=== PATIENT | male | born 1945 | race Caucasian/White ===

== ENCOUNTER → 2017-08-06 13:58 | Outpatient (CLI) | payer MEDICARE, SELFPAY ==
[2017-07-02 14:29] VITALS: BP 110/64
--- NOTE | 2017-08-06 14:03 | RAD_ITS ---
STUDY: X-RAY - CERVICAL SPINE REASON FOR EXAM: Male, 72 years old. Neck pain TECHNIQUE: 6 view(s) of the cervical spine were obtained. COMPARISON: None FINDINGS: Normal anterior atlantoaxial articulation. Normal odontoid process. There is reversal of the normal cervical lordosis. There is diffuse endplate spondylosis of the cervical spine. There is narrowing of the C3-4, L4-5, 5-6, and 6-7 disc spaces. There is multi-level osseous foraminal stenosis. The soft tissue structures are unremarkable. RAD/Cerv Spine 4 or 5 Views IMPRESSION: Degenerative changes of the cervical spine as detailed above. There is no evidence of fracture or subluxation. There is reversal of the normal lordotic curvature. Electronically Signed: Ankit Montelongo MD at 16:48 EST , Service support ,
[2017-08-06 14:15] LABS: Prothrombin Time Fingerstick 50.4 SEC (11.9-14.4)
[2017-08-06 16:00] LABS: International Normalized Ratio 3.4; Prothrombin Time (Protime)PT. 33.1 SECONDS (11.7-14.9)
== END ==
PROVIDERS: Family Provider Family Medicine; PCP Family Medicine; Visit Provider Family Medicine
DX: M54.2 Cervicalgia (principal); I48.0 Paroxysmal atrial fibrillation
CPT/HCPCS: 36415; 36416; 72050; 85610

== ENCOUNTER 2017-08-18 12:58 | Outpatient (RCR) | payer MEDICARE, SELFPAY ==
[2017-08-18 13:10] LABS: Prothrombin Time Fingerstick 28.5 SEC (11.9-14.4)
== END 2017-08-18 15:00 | disposition home or self-care (01) ==
LOC: MTLAB 12:58
PROVIDERS: Family Provider Family Medicine; PCP Family Medicine; Visit Provider Internal Medicine Cardiovascular Disease
DX: I48.0 Paroxysmal atrial fibrillation (principal)
CPT/HCPCS: 36416; 85610

== ENCOUNTER 2017-09-28 10:33 | Outpatient (RCR) | payer MEDICARE, SELFPAY ==
[2017-09-28 10:56] LABS: Prothrombin Time Fingerstick 42.8 SEC (11.9-14.4)
[2017-09-28 12:32] LABS: International Normalized Ratio 3.1; Prothrombin Time (Protime)PT. 32.1 SECONDS (11.7-14.9)
== END 2017-09-28 11:00 | disposition home or self-care (01) ==
LOC: MTLAB 10:33
PROVIDERS: Family Provider Family Medicine; PCP Family Medicine; Visit Provider Internal Medicine Cardiovascular Disease
DX: I48.0 Paroxysmal atrial fibrillation (principal); Z79.01 Long term (current) use of anticoagulants
CPT/HCPCS: 36415; 36416; 85610

== ENCOUNTER → 2017-10-22 12:12 | Outpatient (CLI) | payer MEDICARE, SELFPAY ==
[2017-10-22 12:36] LABS: Prothrombin Time Fingerstick 29.8 SEC (11.9-14.4)
== END ==
PROVIDERS: Family Provider Family Medicine; PCP Family Medicine; Visit Provider Internal Medicine Cardiovascular Disease
DX: I48.0 Paroxysmal atrial fibrillation (principal); Z79.01 Long term (current) use of anticoagulants
CPT/HCPCS: 36416; 85610

== ENCOUNTER → 2017-11-23 13:03 | Outpatient (CLI) | payer MEDICARE, SELFPAY ==
[2017-11-23 13:21] LABS: Prothrombin Time Fingerstick 15.7 SEC (11.9-14.4)
== END ==
PROVIDERS: Family Provider Family Medicine; PCP Family Medicine; Visit Provider Anesthesiology Pain Medicine
DX: I48.0 Paroxysmal atrial fibrillation (principal); Z79.01 Long term (current) use of anticoagulants
CPT/HCPCS: 36416; 85610

== ENCOUNTER → 2017-12-21 07:03 | Outpatient (CLI) | payer MEDICARE, SELFPAY ==
[2017-12-21 10:38] LABS: International Normalized Ratio 2.7; Prothrombin Time (Protime)PT. 28.5 SECONDS (11.7-14.9)
[2017-12-21 10:52] LABS: AST(SGOT) 16 U/L (15-37); Alanine Aminotransfer ALT/SGPT 28 U/L (16-61); Albumin, Serum 3.1 g/dL (3.2-5.0); Alkaline Phosphatase 83 U/L (45-117); Bilirubin, Direct 0.12 mg/dL (0.00-0.30); Cholesterol 161 mg/dL (200); Globulin 4.7 g/dL (2.2-4.2); High Density Lipoprotein 41 mg/dL; Protein, Total 7.8 g/dL (6.4-8.2); Triglycerides 73 mg/dL; Very Low Density Lipoprotein 15 mg/dL (5-40)
== END ==
PROVIDERS: Family Provider Family Medicine; PCP Family Medicine; Visit Provider Physician Assistant Medical
DX: E78.5 Hyperlipidemia, unspecified (principal); I48.0 Paroxysmal atrial fibrillation; Z79.01 Long term (current) use of anticoagulants; Z79.899 Other long term (current) drug therapy
CPT/HCPCS: 36415; 80061; 80076; 85610

== ENCOUNTER 2018-01-07 07:05 | Outpatient (RCR) | payer MEDICARE, SELFPAY ==
[2018-01-07 07:20] LABS: Prothrombin Time Fingerstick 32.8 SEC (11.9-14.4)
== END 2018-01-07 09:00 ==
LOC: MTLAB 07:05
PROVIDERS: Family Provider Family Medicine; PCP Family Medicine; Visit Provider Internal Medicine Cardiovascular Disease
DX: I48.0 Paroxysmal atrial fibrillation (principal); Z79.01 Long term (current) use of anticoagulants
CPT/HCPCS: 36416; 85610

== ENCOUNTER → 2018-01-14 13:55 | Outpatient (CLI) | payer MEDICARE, SELFPAY ==
[2018-01-14 14:06] LABS: Prothrombin Time Fingerstick 17.6 SEC (11.9-14.4)
== END ==
PROVIDERS: Family Provider Family Medicine; PCP Family Medicine; Visit Provider Anesthesiology Pain Medicine
DX: Z79.01 Long term (current) use of anticoagulants (principal)
CPT/HCPCS: 36416; 85610

== ENCOUNTER → 2018-02-08 12:03 | Outpatient (CLI) | payer MEDICARE, SELFPAY ==
[2018-02-08 14:09] LABS: PSA,Total - Annual Screen 3.65 ng/mL (0.00-4.00)
== END ==
PROVIDERS: Family Provider Family Medicine; PCP Family Medicine; Visit Provider Physician Assistant
DX: Z12.5 Encounter for screening for malignant neoplasm of prostate (principal)
CPT/HCPCS: 36415; 84153; G0103

== ENCOUNTER → 2018-02-09 14:21 | Outpatient (CLI) | payer MEDICARE, SELFPAY | PROVIDERS: Family Provider Family Medicine; PCP Family Medicine; Visit Provider Family Medicine | DX: Z01.818 Encounter for other preprocedural examination (principal) | CPT/HCPCS: 36415; 86900 ==

== ENCOUNTER 2018-02-25 07:14 | Outpatient (RCR) | payer MEDICARE, SELFPAY ==
[2018-02-25 10:26] LABS: International Normalized Ratio 2.8
== END 2018-02-25 09:00 | disposition home or self-care (01) ==
LOC: MTLAB 07:14
PROVIDERS: Family Provider Family Medicine; PCP Family Medicine; Visit Provider Internal Medicine Cardiovascular Disease
DX: I48.0 Paroxysmal atrial fibrillation (principal); Z79.01 Long term (current) use of anticoagulants
CPT/HCPCS: 36415; 36416; 85610

== ENCOUNTER 2018-03-26 12:11 | Outpatient (RCR) | payer MEDICARE, SELFPAY ==
[2018-03-17 09:41] LABS: Prothrombin Time Fingerstick 49.2 SEC (11.9-14.4)
[2018-03-17 11:45] LABS: International Normalized Ratio 3.7; Prothrombin Time (Protime)PT. 36.7 SECONDS (11.7-14.9)
[2018-03-26 14:19] LABS: International Normalized Ratio 3.2; Prothrombin Time (Protime)PT. 33.3 SECONDS (11.7-14.9)
== END 2018-03-26 14:00 | disposition home or self-care (01) ==
LOC: MTLAB 12:11
PROVIDERS: Family Provider Family Medicine; PCP Family Medicine; Visit Provider Internal Medicine Cardiovascular Disease
DX: I48.0 Paroxysmal atrial fibrillation (principal); Z79.01 Long term (current) use of anticoagulants
CPT/HCPCS: 36415; 36416; 85610

== ENCOUNTER 2018-04-21 10:41 | Outpatient (RCR) | payer MEDICARE, SELFPAY ==
[2018-04-21 11:06] LABS: Prothrombin Time Fingerstick 24.7 SEC (11.9-14.4)
== END 2018-04-21 12:00 | disposition home or self-care (01) ==
LOC: MTLAB 10:41
PROVIDERS: Family Provider Family Medicine; PCP Family Medicine; Referring Provider Internal Medicine Cardiovascular Disease; Visit Provider Internal Medicine Cardiovascular Disease
DX: I48.0 Paroxysmal atrial fibrillation (principal); Z79.01 Long term (current) use of anticoagulants
CPT/HCPCS: 36416; 85610

== ENCOUNTER 2018-05-31 11:07 | Outpatient (RCR) | payer MEDICARE, SELFPAY ==
[2018-05-31 11:20] LABS: Prothrombin Time Fingerstick 21.1 SEC (11.9-14.4)
== END 2018-05-31 12:00 | disposition home or self-care (01) ==
LOC: MTLAB 11:07
PROVIDERS: Family Provider Family Medicine; PCP Family Medicine; Referring Provider Internal Medicine Cardiovascular Disease; Visit Provider Internal Medicine Cardiovascular Disease
DX: I48.0 Paroxysmal atrial fibrillation (principal); Z79.01 Long term (current) use of anticoagulants
CPT/HCPCS: 36416; 85610

== ENCOUNTER → 2018-07-23 16:26 | Outpatient (CLI) | payer MEDICARE, SELFPAY ==
[2018-07-23 18:02] LABS: Absolute Lymphocyte Count 1.66 X10^3/ul (0.83-4.51); Basophil# 0.04 X10^3/uL; Basophil% 0.4 % (0-1); Eosinophil# 0.15 X10^3/uL; Eosinophils% 1.7 % (0-5); Hematocrit 44.6 % (40-54); Hemoglobin 14.6 g/dl (13.0-16.5); Lymphocyte # 1.66 X10^3/ul (4.0); Lymphocyte % 18.7 % (19-41); Mean Corp Hgb Conc 32.7 g/gl (32-36); Mean Corpuscular Hgb 30.3 pg (27.0-32.0); Mean Corpuscular Volume 92.5 fL (80-94); Mean Platelet Vol. 11.4 fl (6.2-12.0); Monocyte# 0.97 X10^3/uL; Monocyte% 10.9 % (0-10); Neutrophil # 6.03 X10^3/uL (2.7-7.7); Neutrophil % 67.9 % (47-70); Platelet Count 263 K/mm3 (150-450); RBC Distribution Width CV 13.7 % (11.6-14.6); RBC Distribution Width SD 46.5 fl (35.1-43.9); Red Blood Count 4.82 M/mm3 (4.6-6.2); White Blood Count 8.9 K/mm3 (4.4-11.0)
[2018-07-23 18:06] LABS: POSITIVE COUNT NO; POSITIVE DIFFERENTIAL NO; POSITIVE MORPHOLOGY NO
[2018-07-23 18:29] LABS: ALB/GLOB Ratio 0.7 RATIO (0.9-2.4); AST(SGOT) 15 U/L (15-37); Alanine Aminotransfer ALT/SGPT 23 U/L (16-61); Albumin, Serum 3.6 g/dL (3.2-5.0); Alkaline Phosphatase 91 U/L (45-117); Anion Gap 9 (5-15); BUN 21 mg/dL (7-18); BUN/Creat Ratio 20.2 RATIO (10-20); Calcium,Total 9.4 mg/dL (8.5-10.1); Chloride 110 mmol/L (98-107); Creatinine, Serum 1.04 mg/dL (0.70-1.30); EST Glomerular Filtration Rate 75 mL/min (>60); Est Glom Filt Rate - Afr Amer 90 mL/min (>60); Globulin 4.9 g/dL (2.2-4.2); Glucose 88 mg/dL (74-106); Potassium 4.3 mmol/L (3.5-5.1); Protein, Total 8.5 g/dL (6.4-8.2); Sodium Level 140 mmol/L (136-145); Thyroid Stim Hormone (TSH) 1.31 uIU/mL (0.358-3.74)
--- OUTSIDE RECORDS SUMMARY | 2018-09-27 07:49 | XMS RPT_ITS ---
:1945 Author Organization OHIP Support Name Relationship Address Phone BRNADON WILL Unavailable [address] + [place] [address] R Unavailable Unavailable Unavailable NICOLETTE, BRANDON Unavailable [address] + [place] [address] R Unavailable Unavailable Unavailable NICOLETTE, BRANDON Unavailable [address] + [place] [address] R Unavailable Unavailable Unavailable NICOLETTE, BRANDON Unavailable [address] + [place] [address] R Unavailable Unavailable Unavailable NICOLETTE, BRANDON Unavailable [address] + [place] [address] R Unavailable Unavailable Unavailable NICOLETTE, BRANDON Unavailable [address] + [place] [address] R Unavailable Unavailable Unavailable NICOLETTE, BRANDON Unavailable [address] + [place] [address] R Unavailable Unavailable Unavailable NICOLETTE, BRANDON Unavailable [address] + [place] [address] R Unavailable Unavailable Unavailable NICOLETTE, BRANDON Unavailable [address] + [place] [address] R Unavailable Unavailable Unavailable NICOLETTE, BRANDON Unavailable [address] + [place] [address] R Unavailable Unavailable Unavailable NICOLETTE, BRANDON Unavailable [address] + [place] [address] R Unavailable Unavailable Unavailable NICOLETTE, BRANDON Unavailable [address] + [place] [address] R Unavailable Unavailable Unavailable NICOLETTE, BRANDON Unavailable [address] + [place] [address] R Unavailable Unavailable Unavailable NICOLETTE, BRANDON Unavailable [address] + [place] [address] R Unavailable Unavailable Unavailable NICOLETTE, BRANDON Unavailable [address] + [place] [address] R Unavailable Unavailable Unavailable NICOLETTE, BRANDON Unavailable [address] + [place] [address] R Unavailable Unavailable Unavailable NICOLETTE, BRANDON Unavailable [address] + [place] [address] R Unavailable Unavailable Unavailable NICOLETTE, BRANDON Unavailable [address] + [place] [address] R Unavailable Unavailable Unavailable Care Team Providers Name Role Phone Joe Trotter Attending Unavailable Sergo, Joe Primary Care Unavailable Priscilla, Dequan Attending Unavailable Sergo, Joe Primary Care Unavailable Priscilla, Dequan Referring Unavailable Sergo, Joe Attending Unavailable Sergo, Joe Referring Unavailable Sergo, Joe Primary Care Unavailable Yohana Willoughby Consulting Unavailable Priscilla, Dequan Attending Unavailable Priscilla, Dequan Referring Unavailable Sergo, Joe Primary Care Unavailable Priscilla, [place] Attending Unavailable Priscilla, Dequan Referring Unavailable Sergo, Joe Primary Care Unavailable Priscilla, Dequan Attending Unavailable Sergo, Joe Primary Care Unavailable Cesar Khalil Attending Unavailable Cesar Khalil Referring Unavailable Sergo, Joe Primary Care Unavailable Yohana Willoughby Attending Unavailable Yohana Willoughby Referring Unavailable Sergo, Joe Primary Care Unavailable Yohana Willoughby Attending Unavailable Sergo, Joe Referring Unavailable Cesar Khalil Attending Unavailable Cesar Khalil Referring Unavailable Sergo, Joe Primary Care Unavailable Kenna Skinner LEAF SORTER-C Attending Unavailable Priscilla, Dequan Attending Unavailable Priscilla, [place] Referring Unavailable Sergo, Joe Primary Care Unavailable Christa García Attending Unavailable Christa García Referring Unavailable Sergo, Joe Primary Care Unavailable Sergo, Joe Attending Unavailable Sergo, Joe Primary Care Unavailable Sergo, Joe Referring Unavailable Priscilla, Dequan Attending Unavailable Priscilla, [place] Referring Unavailable Sergo, Joe Primary Care Unavailable Priscilla, [place] Attending Unavailable Priscilla, [place] Referring Unavailable Sergo, Joe Primary Care Unavailable Priscilla, [place] Attending Unavailable Priscilla, Dequan Referring Unavailable Sergo, Joe Primary Care Unavailable Priscilla, Dequan Attending Unavailable Dequan Wells Referring Unavailable Joe Trotter Primary Care Unavailable PROBLEMS PROBLEMS DATE TYPE CONDITION / CODE ATTENDING STATUS SOURCE 07/27/2018 Unknown 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, left upper Hospital limb / Repository G56.12(ICD-10) 05/06/2018 Unknown I48.0 - Paroxysmal Dequan Wells Active [place] atrial fibrillation Community / I48.0(ICD-10) Hospital Repository 02/09/2018 Unknown Z01.818 - Encounter Joe Trotter Active [place] for other [facility] preprocedural Hospital examination / Repository Z01.818(ICD-10) 01/15/2018 Unknown Z79.01 - rn long term care Prebish, Kenna Active [place] (current) use of LEAF SORTER-C [facility] anticoagulants / Hospital Z79.01(ICD-10) Repository 08/06/2017 Unknown M54.2 - Cervicalgia Joe Trotter Active [place] / M54.2(ICD-10) [facility] Hospital Repository PROCEDURES PROCEDURES No Procedure Records FoundRESULTS RESULTS MISCELLANEOUS LAB Collected: 07/23/2018 Status: F Source: [place] PROCEDURE 2 4:33 PM [facility] REPOSIT[facility] Order Comment: Comments: ROOM TEMP, DO NOT OPEN, List Test(s) Ordered by Physician: [id number] TYPE CODE TESTS RESULT OUT OF RANGE REFERENCE UNITS LAB L801.1543 Normal [facility] [place] LAB TEST 2 Result Comment: TEST RESULT UNITS REF INTERVAL Heavy Metals Profile II, Blood Lead, Blood 2 ug/dL 0 - 4 Blood Lead Collection Method: Venous Testing performed by Inductively coupled plasma/Mass Spectrometry. Environmental Exposure: WHO Recommendation <20 Occupational Exposure: OSHA Lead Std 40 KEANU 30 Detection Limit = 1 This test was developed and its performance characteristics determined by [employer]. It has not been cleared or approved by the Food and Drug Administration. Arsenic, Blood 8 ug/L 2 - 23 Detection Limit = 1 Mercury, Blood 1.6 ug/L 0.0 - 14.9 Environmental Exposure: <15.0 Occupational Exposure: KEANU - Inorganic Mercury: 15.0 Detection Limit = 1.0 Cadmium, Blood None Detected ug/L 0.0 - 1.2 Environmental Exposure: Nonsmokers 0.3 - 1.2 Smokers 0.6 - 3.9 Occupational Exposure: OSHA Cadmium Std 5.0 KEANU 5.0 Detection Limit = 0.5 Manganese, Blood 6.9 Low ug/L 8.0 - 18.7 TESTING PERFORMED AT [facility]. ORIGINAL REPORT ON FILE IN LAB CONTAINS ADDITIONAL TEST SITE INFORMATION. Performed By: #### L801.1543 #### [facility] [address] [place], [address] CBC W/DIFF, AUTOMATED Collected: 07/23/2018 Status: F Source: [place] 4:29 PM [facility] RE[facility] TYPE CODE TESTS RESULT OUT OF RANGE REFERENCE UNITS LAB L100.1000 4.4-11.0 K/mm3 Normal WBC 8.9 LAB L100.1200 4.6-6.2 M/mm3 Normal RBC 4.82 LAB L100.1300 13.0-16.5 g/dl Normal HGB 14.6 LAB L100.1400 40-54 % Normal HCT 44.6 LAB L100.1500 80-94 fL Normal MCV 92.5 LAB L100.1600 27.0-32.0 pg Normal MCH 30.3 LAB L100.1700 32-36 g/gl Normal MCHC 32.7 LAB L100.1810 11.6-14.6 % Normal RDW CV 13.7 LAB L100.1820 35.1-43.9 fl High RDW SD 46.5 LAB L100.1900 150-450 K/mm3 Normal PLT 263 LAB L100.2000 6.2-12.0 fl Normal MPV 11.4 LAB L100.2100 47-70 % Normal NEUT% 67.9 LAB L100.2200 19-41 % Low LY% 18.7 LAB L100.2300 0-10 % High MONO% 10.9 LAB L100.2400 0-5 % Normal EO% 1.7 LAB L100.2500 0-1 % Normal BASO% 0.4 LAB L100.2550 0.0-0.9 % Normal IM GRAN % 0.400 Result Comment: IG% - Immature Granulocytes (promyelocytes, myelocytes and metamyelocytes) > 1% indicates that a LEFT SHIFT is Present. LAB L100.2620 2.0-7.7 X10 3/uL Normal Absolute Neut 6.0 LAB L100.2720 0.83-4.51 X10 3/ul Normal Absolute Lymph 1.66 Performed By: #### L100.0100 #### [facility] [address] [place], [place], [address] COMPREHENSIVE METABOLIC Collected: 07/23/2018 Status: F Source: [place] [facility] 4:29 PM [facility] REPOS[facility] Order Comment: Comments: ROOM TEMP, DO NOT OPEN, TYPE CODE TESTS RESULT OUT OF RANGE REFERENCE UNITS LAB L501.0100 74-106 mg/dL Normal GLU 88 Result Comment: Please note revised GLUCOSE reference range effective 2017. LAB L501.1000 7-18 mg/dL High BUN 21 LAB L501.1100 0.70-1.30 mg/dL Normal CREAT,SERUM 1.04 Result Comment: The validity of the calculated GFR AND GFRAA in patients over 70 years has not been determined. Clinical correlation is essential. LAB L501.1110 >60 mL/min Normal EST GFR 75 Result Comment: Non- GFR Calc LAB L501.1115 >60 mL/min Normal EST GFR - AA 90 Result Comment: GFR Calc LAB L501.1300 10-20 RATIO High BUN/CRE 20.2 LAB L501.1500 6.4-8.2 g/dL High T PROT 8.5 LAB L501.1800 3.2-5.0 g/dL Normal ALB 3.6 LAB L501.1950 2.2-4.2 g/dL High GLOB 4.9 LAB L501.2000 0.9-2.4 RATIO Low A/G 0.7 LAB L501.2200 8.5-10.1 mg/dL CA Normal 9.4 LAB L501.4100 15-37 U/L Normal AST 15 LAB L501.4305 45-117 U/L Normal ALK P 91 LAB L501.4405 16-61 U/L Normal ALT 23 LAB L501.4600 0.20-1.00 mg/dL T Normal BILI 0.50 LAB L501.5300 136-145 mmol/L NA Normal 140 LAB L501.5600 3.5-5.1 mmol/L K Normal 4.3 LAB L501.5900 98-107 mmol/L High CL 110 LAB L501.6100 21.0-32.0 mmol/L Normal CO2 21.0 LAB L501.6200 5-15 Normal GAP 9 Performed By: #### L500.4050, L501.9520 #### [facility] [address] [place], [address] THYROID STIM HORMONE Collected: 07/23/2018 Status: F Source: [place] ([facility]) 4:29 PM [facility] REPOSIT[facility] Order Comment: Comments: ROOM TEMP, DO NOT OPEN, TYPE CODE TESTS RESULT OUT OF RANGE REFERENCE UNITS LAB L501.9520 0.358-3.74 uIU/mL Normal TSH 1.31 Performed By: #### L500.4050, L501.9520 #### [facility] [address] [place], [address] PROTIME W/INR Collected: 05/31/2018 Status: F Source: [place] 11:14 AM [facility] REPOSITORY TYPE CODE TESTS RESULT OUT OF REFERENCE UNITS RANGE LAB L9200.1001 11.9-14.4 SEC High PROTIME ISTAT 21.1 Result Comment: Reference Range 11.9 - 14.4 LAB L9200.2000 Normal INR ISTAT 1.80 Result Comment: Critical Value > 3.5 Performed By: #### L9200.0000 #### [facility] [address] [facility] [place], [place] [address] PROTIME W/INR Collected: 04/21/2018 Status: F Source: [place] 10:59 AM [facility] REPOSITORY TYPE CODE TESTS RESULT OUT OF REFERENCE UNITS RANGE LAB L9200.1001 11.9-14.4 SEC High PROTIME ISTAT 24.7 Result Comment: Reference Range 11.9 - 14.4 LAB L9200.2000 Normal INR ISTAT 2.10 Result Comment: Critical Value > 3.5 Performed By: #### L9200.0000 #### [facility] Point of Care [address] [place] [address] PROTHROMBIN TIME W/INR Collected: 03/26/2018 Status: F Source: [place] 12:20 PM [facility] REPOSIT[facility] TYPE CODE TESTS RESULT OUT OF RANGE REFERENCE UNITS LAB L300.4150 11.7-14.9 SECONDS High PROTIME 33.3 LAB L300.4200 Normal INR 3.2 Performed By: #### L300.3900 #### [facility] [address] [place], [place] [address]myrna Garcia. [facility] [address] PROTHROMBIN TIME W/INR Collected: 03/17/2018 Status: F Source: [place] 9:46 AM [facility] REPOS[facility] Order Comment: Result obtained is for confirmation testing of Fingerstick PT/INR Specimen # [id number] . 03/17/18 0948 VSICK THIS CONFIRMATION SPECIMEN RESULT IS FROM VENOUS BLOOD. CRITICAL VALUE VERIFIED. CALLED TO SERA LARA 03/17/18 Yani Solis. RESULTS READ BACK BY SAME . TYPE CODE TESTS RESULT OUT OF REFERENCE UNITS RANGE LAB L300.4150 11.7-14.9 SECONDS High PROTIME 36.7 LAB L300.4200 High alert INR 3.7 Performed By: #### L300.3900 #### [facility] [place], [address] PROTIME W/INR Collected: 03/17/2018 Status: F Source: [place] 9:34 AM [facility] REPOSIT[facility] TYPE CODE TESTS RESULT OUT OF REFERENCE UNITS RANGE LAB L9200.1001 11.9-14.4 SEC High PROTIME ISTAT 49.2 Result Comment: Reference Range 11.9 - 14.4 LAB L9200.2000 High alert INR ISTAT 4.40 Result Comment: Critical Value > 3.5 Performed By: #### L9200.0000 #### [facility] Point of Care [address] [place], [place] [address] PROTHROMBIN TIME W/INR Collected: 02/25/2018 Status: F Source: [place] 7:26 AM [facility] RE[facility] Order Comment: This critical result is preliminary and not confirmed. Venous sample sent to main laboratory for confirmation. A call with confirmation result will follow. See specimen #:[id number] for confirmation result. Preliminary critical result Call to/Read back by DARLYN . 02/25/18 0851 HENRIK. TYPE CODE TESTS RESULT OUT OF RANGE REFERENCE UNITS LAB L300.4150 11.7-14.9 SECONDS High PROTIME 30.0 LAB L300.4200 Normal INR 2.8 Performed By: #### L300.3900 #### [facility] [address] [place], [address] PROTIME W/INR Collected: 02/25/2018 Status: F Source: [place] 7:20 AM [facility] REPOSIT[facility] TYPE CODE TESTS RESULT OUT OF REFERENCE UNITS RANGE LAB L9200.1001 11.9-14.4 SEC High PROTIME ISTAT 40.0 Result Comment: Reference Range 11.9 - 14.4 LAB L9200.2000 Normal INR ISTAT 3.50 Result Comment: Critical Value > 3.5 Performed By: #### L9200.0000 #### [facility] Point of Care [address] [place], [place] [address] ABO RH BLOOD TYPE, Collected: 02/09/2018 Status: F Source: [place] PATIENT 2:25 PM [facility] REPOSIT[facility] TYPE CODE TESTS RESULT OUT OF RANGE REFERENCE UNITS LAB B10.0800 O Normal BLOOD POSITIVE TYPE GEL Performed By: #### B10.0010 #### [facility] [address] [place], [address] PSA,TOTAL - ANNUAL Collected: 02/08/2018 Status: F Source: [place] SCREEN 12:07 PM [facility] REPOSIT[facility] TYPE CODE TESTS RESULT OUT OF RANGE REFERENCE UNITS LAB L501.9910 0.00-4.00 ng/mL Normal PSA,TOT 3.65 SCREEN Result Comment: This test was performed using the TPSA assay method for the [employer] system. Values obtained with different assay methods cannot be used interchangably. When changing PSA assays in the course of monitoring a patient, additional sequential testing should be carried out to confirm baseline values. Performed By: #### L501.9910 #### [facility] [address] [place], [address] PROTIME W/INR Collected: 01/14/2018 Status: F Source: [place] 2:00 PM [facility] REPOS[facility] TYPE CODE TESTS RESULT OUT OF REFERENCE UNITS RANGE LAB L9200.1001 11.9-14.4 SEC High PROTIME ISTAT 17.6 Result Comment: Reference Range 11.9 - 14.4 LAB L9200.2000 Normal INR ISTAT 1.50 Result Comment: Critical Value > 3.5 Performed By: #### L9200.0000 #### [facility] Point of Care [address] [place] [address] CARDIOLOGY VISIT Observed: 01/07/2018 Status: F Source: [place] REPORT 4:34 PM [facility] REPOSITORY [facility] [address] [place] [address] OFFICE VISIT Date of Service: 01/07/18 MR#: [id number] Acct: [id number] Name: TUCKER WILL Rep #: [id number] : 1945 Provider: Yohana Willoughby Age/Sex: 72/M Location: [facility] [place] Status: Signed HPI HPI Details: TUCKER WILL, is a 72 M who presents to the office today for a cardiovascular followup. He has a history of paroxysmal atrial fibrillation and remains on low-dose amiodarone. He also has a history of coronary artery disease, hypertension, hyperlipidemia and diabetes. Heart catheterization in 2007 demonstrated 30% distal left main stenosis and circumflex and RCA with no significant lesions From a cardiac standpoint, patient is doing well. He does not have any chest discomfort/heaviness/tightness. He does not have any worsening symptoms of shortness of breath. He denies any PND. He does not have any orthopnea. He does not have any symptoms of congestive heart failure. He does not have any palpitations that he is aware of. He does not have any lightheadedness or dizziness. He does not have any near-syncope or syncope. He does not have any lower extremity edema. He does not have any symptoms of claudication. 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 Required: No Is patient in pain?: No Allergies acetaminophen [From [facility]] Allergy (Verified 01/07/18 13:07) SOB and leg weakness hydrocodone [From [facility]] Allergy (Verified 01/07/18 13:07) SOB and leg weakness codeine Adverse Reaction (Verified 01/07/18 13:07) GOOFY peppermint Adverse Reaction (Verified 01/07/18 13:07) Other Medications aspirin 81 mg tablet,delayed release 81 mg PO QDAY 07/01/17 [History Confirmed 01/07/18] cholecalciferol (vitamin D3) 2,000 unit tablet 2,000 unit PO ONCE 07/01/17 [History Confirmed 01/07/18] hydrochlorothiazide 25 mg tablet 25 mg PO QDAY 90 Days #90 tab 07/01/17 [History Confirmed 01/07/18] metoprolol tartrate 50 mg tablet 50 mg PO BID 90 Days #180 tab 07/01/17 [History Confirmed 01/07/18] sertraline 25 mg tablet 25 mg PO QDAY 90 Days #90 tab 07/01/17 [History Confirmed 01/07/18] losartan 100 mg tablet 100 mg PO QDAY #90 tab 09/10/17 [Rx Confirmed 01/07/18] amiodarone 200 mg tablet PO 90 Days #45 01/07/18 [History Confirmed 01/07/18] amlodipine 10 mg tablet PO 90 Days #90 01/07/18 [History Confirmed 01/07/18] tramadol 50 mg tablet PO 30 Days #30 01/07/18 [History Confirmed 01/07/18] turmeric root extract 500 mg capsule 500 mg PO QDAY 01/07/18 [History Confirmed 01/07/18] warfarin 5 mg tablet PO 90 Days #90 01/07/18 [History Confirmed 01/07/18] Nurse's Note: patient states that he experiences swelling in his legs in the evenings when he is more stationary. 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) History of left heart catheterization (LHC) (Chronic 02/2008) History of lumbar laminectomy (Chronic) Family History Father CAD (coronary artery disease) Myocardial infarction, Onset Age: 57 Brother Hypertension Brother Hx of CABG Sister Atrial fibrillation Social History Smoking Status: Former smoker alcohol intake: never substance use type: does not use caffeine: Yes Type: coffee what type of physical activity do you participate in: weight training, walking frequency: daily seatbelt use: always do you feel safe at home: Yes ROS Const Const: Negative for body ache, fever(s), chills, night sweats, daytime sleepiness, difficulty sleeping, weight gain, weight loss, increased appetite, poor appetite, anorexia, other, frequent falls, headache(s), weakness, fatigue or excessive sweating Eyes Eyes: Negative for blind spots, loss of peripheral vision, transient loss of vision, change in vision, floaters, tunnel vision, other, blurry vision or double vision ENT ENT: Positive for balance problems; negative for headache(s) Cardio Chest Pain: No Palpitations: No Edema: Bilateral Muscle aches with walking: Bilateral Resp Respiratory: Negative for SOB with activity, SOB at rest, SOB orthopnea\SOB lying down, Coughing up blood/hemoptysis, chest congestion, pain on inspiration, snoring, stridor, wheezing, crackles, paroxysmal nocturnal dyspnea or other GI GI: Negative nausea, vomiting, heartburn, constipation, belching, bloating, cramping, vomiting blood/hematemesis, bright, red blood in stools, black,tarry stools, loose stools, Difficulty Swallowing or other : Negative for hematuria, frequent nighttime urination/ nocturia, erectile dysfunction or abnormal vaginal bleeding Musc Musc: Positive for muscle aches/ myalgia, muscle weakness, joint pain and balance problems Skin Skin: Negative redness, non-healing lesions, rash, unusual bruising, skin ulcer, wounds, jaundice or other Neuro Neuro: Negative for frequent falls, headache(s), weakness, blurry vision or double vision Je[place] Hematologic/Lymphatic: Negative for easy bleeding, easy bruising, enlarged lymph nodes or other Endo Endo: Negative for fatigue or excessive sweating Psych Psych: Negative for anxiety, depression, thoughts of harming anyone, thoughts of harming yourself, visual hallucinations, panic attacks or audible hallucinations Allergy Allergy/Immunology: Negative for rash Cardiology Exam Const Appearance: cooperative, no acute distress and well developed Orientation: alert, awake and oriented x3 Head Head: normocephalic and atraumatic Mouth: moist mucous membranes Eyes General: appearance normal, both eyes and all related structures Conjunctivae: conjunctivae normal Pupils: PERRL EOM: EOM intact bilaterally Neck Neck: normal visual inspection, no lymphadenopathy and no JVD Carotids: Negative bruit Neck Mass: Negative Neck mass Chest Chest inspection: normal inspection of the chest and symmetric chest movement Auscultation: Bilateral: Clear to Auscultation Cardio Palpation: normal PMI Rate: regular rate Rhythm: regular rhythm Heart sounds: S1 normal and S2 normal; negative rub, gallop or murmur GI GI: normal to inspection, soft, no hepatosplenomegaly and bowel sounds present; negative tender Neuro General: alert, awake, oriented x3, CN's II-XI intact bilaterally and moves all extremities Extremities Pulses: Normal: Right Posterior Tibial Pulse, Left Posterior Tibial Pulse, Right Radial Pulse, Left Radial Pulse Lower Extremity Edema: None: Bilateral Psych Psychological: normal affect Supplemental Info Echocardiogram in 2016 demonstrated Normal LV size. Left ventricular systolic function is normal. The estimated ejection fraction is 60 %. Mildly dilated aortic root. The left atrium is mildly enlarged. The right atrium is mildly enlarged. Assessment AND Plan 1. Atherosclerosis of [place] coronary artery of [place] heart without angina pectoris I25.10 Plan - JACKELINE Joiner Stable, from a cardiac standpoint patient does not have any symptoms of angina. We recommend that they continue with current aggressive medical management and risk factor modification. 2. Paroxysmal atrial fibrillation I48.0 Plan - JACKELINE Joiner Patient does not have any symptomatic recurrence. He will continue with his current dose of beta-tono. He is anticoagulated with an INR goal of 2-3. 3. Pure hypercholesterolemia E78.00 Plan - JACKELINE Joiner Recent lipid profile demonstrates total cholesterol 161, HDL 41, LDL 105. Will not make any adjustments. 4. Essential hypertension I10 Plan - JACKELINE Joiner Blood pressure is well controlled on current medications, we do not recommend any changes at this time. Plan Detail Additional Comments - JACKELINE Jioner The above patient was discussed with Dr. Wells, he agrees with plan of care. Thank you for allowing us to participate in patient's plan of care, if you have any questions please do not hesitate to call. This note was generated using a voice recognition system and there may be incorrect words, spelling or punctuation errors that were not noted when reviewing the office note prior to saving. 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 transplanted heart: [place] heart Paroxysmal atrial fibrillation I48.0 Pure hypercholesterolemia E78.00 Hyperlipidemia type: pure hypercholesterolemia Essential hypertension I10 Hypertension type: essential hypertension Coding Level of Care Code Off vis,est,level 3 Diagnoses Atherosclerosis of [place] coronary artery of [place] heart without angina pectoris I25.10 [place] vs. transplanted heart: [place] heart Paroxysmal atrial fibrillation I48.0 Pure hypercholesterolemia E78.00 Hyperlipidemia type: pure hypercholesterolemia Essential hypertension I10 Hypertension type: essential hypertension 01/07/18 1400 <Electronically signed by Yohana VIVEROS> Date Yohana VIVEROS 01/07/18 1634<Electronically signed by Dequan Wells MD> Cosigner Signature: Date (if applicable) Dequan Wells MD CC: Joe Trotter DO PROTIME W/INR Collected: 01/07/2018 Status: F Source: AMMY FINGERSTICK 7:15 AM [facility] REPOSITORY TYPE CODE TESTS RESULT OUT OF REFERENCE UNITS RANGE LAB L9200.1001 11.9-14.4 SEC High PROTIME ISTAT 32.8 Result Comment: Reference Range 11.9 - 14.4 LAB L9200.2000 Normal INR ISTAT 2.90 Result Comment: Critical Value > 3.5 Performed By: #### L9200.0000 #### [facility] Point of Care [address] [place], [place] [address] PROTHROMBIN TIME W/INR Collected: 12/21/2017 Status: F Source: AMMY 7:08 AM [facility] REPOSITORY TYPE CODE TESTS RESULT OUT OF RANGE REFERENCE UNITS LAB L300.4150 11.7-14.9 SECONDS High PROTIME 28.5 LAB L300.4200 Normal INR 2.7 Performed By: #### L300.3900 #### [facility] [address] [facility], [address] LIVER PROFILE Collected: 12/21/2017 Status: F Source: AMMY 7:07 AM [facility] REPOSITORY Order Comment: Order Date: 11/18/16 Order Info: 0788-1 - *Hepatic Function Panel Order Info: [id number] - *Lipid Profile CC PCP Comments: 12 hours fasting, may have water. TYPE CODE TESTS RESULT OUT OF RANGE REFERENCE UNITS LAB L501.1500 6.4-8.2 g/dL Normal T PROT 7.8 LAB L501.1800 3.2-5.0 g/dL Low ALB 3.1 LAB L501.1950 2.2-4.2 g/dL High GLOB 4.7 LAB L501.4100 15-37 U/L Normal AST 16 LAB L501.4305 45-117 U/L Normal ALK P 83 LAB L501.4405 16-61 U/L Normal ALT 28 LAB L501.4600 0.20-1.00 mg/dL Normal T BILI 0.50 LAB L501.4700 0.00-0.30 mg/dL Normal D BILI 0.12 Performed By: #### L500.3400 #### [facility] [address] [place], [address] LIPID PROFILE Collected: 12/21/2017 Status: F Source: AMMY 7:07 AM [facility] REPOSITORY Order Comment: Order Date: 11/18/16 Order Info: 0788-1 - *Hepatic Function Panel Order Info: [id number] - *Lipid Profile CC PCP Comments: 12 hours fasting, may have water. TYPE CODE TESTS RESULT OUT OF RANGE REFERENCE UNITS LAB L501.4900 200 mg/dL Normal CHOL 161 Result Comment: <200 mg/dL Desirable 200-240 mg/dL Borderline >240 mg/dL High Risk LAB L501.5000 mg/dL Normal TRIG 73 Result Comment: The drugs N-Acetylcysteine and Metamizole may falsely depress this assay. Serum Triglycerides Reference Interval Normal <150 mg/dL Borderline high 150 - 199 mg/dL High 200 - 499 mg/dL Very High > or = 500 mg/dL LAB L501.6400 mg/dL Normal HDL 41 Result Comment: The drugs N-Acetylcysteine and Metamizole may falsely depress this assay. Reference Range HDL <40 mg/dL Low HDL Cholesterol HDL >or= 60 mg/dL High HDL Cholesterol LAB L501.6500 0-130 mg/dL Normal LDL 105 LAB L501.6600 5-40 mg/dL Normal VLDL 15 Performed By: #### L500.4100 #### [facility] [address] [place], [address] PROTIME W/INR Collected: 11/23/2017 Status: F Source: AMMY [place] 1:17 PM [facility] REPOSITORY TYPE CODE TESTS RESULT OUT OF REFERENCE UNITS RANGE LAB L9200.1001 11.9-14.4 SEC High PROTIME ISTAT 15.7 Result Comment: Reference Range 11.9 - 14.4 LAB L9200.2000 Normal INR ISTAT 1.30 Result Comment: Critical Value > 3.5 Performed By: #### L9200.0000 #### [facility] Point of Care [address] [place] [address] PROTIME W/INR Collected: 10/22/2017 Status: F Source: [facility] [place] 12:23 PM [facility] REPOSITORY TYPE CODE TESTS RESULT OUT OF REFERENCE UNITS RANGE LAB L9200.1001 11.9-14.4 SEC High PROTIME ISTAT 29.8 Result Comment: Reference Range 11.9 - 14.4 LAB L9200.2000 Normal INR ISTAT 2.60 Result Comment: Critical Value > 3.5 Performed By: #### L9200.0000 #### [facility] Point of Care [address] [place], [place] [address] PROTHROMBIN TIME W/INR Collected: 09/28/2017 Status: F Source: AMMY 10:53 AM [facility] REPOSITORY Order Comment: This critical result is preliminary and not confirmed. Venous sample sent to main laboratory for confirmation. A call with confirmation result will follow. See specimen #C for confirmation result. Preliminary critical result Call to/Read back by ARIEL. 09/28/17 1053 TREED. TYPE CODE TESTS RESULT OUT OF RANGE REFERENCE UNITS LAB L300.4150 11.7-14.9 SECONDS High PROTIME 32.1 LAB L300.4200 Normal INR 3.1 Performed By: #### L300.3900 #### [facility] [address] [place], [place], [address] PROTIME W/INR Collected: 09/28/2017 Status: F Source: [facility] [place] 10:44 AM [facility] REPOSITORY TYPE CODE TESTS RESULT OUT OF REFERENCE UNITS RANGE LAB L9200.1001 11.9-14.4 SEC High PROTIME ISTAT 42.8 Result Comment: Reference Range 11.9 - 14.4 LAB L9200.2000 High alert INR ISTAT 3.80 Result Comment: Critical Value > 3.5 Performed By: #### L9200.0000 #### [facility] Point of Care [address] [place], [place] [address] PROTIME W/INR Collected: 08/18/2017 Status: F Source: AM[facility] [place] 1:07 PM [facility] REPOSITORY TYPE CODE TESTS RESULT OUT OF REFERENCE UNITS RANGE LAB L9200.1001 11.9-14.4 SEC High PROTIME ISTAT 28.5 Result Comment: Reference Range 11.9 - 14.4 LAB L9200.2000 Normal INR ISTAT 2.50 Result Comment: Critical Value > 3.5 Performed By: #### L9200.0000 #### [facility] Point of Care [address] [place] [address] PROTHROMBIN TIME W/INR Collected: 08/06/2017 Status: F Source: AMMY 2:09 PM [facility] REPOSITORY TYPE CODE TESTS RESULT OUT OF RANGE REFERENCE UNITS LAB L300.4150 11.7-14.9 SECONDS High PROTIME 33.1 LAB L300.4200 Normal INR 3.4 Performed By: #### L300.3900 #### [facility] [address] [facility] [place], [address] PROTIME W/INR Collected: 08/06/2017 Status: F Source: AM[facility] [place] 2:07 PM [facility] REPOSITORY TYPE CODE TESTS RESULT OUT OF REFERENCE UNITS RANGE LAB L9200.1001 11.9-14.4 SEC High PROTIME ISTAT 50.4 Result Comment: Reference Range 11.9 - 14.4 LAB L9200.2000 High alert INR ISTAT 4.50 Result Comment: Critical Value > 3.5 Performed By: #### L9200.0000 #### [facility] Point of Care [address] [place] [address] CERV SPINE 4 OR 5 Observed: 08/06/2017 Status: F Source: [place] VIEWS 2:03 PM [facility] REPOSITORY [facility] Imaging Services [address] [place] [address] Cerv Spine 4 or 5 Views MR#: [id number] Acct: [id number] Name: TUCKER WILL Rep #: [id number] : 1945 M 72 From: Ankit Montelongo MD PCP: Joe Trotter DO Status: REG CLI Study: Cerv Spine 4 or 5 Views Date of Exam: 08/06/17 Exam# [id number] Ordering Dr: Joe Trotter DO STUDY: X-RAY - CERVICAL SPINE REASON FOR EXAM: Male, 72 years old. Neck pain TECHNIQUE: 6 view(s) of the cervical spine were obtained. COMPARISON: None FINDINGS: Normal anterior atlantoaxial articulation. Normal odontoid process. There is reversal of the normal cervical lordosis. There is diffuse endplate spondylosis of the cervical spine. There is narrowing of the C3-4, L4-5, 5-6, and 6-7 disc spaces. There is multi-level osseous foraminal stenosis. The soft tissue structures are unremarkable. RAD/Cerv Spine 4 or 5 Views IMPRESSION: Degenerative changes of the cervical spine as detailed above. There is no evidence of fracture or subluxation. There is reversal of the normal lordotic curvature. Electronically Signed: Ankit Montelongo MD at 16:48 EST , Service support , CC: Joe Trotter DO Alcohol Law Enforcement Agent: Signed ALLERGIES ALLERGIES DATE TYPE / CODE NAME / CODE REACTION SEVERITY SOURCE 01/07/2018 Drug codeine/F006 GOOFY Unknown [place] [facility] 182592[facility] [place] [address](SNOMED M) Repository CT) 01/07/2018 Drug hydrocodone/ SOB and leg Unknown [place] [facility] Allergy/4160 [id number](R weakness [facility] [place] XNORM[place] Repository CT) 01/07/2018 Drug acetaminophe SOB and leg Unknown [place] [facility] Allergy/4160 n/[id number] weakness [facility] [place] (RXNORM[place] Repository CT) 01/07/2018 Drug peppermint/F Other Unknown [place] [facility] Allergy/4160 [id number](RX [place] [address](SNOMED NORM) Repository CT) ENCOUNTERS ENCOUNTERS ADMIT/DISCHARGE ACCOUNT ADMITTING ENCOUNTER LOCATION SOURCE NUMBER CLASS 07/23/2018 [id number] Ambulatory [place] 0 [facility] ing:BFHLAB Repository 06/08/2018 [id number] [facility]ulatory [place] [facility] Repository 05/31/2018/ [id number] Ambulatory [place] [facility] 8 [facility] Repository 04/21/2018/ [id number] Ambulatory [place] [facility] 8 7 [facility] Repository 03/26/2018/ [id number] Ambulatory [place] 8 2 [facility] ing:[facility] Repository 02/25/2018/ [id number] Ambulatory [place] [facility] 8 4 [facility] ing:[facility] Repository 02/09/2018 [id number] Ambulatory [place] [facility] ing:LAB.FUTUR Repository E 02/08/2018 [id number] Ambulatory [place] [facility] 8 [facility] ing:[facility] Repository 01/15/2018 [id number] Ambulatory [place] [facility] 7 [facility] ing:LAB.FUTUR Repository E 01/14/2018 [id number] Ambulatory [place] 7 [facility] ing:MT[facility] Repository 01/07/2018/ [id number] Ambulatory [facility]:B [place] 8 1 [facility] Repository 01/07/2018/ [id number] Ambulatory [place] 8 7 [facility] ing:MT[facility] Repository 12/21/2017 [id number] Ambulatory [place] 3 [facility] ing:[facility] Repository 11/23/2017 [id number] Ambulatory [place] [facility] ing:[facility] Repository 10/22/2017 [id number] Ambulatory [place] [facility] ing:[facility] Repository 09/28/2017/ [id number] Ambulatory [place] 8 0 [facility] ing:MTLAB Repository 08/18/2017/ [id number] Ambulatory [place] 8 5 [facility] ing:MT[facility] Repository 08/06/2017 [id number] Ambulatory [place] 1 [facility] ing:MTRAD Repository PAYERS PAYERS ENCOUNTER GUARANTOR PAYER SUBSCRIBER SOURCE 07/23/2018 TUCKER D Primary TUCKER D [place] [id number] Insurance:HUMANA DOUGLASSDOB: Community [place], MEDICARE [facility] [id number] [place] [address]Ejp: Number: Repository [id number] (HP) Date:1458-97-85WM[address] [address]IX: 07/23/2018 Secondary NOT GIVENUNK [place] Insurance:SELF PAY [facility] Number: Effective Repository Date:2018-07-23 06/08/2018 TUCKER D Primary TUCKER D [place] [id number] Insurance:HUMANA DOUGLASSDOB: [facility] YOUNG JAIDASTER, MEDICARE [facility] [id number] [place] [address]Ycq: Number: Repository [id number] (HP) Date:9054-34-24ZR [address] [address]CJ: 06/08/2018 Secondary NOT GIVENUNK [place] Insurance:SELF PAY [facility] Number: Effective Repository Date:2018-06-08 05/31/2018 TUCKER D Primary TUCKER D [place] [id number] Insurance:HUMANA DOUGLASSDOB: Community YOU[place], MEDICARE [facility] [id number] [place] [address]Zvg: Number: Repository [id number] (HP) Date:2495-45-83EH [address] [address]AL: 05/31/2018 Secondary NOT GIVENUNK [place] Insurance:SELF PAY [facility] Number: Effective Repository Date:2018-05-06 04/21/2018 TUCKER D Primary TUCKER D [place] [id number] Insurance:HUMANA DOUGLASSDOB: Community YOUNG DRWLORENSTER, MEDICARE [facility] [id number] [place] [address]Mtu: Number: Repository [id number] (HP) Date:8506-58-58TK [address] [address]AI: 04/21/2018 Secondary NOT GIVENUNK [place] Insurance:SELF PAY [facility] Number: Effective Repository Date:2018-04-06 03/26/2018 TUCKER D Primary TUCKER D [place] [id number] Insurance:HUMANA DOUGLASSDOB: Community [place] DRWOOST[place], MEDICARE [facility] [id number] [facility] [address]Mfw: Number: Repository [id number] (HP) Date:4869-95-62HR [address] [address]TW: 03/26/2018 Secondary NOT GIVENUNK [place] Insurance:SELF PAY [facility] Number: Effective Repository Date:2018-03-10 02/25/2018 TUCKER D Primary TUCKER D [place] [id number] Insurance:HUMANA DOUGLASSDOB: Community [place] DRWOOST[place], MEDICARE [facility] [id number] [facility] [address]Rjj: Number: Repository [id number] (HP) Date:1526-09-31AK [address] [address]VY: 02/25/2018 Secondary NOT GIVENUNK [place] Insurance:SELF PAY [facility] Number: Effective Repository Date:2018-02-05 02/09/2018 TUCKER D Primary TUCKER D [place] [id number] Insurance:HUMANA DOUGLASSDOB: Community [place] DRW[place], MEDICARE [facility] [id number] [facility] [address]Fcc: Number: Repository [id number] (HP) Date:8622-72-84SR [address] [address]XN: 02/09/2018 Secondary NOT GIVENUNK [place] Insurance:SELF PAY [facility] Number: Effective Repository Date:2018-02-09 02/08/2018 TUCKER D Primary TUCKER D [place] [id number] Insurance:HUMANA DOUGLASSDOB: Community [place] DRW[place], MEDICARE [facility] [id number] [place] [address]Fxg: Number: Repository [id number] (HP) Date:2297-27-91EP [address] [address]ES: 02/08/2018 Secondary NOT GIVENUNK [place] Insurance:SELF PAY [facility] Number: Effective Repository Date:2018-02-08 01/15/2018 TUCKER D Primary TUCKER D [place] [id number] Insurance:HUMANA DOUGLASSDOB: Community ROSALES BLAKE, [facility] [id number] [place] [address]Idy: Number: Repository [id number] (HP) Date:4167-86-54QV [address] [address]AM: 01/15/2018 Secondary NOT GIVENUNK [place] Insurance:SELF PAY [facility] Number: Effective Repository Date:2018-01-15 01/14/2018 TUCKER D Primary TUCKER D [place] [id number] Insurance:HUMANA DOUGLASSDOB: Community ROSALES BLAKE, MEDICARE [facility] [id number] [place] [address]Esc: Number: Repository [id number] (HP) Date:0462-03-37YA [address] [address]FN: 01/14/2018 Secondary NOT GIVENUNK [place] Insurance:SELF PAY [facility] Number: Effective Repository Date:2018-01-14 01/07/2018 TUCKER D Primary TUCKER D [place] [id number] Insurance:HUMANA DOUGLASSDOB: Community ROSALES BLAKE, MEDICARE [facility] [id number] [place] [address]Fri: Number: Repository [id number] (HP) Date:2214-63-99LB [address] [place] [address]PO: 01/07/2018 Secondary NOT GIVENUNK [place] Insurance:SELF PAY [facility] Number: Effective Repository Date:2018-01-07 01/07/2018 TUCKER D Primary TUCKER D [place] [id number] Insurance:HUMANA DOUGLASSDOB: Community YOUNG AGATHAER, MEDICARE [facility] [id number] [place] [address]Djo: Number: Repository [id number] (HP) Date:8366-71-20BL [address] [address]XP: 01/07/2018 Secondary NOT GIVENUNK [place] Insurance:SELF PAY [facility] Number: Effective Repository Date:2017-10-05 12/21/2017 TUCKER D Primary TUCKER D [place] [id number] Insurance:HUMANA DOUGLASSDOB: [facility] YOUNG AGATHAER, MEDICARE [facility] [id number] [place] [address]Vvb: Number: Repository [id number] (HP) Date:6953-03-25AU [place] [address]WP: 12/21/2017 Secondary NOT GIVENUNK [place] Insurance:SELF PAY [facility] Number: Effective Repository Date:2017-12-21 11/23/2017 TUCKER D Primary TUCKER D [place] [id number] Insurance:HUMANA DOUGLASSDOB: Community YOUNG AGATHAER, MEDICARE [facility] [id number] [place] [address]Aiw: Number: Repository [id number] (HP) Date:6758-81-55YG [address] [address]ZT: 11/23/2017 Secondary NOT GIVENUNK [place] Insurance:SELF PAY [facility] Number: Effective Repository Date:2017-11-23 10/22/2017 TUCKER D Primary TUCKER D [place] [id number] Insurance:HUMANA DOUGLASSDOB: Community [place] DRWOOSTER, MEDICARE [facility] [id number] [place] [address]Wqh: Number: Repository [id number] (HP) Date:1785-88-85SF [address] [address]GI: 10/22/2017 Secondary NOT GIVENUNK [place] Insurance:SELF PAY [facility] Number: Effective Repository Date:2017-10-22 09/28/2017 TUCKER D Primary TUCKER D [place] [id number] Insurance:HUMANA DOUGLASSDOB: Community [place] DR[place], MEDICARE [facility] [id number] [place] [address]Pmo: Number: Repository [id number] (HP) Date:1850-41-55QE [address] [address]YY: 09/28/2017 Secondary NOT GIVENUNK [place] Insurance:SELF PAY [facility] Number: Effective Repository Date:2017-09-03 08/18/2017 TUCKER D Primary TUCKER D [place] [id number] Insurance:HUMANA DOUGLASSDOB: Community [place] DR[place], MEDICARE [facility] [id number] [facility] [address]Kzn: Number: Repository [id number] (HP) Date:4491-61-19BC [address] [address]SM: 08/18/2017 Secondary NOT GIVENUNK [place] Insurance:SELF PAY [facility] Number: Effective Repository Date:2017-07-06 08/06/2017 TUCKER D Primary TUCKER D [place] [id number] Insurance:HUMANA DOUGLASSDOB: Community [place], MEDICARE [facility] [id number] [place] [address]Mpc: Number: Repository [id number] (HP) Date:1761-07-65TY [address] [address]KG: 08/06/2017 Secondary NOT GIVENUNK [place] Insurance:SELF PAY [facility] Number: Effective Repository Date:2017-08-06
== END ==
PROVIDERS: Family Provider Family Medicine; PCP Family Medicine; Visit Provider Family Medicine
DX: G56.12 Other lesions of median nerve, left upper limb (principal); M54.2 Cervicalgia; I10 Essential (primary) hypertension; G62.9 Polyneuropathy, unspecified; Z51.81 Encounter for therapeutic drug level monitoring
CPT/HCPCS: 36415; 80053; 84443; 85025

== ENCOUNTER → 2018-08-02 11:48 | Outpatient (CLI) | payer MEDICARE, SELFPAY ==
[2018-08-04 18:21] LABS: PROEL- A/G Ratio 0.9 (0.7-1.7); PROEL- Albumin 3.8 g/dL (2.9-4.4); PROEL- Alpha-1 Globulin 0.3 g/dL (0.0-0.4); PROEL- Alpha-2 Globulin 0.8 g/dL (0.4-1.0); PROEL- Beta Globulin 2.5 g/dL (0.7-1.3); PROEL- Gamma Globulin 0.7 g/dL (0.4-1.8); PROEL- Globulin, Total 4.2 g/dL (2.2-3.9); PROELU- Albumin, Urine 23.5 % (.); PROELU- Alpha-1-Globulin,Ur 2.8 % (.); PROELU- Alpha-2-Globulin,Ur 16.9 % (.); PROELU- Gamma Globulin, Ur 15.8 % (.)
== END ==
PROVIDERS: Family Provider Family Medicine; PCP Family Medicine; Visit Provider Family Medicine
DX: R77.1 Abnormality of globulin (principal)
CPT/HCPCS: 36415; 84165; 84166

== ENCOUNTER → 2018-08-23 11:08 | Outpatient (CLI) | payer MEDICARE, SELFPAY ==
[2018-08-19 11:02] VITALS: BMI 33.4
--- NOTE | 2018-08-23 11:21 | RAD_ITS ---
STUDY: X-RAY BONE SURVEY COMPLETE REASON FOR EXAM: Male, 73 years old. Evaluation for metastatic disease. TECHNIQUE: Imaging was performed in multiple obliquities of the skull, cervical spine, thoracic cage, extremities, spine, pelvis. A total of 26 images. COMPARISON: None. FINDINGS: Left upper extremity: No evidence of metastatic disease. Right upper extremity: No evidence of metastatic disease. Degenerative changes of the shoulder. Right lower extremity: Knee joint meniscal calcifications consistent with underlying CPPD/pseudogout. No evidence of metastatic disease. Left lower extremity: Knee joint meniscal calcifications. No evidence of metastatic disease. Craniofacial: No evidence of metastatic disease. Cervical spine: Reversal of expected cervical lordosis. Multilevel cervical degenerative disease between C3 and T1 with multilevel facet hypertrophy. No evidence of metastatic disease. Shoulder girdle: Degenerative changes of the shoulder joints bilaterally with no evidence of metastatic disease Thoracic cage: No evidence of metastatic disease. Elevated left hemidiaphragm. Mild cardiomegaly. Thoracic spine: No evidence of metastatic disease. Multilevel mid thoracic degenerative disc disease. Thoracolumbar scoliosis. Lumbar spine: Prominent degenerative disease L5-S1, L4-L5 with facet hypertrophy. No evidence of metastatic disease. RAD/Bone Survey Comp(Axial&Append) IMPRESSION: There is no evidence of osseous lytic or blastic metastatic disease. Electronically Signed: Ac Segundo MD at 16:38 EST Tel , Service support ,
[2018-08-26 16:07] LABS: Albumin, Ur 17.7 % (.); Alpha-1-Globulin, Ur 5.7 % (.); Alpha-2-Globulins, Ur 15.6 % (.); Beta Globulin, Ur 45.4 % (.); Gamma Globulin, Ur 15.6 % (.); Protein, 24Ur 629 mg/24 hr (30-150); Total Protein, Ur 24.9 mg/dL (Not Estab.)
[2018-08-27 12:21] LABS: M-Spike, Ur % Comment: % (Not Observed)
== END ==
PROVIDERS: Family Provider Family Medicine; PCP Family Medicine; Referring Provider Internal Medicine Hematology & Oncology; Visit Provider Internal Medicine Hematology & Oncology
DX: D47.2 Monoclonal gammopathy (principal)
CPT/HCPCS: 77075; 84166; 86335

== ENCOUNTER → 2018-08-27 08:20 | Outpatient (CLI) | payer MEDICARE, SELFPAY ==
[2018-08-19 11:02] VITALS: BMI 33.4
[2018-08-27] VITALS (9 sets, daily range): BP systolic 97–148; BP diastolic 65–78; PULSE 52–61; RESP 12–16; TEMP 37; O2SAT 10–100; BMI 31.4
--- NOTE | 2018-08-27 | BMB_PTH ---
PATIENT: TUCKER BOWEN LOC: [place] U#:[id number] AGE/SX: 80/M ROOM: RE08/27/[address]: Dr. Rick Morocho MD : 1945 BED: DIS: SPEC #: [id number] RECD: 08/27/18 11:01 STATUS: ANGELO RELo #: [id number] JANENE: 08/27/18 00:[address]: Rick Morocho DEPT: BONE MARROW RECD BY: Erika López ENTERED: 08/27/18 11:02 SP TYPE: BMB JAYSON DR: Dr. 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 Flow cytometry study from [facility] shows no significant diagnostic immunophenotypic abnormality. Complete report is viewable in patient's EMR. Iron - 4+, rare atypical sideroblasts are noted, significant increase of ring sideroblasts are not seen. Cytogenetic and FISH studies are pending at this time. SJ:tila 09/01/18 COMMENT Immunohistochemistry ([id number]) supports the above diagnosis. Correlation with clinical findings and appropriate follow up are necessary. BONE MARROW STUDY Slides are reviewed. CBC DATE: 08/27/18 WBC 8.3; RBC 4.77; HGB 14.4; HCT 44.6; MCV 93.5; RDW 14.3; PLTS 237,000 SEGS 65.7%; LYMPHS 18.9%; MONOS 12.3%; EOS 1.7%; BASOS 0.6% PERIPHERAL SMEAR: Submitted. RBC: Normocytic and normochromic. WBC: Unremarkable. The WBC count is compatible to as reported above. PLTS: Adequate. BONE MARROW ASPIRATE DIFFERENTIAL: 200 cell count. Blasts % (normal 0-2): 1 Promyelocytes % (normal 1-5): 1 Myelocytes and metamyelocytes % (normal 17-41): 24 Bands and Segs % (normal 15-32): 46 Eos % (normal 1-6): 2 Basos % (normal 0-1): 0 Monocytes % (normal 0-4): 0 Erythroid Precursors % (normal 17-35): 17 Lymphocytes % (normal 7-13): 4 Plasma Cells % (normal 0-2): 5 ASPIRATE FINDINGS: Site: Left hip Spicular, Cellular M/E ratio: 4.2 (Normal 1.5-4.0) Megakaryocytes: Present and normal morphology. Erythropoiesis: Normoblastic. Granulopoiesis: Progressive and unremarkable. Comment: Mild increase of mature plasma cells is noted. CORE BIOPSY FINDINGS: Site: Left hip Adequacy: Limited Cellularity: 50% M/E ratio: Within normal limits. Megakaryocytes: Present and adequate in number. Bony trabeculae: No bony trabeculae are noted in the submitted specimen. Granulomas: Absent. Lymphoid aggregate: Absent. Atypical infiltrate: Mild interstitial increase of plasma cells are noted. Comment: The specimen entirely consists of clot with hematopoietic marrow. Immunohistochemistry ([id number]) shows mild interstitial increase of plasma cells with lambda monoclonality, consistent with monoclonal gammopathy of undetermined significance. ASPIRATE CLOT FINDINGS: Site: Left hip Marrow particles: Numerous Cellularity: 50% M/E ratio: Within normal limits. Megakaryocytes: Present and adequate in number. Granulomas: Absent. Lymphoid aggregates: Absent. Atypical infiltrates: Present Comment: Immunohistochemistry ([id number]) shows mild interstitial increase of plasma cells with lambda monoclonality, consistent with monoclonal gammopathy of undetermined significance. SPECIAL STAINS WITH MATCHED CONTROLS: Iron: 4+ rare atypical sideroblasts are noted. Significant increase of ringed sideroblasts are not seen. Reticulin: No significant increase of reticulin fibers is noted. PAS: Highlights myeloid cells and megakaryocytes. BONE MARROW GROSS A - Received is a container labeled with the patient's name and designated left hip. The specimen consists of a few fragments of blood clot mixed with possible fragments of bone measuring 0.3 x 0.3 x 0.1 cm. The specimen is totally submitted in one cassette after decalcification. B - Received labeled with the patient's name and designated left hip is a specimen that consists of approximately 6 cc of bloody fluid that on filtration yields multiple minute fragments of blood clots measuring in aggregate 2.5 x 2 x 0.1 cm. The specimen is totally submitted in one cassette. C - Also received are 10 unstained and 1 peripheral stained slides. The unstained slides are submitted for appropriate staining. Also received are two green top tubes which are sent to our reference lab for flow, cytogenetics and FISH. 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
--- NOTE | 2018-08-27 | IMM_PTH ---
PATIENT: TUCKER BWOEN LOC: CT U#:[id number] AGE/SX: 80/M ROOM: RE08/27/[address]: Dr. Rick Morocho MD : 1945 BED: DIS: SPEC #: [id number] RECD: 08/30/18 11:27 STATUS: ANGELO RELo #: [id number] JANENE: 08/27/18 00:[address]: Rick Morocho DEPT: IMMUNOHISTOCHEMISTRY RECD BY: Renu Mcclellan ENTERED: 08/30/18 11:28 SP TYPE: IMMUNO OTHR DR: Dr. Joe Trotter DO Tissues: A - Bone marrow of iliac crest B - Bone marrow of iliac crest Procedures: CD138 (initial) KAPPA (add) LAMBDA (add) PHYSICIAN & INSTITUTION [place] [id number] SPECIMEN INFORMATION: Tissue Source: Bone marrow biopsy, A - Core, B - Clot Clinical Info: MGUS, IGG-L Specimen Number: [id number] A & B CPT code: 88243 x2, 67175 x4 METHODOLOGY: Deparaffinized sections of prefer/formalin-fixed tissue or PAP/DQ stained slides are incubated with monoclonal/polyclonal antibodies/oligonucleotide probes. Localization is made via biotin free immunoperoxidase method. Appropriate controls are performed and reacted as expected. Results on target cell population are indicated in the following table: RESULTS: ANTIBODY / CLONE RESULT Block A CD138 (B-A38) positive [place] (polyclonal) negative Lambda (polyclonal) positive Block B CD138 (B-A38) positive [place] (polyclonal) negative Lambda (polyclonal) positive These tests were developed and their performance characteristics determined by [facility]. They may not have been cleared or approved by the [place]. Food and Drug Administration. The FDA has determined that such clearance or approval is not necessary. INTERPRETATION: A. Bone marrow core biopsy: Mild interstitial increase of plasma cells noted with lambda monoclonality, consistent with monoclonal gammopathy of undetermined significance. B. Bone marrow clot: Mild interstitial increase of plasma cells noted with lambda monoclonality, consistent with monoclonal gammopathy of undetermined significance. SJ:tila 08/31/18
--- NOTE | 2018-08-27 08:23 | CT_ITS ---
PROCEDURE: CT GUIDED BONE marrow biopsy of the posterior aspect of the left iliac bone. DATE: August 27, 2018. INDICATION: Male, 73 years old. IgM gamma abnormality. PHYSICIAN: Jean Harrison M.D. RADIATION DOSAGE (If Supplied By Facility): CTDIvol = ( 19 ) mGy, DLP = ( 295.81 ) mGycm. Individualized dose optimization techniques were utilized. PROCEDURE: The risks, benefits, and alternatives to the procedure were explained to the patient. The specific risk of hemorrhage requiring further treatment or intervention was detailed and accepted. Follow-up instructions were discussed with the patient as well. Written informed consent was obtained. The patient was brought into the CT suite and placed in the prone position. . An appropriate entry site was identified. The overlying skin was prepped and draped in the usual sterile fashion. 1% lidocaine was administered subcutaneously for local anesthesia. Conscious sedation was performed. The patient received 2 mg of Versed and 50 mcg of fentanyl intravenously. Conscious sedation was started at 9:54 AM and terminated at 10:15 AM. The patient was independently monitored by the department nurse. Under CT guidance, a bone marrow biopsy of the posterior aspect of the left iliac bone was performed utilizing an 11-gauge bone marrow biopsy needle system. Bone marrow aspirate was aspirated as well. The specimens were then placed in the appropriate fluid and transported to the laboratory for analysis. Hemostasis was obtained. The patient tolerated the procedure well without immediate complications. CT/Biopsy/Inj or Needle Placement IMPRESSION: Successful CT guided bone marrow biopsy of the posterior aspect of the right iliac bone., as described above. The conscious sedation protocol was followed. Electronically Signed: Jean Harrison MD at 11:28 EST , Service support ,
[2018-08-27 08:48] LABS: Absolute Lymphocyte Count 1.57 X10^3/ul (0.83-4.51); Absolute Neutrophil Count 5.5 X10^3/uL (2.0-7.7); Basophil# 0.05 X10^3/uL; Basophil% 0.6 % (0-1); Eosinophil# 0.14 X10^3/uL; Eosinophils% 1.7 % (0-5); Hematocrit 44.6 % (40-54); Hemoglobin 14.4 g/dl (13.0-16.5); Lymphocyte # 1.57 X10^3/ul (4.0); Lymphocyte % 18.9 % (19-41); Mean Corp Hgb Conc 32.3 g/gl (32-36); Mean Corpuscular Hgb 30.2 pg (27.0-32.0); Mean Corpuscular Volume 93.5 fL (80-94); Mean Platelet Vol. 10.9 fl (6.2-12.0); Monocyte# 1.02 X10^3/uL; Monocyte% 12.3 % (0-10); Neutrophil # 5.45 X10^3/uL (2.7-7.7); Neutrophil % 65.7 % (47-70); Platelet Count 237 K/mm3 (150-450); RBC Distribution Width CV 14.3 % (11.6-14.6); RBC Distribution Width SD 48.2 fl (35.1-43.9); Red Blood Count 4.77 M/mm3 (4.6-6.2); White Blood Count 8.3 K/mm3 (4.4-11.0)
[2018-08-27 08:49] LABS: POSITIVE COUNT NO; POSITIVE DIFFERENTIAL NO; POSITIVE MORPHOLOGY NO
[2018-08-27 08:56] LABS: International Normalized Ratio 1.1; Partial Thromboplast Time 29.5 Seconds (24.1-36.2); Prothrombin Time (Protime)PT. 14.4 SECONDS (11.7-14.9)
[2018-08-27] MEDS: Midazolam 2 MG/2 ML Syringe IV (09:54)
[2018-08-27] MEDS: fentaNYL 100 MCG/2 ML Ampul IV (09:54)
[2018-08-27 10:30] LABS: Bone Marrow Aspiraton SEE PATHOLOGY REPORT
== END ==
PROVIDERS: Family Provider Family Medicine; PCP Family Medicine; Referring Provider Internal Medicine Hematology & Oncology; Visit Provider Internal Medicine Hematology & Oncology
DX: Z01.812 Encounter for preprocedural laboratory examination (principal); D47.2 Monoclonal gammopathy
CPT/HCPCS: 38221; 36415; 77012; 85025; 85610; 85730; 88305; 88311; 88313; 88341; 88342; 99156; 99157; J7040; A4216

== ENCOUNTER 2018-09-24 09:15 | Outpatient (RCR) | payer MEDICARE, SELFPAY ==
[2018-09-09 10:54] VITALS: BMI 33.5
[2018-09-24 09:36] LABS: Prothrombin Time Fingerstick 18.5 SEC (11.9-14.4)
== END 2018-09-24 10:00 | disposition home or self-care (01) ==
LOC: MTLAB 09:15
PROVIDERS: Family Provider Family Medicine; PCP Family Medicine; Referring Provider Internal Medicine Cardiovascular Disease; Visit Provider Internal Medicine Cardiovascular Disease
DX: I48.0 Paroxysmal atrial fibrillation (principal); Z79.01 Long term (current) use of anticoagulants
CPT/HCPCS: 36416; 85610

== ENCOUNTER 2018-10-22 10:24 | Outpatient (RCR) | payer MEDICARE, SELFPAY ==
[2018-10-01 13:42] VITALS: BMI 33.5
[2018-10-12 09:31] LABS: Prothrombin Time Fingerstick 19.1 SEC (11.9-14.4)
[2018-10-22 10:35] LABS: Prothrombin Time Fingerstick 21.4 SEC (11.9-14.4)
== END 2018-11-02 16:00 | disposition home or self-care (01) ==
LOC: MTLAB 10:24
PROVIDERS: Family Provider Family Medicine; PCP Family Medicine; Referring Provider Internal Medicine Cardiovascular Disease; Visit Provider Internal Medicine Cardiovascular Disease
DX: I48.0 Paroxysmal atrial fibrillation (principal); Z79.01 Long term (current) use of anticoagulants
CPT/HCPCS: 36416; 85610

== ENCOUNTER 2018-11-15 12:58 | Outpatient (RCR) | payer MEDICARE, SELFPAY ==
[2018-11-03 10:29] VITALS: BMI 33.7
[2018-11-16 08:10] LABS: Prothrombin Time Fingerstick 27.6 SEC (11.9-14.4)
== END 2018-11-15 14:00 | disposition home or self-care (01) ==
LOC: MTLAB 12:58
PROVIDERS: Family Provider Family Medicine; PCP Family Medicine; Referring Provider Internal Medicine Cardiovascular Disease; Visit Provider Internal Medicine Cardiovascular Disease
DX: I48.0 Paroxysmal atrial fibrillation (principal); Z79.01 Long term (current) use of anticoagulants
CPT/HCPCS: 36416; 85610

== ENCOUNTER 2018-12-23 12:06 | Outpatient (RCR) | payer MEDICARE, SELFPAY ==
[2018-11-03 10:29] VITALS: BMI 33.7
[2018-12-23 12:31] LABS: Prothrombin Time Fingerstick 25.9 SEC (11.9-14.4)
== END 2018-12-23 12:30 | disposition home or self-care (01) ==
LOC: MTLAB 12:06
PROVIDERS: Family Provider Family Medicine; PCP Family Medicine; Referring Provider Internal Medicine Cardiovascular Disease; Visit Provider Internal Medicine Cardiovascular Disease
DX: Z79.01 Long term (current) use of anticoagulants (principal)
CPT/HCPCS: 36416; 85610

== ENCOUNTER 2019-02-09 10:48 | Outpatient (RCR) | payer MEDICARE, SELFPAY ==
[2018-11-03 10:29] VITALS: BMI 33.7
[2019-02-09 11:03] LABS: Prothrombin Time Fingerstick 36.1 SEC (11.9-14.4)
== END 2019-02-09 11:48 | disposition home or self-care (01) ==
LOC: MTLAB 10:48
PROVIDERS: Family Provider Family Medicine; PCP Family Medicine; Referring Provider Internal Medicine Cardiovascular Disease; Visit Provider Internal Medicine Cardiovascular Disease
DX: Z79.01 Long term (current) use of anticoagulants (principal)
CPT/HCPCS: 36416; 85610

== ENCOUNTER → 2019-03-08 | Outpatient (CLI) | payer MEDICARE, SELFPAY ==
[2018-11-03 10:29] VITALS: BMI 33.7
[2019-03-08 12:37] LABS: Absolute Lymphocyte Count 1.74 X10^3/uL (0.83-4.51); Absolute Neutrophil Count 6.2 X10^3/uL (2.0-7.7); Basophil# 0.09 X10^3/uL; Basophil% 0.9 % (0-1); Eosinophil# 0.22 X10^3/uL; Eosinophils% 2.3 % (0-5); Hematocrit 45.9 % (40-54); Hemoglobin 15.3 g/dL (13.0-16.5); Lymphocyte # 1.74 X10^3/ul (4.0); Lymphocyte % 18.4 % (19-41); Mean Corp Hgb Conc 33.3 g/dL (32-36); Mean Corpuscular Hgb 30.5 pg (27.0-32.0); Mean Corpuscular Volume 91.4 fL (80-94); Mean Platelet Vol. 11.1 fl (6.2-12.0); Monocyte# 1.17 X10^3/uL; Monocyte% 12.3 % (0-10); NRBC Flagged by Analyzer 0 % (0-5); Neutrophil # 6.17 X10^3/uL (2.7-7.7); Neutrophil % 65.2 % (47-70); Platelet Count 255 K/mm3 (150-450); RBC Distribution Width CV 13.8 % (11.6-14.6); RBC Distribution Width SD 46.9 fl (35.1-43.9); Red Blood Count 5.02 M/mm3 (4.6-6.2); White Blood Count 9.5 K/mm3 (4.4-11.0)
[2019-03-08 12:45] LABS: ALB/GLOB Ratio 0.7 RATIO (0.9-2.4); AST(SGOT) 28 U/L (15-37); Alanine Aminotransfer ALT/SGPT 35 U/L (16-61); Albumin, Serum 3.3 g/dL (3.2-5.0); Alkaline Phosphatase 108 U/L (45-117); Anion Gap 7 (5-15); BUN 17 mg/dL (7-18); BUN/Creat Ratio 17.8 RATIO (10-20); Calcium,Total 9.5 mg/dL (8.5-10.1); Chloride 111 mmol/L (98-107); Creatinine, Serum 0.95 mg/dL (0.70-1.30); EST Glomerular Filtration Rate 82 mL/min (>60); Est Glom Filt Rate - Afr Amer 100 mL/min (>60); Globulin 4.8 g/dL (2.2-4.2); Glucose 86 mg/dL (74-106); Potassium 4.5 mmol/L (3.5-5.1); Protein, Total 8.1 g/dL (6.4-8.2); Sodium Level 142 mmol/L (136-145)
[2019-03-09 20:08] LABS: Albumin 3.6 g/dL (2.9-4.4); Alpha-1-Globulins 0.3 g/dL (0.0-0.4); Alpha-2-Globulins 0.8 g/dL (0.4-1.0); Gamma Globulin 0.5 g/dL (0.4-1.8); Immunoglobulin A 192 mg/dL (61-437); Immunoglobulin G 1941 mg/dL (700-1600); Immunoglobulin M 34 mg/dL (15-143); PROEL- TOTAL PROTEIN 7.4 g/dL (6.0-8.5)
== END | disposition home or self-care (01) ==
LOC: MTLAB 10:55
PROVIDERS: Family Provider Family Medicine; PCP Family Medicine; Referring Provider Internal Medicine Hematology & Oncology; Visit Provider Internal Medicine Hematology & Oncology
DX: D47.2 Monoclonal gammopathy (principal)
CPT/HCPCS: 36415; 80053; 82784; 84165; 85025; 86334

== ENCOUNTER 2019-03-31 11:45 | Outpatient (RCR) | payer MEDICARE, SELFPAY ==
[2018-11-03 10:29] VITALS: BMI 33.7
[2019-03-14 11:01] VITALS: BMI 33.2
[2019-04-01 09:09] LABS: Prothrombin Time Fingerstick 27.4 SEC (11.9-14.4)
== END 2019-03-31 18:00 | disposition home or self-care (01) ==
LOC: MTLAB 11:45
PROVIDERS: Family Provider Family Medicine; PCP Family Medicine; Referring Provider Internal Medicine Cardiovascular Disease; Visit Provider Internal Medicine Cardiovascular Disease
DX: Z79.01 Long term (current) use of anticoagulants (principal)
CPT/HCPCS: 36416; 85610

== ENCOUNTER 2019-06-07 10:21 | Outpatient (RCR) | payer MEDICARE, SELFPAY ==
[2019-04-01 09:59] VITALS: BMI 33.1
[2019-06-07 14:01] LABS: Prothrombin Time Fingerstick 24.6 SEC (11.9-14.4)
== END 2019-06-07 18:00 | disposition home or self-care (01) ==
LOC: MTLAB 10:21
PROVIDERS: Family Provider Family Medicine; PCP Family Medicine; Referring Provider Internal Medicine Cardiovascular Disease; Visit Provider Internal Medicine Cardiovascular Disease
DX: Z79.01 Long term (current) use of anticoagulants (principal)
CPT/HCPCS: 36416; 85610

== ENCOUNTER 2019-08-01 11:04 | Outpatient (RCR) | payer MEDICARE, SELFPAY ==
[2019-04-01 09:59] VITALS: BMI 33.1
[2019-08-01 11:35] LABS: Prothrombin Time Fingerstick 21.2 SEC (11.9-14.4)
== END 2019-08-01 18:00 | disposition home or self-care (01) ==
LOC: MTLAB 11:04
PROVIDERS: Family Provider Family Medicine; PCP Family Medicine; Referring Provider Internal Medicine Cardiovascular Disease; Visit Provider Internal Medicine Cardiovascular Disease
DX: Z79.01 Long term (current) use of anticoagulants (principal)
CPT/HCPCS: 36416; 85610

== ENCOUNTER 2019-08-18 08:13 | Outpatient (RCR) | payer MEDICARE, SELFPAY ==
[2019-04-01 09:59] VITALS: BMI 33.1
[2019-08-18 08:30] LABS: Prothrombin Time Fingerstick 26.4 SEC (11.9-14.4)
== END 2019-08-18 18:00 | disposition home or self-care (01) ==
LOC: MTLAB 08:13
PROVIDERS: Family Provider Family Medicine; PCP Family Medicine; Referring Provider Internal Medicine Cardiovascular Disease; Visit Provider Internal Medicine Cardiovascular Disease
DX: Z79.01 Long term (current) use of anticoagulants (principal)
CPT/HCPCS: 36416; 85610

== ENCOUNTER 2019-11-29 08:24 | Outpatient (RCR) | payer MEDICARE, SELFPAY ==
[2019-04-01 09:59] VITALS: BMI 33.1
[2019-09-12 13:04] VITALS: BMI 35.6
[2019-11-29 10:41] LABS: Prothrombin Time Fingerstick 27.4 SEC (11.9-14.4)
== END 2019-11-29 18:00 ==
LOC: MTLAB 08:24
PROVIDERS: Family Provider Family Medicine; PCP Family Medicine; Referring Provider Internal Medicine Cardiovascular Disease; Visit Provider Internal Medicine Cardiovascular Disease
DX: Z79.01 Long term (current) use of anticoagulants (principal)
CPT/HCPCS: 36416; 85610

== ENCOUNTER → 2020-01-17 | Outpatient (CLI) | payer MEDICARE, SELFPAY ==
[2019-09-12 13:04] VITALS: BMI 35.6
[2020-01-17 12:46] LABS: International Normalized Ratio 2.3; Prothrombin Time (Protime)PT. 24.5 SECONDS (11.7-14.9)
[2020-01-17 13:04] LABS: Cholesterol 186 mg/dL (200); High Density Lipoprotein 41 mg/dL; Thyroid Stim Hormone (TSH) 0.89 uIU/mL (0.358-3.74); Triglycerides 95 mg/dL; Very Low Density Lipoprotein 19 mg/dL (5-40)
[2020-01-20 14:08] LABS: Testosterone, Free 6.65 ng/dL (5.00-21.00)
[2020-01-20 14:21] LABS: Testosterone, Total 391 ng/dL (264-916)
== END | disposition home or self-care (01) ==
LOC: BFHLAB 10:04
PROVIDERS: PCP Family Medicine; Visit Provider Family Medicine
DX: I10 Essential (primary) hypertension (principal); R53.1 Weakness; N52.9 Male erectile dysfunction, unspecified; Z12.5 Encounter for screening for malignant neoplasm of prostate; Z51.81 Encounter for therapeutic drug level monitoring
CPT/HCPCS: 36415; 80061; 84153; 84402; 84403; 84443; 85610; G0103

== ENCOUNTER 2020-03-26 07:45 | Outpatient (RCR) | payer MEDICARE, SELFPAY ==
[2019-09-12 13:04] VITALS: BMI 35.6
[2020-03-26 08:06] LABS: Prothrombin Time Fingerstick 31.7 SEC (11.9-14.4)
== END 2020-03-26 18:00 | disposition home or self-care (01) ==
LOC: MTLAB 07:45
PROVIDERS: Family Provider Family Medicine; PCP Family Medicine; Referring Provider Internal Medicine Cardiovascular Disease; Visit Provider Internal Medicine Cardiovascular Disease
DX: I48.0 Paroxysmal atrial fibrillation (principal); I25.10 Atherosclerotic heart disease of native coronary artery without angina pectoris; I47.1 Supraventricular tachycardia; I10 Essential (primary) hypertension; D47.2 Monoclonal gammopathy; E78.5 Hyperlipidemia, unspecified; Z79.01 Long term (current) use of anticoagulants
CPT/HCPCS: 36416; 85610

== ENCOUNTER → 2020-04-23 | Outpatient (CLI) | payer MEDICARE, SELFPAY ==
[2020-04-05 07:22] VITALS: BMI 35.7
[2020-04-23 12:18] LABS: Absolute Lymphocyte Count 1.78 X10^3/uL (0.83-4.51); Absolute Neutrophil Count 6.1 X10^3/uL (2.0-7.7); Basophil# 0.09 X10^3/uL; Eosinophil# 0.13 X10^3/uL; Eosinophils% 1.4 % (0-5); Hematocrit 50.1 % (40-54); Hemoglobin 16.3 g/dL (13.0-16.5); Lymphocyte # 1.78 X10^3/ul (4.0); Lymphocyte % 19.1 % (19-41); Mean Corp Hgb Conc 32.5 g/dL (32-36); Mean Corpuscular Hgb 30.1 pg (27.0-32.0); Mean Corpuscular Volume 92.4 fL (80-94); Monocyte% 11.8 % (0-10); NRBC Flagged by Analyzer 0 % (0-5); Neutrophil # 6.13 X10^3/uL (2.7-7.7); Neutrophil % 65.5 % (47-70); Platelet Count 245 K/mm3 (150-450); RBC Distribution Width CV 13.6 % (11.6-14.6); RBC Distribution Width SD 46.7 fl (35.1-43.9); Red Blood Count 5.42 M/mm3 (4.6-6.2); White Blood Count 9.3 K/mm3 (4.4-11.0)
[2020-04-23 14:00] LABS: ALB/GLOB Ratio 0.7 RATIO (0.9-2.4); AST(SGOT) 19 U/L (15-37); Alanine Aminotransfer ALT/SGPT 33 U/L (16-61); Albumin, Serum 3.5 g/dL (3.2-5.0); Alkaline Phosphatase 83 U/L (45-117); Anion Gap 12 (5-15); BUN 28 mg/dL (7-18); BUN/Creat Ratio 25.9 RATIO (10-20); CRP, High Sensitivity Cardiac 1.51 mg/L; Calcium,Total 9.8 mg/dL (8.5-10.1); Chloride 105 mmol/L (98-107); Cholesterol 216 mg/dL (200); Creatinine, Serum 1.08 mg/dL (0.70-1.30); EST Glomerular Filtration Rate 71 mL/min (>60); Est Glom Filt Rate - Afr Amer 86 mL/min (>60); Globulin 5.1 g/dL (2.2-4.2); Glucose 94 mg/dL (74-106); High Density Lipoprotein 47 mg/dL; Potassium 4.4 mmol/L (3.5-5.1); Protein, Total 8.6 g/dL (6.4-8.2); Sodium Level 139 mmol/L (136-145); Triglycerides 117 mg/dL; Very Low Density Lipoprotein 23 mg/dL (5-40)
[2020-04-23 14:11] LABS: Hemoglobin A1c 5.5 % (3.8-5.6)
== END | disposition home or self-care (01) ==
PROVIDERS: PCP Family Medicine; Referring Provider Nurse Practitioner Family; Visit Provider Nurse Practitioner Family
DX: M62.81 Muscle weakness (generalized) (principal); R53.82 Chronic fatigue, unspecified; R68.82 Decreased libido
CPT/HCPCS: 36415; 80053; 80061; 83036; 84443; 85025; 86141

== ENCOUNTER 2020-06-28 12:19 | Outpatient (RCR) | payer MEDICARE, SELFPAY ==
[2019-09-12 13:04] VITALS: BMI 35.6
[2020-04-05 07:22] VITALS: BMI 35.7
[2020-06-28 13:10] LABS: Prothrombin Time Fingerstick 43.7 SEC (11.9-14.4)
[2020-06-28 15:19] LABS: Prothrombin Time (Protime)PT. 39.4 SECONDS (11.7-14.9)
[2020-06-28 15:27] LABS: International Normalized Ratio 4.1
== END 2020-06-28 18:00 | disposition home or self-care (01) ==
LOC: MTLAB 12:19
PROVIDERS: Family Provider Family Medicine; PCP Family Medicine; Referring Provider Internal Medicine Cardiovascular Disease; Visit Provider Internal Medicine Cardiovascular Disease
DX: I48.0 Paroxysmal atrial fibrillation (principal); I25.10 Atherosclerotic heart disease of native coronary artery without angina pectoris; I47.1 Supraventricular tachycardia; I10 Essential (primary) hypertension; D47.2 Monoclonal gammopathy; E78.5 Hyperlipidemia, unspecified; Z79.01 Long term (current) use of anticoagulants
CPT/HCPCS: 36415; 36416; 85610

== ENCOUNTER 2020-07-16 13:12 | Outpatient (RCR) | payer MEDICARE, SELFPAY ==
[2020-04-05 07:22] VITALS: BMI 35.7
[2020-07-09 12:46] LABS: Prothrombin Time Fingerstick 21.6 SEC (11.9-14.4)
[2020-07-16 13:25] LABS: Prothrombin Time Fingerstick 21.9 SEC (11.9-14.4)
== END 2020-07-16 18:00 | disposition home or self-care (01) ==
LOC: MTLAB 13:12
PROVIDERS: Family Provider Family Medicine; PCP Family Medicine; Referring Provider Internal Medicine Cardiovascular Disease; Visit Provider Internal Medicine Cardiovascular Disease
DX: I48.0 Paroxysmal atrial fibrillation (principal); I25.10 Atherosclerotic heart disease of native coronary artery without angina pectoris; I47.1 Supraventricular tachycardia; I10 Essential (primary) hypertension; D47.2 Monoclonal gammopathy; E78.5 Hyperlipidemia, unspecified; Z79.01 Long term (current) use of anticoagulants
CPT/HCPCS: 36416; 85610

== ENCOUNTER 2020-08-07 14:07 | Outpatient (RCR) | payer MEDICARE, SELFPAY ==
[2020-04-05 07:22] VITALS: BMI 35.7
[2020-08-07 14:26] LABS: Prothrombin Time Fingerstick 20.3 SEC (11.9-14.4)
== END 2020-08-07 18:00 | disposition home or self-care (01) ==
LOC: MTLAB 14:07
PROVIDERS: Family Provider Family Medicine; PCP Family Medicine; Referring Provider Internal Medicine Cardiovascular Disease; Visit Provider Internal Medicine Cardiovascular Disease
DX: E78.5 Hyperlipidemia, unspecified (principal); I48.0 Paroxysmal atrial fibrillation; I25.10 Atherosclerotic heart disease of native coronary artery without angina pectoris; I47.1 Supraventricular tachycardia; I10 Essential (primary) hypertension; D47.2 Monoclonal gammopathy; Z79.01 Long term (current) use of anticoagulants
CPT/HCPCS: 36416; 85610

== ENCOUNTER 2020-08-16 10:37 | Emergency (ER) | payer MEDICARE, SELFPAY ==
[2020-04-05 07:22] VITALS: BMI 35.7
[2020-08-16 10:38] VITALS: BP 177/106; PULSE 67; RESP 20; TEMP 36.6; O2SAT 98; BMI 33.0
--- NOTE | 2020-08-16 10:49 | EKG12_ITS ---
Test Reason : DIZZINESS Blood Pressure : / mmHG Vent. Rate : 067 BPM Atrial Rate : 067 BPM P-R Int : 226 ms QRS Dur : 078 ms QT Int : 414 ms P-R-T Axes : 000 -20 -15 degrees QTc Int : 437 ms Sinus rhythm with 1st degree A-V block Moderate voltage criteria for LVH, may be normal variant Inferior infarct , age undetermined Abnormal ECG Confirmed by JOSH BRITO, AGUILAR ([id number]), supervising editor news reel TERRENCE BOWERS ([phone]) on 08/20/2020 12:30:38 P M Referred By: CL Confirmed By:DIMITRY MORENO MD
--- NOTE | 2020-08-16 10:49 | CT_ITS ---
STUDY: CT BRAIN WITHOUT CONTRAST REASON FOR EXAM: Male, 75 years old. DIZZINESS,WEAKNESS RADIATION DOSAGE (If Supplied By Facility): CTDIvol = ( 44.99 ) mGy, DLP = ( 812.98 ) mGycm TECHNIQUE: Transaxial CT imaging of the brain was performed without administration of intravenous contrast material. Individualized dose optimization techniques were used for this CT. COMPARISON: No relevant priors. FINDINGS: Normal soft tissue structures. Normal calvarium. Normal size ventricles and extra-axial spaces for the patient''s age. There are areas of decreased attenuation within the white matter tracts of the supratentorial brain, consistent with microvascular disease changes. Normal basal ganglia and thalami. Normal brainstem. Normal cerebellum. There is no intracranial hemorrhage. There are no findings of an acute ischemic infarction. Normal visualized paranasal sinuses. CT/Brain/Head without Contrast IMPRESSION: Chronic involutional changes of the brain. Electronically Signed: Nash Staples MD at 12:07 EST Tel , Service support ,
--- NOTE | 2020-08-16 10:50 | RAD_ITS ---
STUDY: X-RAY CHEST REASON FOR EXAM: Male, 75 years old. WEAKNESS, NO OTHER CHEST COMPLAINTS TECHNIQUE: Single AP portable view of the chest. COMPARISON: None. FINDINGS: There is elevation of the left hemidiaphragm. The left lung is underexpanded. There is no demonstrated pleural abnormality. Normal size heart. Normal mediastinum and sean. Normal visualized pulmonary arteries. Normal visualized aortic arch and descending thoracic aorta. Normal visualized thoracic spine. Normal visualized ribs, clavicles, and shoulders. There is no demonstrated abnormality of the visualized soft tissue structures of the upper abdomen. RAD/Chest 1 View (Portable) IMPRESSION: No demonstrated acute cardiopulmonary process. Electronically Signed: Nash Staples MD at 12:08 EST Tel , Service support ,
--- NOTE | 2020-08-16 11:02 | ED.DCSUM_ITS ---
History of Present Illness Chief Complaint: Weakness Informant: Patient Narrative: 75-year-old male with past medical history of hypertension and atrial fibrillation presents with concern for passing out. Patient states that he was walking down the hallway today when he felt very lightheaded and fell to the ground. He denies any head injury. Patient is on Coumadin for his atrial fibrillation. States that he did become lightheaded prior to his episode of syncope versus presyncope. Denies any chest pain, shortness of breath, nausea, vomiting, diaphoresis. States he has been eating and drinking well. Moving his bowels and urinating normally. Denies any other pain at this time. States he most recently had his INR checked 2 weeks ago and it was not therapeutic and they advised him to take increased dose of Coumadin for a few days. Patient denies any drugs or alcohol. Past Medical History - Allergies and Home Meds Allergies/Adverse Reactions: Allergies acetaminophen [From [place]] Allergy (Severe, Verified 08/16/20 10:40) SOB and leg weakness hydrocodone [From [place]] Allergy (Severe, Verified 08/16/20 10:40) SOB and leg weakness codeine Adverse Reaction (Severe, Verified 08/16/20 10:40) GOOFY GO OUT OF IT peppermint Adverse Reaction (Severe, Verified 08/16/20 10:40) Other HEADACHE Primary Care Physician: Joe Trotter DO [Primary Care Provider] - Prior records reviewed: Yes Past Medical History: - - HTN, atrial fibriallation Surgical History: - - Back surgery, oral surgery, tonsillectomy. Lives: Spouse/ Significant Other Smoking Status: Former smoker Alcohol: None Drugs: None - Family History Maternal Family History: Family History (Last Reviewed 04/05/20 @ 12:[address] Dequan Wells MD) Father CAD (coronary artery disease) Myocardial infarction, Onset Age: 57 Brother Hypertension Brother Hx of CABG Sister Atrial fibrillation Family History: Reports: Heart Disease - Mother with atrial fibrillation. Paternal Family History: Family History (Last Reviewed 04/05/20 @ 12:[address] Dequan Wells MD) Father CAD (coronary artery disease) Myocardial infarction, Onset Age: 57 Brother Hypertension Brother Hx of CABG Sister Atrial fibrillation Family History: Reports: Heart Disease - Father with heart disease, [place] 57 years old. Sibling Family History: Family History (Last Reviewed 04/05/20 @ 12:[address] Dequan Wells MD) Father CAD (coronary artery disease) Myocardial infarction, Onset Age: 57 Brother Hypertension Brother Hx of CABG Sister Atrial fibrillation Family History: Reports: Heart Disease - Sister with atrial fibrillation. Review of Systems General: Denies: Chills, Fever, Sweats Eyes: Denies: Visual changes - bilaterally, Diplopia ENT: Denies: Rhinorrhea, Sore throat Cardiovascular: Denies: Chest pain, Palpitations Respiratory: Denies: Dyspnea, Cough, Dyspnea on exertion Gastrointestinal: Denies: Abdominal pain, Nausea, Vomiting, Diarrhea, Melena, Hematochezia Genitourinary: Denies: Dysuria, Hematuria, Frequency Musculoskeletal: Denies: Back pain, Extremity Pain Skin: Denies: Rash, Wounds Neurological: Reports: - - syncope. Denies: Headache, Weakness, Numbness Physical Exam Vital Signs/Narrative: Vital Signs Temp Pulse Resp BP Pulse Ox 08/16/20 10:38 97.8 F 67 20 H 177/106 H 98 Inital Vital Signs reviewed: Yes General: Well nourished, Well developed, No Acute Distress Head: Normocephalic, Atraumatic Eyes: Perrl, EOMI ENT: Moist mucous membranes, No rhinorrhea Neck: Supple, Nontender Cardiovascular: Regular rate, Regular rhythm, No murmurs Respiratory: No distress, CTA bilaterally, Chest nontender Abdomen: Soft, Nontender, Nondistended, Normal bowel sounds Back: Nontender, Normal Inspection Extremities: Nontender, No edema Skin: Normal color, No rash Neurological: Alert, Oriented x3, Cranial nerves II-XII grossly intact, Normal Strength, Normal Sensation Psychological: Normal affect, Normal Mood Diagnostic/Tx/Re-eval Chest X-Ray - ED: 1 View, Read by ED Physician, Read by Radiologist, Normal Clinical Impression(s) from Imaging Studies Brain CT 08/16/20 10:49 IMPRESSION: Chronic involutional changes of the brain. Electronically Signed: Nash Staples MD at 12:07 EST Tel , Service support , Chest X-Ray 08/16/20 10:50 IMPRESSION: No demonstrated acute cardiopulmonary process. Electronically Signed: Nash Staples MD at 12:08 EST Tel , Service support , Laboratory Data 08/16/20 08/16/20 08/16/20 11:34 11:34 11:34 WBC 9.5 RBC 5.25 Hgb 15.4 Hct 48.0 MCV 91.4 MCH 29.3 MCHC 32.1 RDW Std Deviation 47.3 H RDW Coeff of Emre 13.9 Plt Count 279 MPV 10.4 Immature Gran % (Auto) 0.700 Neut % (Auto) 70.1 H Lymph % (Auto) 17.0 L [place] % (Auto) 10.2 H Eos % (Auto) 1.4 Baso % (Auto) 0.6 Absolute Neuts (auto) 6.7 Absolute Lymphs (auto) 1.62 Nucleated RBC % 0 PT 17.9 H INR 1.5 Sodium 137 Potassium 4.1 Chloride 106 Carbon Dioxide 26.0 Anion Gap 5 BUN 19 H Creatinine 1.10 Estim Creat Clear Calc 66.58 Est GFR (MDRD) Af Amer 84 Est GFR (MDRD) Non-Af 70 BUN/Creatinine Ratio 17.3 Glucose 106 Calcium 10.0 Total Bilirubin 0.70 AST 16 ALT 25 Alkaline Phosphatase 88 Troponin I < 0.015 Total Protein 8.0 Albumin 3.5 Globulin 4.5 H Albumin/Globulin Ratio 0.8 L Urine Color Urine Clarity Urine pH Ur Specific [place] Urine Protein Urine Glucose (UA) Urine Ketones Urine Occult Blood Urine Nitrite Urine Bilirubin Urine Urobilinogen Ur Leukocyte Esterase Urine RBC Urine WBC Ur Squamous Epith Cells Urine Bacteria Urine Mucus 08/16/20 13:28 WBC RBC Hgb Hct MCV MCH MCHC RDW Std Deviation RDW Coeff of Emre Plt Count MPV Immature Gran % (Auto) Neut % (Auto) Lymph % (Auto) [place] % (Auto) Eos % (Auto) Baso % (Auto) Absolute Neuts (auto) Absolute Lymphs (auto) Nucleated RBC % PT INR Sodium Potassium Chloride Carbon Dioxide Anion Gap BUN Creatinine Estim Creat Clear Calc Est GFR (MDRD) Af Amer Est GFR (MDRD) Non-Af BUN/Creatinine Ratio Glucose Calcium Total Bilirubin AST ALT Alkaline Phosphatase Troponin I Total Protein Albumin Globulin Albumin/Globulin Ratio Urine Color Yellow Urine Clarity Clear Urine pH 7.0 Ur Specific [place] 1.010 Urine Protein Negative Urine Glucose (UA) Normal Urine Ketones Negative Urine Occult Blood Negative Urine Nitrite Negative Urine Bilirubin Negative Urine Urobilinogen Normal Ur Leukocyte Esterase 25 H Urine RBC 0-5 SEEN Urine WBC 0-5 SEEN Ur Squamous Epith Cells 0 SEEN Urine Bacteria 0 SEEN Urine Mucus 0 SEEN - Rhythm Strip Rhythm Strip: A-fib Rate: 67 - EKG Initial EKG Interpretation: Atrial Fibrillation - Rate controlled atrial fibrillation at 67 bpm. QTC of [address] changes. - Medical Decision Making Patient appears well and nontoxic. Vital signs within normal limits. CT brain negative for intracranial pathology. Lab work within normal limits. EKG nonischemic. Patient was given 1 L of normal saline. He was ambulated to the bathroom. States he is feeling much improved. Patient was offered admission he had this episode of syncope versus presyncope. Patient does not wish to be admitted at this time and will follow up with his primary care physician within 2 days. Asked to return for new or worsening symptoms. Patient and agreeable and discharged home in stable condition. Impression: 1. Presyncope ED Disposition - Plan for ED Patient: Disposition: Home or Assisted Living Instructions: ED Weakness (Uncertain Cause) Referrals: Joe Trotter DO [Primary Care Provider] - 2 Days
[2020-08-16 11:51] LABS: Absolute Lymphocyte Count 1.62 X10^3/uL (0.83-4.51); Absolute Neutrophil Count 6.7 X10^3/uL (2.0-7.7); Basophil# 0.06 X10^3/uL; Basophil% 0.6 % (0-1); Eosinophil# 0.13 X10^3/uL; Eosinophils% 1.4 % (0-5); Hemoglobin 15.4 g/dL (13.0-16.5); Lymphocyte # 1.62 X10^3/ul (4.0); Mean Corp Hgb Conc 32.1 g/dL (32-36); Mean Corpuscular Hgb 29.3 pg (27.0-32.0); Mean Corpuscular Volume 91.4 fL (80-94); Mean Platelet Vol. 10.4 fl (6.2-12.0); Monocyte# 0.97 X10^3/uL; Monocyte% 10.2 % (0-10); NRBC Flagged by Analyzer 0 % (0-5); Neutrophil # 6.66 X10^3/uL (2.7-7.7); Neutrophil % 70.1 % (47-70); Platelet Count 279 K/mm3 (150-450); RBC Distribution Width CV 13.9 % (11.6-14.6); RBC Distribution Width SD 47.3 fl (35.1-43.9); Red Blood Count 5.25 M/mm3 (4.6-6.2); White Blood Count 9.5 K/mm3 (4.4-11.0)
[2020-08-16 11:55] LABS: International Normalized Ratio 1.5; Prothrombin Time (Protime)PT. 17.9 SECONDS (11.7-14.9)
[2020-08-16 12:03] LABS: ALB/GLOB Ratio 0.8 RATIO (0.9-2.4); AST(SGOT) 16 U/L (15-37); Alanine Aminotransfer ALT/SGPT 25 U/L (16-61); Albumin, Serum 3.5 g/dL (3.2-5.0); Alkaline Phosphatase 88 U/L (45-117); Anion Gap 5 (5-15); BUN 19 mg/dL (7-18); BUN/Creat Ratio 17.3 RATIO (10-20); Chloride 106 mmol/L (98-107); EST Glomerular Filtration Rate 70 mL/min (>60); Est Glom Filt Rate - Afr Amer 84 mL/min (>60); Estimated Creatinine Clearance 66.58 ml/min; Globulin 4.5 g/dL (2.2-4.2); Glucose 106 mg/dL (74-106); Potassium 4.1 mmol/L (3.5-5.1); Sodium Level 137 mmol/L (136-145)
[2020-08-16 13:33] LABS: Bacteria 0 SEEN /hpf (None Seen); Mucous, Urine 0 SEEN /hpf (<or=2+); Squamous Epithelial Cells - UA 0 SEEN /hpf (0-5)
--- NOTE | 2020-08-16 13:33 | ED.RN ---
pt ambulated to restroom to obtain urine specimen. pt ambulated well without assistance. pt reports still feeling some weakness in both legs.
[2020-08-16 13:35] LABS: Color, Urine Yellow (Yellow); Glucose, Dipstick Normal (Normal); Ketone-Dipstick Negative (Negative); Leukocyte Esterase-Dipstick 25 /ul (Negative); Nitrite-Dipstick Negative (Negative); Occult Blood-Urine Negative /ul (Negative); Protein-Dipstick Negative (Negative); Urine Bilirubin Dipstick Negative (Negative); Urine Clarity Clear (Clear); Urine Urobilinogen Normal (Normal)
[2020-08-16 13:41] LABS: Red Blood Cells-Urine 0-5 SEEN /hpf (0-5); White Blood Cells 0-5 SEEN /hpf (0-5)
[2020-08-16 14:26] VITALS: BP 115/77; PULSE 63; RESP 17
== END 2020-08-16 14:27 | disposition home or self-care (01) ==
PROVIDERS: Emergency Provider Emergency Medicine; PCP Family Medicine
DX: R55 Syncope and collapse (principal); I10 Essential (primary) hypertension; I48.91 Unspecified atrial fibrillation; Z79.01 Long term (current) use of anticoagulants; Z79.899 Other long term (current) drug therapy; Z87.891 Personal history of nicotine dependence
CPT/HCPCS: 36415; 70450; 71045; 80053; 81001; 84484; 85025; 85610; 93005; 96360; 99285; J7030; A4216

== ENCOUNTER 2020-09-11 11:27 | Outpatient (RCR) | payer MEDICARE, SELFPAY ==
[2020-09-11 11:41] LABS: Prothrombin Time Fingerstick 27.1 SEC (11.9-14.4)
== END 2020-09-11 18:00 | disposition home or self-care (01) ==
LOC: MTLAB 11:27
PROVIDERS: Family Provider Family Medicine; PCP Family Medicine; Referring Provider Internal Medicine Cardiovascular Disease; Visit Provider Internal Medicine Cardiovascular Disease
DX: E78.5 Hyperlipidemia, unspecified (principal); I48.0 Paroxysmal atrial fibrillation; I25.10 Atherosclerotic heart disease of native coronary artery without angina pectoris; I47.1 Supraventricular tachycardia; I10 Essential (primary) hypertension; D47.2 Monoclonal gammopathy; Z79.01 Long term (current) use of anticoagulants
CPT/HCPCS: 36416; 85610

== ENCOUNTER 2020-10-08 10:46 | Outpatient (RCR) | payer MEDICARE, SELFPAY ==
[2020-10-04 08:28] VITALS: BMI 35.8
[2020-10-08 12:18] LABS: Prothrombin Time (Protime)PT. 22.2 SECONDS (11.7-14.9)
[2020-10-08 12:20] LABS: Absolute Lymphocyte Count 1.35 X10^3/uL (0.83-4.51); Absolute Neutrophil Count 5.6 X10^3/uL (2.0-7.7); Basophil# 0.08 X10^3/uL; Eosinophils% 1.2 % (0-5); Hematocrit 47.9 % (40-54); Hemoglobin 15.5 g/dL (13.0-16.5); Lymphocyte # 1.35 X10^3/ul (4.0); Lymphocyte % 16.5 % (19-41); Mean Corp Hgb Conc 32.4 g/dL (32-36); Mean Corpuscular Hgb 29.8 pg (27.0-32.0); Mean Corpuscular Volume 91.9 fL (80-94); Mean Platelet Vol. 11.1 fl (6.2-12.0); Monocyte# 1.03 X10^3/uL; Monocyte% 12.6 % (0-10); NRBC Flagged by Analyzer 0 % (0-5); Neutrophil # 5.59 X10^3/uL (2.7-7.7); Neutrophil % 68.2 % (47-70); Platelet Count 256 K/mm3 (150-450); RBC Distribution Width CV 13.5 % (11.6-14.6); RBC Distribution Width SD 46.1 fl (35.1-43.9); Red Blood Count 5.21 M/mm3 (4.6-6.2); White Blood Count 8.2 K/mm3 (4.4-11.0)
== END 2020-10-08 18:00 | disposition home or self-care (01) ==
LOC: MTLAB 10:46
PROVIDERS: Nurse Practitioner Family; Family Provider Family Medicine; PCP Family Medicine; Referring Provider Internal Medicine Cardiovascular Disease; Visit Provider Internal Medicine Cardiovascular Disease
DX: I48.0 Paroxysmal atrial fibrillation (principal); I25.10 Atherosclerotic heart disease of native coronary artery without angina pectoris; I47.1 Supraventricular tachycardia; I10 Essential (primary) hypertension; D47.2 Monoclonal gammopathy; E78.5 Hyperlipidemia, unspecified; Z79.01 Long term (current) use of anticoagulants
CPT/HCPCS: 36415; 85025; 85610

== ENCOUNTER → 2020-10-16 10:13 | Outpatient (CLI) | payer MEDICARE, SELFPAY ==
[2020-10-09 13:08] VITALS: BMI 34.9
[2020-10-16 12:15] LABS: Absolute Lymphocyte Count 1.49 X10^3/uL (0.83-4.51); Absolute Neutrophil Count 6.6 X10^3/uL (2.0-7.7); Basophil# 0.07 X10^3/uL; Basophil% 0.8 % (0-1); Eosinophil# 0.12 X10^3/uL; Eosinophils% 1.3 % (0-5); Hemoglobin 15.6 g/dL (13.0-16.5); Lymphocyte # 1.49 X10^3/ul (4.0); Mean Corp Hgb Conc 32.5 g/dL (32-36); Mean Corpuscular Hgb 29.7 pg (27.0-32.0); Mean Corpuscular Volume 91.3 fL (80-94); Mean Platelet Vol. 10.9 fl (6.2-12.0); Monocyte# 1.01 X10^3/uL; Monocyte% 10.8 % (0-10); NRBC Flagged by Analyzer 0 % (0-5); Neutrophil # 6.56 X10^3/uL (2.7-7.7); Neutrophil % 70.3 % (47-70); Platelet Count 277 K/mm3 (150-450); RBC Distribution Width CV 13.6 % (11.6-14.6); RBC Distribution Width SD 46.3 fl (35.1-43.9); Red Blood Count 5.26 M/mm3 (4.6-6.2); White Blood Count 9.3 K/mm3 (4.4-11.0)
[2020-10-16 12:29] LABS: ALB/GLOB Ratio 0.7 RATIO (0.9-2.4); AST(SGOT) 13 U/L (15-37); Alanine Aminotransfer ALT/SGPT 25 U/L (16-61); Albumin, Serum 3.6 g/dL (3.2-5.0); Alkaline Phosphatase 92 U/L (45-117); Anion Gap 4 (5-15); BUN 25 mg/dL (7-18); BUN/Creat Ratio 24.3 RATIO (10-20); Calcium,Total 10.3 mg/dL (8.5-10.1); Chloride 105 mmol/L (98-107); Creatinine, Serum 1.03 mg/dL (0.70-1.30); EST Glomerular Filtration Rate 75 mL/min (>60); Est Glom Filt Rate - Afr Amer 91 mL/min (>60); Glucose 102 mg/dL (74-106); Potassium 3.9 mmol/L (3.5-5.1); Protein, Total 8.6 g/dL (6.4-8.2); Sodium Level 136 mmol/L (136-145)
[2020-10-17 22:13] LABS: Albumin 3.7 g/dL (2.9-4.4); Alpha-1-Globulins 0.3 g/dL (0.0-0.4); Alpha-2-Globulins 0.8 g/dL (0.4-1.0); Free Kappa Light Chains 20.9 mg/L (3.3-19.4); Free Lambda Light Chains 186.2 mg/L (5.7-26.3); Gamma Globulin 0.6 g/dL (0.4-1.8); Immunoglobulin A 186 mg/dL (61-437); Immunoglobulin G 2568 mg/dL (603-1613); Immunoglobulin M 35 mg/dL (15-143)
== END ==
PROVIDERS: PCP Family Medicine; Referring Provider Internal Medicine Hematology & Oncology; Visit Provider Internal Medicine Hematology & Oncology
DX: D47.2 Monoclonal gammopathy (principal)
CPT/HCPCS: 36415; 80053; 82784; 83883; 84165; 85025; 86334

== ENCOUNTER 2020-10-23 07:10 | Day surgery (SDC) | payer MEDICARE, SELFPAY ==
[2020-10-09 13:08] VITALS: BMI 34.9
--- NOTE | 2020-10-19 07:16 | HP_ITS ---
Intake Vital Signs 10/09/20 Height 6 ft 10/09/20 Weight: 258 lb 10/09/20 BMI 34.9 10/09/20 BP 142/88 H 10/09/20 Blood Pressure Location Rt brachial 10/09/20 Position Sitting 10/09/20 Respiration 16 Intake Visit Reasons: BLOOD IN STOOL, CSCOPE Chief Complaint: blood in stool Operations Advisor Required: No Is patient in pain?: No Allergies acetaminophen [From [place]] Allergy (Severe, Verified 10/09/20 13:09) SOB and leg weakness hydrocodone [From [place]] Allergy (Severe, Verified 10/09/20 13:09) SOB and leg weakness codeine Adverse Reaction (Severe, Verified 10/09/20 13:09) GOOFY peppermint Adverse Reaction (Severe, Verified 10/09/20 13:09) Other Medications Ascorbic Acid [Vitamin C] 1,000 mg PO DAILY 08/12/18 [History Confirmed 10/09/20] Calcium Carb,Gluc/Mag Ox,Gluc [Calcium Magnesium Caplet] 1 ea PO DAILY 08/12/18 [History Confirmed 10/09/20] Fish Oil 1,200 mg Fish Oil 1,200 mg PO DAILY 08/12/18 [History Confirmed 10/09/20] cholecalciferol (vitamin D3) 50 mcg (2,000 unit) tablet 4,000 unit PO DAILY tab 04/05/20 [History Confirmed 10/09/20] coenzyme Q10 100 mg capsule 100 mg PO DAILY 04/05/20 [History Confirmed 10/09/20] amiodarone 200 mg tablet 100 mg PO DAILY #45 tab 07/31/20 [Rx Confirmed 10/09/20] Multivitamin with Minerals [Multiple Vitamin] 1 ea PO DAILY 08/16/20 [History Confirmed 10/09/20] Warfarin Sodium 12.5 mg PO DAILY 08/16/20 [History Confirmed 10/09/20] metoprolol tartrate 50 mg tablet 50 mg PO BID #180 tab 08/23/20 [Rx Confirmed 10/09/20] hydrochlorothiazide 25 mg tablet 25 mg PO DAILY PRN tab 10/04/20 [History Confirmed 10/09/20] amlodipine 10 mg tablet 5 mg PO DAILY tablet 10/09/20 [History] [facility] Medical History Dilated aortic root (Chronic) Atherosclerotic heart disease of [place] coronary artery without angina pectoris (Chronic) Paroxysmal atrial fibrillation (Chronic) Paroxysmal supraventricular tachycardia (Chronic) Essential (primary) hypertension (Chronic) Hyperlipidemia (Chronic) MGUS (monoclonal gammopathy of unknown significance) (Chronic) Basal cell carcinoma (Chronic) Borderline diabetes (Chronic) Degenerative disc disease, lumbar (Chronic) Lumbar spinal stenosis (Chronic) Neuropathy (Chronic) Obesity (BMI 30-39.9) (Chronic) Osteoarthritis (Chronic) Venous insufficiency (Chronic) Shortness of breath (Inactive) Surgical History History of basal cell carcinoma excision (Resolved 03/2019) History of carpal tunnel surgery (Resolved 2003) 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 Jean Carlos Haynes MD) Smoking Status: Former smoker alcohol intake: never substance use type: does not use caffeine: Yes Type: coffee what type of physical activity do you participate in: walking, weight training frequency: daily seatbelt use: always do you feel safe at home: Yes HPI HPI HPI: TUCKER BOWEN, is a 75 M who presents to the office today for HPI HPI Surgical H&P: Yes HPI: TUCKER BOWEN, is a 75 M who presents to the office today for blood in stool. The patient reports that for the last 2 weeks he has had bright red streaks in his stool. Patient does not report any abdominal pain. His last colonoscopy was in 2014 and showed one tubular adenoma. Patient has no family history of colon cancer. He is on Coumadin for A. fib. ROS General General: No weight change or fatigue Musc Musculoskeletal: Yes back problems, arthritis and gout Cardio Cardiovascular: Yes atrial fibrillation and high blood pressure; no murmur, pacemaker, heart disease, heart attack, heart stent, palpitations, shortness of breat with exertion or chest pain Psych Psychiatric: No depression or anxiety Resp Respiratory: No shortness of breath, No sleep apnea, No cough, No COPD, No asthma, No emphysema, No wheezing Gastro Gastrointestinal: No abdominal pain, No nausea or vomiting, No diarrhea, No constipation, Yes blood in stool, No acid reflux, No hemorrhoids, No ulcers, No gallbladder problem, No black,tarry stools Jerel Hematologic: Yes blood thinners Exam Const General: cooperative Orientation: alert, oriented x3 Resp Effort & Inspection: normal respiratory effort Auscultation: clear to auscultation bilaterally Cardio Rate: regular rate Rhythm: regular rhythm Heart Sounds: no murmurs GI Inspection: non-distended Palpation: soft, nontender Assessment & Plan Problems 1. Bloody stool K92.1 Plan The patient history of bright red blood in his stool and I recommend colonoscopy. The patient will hold his Coumadin for 5 days. I explained endoscopy in detail to the patient. I explained the risks including but not limited to stroke or heart attack with anesthesia, perforation of the GI tract, bleeding, infection. I explained that any of these could necessitate further emergency surgery. The patient understands and all questions were answered sufficiently. The patient wishes to proceed with procedure. Jean Carlos Haynes MD Pager: [facility] [address] [place] [address], [address] [place] [address] Office: Orders Orders: Colonoscopy Today K92.1 Coding Level of Care Code Off vis,new,level 3 Diagnoses Bloody stool K92.1 I have re-examined the patient. There are no clinical changes since date of exam.
[2020-10-23] VITALS (7 sets, daily range): BP systolic 88–137; BP diastolic 61–95; PULSE 55–66; RESP 16–57; TEMP 36.2–36.8; O2SAT 97–98; BMI 33.7
[2020-10-23] MEDS: Lactated Ringers 1,000 ML 100 ML IV (07:43)
[2020-10-23 07:50] LABS: INR Fingerstick 1.4; Prothrombin Time Fingerstick 16.4 SEC (11.9-14.4)
--- NOTE | 2020-10-23 08:59 | OP.CCLET_ITS ---
10/23/2020 Joe Trotter [address] [place] [address] Re : Colonoscopy procedure for Joe Mercado Dear Dr. Trotter This procedure was performed on Friday, October 23, 2020. My impressions and recommendations are as follows: Impressions : - Non-bleeding internal hemorrhoids. - The examination was otherwise normal. - No specimens collected. Recommendations : - Discharge patient to home. - Resume previous diet. - Continue present medications. - Resume Coumadin (warfarin) at prior dose tomorrow. - Repeat colonoscopy is not recommended due to current age (66 years or older) for screening purposes. - Return to my office in 1 week. My findings are described in the full procedure note, which is enclosed. If I can be of further assistance, please feel free to contact me at Doctor phone number(s): , Work: . Sincerely, Jean Carlos Haynes MD 10/23/2020 8:58:31 AM This report has been signed electronically.
--- NOTE | 2020-10-23 08:59 | OP.COLON_ITS ---
Patient Name: Joe Mercado Procedure Date: 10/23/2020 8:10 AM Date of : 1945 Age: 75 Procedure: Colonoscopy Indications: Rectal bleeding Providers: Jean Carlos Haynes MD Referring MD: Joe Trotter Medicines: Monitored Anesthesia Care Patient Profile: This is a 75 year old male. Refer to note in patient chart for documentation of history and physical. Last Colonoscopy: several years ago. Complications: No immediate complications. Estimated blood loss: Minimal. Procedure: Pre-Anesthesia Assessment: - Prior to the procedure, a History and Physical was performed, and patient medications and allergies were reviewed. The patient's tolerance of previous anesthesia was also reviewed. The risks and benefits of the procedure and the sedation options and risks were discussed with the patient. All questions were answered, and informed consent was obtained. Prior Anticoagulants: The patient has taken Coumadin (warfarin), last dose was 5 days prior to procedure. After reviewing the risks and benefits, the patient was deemed in satisfactory condition to undergo the procedure. After I obtained informed consent, the scope was passed under direct vision. Throughout the procedure, the patient's blood pressure, pulse, and oxygen saturations were monitored continuously. The Colonoscope was introduced through the anus and advanced to the cecum, identified by appendiceal orifice and ileocecal valve. The colonoscopy was performed without difficulty. The patient tolerated the procedure well. The quality of the bowel preparation was good. Scope In: 8:33:38 AM Scope Withdrawal Time 0 hours 5 minutes 49 seconds Scope Out: 8:54:29 AM Total Procedure Duration Time 0 hours 20 minutes 51 seconds Findings: Non-bleeding internal hemorrhoids were found during retroflexion. The hemorrhoids were moderate. The exam was otherwise without abnormality. Impression: - Non-bleeding internal hemorrhoids. - The examination was otherwise normal. - No specimens collected. Recommendation: - Discharge patient to home. - Resume previous diet. - Continue present medications. - Resume Coumadin (warfarin) at prior dose tomorrow. - Repeat colonoscopy is not recommended due to current age (66 years or older) for screening purposes. - Return to my office in 1 week. Procedure Code(s): --- Professional --- 46663, Colonoscopy, flexible; diagnostic, including collection of specimen(s) by brushing or washing, when performed (separate procedure) Diagnosis Code(s): --- Professional --- K64.8, Other hemorrhoids K62.5, Hemorrhage of anus and rectum CPT copyright 2017 [employer]. All rights reserved. The codes documented in this report are preliminary and upon bakery associate review may be revised to meet current compliance requirements. Jean Carlos Haynes MD 10/23/2020 8:58:31 AM This report has been signed electronically. Number of Addenda: 0 Note Initiated On: 10/23/2020 8:10 AM
== END 2020-10-23 10:06 | disposition home or self-care (01) ==
LOC: EN 07:10 → AC 07:10
PROVIDERS: PCP Family Medicine; Referring Provider Family Medicine; Visit Provider Surgery
PROC: 0DJD8ZZ Inspection of Lower Intestinal Tract, Via Natural or Artificial Opening Endoscopic (ICD-10-PCS; CPT 45378; principal; 2020-10-23 08:25)
DX: K62.5 Hemorrhage of anus and rectum (principal); K64.8 Other hemorrhoids; I25.10 Atherosclerotic heart disease of native coronary artery without angina pectoris; I48.0 Paroxysmal atrial fibrillation; I10 Essential (primary) hypertension; E78.5 Hyperlipidemia, unspecified; E66.9 Obesity, unspecified; M19.90 Unspecified osteoarthritis, unspecified site; R73.03 Prediabetes; Z68.34 Body mass index [BMI] 34.0-34.9, adult; Z79.01 Long term (current) use of anticoagulants; Z79.899 Other long term (current) drug therapy; Z87.891 Personal history of nicotine dependence; Z20.822 Contact with and (suspected) exposure to COVID-19
CPT/HCPCS: 45378; 36416; 85610; 87426; C9803; J7120; J2405

== ENCOUNTER → 2020-10-24 09:55 | Outpatient (CLI) | payer MEDICARE, SELFPAY ==
[2020-10-04 08:28] VITALS: BMI 35.8
[2020-10-23 07:33] VITALS: BMI 33.7
--- NOTE | 2020-10-24 09:58 | ECHOCS_ITS ---
Reason For Study: Other Procedure This was a 2D Doppler, Color Flow transthoracic echocardiogram. Contrast injection was performed. Exam performed in department. Left Ventricle Normal LV size. Left ventricular systolic function is normal. The estimated ejection fraction is 55 %. Stage 1 diastolic dysfunction. No regional wall motion abnormalities noted. Right Ventricle Normal RV size. Normal systolic function. Atria The left atrium is mildly enlarged. Normal right atrium. Mitral Valve Normal mitral valve. Tricuspid Valve Normal tricuspid valve. Aortic Valve Trisinus/trileaflet aortic valve. Mild diffuse aortic valve thickening. Pulmonic Valve The pulmonic valve is not well visualized. Great Vessels Moderately dilated aortic root. The pulmonary artery is normal size. Inferior vena cava collapse with respiration. Pericardium/Pleural No pericardial effusion. Medication Diluted definity 2ml given slow IV push to enhance endocardial definition. MMode/2D Measurements & Calculations LVIDd: 4.5 cm IVSd: 1.3 cm Ao root diam: 4.5 cm LVIDs: 2.9 cm LVPWd: 0.92 cm RVDd: 4.6 cm FS: 35.3 % LAV(MOD-bp): 69.7 ml LA A4 area: 22.3 cm2 LA dimension(2D): 3.7 cm LAV(MOD-bp) Indexed: 29.5 ml/m2 LAV(MOD-sp2): 72.2 ml LAV(MOD-sp4): 64.7 ml RA A4 area: 21.2 cm2 Doppler Measurements & Calculations MV E max tyson: 83.8 cm/sec Lat Peak E' Tyson: 7.0 cm/sec Med Peak E' Tyson: 6.7 cm/sec MV A max tyson: 101.9 cm/sec E/E' lat: 11.9 E/E' med: 12.5 MV E/A: 0.82 Ao V2 max: 175.9 cm/sec AI max tyson: 411.9 cm/sec LV V1 max: 114.4 cm/sec Ao max P.4 mmHg AI max P.9 mmHg LV V1 max P.2 mmHg Ao V2 mean: 124.2 cm/sec AI dec slope: 144.5 cm/sec2 Ao mean P.9 mmHg AI P1/2t: 835.0 msec Ao V2 VTI: 39.3 cm PA V2 max: 78.5 cm/sec TR max tyson: 212.2 cm/sec TR max P.0 mmHg ECHO/Echo Complete W/ Contrast Interpretation Summary Normal LV size. Left ventricular systolic function is normal. The estimated ejection fraction is 55 %. Stage 1 diastolic dysfunction. Moderately dilated aortic root. The aortic root size is unchanged. Compared to previous study, the left ventric ular systolic function is the same.. Ordering Physician: Gary Ash Referring Physician: Joe Trotter Performed By: Nesha Ash, IRMA, RVT
== END ==
PROVIDERS: PCP Family Medicine; Referring Provider Nurse Practitioner Family; Visit Provider Nurse Practitioner Family
DX: I77.810 Thoracic aortic ectasia (principal); I25.10 Atherosclerotic heart disease of native coronary artery without angina pectoris; I10 Essential (primary) hypertension
CPT/HCPCS: 93306; Q9957; A4216; C8929

== ENCOUNTER 2020-11-16 11:02 | Outpatient (RCR) | payer MEDICARE, SELFPAY ==
[2020-10-25 14:45] VITALS: BMI 34.1
[2020-11-16 11:15] LABS: INR Fingerstick 2.6
== END 2020-11-16 18:00 | disposition home or self-care (01) ==
LOC: MTLAB 11:02
PROVIDERS: Family Provider Family Medicine; PCP Family Medicine; Referring Provider Internal Medicine Cardiovascular Disease; Visit Provider Internal Medicine Cardiovascular Disease
DX: I48.0 Paroxysmal atrial fibrillation (principal); I25.10 Atherosclerotic heart disease of native coronary artery without angina pectoris; I47.1 Supraventricular tachycardia; I10 Essential (primary) hypertension; D47.2 Monoclonal gammopathy; E78.5 Hyperlipidemia, unspecified; Z79.01 Long term (current) use of anticoagulants
CPT/HCPCS: 36416; 85610

== ENCOUNTER 2021-01-01 08:12 | Outpatient (RCR) | payer MEDICARE, SELFPAY ==
[2020-10-25 14:45] VITALS: BMI 34.1
[2021-01-01 08:25] LABS: INR Fingerstick 1.8; Prothrombin Time Fingerstick 20.3 SEC (11.9-14.4)
== END 2021-01-01 18:00 | disposition home or self-care (01) ==
LOC: MTLAB 08:12
PROVIDERS: Family Provider Family Medicine; PCP Family Medicine; Referring Provider Internal Medicine Cardiovascular Disease; Visit Provider Internal Medicine Cardiovascular Disease
DX: I48.0 Paroxysmal atrial fibrillation (principal); I25.10 Atherosclerotic heart disease of native coronary artery without angina pectoris; I47.1 Supraventricular tachycardia; I10 Essential (primary) hypertension; D47.2 Monoclonal gammopathy; Z79.01 Long term (current) use of anticoagulants
CPT/HCPCS: 36416; 85610

== ENCOUNTER 2021-01-17 11:36 | Outpatient (RCR) | payer MEDICARE, SELFPAY ==
[2020-10-25 14:45] VITALS: BMI 34.1
[2021-01-17 11:50] LABS: INR Fingerstick 1.9; Prothrombin Time Fingerstick 22.2 SEC (11.9-14.4)
== END 2021-01-17 18:00 | disposition home or self-care (01) ==
LOC: MTLAB 11:36
PROVIDERS: Family Provider Family Medicine; PCP Family Medicine; Referring Provider Internal Medicine Cardiovascular Disease; Visit Provider Internal Medicine Cardiovascular Disease
DX: I48.0 Paroxysmal atrial fibrillation (principal); I25.10 Atherosclerotic heart disease of native coronary artery without angina pectoris; I47.1 Supraventricular tachycardia; I10 Essential (primary) hypertension; D47.2 Monoclonal gammopathy; E78.5 Hyperlipidemia, unspecified; Z79.01 Long term (current) use of anticoagulants
CPT/HCPCS: 36416; 85610

== ENCOUNTER 2021-02-11 07:02 | Outpatient (RCR) | payer MEDICARE, SELFPAY ==
[2020-10-25 14:45] VITALS: BMI 34.1
[2021-02-11 07:15] LABS: INR Fingerstick 2.6
== END 2021-02-11 18:00 | disposition home or self-care (01) ==
LOC: MTLAB 07:02
PROVIDERS: Family Provider Family Medicine; PCP Family Medicine; Referring Provider Internal Medicine Cardiovascular Disease; Visit Provider Internal Medicine Cardiovascular Disease
DX: I48.0 Paroxysmal atrial fibrillation (principal); I25.10 Atherosclerotic heart disease of native coronary artery without angina pectoris; I47.1 Supraventricular tachycardia; I10 Essential (primary) hypertension; D47.2 Monoclonal gammopathy; E78.5 Hyperlipidemia, unspecified; Z79.01 Long term (current) use of anticoagulants
CPT/HCPCS: 36416; 85610

== ENCOUNTER 2021-03-28 10:24 | Outpatient (RCR) | payer MEDICARE, SELFPAY ==
[2021-03-06 01:26] VITALS: BMI 34.1
--- NOTE | 2021-03-28 10:28 | RAD_ITS ---
We are attempting to reach an attending provider to discuss findings. An addendum with communication details will be sent when the communication is complete. INDICATION: INTERMITTENT DIARRHEA EXAMINATION/TECHNIQUE: X-RAY - AP XR Abdomen 1 View COMPARISON: Chest x-ray 08/16/2020 FINDINGS: Dilated right colon measuring up to 9 cm in diameter with loop of air-filled colon in the right upper quadrant and beaked type morphology in the right lower quadrant can be suspicious for cecal volvulus in the right clinical setting. Clinical correlation is recommended. Short-term follow-up should be considered. No other prominent air-filled bowel loops. No evidence organomegaly or mass effect. No abnormal soft tissue ossification with pelvic phleboliths noted. Degenerative changes lower lumbar spine. Asymmetric elevation left hemidiaphragm, unchanged compared to prior x-ray. RAD/Abdomen Single View IMPRESSION: Nonspecific appearance of the air-filled colon right abdomen most likely within normal limits given history however appearance could potentially be seen with a cecal volvulus. Clinical correlation is recommended. Electronically Signed: Alvarado Arauz DO at 22:56 EDT Tel , Service support ,
[2021-03-28 10:35] LABS: INR Fingerstick 2.7; Prothrombin Time Fingerstick 30.3 SEC (11.9-14.4)
== END 2021-03-28 18:00 | disposition home or self-care (01) ==
LOC: MTLAB 10:24
PROVIDERS: Family Provider Family Medicine; PCP Family Medicine; Referring Provider Internal Medicine Cardiovascular Disease; Visit Provider Internal Medicine Cardiovascular Disease
DX: I48.0 Paroxysmal atrial fibrillation (principal); I47.1 Supraventricular tachycardia; Z79.01 Long term (current) use of anticoagulants; R19.7 Diarrhea, unspecified
CPT/HCPCS: 36416; 74018; 85610

== ENCOUNTER → 2021-03-29 11:17 | Outpatient (CLI) | payer MEDICARE, SELFPAY ==
--- NOTE | 2021-03-29 11:24 | CT_ITS ---
STUDY: CT ABDOMEN AND PELVIS WITH CONTRAST REASON FOR EXAM: Male, 75 years old. UNSPEC. ABD PAIN. 2 month history of diarrhea. RADIATION DOSAGE (If Supplied By Facility): CTDIvol = ( 18.69 ) mGy, DLP = ( 1528.71 ) mGycm TECHNIQUE: Transaxial images were obtained from the dome of the diaphragm to the symphysis pubis with oral contrast. Oral and amp; IV and amp; 100mL Isovue-300 was administered. Sagittal and coronal images were reconstructed. Individualized dose optimization techniques were used for this CT. COMPARISON: None. FINDINGS: There is a 6.6 cm x 3.9 cm lipoma in the right axillary region. Small benign-appearing bilateral axillary lymph nodes. Left lower lobe infiltrate. 5 mm calcified granuloma in the left lower lobe. Coronary artery calcification. Normal liver. Normal gallbladder and extrahepatic biliary system. Normal spleen. Normal pancreas. Normal bilateral adrenal glands. Normal right kidney. There is a 1.4 cm cyst in the anterior medial portion of the upper pole of the left kidney. Subcentimeter cyst is seen in the midportion. Normal visualized stomach. Normal small intestine. There are scattered colonic diverticula consistent with diverticulosis. The appendix is visualized and appears normal. There is diffuse atherosclerotic calcification of the abdominal aorta, without a demonstrated aneurysm. Normal inferior vena cava. Normal retroperitoneum. The prostate measures 4 cm x 5 cm. Prostatic calcifications are seen. Normal abdominal wall. There are diffuse degenerative changes of the visualized lumbar spine. CT/Abdomen/Pelvis WITH Contrast IMPRESSION: Left lower lobe pulmonary infiltrate. Scattered sigmoid diverticula. Electronically Signed: Jean Harrison MD at 13:58 EDT , Service support ,
[2021-03-29 13:36] LABS: CREATININE FINGERSTICK 0.8 mg/dL (0.70-1.30); EGFR FINGERSTICK > 60.0000 mL/min (>60)
== END ==
PROVIDERS: PCP Family Medicine; Referring Provider Family Medicine; Visit Provider Family Medicine
DX: K59.39 Other megacolon (principal); R10.9 Unspecified abdominal pain; R19.7 Diarrhea, unspecified
CPT/HCPCS: 74177; Q9967; A4216

== ENCOUNTER 2021-05-21 14:53 | Outpatient (RCR) | payer MEDICARE, SELFPAY ==
[2021-04-05 02:01] VITALS: BMI 34.1
[2021-05-21 15:11] LABS: Prothrombin Time Fingerstick 23.3 SEC (11.9-14.4)
== END 2021-06-04 18:00 | disposition home or self-care (01) ==
LOC: MTLAB 14:53
PROVIDERS: Family Provider Family Medicine; PCP Family Medicine; Referring Provider Internal Medicine Cardiovascular Disease; Visit Provider Internal Medicine Cardiovascular Disease
DX: I48.0 Paroxysmal atrial fibrillation (principal); I47.1 Supraventricular tachycardia; Z79.01 Long term (current) use of anticoagulants
CPT/HCPCS: 36416; 85610

== ENCOUNTER 2021-06-27 10:34 | Outpatient (RCR) | payer MEDICARE, SELFPAY ==
[2021-06-05 04:11] VITALS: BMI 34.1
[2021-06-27 10:45] LABS: Prothrombin Time Fingerstick 22.6 SEC (11.9-14.4)
== END 2021-07-06 18:00 | disposition home or self-care (01) ==
LOC: MTLAB 10:34
PROVIDERS: Family Provider Family Medicine; PCP Family Medicine; Referring Provider Internal Medicine Cardiovascular Disease; Visit Provider Internal Medicine Cardiovascular Disease
DX: I48.0 Paroxysmal atrial fibrillation (principal); I47.1 Supraventricular tachycardia; Z79.01 Long term (current) use of anticoagulants
CPT/HCPCS: 36416; 85610

== ENCOUNTER 2021-08-15 09:54 | Outpatient (RCR) | payer MEDICARE, SELFPAY ==
[2021-07-07 18:29] VITALS: BMI 34.1
[2021-08-15 10:05] LABS: INR Fingerstick 2.5; Prothrombin Time Fingerstick 29.2 SEC (11.9-14.4)
== END 2021-08-15 23:59 | disposition home or self-care (01) ==
LOC: MTLAB 09:54
PROVIDERS: Family Provider Family Medicine; PCP Family Medicine; Referring Provider Internal Medicine Cardiovascular Disease; Visit Provider Internal Medicine Cardiovascular Disease
DX: I48.0 Paroxysmal atrial fibrillation (principal); I47.1 Supraventricular tachycardia; Z79.01 Long term (current) use of anticoagulants
CPT/HCPCS: 36416; 85610

== ENCOUNTER 2021-09-17 11:06 | Outpatient (RCR) | payer MEDICARE, SELFPAY ==
[2021-09-03 10:22] VITALS: BMI 34.1
[2021-09-17 11:21] LABS: INR Fingerstick 2.3; Prothrombin Time Fingerstick 26.6 SEC (11.7-14.9)
== END 2021-10-03 18:00 | disposition home or self-care (01) ==
LOC: MTLAB 11:06
PROVIDERS: Family Provider Family Medicine; PCP Family Medicine; Referring Provider Internal Medicine Cardiovascular Disease; Visit Provider Internal Medicine Cardiovascular Disease
DX: I48.0 Paroxysmal atrial fibrillation (principal); I47.1 Supraventricular tachycardia; Z79.01 Long term (current) use of anticoagulants
CPT/HCPCS: 36416; 85610

== ENCOUNTER 2021-11-13 07:51 | Outpatient (RCR) | payer MEDICARE, SELFPAY ==
[2021-10-04 03:08] VITALS: BMI 34.1
[2021-11-13 08:00] LABS: INR Fingerstick 1.9; Prothrombin Time Fingerstick 22.5 SEC (11.7-14.9)
== END 2021-11-13 18:00 | disposition home or self-care (01) ==
LOC: MTLAB 07:51
PROVIDERS: Family Provider Family Medicine; PCP Family Medicine; Referring Provider Internal Medicine Cardiovascular Disease; Visit Provider Internal Medicine Cardiovascular Disease
DX: I48.0 Paroxysmal atrial fibrillation (principal); I47.1 Supraventricular tachycardia; Z79.01 Long term (current) use of anticoagulants
CPT/HCPCS: 36416; 85610

== ENCOUNTER 2022-01-08 07:40 | Outpatient (RCR) | payer MEDICARE, SELFPAY ==
[2021-12-03 21:48] VITALS: BMI 34.1
[2022-01-08 07:51] LABS: INR Fingerstick 3.5; Prothrombin Time Fingerstick 39.2 SEC (11.7-14.9)
== END 2022-02-02 03:27 | disposition home or self-care (01) ==
LOC: MTLAB 07:40
PROVIDERS: Family Provider Family Medicine; PCP Family Medicine; Referring Provider Internal Medicine Cardiovascular Disease; Visit Provider Internal Medicine Cardiovascular Disease
DX: I48.0 Paroxysmal atrial fibrillation (principal); I47.1 Supraventricular tachycardia; Z79.01 Long term (current) use of anticoagulants
CPT/HCPCS: 36416; 85610

== ENCOUNTER 2022-02-13 14:26 | Outpatient (RCR) | payer MEDICARE, SELFPAY ==
[2022-02-02 03:28] VITALS: BMI 34.1
[2022-02-13 17:52] LABS: International Normalized Ratio 2.7; Prothrombin Time (Protime)PT. 28.6 SECONDS (11.7-14.9)
[2022-02-13 18:16] LABS: AST(SGOT) 16 U/L (15-37); Alanine Aminotransfer ALT/SGPT 26 U/L (16-61); Albumin, Serum 3.3 g/dL (3.2-5.0); Alkaline Phosphatase 84 U/L (45-117); Anion Gap 7 (5-15); BUN 20 mg/dL (7-18); BUN/Creat Ratio 18.9 RATIO (10-20); Bilirubin, Direct 0.23 mg/dL (0.00-0.30); Calcium,Total 10.2 mg/dL (8.5-10.1); Chloride 107 mmol/L (98-107); Cholesterol 177 mg/dL (200); Creatinine, Serum 1.06 mg/dL (0.70-1.30); EST Glomerular Filtration Rate 72 mL/min (>60); Est Glom Filt Rate - Afr Amer 87 mL/min (>60); Globulin 5.3 g/dL (2.2-4.2); Glucose 91 mg/dL (74-106); High Density Lipoprotein 42 mg/dL; Potassium 4.3 mmol/L (3.5-5.1); Protein, Total 8.6 g/dL (6.4-8.2); Sodium Level 138 mmol/L (136-145); Thyroid Stim Hormone (TSH) 0.85 uIU/mL (0.358-3.74); Triglycerides 95 mg/dL; Very Low Density Lipoprotein 19 mg/dL (5-40)
== END 2022-02-13 18:00 | disposition home or self-care (01) ==
LOC: MTLAB 14:26
PROVIDERS: Nurse Practitioner Family; Family Provider Family Medicine; PCP Family Medicine; Referring Provider Internal Medicine Cardiovascular Disease; Visit Provider Internal Medicine Cardiovascular Disease
DX: I48.0 Paroxysmal atrial fibrillation (principal); I47.1 Supraventricular tachycardia; Z79.01 Long term (current) use of anticoagulants; I10 Essential (primary) hypertension; I77.810 Thoracic aortic ectasia
CPT/HCPCS: 36415; 80048; 80061; 80076; 84439; 84443; 85610

== ENCOUNTER → 2022-02-20 | Outpatient (CLI) | payer MEDICARE, SELFPAY ==
--- NOTE | 2022-02-20 14:36 | CT_ITS ---
STUDY: CTA CHEST REASON FOR EXAM: Male, 76 years old. Evaluate dilated root size- Echo 4.5 cm RADIATION DOSAGE (If Supplied By Facility): CTDIvol = ( 21.76 ) mGy, DLP = ( 736.16 ) mGycm TECHNIQUE: The examination was performed with the intravenous administration of IV 100mL Isovue-300. Post-processing of the angiographic images was performed, with multiplanar reformation and 3D reconstruction. Individualized dose optimization techniques were used for this CT. COMPARISON: None. FINDINGS: There is a 5.3 cm x 5.2 cm lipoma in the right axillary region. Normal enhancement of the main pulmonary artery and right and left pulmonary arteries. Normal enhancement of the bilateral peripheral pulmonary arteries. There is no demonstrated pulmonary embolism. There is aneurysmal dilatation of the ascending aorta. The transverse diameter of the ascending aorta measures 46 mm''s. There is no demonstrated aortic dissection. There are calcifications of the coronary arteries. Normal mediastinum. Normal hilar regions. Normal visualized trachea and bronchi. There is elevation of the posterior aspect of the left hemidiaphragm with increased markings at the lung bases suggestive of atelectasis. This is in keeping with a [place] type hernia. Normal pulmonary parenchyma. Normal pleura. Normal chest wall structures. There are degenerative changes of thoracic spine. Normal visualized upper abdomen. CT/CTA Chest W/WO Contrast IMPRESSION: Elevation of the posterior aspect of the left hemidiaphragm in keeping with a [place] hernia with a left basilar atelectasis. Dilatation of the root of the ascending thoracic aorta measuring 46 mm. Electronically Signed: Jean Harrison MD at 15:19 EDT ,
== END | disposition home or self-care (01) ==
LOC: CT 14:36
PROVIDERS: PCP Family Medicine; Referring Provider Nurse Practitioner Family; Visit Provider Nurse Practitioner Family
DX: I77.810 Thoracic aortic ectasia (principal); I48.0 Paroxysmal atrial fibrillation
CPT/HCPCS: 71275; Q9967

== ENCOUNTER 2022-04-21 13:30 | Outpatient (RCR) | payer MEDICARE, SELFPAY ==
[2022-03-06 01:02] VITALS: BMI 34.1
[2022-04-21 13:41] LABS: Prothrombin Time Fingerstick 24.1 SEC (11.7-14.9)
== END 2022-04-21 18:00 | disposition home or self-care (01) ==
LOC: MTLAB 13:30
PROVIDERS: Family Provider Family Medicine; PCP Family Medicine; Referring Provider Internal Medicine Cardiovascular Disease; Visit Provider Internal Medicine Cardiovascular Disease
DX: I48.0 Paroxysmal atrial fibrillation (principal); Z79.01 Long term (current) use of anticoagulants
CPT/HCPCS: 36416; 85610

== ENCOUNTER 2022-06-20 11:10 | Outpatient (RCR) | payer MEDICARE, SELFPAY ==
[2022-05-06 10:28] VITALS: BMI 34.1
[2022-06-20 11:21] LABS: Prothrombin Time Fingerstick 23.3 SEC (11.7-14.9)
== END 2022-06-20 18:00 | disposition home or self-care (01) ==
LOC: MTLAB 11:10
PROVIDERS: Family Provider Family Medicine; PCP Family Medicine; Referring Provider Internal Medicine Cardiovascular Disease; Visit Provider Internal Medicine Cardiovascular Disease
DX: I48.0 Paroxysmal atrial fibrillation (principal); Z79.01 Long term (current) use of anticoagulants
CPT/HCPCS: 36416; 85610

== ENCOUNTER 2022-08-05 08:21 | Outpatient (RCR) | payer MEDICARE, SELFPAY ==
[2022-07-06 06:28] VITALS: BMI 34.1
[2022-08-06 16:45] LABS: INR Fingerstick 2.3; Prothrombin Time Fingerstick 26.9 SEC (11.7-14.9)
== END 2022-08-05 10:21 | disposition home or self-care (01) ==
LOC: MTLAB 08:21
PROVIDERS: Family Provider Family Medicine; PCP Family Medicine; Referring Provider Internal Medicine Cardiovascular Disease; Visit Provider Internal Medicine Cardiovascular Disease
DX: I48.0 Paroxysmal atrial fibrillation (principal); Z79.01 Long term (current) use of anticoagulants
CPT/HCPCS: 36416; 85610

== ENCOUNTER → 2022-08-07 | Outpatient (CLI) | payer MEDICARE, SELFPAY ==
[2022-08-07 13:18] LABS: AST(SGOT) 16 U/L (15-37); Alanine Aminotransfer ALT/SGPT 23 U/L (16-61); Albumin, Serum 3.2 g/dL (3.2-5.0); Alkaline Phosphatase 92 U/L (45-117); Bilirubin, Direct 0.14 mg/dL (0.00-0.30); Cholesterol 158 mg/dL (200); Globulin 5.1 g/dL (2.2-4.2); High Density Lipoprotein 37 mg/dL; Protein, Total 8.3 g/dL (6.4-8.2); Triglycerides 69 mg/dL; Very Low Density Lipoprotein 14 mg/dL (5-40)
== END | disposition home or self-care (01) ==
PROVIDERS: PCP Family Medicine; Referring Provider Internal Medicine Cardiovascular Disease; Visit Provider Internal Medicine Cardiovascular Disease
DX: E78.5 Hyperlipidemia, unspecified (principal)
CPT/HCPCS: 36415; 80061; 80076

== ENCOUNTER 2022-09-30 09:41 | Outpatient (RCR) | payer MEDICARE, SELFPAY ==
[2022-08-06 07:37] VITALS: BMI 34.1
[2022-09-25 14:31] LABS: International Normalized Ratio 4.3; Prothrombin Time (Protime)PT. 41.3 SECONDS (11.7-14.9)
[2022-09-30 09:51] LABS: INR Fingerstick 1.4; Prothrombin Time Fingerstick 16.6 SEC (11.7-14.9)
== END 2022-10-03 20:54 | disposition home or self-care (01) ==
LOC: MTLAB 09:41
PROVIDERS: Family Provider Family Medicine; PCP Family Medicine; Referring Provider Internal Medicine Cardiovascular Disease; Visit Provider Internal Medicine Cardiovascular Disease
DX: I48.0 Paroxysmal atrial fibrillation (principal); Z79.01 Long term (current) use of anticoagulants
CPT/HCPCS: 36416; 85610

== ENCOUNTER 2022-10-15 09:07 | Outpatient (RCR) | payer MEDICARE, SELFPAY ==
[2022-10-03 20:54] VITALS: BMI 34.1
[2022-10-15 09:16] LABS: INR Fingerstick 1.8; Prothrombin Time Fingerstick 20.3 SEC (11.7-14.9)
== END 2022-11-02 05:22 | disposition home or self-care (01) ==
LOC: MTLAB 09:07
PROVIDERS: Family Provider Family Medicine; PCP Family Medicine; Referring Provider Internal Medicine Cardiovascular Disease; Visit Provider Internal Medicine Cardiovascular Disease
DX: I48.0 Paroxysmal atrial fibrillation (principal); Z79.01 Long term (current) use of anticoagulants
CPT/HCPCS: 36416; 85610

== ENCOUNTER 2022-11-11 09:17 | Outpatient (RCR) | payer MEDICARE, SELFPAY ==
[2022-11-02 05:22] VITALS: BMI 34.1
[2022-11-11 09:26] LABS: INR Fingerstick 2.1; Prothrombin Time Fingerstick 22.9 SEC (11.7-14.9)
== END 2022-11-11 10:17 | disposition home or self-care (01) ==
LOC: MTLAB 09:17
PROVIDERS: Family Provider Family Medicine; PCP Family Medicine; Referring Provider Internal Medicine Cardiovascular Disease; Visit Provider Internal Medicine Cardiovascular Disease
DX: I48.0 Paroxysmal atrial fibrillation (principal); Z79.01 Long term (current) use of anticoagulants
CPT/HCPCS: 36416; 85610

== ENCOUNTER 2022-12-12 08:36 | Outpatient (RCR) | payer MEDICARE, SELFPAY ==
[2022-12-04 08:07] VITALS: BMI 34.1
[2022-12-15 08:41] LABS: INR Fingerstick 2.4; Prothrombin Time Fingerstick 26.4 SEC (11.7-14.9)
== END 2022-12-12 18:00 | disposition home or self-care (01) ==
LOC: MTLAB 08:36
PROVIDERS: Family Provider Family Medicine; PCP Family Medicine; Referring Provider Internal Medicine Cardiovascular Disease; Visit Provider Internal Medicine Cardiovascular Disease
DX: I48.0 Paroxysmal atrial fibrillation (principal); Z79.01 Long term (current) use of anticoagulants; I77.810 Thoracic aortic ectasia; I10 Essential (primary) hypertension
CPT/HCPCS: 36416; 85610

== ENCOUNTER 2023-01-26 10:13 | Outpatient (RCR) | payer MEDICARE, SELFPAY ==
[2023-01-03 02:41] VITALS: BMI 34.1
[2023-01-26 10:29] LABS: INR Fingerstick 2.4; Prothrombin Time Fingerstick 25.9 SEC (11.7-14.9)
== END 2023-02-02 18:00 | disposition home or self-care (01) ==
LOC: MTLAB 10:13
PROVIDERS: Family Provider Family Medicine; PCP Family Medicine; Referring Provider Internal Medicine Cardiovascular Disease; Visit Provider Internal Medicine Cardiovascular Disease
DX: I48.0 Paroxysmal atrial fibrillation (principal); Z79.01 Long term (current) use of anticoagulants
CPT/HCPCS: 36416; 85610

== ENCOUNTER 2023-03-02 09:04 | Outpatient (RCR) | payer MEDICARE, SELFPAY ==
[2023-02-03 02:21] VITALS: BMI 34.1
[2023-03-02 09:58] LABS: INR Fingerstick 1.7; Prothrombin Time Fingerstick 19.4 SEC (11.7-14.9)
== END 2023-03-02 18:00 | disposition home or self-care (01) ==
LOC: MTLAB 09:04
PROVIDERS: Family Provider Family Medicine; PCP Family Medicine; Referring Provider Internal Medicine Cardiovascular Disease; Visit Provider Internal Medicine Cardiovascular Disease
DX: I48.0 Paroxysmal atrial fibrillation (principal); Z79.01 Long term (current) use of anticoagulants
CPT/HCPCS: 36416; 85610

== ENCOUNTER 2023-04-06 05:44 | Emergency (ER) | payer MEDICARE, SELFPAY ==
[2023-04-06 05:44] VITALS: BP 156/83; PULSE 85; RESP 16; TEMP 36.8; O2SAT 96; BMI 33.1
--- NOTE | 2023-04-06 06:17 | CT_ITS ---
EXAM: CT ABDOMEN AND PELVIS WITH INTRAVENOUS CONTRAST CLINICAL INDICATION: RLQ abdominal pain TECHNIQUE: Helically acquired images were obtained of the abdomen and pelvis with intravenous contrast. This CT exam was performed using one or more of the following dose reduction techniques: automated exposure control, adjustment of the mA and/or kV according to patient size, and/or use of iterative reconstruction technique. CONTRAST: IV 100mL Isovue-370 RADIATION DOSE: CTDIvol = 16.88 mGy, DLP = 1161.21 mGy-cm COMPARISON: CT abdomen and pelvis 03/29/2021 FINDINGS: LOWER THORAX: Unremarkable. Lung bases are clear. No cardiomegaly. No significant pericardial effusion. ABDOMEN: LIVER: Unremarkable. Homogeneous. No focal mass. GALLBLADDER AND BILE DUCTS: Unremarkable. No calcified gallstones. No gallbladder distention or wall edema. No intra- or extrahepatic biliary ductal dilation. PANCREAS: Unremarkable. No focal cystic or solid mass. SPLEEN: Unremarkable. Normal size without focal cystic or solid mass. ADRENALS: Unremarkable. No nodules. KIDNEYS AND URETERS: There is a 4 mm stone in the right UVJ causing mild obstructive changes. Normal renal size and position. STOMACH AND BOWEL: Large amount of stool in the colon. Stable eventration of the left diaphragm, with incomplete visualization of the stomach, splenic flexure and spleen in the [id number]. No stomach or bowel distention. No focal inflammatory change. PELVIS: APPENDIX: No evidence of acute appendicitis. BLADDER: Diffuse bladder wall thickening. REPRODUCTIVE: Unremarkable as visualized. No mass. ABDOMEN and PELVIS: INTRAPERITONEAL SPACE: Unremarkable. No ascites or other fluid collection. No free air. BONES/JOINTS: Degenerative changes of the spine. No suspicious lytic or blastic abnormality. SOFT TISSUES: Unremarkable. No discrete abdominal or pelvic wall hernia. VASCULATURE: Moderate atherosclerotic changes of the abdominal aorta without aneurysm. LYMPH NODES: Unremarkable. No enlarged lymph nodes. CT/Abdomen/Pelvis W IV Cont ONLY IMPRESSION: 1. There is a 4 mm stone in the right UVJ causing mild obstructive changes. 2. Diffuse bladder wall thickening. This may be due to underdistention, but correlate for clinical/laboratory evidence of cystitis. 3. Stable eventration of the left diaphragm, with incomplete visualization of the stomach, splenic flexure and spleen in the [id number]. Electronically Signed: Carlso Nash MD at 7:12 EDT ,
--- NOTE | 2023-04-06 06:22 | EX.ED.DYSGE1 ---
HPI History of Present Illness Chief Complaint: Abd Pain [facility] Medical History Basal cell carcinoma Bloody stool Borderline diabetes Degenerative disc disease, lumbar Dilated aortic root Essential (primary) hypertension Hyperlipidemia Lumbar spinal stenosis MGUS (monoclonal gammopathy of unknown significance) Neuropathy Nonobstructive atherosclerosis of coronary artery Obesity (BMI 30-39.9) Osteoarthritis Paroxysmal atrial fibrillation Paroxysmal supraventricular tachycardia Shortness of breath Venous insufficiency Home Medications cholecalciferol (vitamin D3) 50 mcg (2,000 unit) tablet 4,000 unit PO DAILY 04/05/20 [History Last Taken Unknown] coenzyme Q10 100 mg capsule (Co Q-10) 100 mg PO DAILY 04/05/20 [History Last Taken Unknown] multivitamin with minerals 1 ea PO DAILY 08/16/20 [History Last Taken Unknown] lidocaine 4 % topical patch (Lidocaine Pain Relief) 1 patch topical DAILY PRN pain 02/13/22 [History Last Taken Unknown] hydrochlorothiazide 25 mg tablet 25 mg PO .COMPLEX PRN edema #90 tabs 08/21/22 [Rx Last Taken Unknown] metoprolol tartrate 50 mg tablet 50 mg PO BID #180 tabs 09/24/22 [Rx Last Taken Unknown] warfarin 5 mg tablet 5 mg PO SUMOWEFR #90 tabs 11/07/22 [Rx Last Taken Unknown] amlodipine 10 mg tablet 10 mg PO DAILY #90 tabs 01/18/23 [Rx Last Taken Unknown] warfarin 5 mg tablet 2.5 mg PO TUTHSA #90 tabs 02/04/23 [Rx Last Taken Unknown] amiodarone 200 mg tablet 100 mg (1/2 x 200 mg) PO DAILY #45 tabs 02/24/23 [Rx Last Taken Unknown] ondansetron 4 mg disintegrating tablet 4 mg PO Q8H PRN nausea and vomiting 5 days #15 tabs 04/06/23 [Rx Last Taken Unknown] Allergy/AdvReac Type Severity Reaction Status Date / Time acetaminophen [From [facility]] Allergy Severe SOB and Verified 04/06/23 05:48 leg weakness hydrocodone [From [facility]] Allergy Severe SOB and Verified 04/06/23 05:48 leg weakness codeine AdvReac Severe GOOFY Verified 04/06/23 05:48 peppermint AdvReac Severe Other Verified 04/06/23 05:48 Family History Father CAD (coronary artery disease) Myocardial infarction, Onset Age: 57 Brother Hypertension Brother Hx of CABG Sister Atrial fibrillation Surgical History History of basal cell carcinoma excision (03/2019) History of carpal tunnel surgery (2003) 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) History of left heart catheterization (LHC) (02/2008) History of lumbar laminectomy Social History Smoking Status: Former smoker how long ago did patient quit smokin years ago alcohol intake: never substance use type: does not use caffeine: Yes Type: coffee Number of servings: 1 what type of physical activity do you participate in: walking and weight training frequency: daily seatbelt use: always do you feel safe at home: Yes EXAM Physical Exam Const Vital Signs: 04/06/23 05:44 Temperature 98.3 F Temperature Source Oral Pulse Rate 85 Respiratory Rate 16 Blood Pressure 156/83 H Blood Pressure Mean 107 Pulse Ox 96 Oxygen Delivery Method Room Air MDM MDM MDM Narrative Medical decision making narrative: HISTORY OF PRESENT ILLNESS: 77-year-old male here with right lower quad abdominal pain and feeling nauseated. He states this began last night. Notes right lower abdominal pain. No testicular pain. Notes nausea but no vomiting. No change in bowel habits. REVIEW OF SYSTEMS: Pertinent positives: Abdominal pain, nausea Pertinent negatives: syncope, CP, SOB. PHYSICAL EXAM: Nursing triage notes reviewed, Vital signs reviewed Constitutional: please see mdm HENT: MMM Eyes: Pupils equal round and reactive to light, Extraocular muscles intact Neck: No stridor, no JVD, full neck ROM Lungs: Clear to auscultation, No wheezing or rales. No increased work of breathing, no conversational dyspnea, no accessory muscle use, no nasal flaring. No respiratory distress noted Heart: Regular rate and rhythm, No murmurs, No rubs and No gallops, 2+ distal pulses (radial, femoral, posterior tibial) in all extremities Abdomen: Soft, right lower quadrant TTP, no rigidity, rebound or guarding, no obvious peritoneal signs, no palpable pulsatile abdominal masses, no auscultated abdominal bruit : No CVAT Extremities: No edema Neuro: No focal neurological deficits, cranial nerves II through XII intact, 5/5 strength in all extremities. Intact sensation to light touch in all extremities, 2+ reflexes bilateral patella tendons. Normal gait. No ataxia. Skin: No rash or lesions noted MEDICAL DECISION MAKING: Chief Complaint: Abdominal pain, nausea External records reviewed: Imaging reviewed: CT scan abdomen pelvis from 2020 shows left lower lobe infiltrate, diverticula Factors affecting care: Atrial fibrillation (on warfarin), anemia, hypertension Social determinants of health: Elderly History obtained from others: none Consults: none MDM Narrative: Was hemodynamically stable, afebrile, nontoxic-appearing. I considered the following differential diagnosis:] Obstruction, perforation, appendicitis, diverticulitis, UTI, nephrolithiasis ALL IMAGES (IF OBTAINED) HAVE BEEN PERSONALLY REVIEWED AND INTERPRETED BY MYSELF. CT scan abdomen pelvis shows evidence of 4 mm UVJ nephrolithiasis CBC with evidence of systemic inflammation with elevated white blood cell count, no anemia or thrombocytopenia BMP without significant electrolyte abnormalities, there is no acute kidney injury, there is no anion gap to suggest endorgan hypoperfusion LFTs show no evidence of hepatobiliary pathology. Lipase is wnl indicating no pancreatic inflammation. The amalgamation of the patient's labs images were consistent with nephrolithiasis. On reevaluation patient notes he feels completely better. Likely passed a stone at CT. He was given pain control options, nausea control prescription and follow-up instructions as well as strict return precautions. The patient and/or family, caregivers express understanding. The patient and/or family, caregivers agrees with the plan. Shared decision making: I will have a discussion with the patient and or visitors regarding risk/benefits of further testing or admission. They will be made aware of of the risk/benefits inherent in this decision they will be given the opportunity to voice understanding. Total critical care time today provided was at least 0 minutes. This excludes separately billable procedures. Critical care time (if documented) is secondary to the patient having high probability of clinically significant/life threatening deterioration in the patient's condition which required my urgent intervention. Impression: 1. Abdominal pain 2. Nausea 3. Nephrolithiasis 4. Leukocytosis 5. Hematuria Dispo: Discharge home Lab Data Attestation: I reviewed the patient's lab results. Labs: Laboratory Results - last 24 hr 04/06/23 04/06/23 05:53 06:42 WBC 15.4 H RBC 4.67 Hgb 13.9 Hct 42.6 MCV 91.2 MCH 29.8 MCHC 32.6 RDW Std Deviation 46.2 H RDW Coeff of Emre 13.7 Plt Count 284 MPV 10.9 Immature Gran % (Auto) 0.500 Neut % (Auto) 83.7 H Lymph % (Auto) 6.4 L [place] % (Auto) 8.2 Eos % (Auto) 0.6 Baso % (Auto) 0.6 Absolute Neuts (auto) 12.9 H Absolute Lymphs (auto) 0.99 Nucleated RBC % 0 Sodium 139 Potassium 4.6 Chloride 109 H Carbon Dioxide 24.0 Anion Gap 6 BUN 25 H Creatinine 1.31 H Estim Creat Clear Calc 54.22 Est GFR (MDRD) Af Amer 68 Est GFR (MDRD) Non-Af 56 L BUN/Creatinine Ratio 19.1 Glucose 145 H Calcium 9.7 Total Bilirubin 0.50 AST 13 L ALT 18 Alkaline Phosphatase 87 Total Protein 8.2 Albumin 3.1 L Globulin 5.1 H Albumin/Globulin Ratio 0.6 L Lipase 22 Urine Color Yellow Urine Clarity Clear Urine pH 6.0 Ur Specific [place] 1.020 Urine Protein 15 H Urine Glucose (UA) Normal Urine Ketones Negative Urine Occult Blood 150 H Urine Nitrite Negative Urine Bilirubin Negative Urine Urobilinogen 1 H Ur Leukocyte Esterase 100 H Radiography Diagnostic Testing: Clinical Impression(s) from Imaging Studies Abdomen/Pelvis CT 04/06/23 06:17 IMPRESSION: 1. There is a 4 mm stone in the right UVJ causing mild obstructive changes. 2. Diffuse bladder wall thickening. This may be due to underdistention, but correlate for clinical/laboratory evidence of cystitis. 3. Stable eventration of the left diaphragm, with incomplete visualization of the stomach, splenic flexure and spleen in the [id number]. Electronically Signed: Carlos Nash MD at 7:12 EDT , Discharge Plan Triage Chief Complaint: Abd Pain ED Provider: Luis Huynh Dx/Rx/DC Orders Instructions: ED Kidney Stone w/ Colic Prescriptions: New ondansetron 4 mg tablet,disintegrating 4 mg PO Q8H PRN (Reason: nausea and vomiting) 5 Days Qty: 15 0RF No Action cholecalciferol (vitamin D3) 50 mcg (2,000 unit) tablet 4,000 unit PO DAILY coenzyme Q10 [Co Q-10] 100 mg capsule 100 mg PO DAILY lidocaine [Lidocaine Pain Relief] 4 % adhesive patch,medicated 1 patch topical DAILY PRN (Reason: pain) multivitamin with minerals 1 EACH tablet 1 ea PO DAILY hydrochlorothiazide 25 mg tablet 25 mg PO .COMPLEX PRN (Reason: edema) Qty: 90 3RF Rx Instructions: 25 mg orally 1 tablet by mouth daily needed for ankle or leg swelling; PRN; metoprolol tartrate 50 mg tablet 50 mg PO BID Qty: 180 3RF warfarin 5 mg tablet 5 mg PO WE Qty: 90 3RF Protocol: Dose Management Condition: Thursday Dose/Route: 5 mg Instruction: 1 x 5 mg tablet Condition: Thursday Dose/Route: 5 mg Instruction: 1 x 5 mg tablet Condition: Thursday Dose/Route: 5 mg Instruction: 1 x 5 mg tablet Condition: Thursday Dose/Route: 5 mg Instruction: 1 x 5 mg tablet Condition: Dose/Route: 5 mg Instruction: 1 x 5 mg tablet Condition: Thursday Dose/Route: 5 mg Instruction: 1 x 5 mg tablet Condition: Thursday Dose/Route: 5 mg Instruction: 1 x 5 mg tablet Protocol Text: Adjustment Start Date: Thursday03/03/23 INR Value: 1.7 INR Date: 03/02/23 Recheck Date: 03/24/23 Rx Instructions: Take one daily or as directed amlodipine 10 mg tablet 10 mg PO DAILY Qty: 90 3RF warfarin 5 mg tablet 2.5 mg PO TUTHSA Qty: 90 3RF Protocol: Dose Management Condition: Thursday Dose/Route: 5 mg Instruction: 1 x 5 mg tablet Condition: Thursday Dose/Route: 5 mg Instruction: 1 x 5 mg tablet Condition: Thursday Dose/Route: 5 mg Instruction: 1 x 5 mg tablet Condition: Thursday Dose/Route: 5 mg Instruction: 1 x 5 mg tablet Condition: Dose/Route: 5 mg Instruction: 1 x 5 mg tablet Condition: Thursday Dose/Route: 5 mg Instruction: 1 x 5 mg tablet Condition: Thursday Dose/Route: 5 mg Instruction: 1 x 5 mg tablet Protocol Text: Adjustment Start Date: Thursday03/03/23 INR Value: 1.7 INR Date: 03/02/23 Recheck Date: 03/24/23 amiodarone 200 mg tablet 100 mg PO DAILY Qty: 45 3RF Primary Care Provider: Joe Trotter Referrals: Joe Trotter, [Primary Care Provider] - Activity Restrictions/Additional Instructions: Thank you for trusting us with your care today! Please take Tylenol (2 pills, 650 mg), ibuprofen (2 pills, 400 mg) every 6 hours as needed for pain and fever control. Please take Zofran as needed for nausea and vomiting. Please return to the emergency department if your symptoms change or worsen. Specifically if you develop worsening pain. If develop nausea and vomiting that causes you do not tolerate medicine by mouth. If you do not urinate for greater than 12 hours. Please follow with your primary care physician for further outpatient evaluation and management. Disposition Disposition: Home, Self Care
[2023-04-06] MEDS: 0.9% Normal Saline (1000mL) 1,000 ML 1000 ML IV (06:25)
[2023-04-06] MEDS: Ondansetron 4 MG/2 ML Vial IV (06:25)
[2023-04-06] MEDS: Ketorolac 15 MG/ML Vial IV (06:26)
[2023-04-06 06:27] LABS: Absolute Lymphocyte Count 0.99 X10^3/uL (0.83-4.51); Absolute Neutrophil Count 12.9 X10^3/uL (2.0-7.7); Basophil# 0.09 X10^3/uL; Basophil% 0.6 % (0-1); Eosinophil# 0.09 X10^3/uL; Eosinophils% 0.6 % (0-5); Hematocrit 42.6 % (40-54); Hemoglobin 13.9 g/dL (13.0-16.5); Lymphocyte # 0.99 X10^3/ul (0.83-4.51); Lymphocyte % 6.4 % (19-41); Mean Corp Hgb Conc 32.6 g/dL (32-36); Mean Corpuscular Hgb 29.8 pg (27.0-32.0); Mean Corpuscular Volume 91.2 fL (80-94); Mean Platelet Vol. 10.9 fl (6.2-12.0); Monocyte# 1.26 X10^3/uL; Monocyte% 8.2 % (0-10); NRBC Flagged by Analyzer 0 % (0-5); Neutrophil # 12.85 X10^3/uL (2.7-7.7); Neutrophil % 83.7 % (47-70); Platelet Count 284 K/mm3 (150-450); RBC Distribution Width CV 13.7 % (11.6-14.6); RBC Distribution Width SD 46.2 fl (35.1-43.9); Red Blood Count 4.67 M/mm3 (4.6-6.2); White Blood Count 15.4 K/mm3 (4.4-11.0)
[2023-04-06 06:42] LABS: ALB/GLOB Ratio 0.6 RATIO (0.9-2.4); AST(SGOT) 13 U/L (15-37); Alanine Aminotransfer ALT/SGPT 18 U/L (16-61); Albumin, Serum 3.1 g/dL (3.2-5.0); Alkaline Phosphatase 87 U/L (45-117); Anion Gap 6 (5-15); BUN 25 mg/dL (7-18); BUN/Creat Ratio 19.1 RATIO (10-20); Calcium,Total 9.7 mg/dL (8.5-10.1); Chloride 109 mmol/L (98-107); Creatinine, Serum 1.31 mg/dL (0.70-1.30); EST Glomerular Filtration Rate 56 mL/min (>60); Est Glom Filt Rate - Afr Amer 68 mL/min (>60); Estimated Creatinine Clearance 54.22 ml/min; Globulin 5.1 g/dL (2.2-4.2); Glucose 145 mg/dL (74-106); Lipase 22 U/L (13-75); Potassium 4.6 mmol/L (3.5-5.1); Protein, Total 8.2 g/dL (6.4-8.2); Sodium Level 139 mmol/L (136-145)
[2023-04-06 07:09] LABS: Color, Urine Yellow (Yellow); Glucose, Dipstick Normal (Normal); Ketone-Dipstick Negative (Negative); Leukocyte Esterase-Dipstick 100 /ul (Negative); Nitrite-Dipstick Negative (Negative); Occult Blood-Urine 150 /ul (Negative); Protein-Dipstick 15 mg/dl (Negative); Urine Bilirubin Dipstick Negative (Negative); Urine Clarity Clear (Clear); Urine Urobilinogen 1 mg/dl (Normal)
== END 2023-04-06 07:34 | disposition home or self-care (01) ==
PROVIDERS: Emergency Provider Emergency Medicine; PCP Family Medicine; Visit Provider Emergency Medicine
DX: R10.31 Right lower quadrant pain (principal); I48.0 Paroxysmal atrial fibrillation; N20.2 Calculus of kidney with calculus of ureter; Z87.891 Personal history of nicotine dependence; R11.0 Nausea; E78.5 Hyperlipidemia, unspecified; I10 Essential (primary) hypertension; D72.829 Elevated white blood cell count, unspecified; D64.9 Anemia, unspecified; I25.10 Atherosclerotic heart disease of native coronary artery without angina pectoris; Z79.01 Long term (current) use of anticoagulants
CPT/HCPCS: 74177; 80053; 81002; 83690; 85025; 96361; 96374; 96375; 99284; J7030; Q9967; A4216; J2405

== ENCOUNTER 2023-04-14 08:13 | Outpatient (RCR) | payer MEDICARE, SELFPAY ==
[2023-03-06 02:02] VITALS: BMI 34.1
[2023-04-14 09:20] LABS: INR Fingerstick 1.7; Prothrombin Time Fingerstick 18.7 SEC (11.7-14.9)
== END 2023-04-14 18:00 | disposition home or self-care (01) ==
LOC: MTLAB 08:13
PROVIDERS: Family Provider Family Medicine; PCP Family Medicine; Referring Provider Internal Medicine Cardiovascular Disease; Visit Provider Internal Medicine Cardiovascular Disease
DX: I48.0 Paroxysmal atrial fibrillation (principal); Z79.01 Long term (current) use of anticoagulants
CPT/HCPCS: 36416; 85610

== ENCOUNTER 2023-05-08 11:11 | Outpatient (RCR) | payer MEDICARE, SELFPAY ==
[2023-05-05 23:09] VITALS: BMI 34.1
[2023-05-08 11:17] LABS: INR Fingerstick 2.2; Prothrombin Time Fingerstick 24.5 SEC (11.7-14.9)
== END 2023-06-04 18:00 | disposition home or self-care (01) ==
LOC: MTLAB 11:11
PROVIDERS: Family Provider Family Medicine; PCP Family Medicine; Referring Provider Internal Medicine Cardiovascular Disease; Visit Provider Internal Medicine Cardiovascular Disease
DX: I48.0 Paroxysmal atrial fibrillation (principal); Z79.01 Long term (current) use of anticoagulants
CPT/HCPCS: 36416; 85610

== ENCOUNTER 2023-06-11 09:27 | Outpatient (RCR) | payer MEDICARE, SELFPAY ==
[2023-06-05 04:21] VITALS: BMI 34.1
[2023-06-11 17:04] LABS: INR Fingerstick 1.7; Prothrombin Time Fingerstick 18.9 SEC (11.7-14.9)
== END 2023-07-05 18:00 | disposition home or self-care (01) ==
LOC: MTLAB 09:27
PROVIDERS: Family Provider Family Medicine; PCP Family Medicine; Referring Provider Internal Medicine Cardiovascular Disease; Visit Provider Internal Medicine Cardiovascular Disease
DX: I48.0 Paroxysmal atrial fibrillation (principal); Z79.01 Long term (current) use of anticoagulants
CPT/HCPCS: 36416; 85610

== ENCOUNTER 2023-07-07 10:05 | Outpatient (RCR) | payer MEDICARE, SELFPAY ==
[2023-07-05 23:33] VITALS: BMI 34.1
[2023-07-07 10:15] LABS: INR Fingerstick 2.8; Prothrombin Time Fingerstick 30.4 SEC (11.7-14.9)
== END 2023-07-07 18:00 | disposition home or self-care (01) ==
LOC: MTLAB 10:05
PROVIDERS: Family Provider Family Medicine; PCP Family Medicine; Referring Provider Internal Medicine Cardiovascular Disease; Visit Provider Internal Medicine Cardiovascular Disease
DX: I48.0 Paroxysmal atrial fibrillation (principal); Z79.01 Long term (current) use of anticoagulants
CPT/HCPCS: 36416; 85610

== ENCOUNTER → 2023-07-07 | Outpatient (CLI) | payer MEDICARE, SELFPAY ==
--- NOTE | 2023-07-07 12:13 | ECHOCS_ITS ---
Reason For Study: PAF Procedure This was a 2D Doppler, Color Flow transthoracic echocardiogram. The study was technically difficult. Exam performed in department. Left Ventricle Normal LV size. Left ventricular systolic function is normal. The estimated ejection fraction is 55 %. No regional wall motion abnormalities noted. Right Ventricle Normal RV size. Normal systolic function. Atria Normal left atrium. Normal right atrium. Mitral Valve Mitral valve not well visualized. Tricuspid Valve Normal tricuspid valve. Mild (1+) tricuspid valve insufficiency. Pulmonary artery systolic pressure is 30 mmHg. Aortic Valve Trisinus/trileaflet aortic valve. Mild diffuse aortic valve thickening. Peak aortic valve gradient 22 mmHg. Mean aortic valve gradient 11 mmHg. Mild (1+) eccentric aortic valve insufficiency. Pulmonic Valve The pulmonic valve is not well visualized. Great Vessels Mild to moderately dilated aortic root. The pulmonary artery is normal size. Pericardium/Pleural No pericardial effusion. Medication 22 gauge I.V. with prn adaptor inserted into left arm. Diluted definity 1ml given slow IV push to enhance endocardial definition. MMode/2D Measurements & Calculations RVDd: 4.0 cm LVOT diam: 2.3 cm Ao root diam: 4.6 cm LVOT area: 4.0 cm2 LAV(MOD-bp): 60.4 ml LVAd ap4: 39.9 cm2 LVAd ap2: 41.8 cm2 LAV(MOD-bp) Indexed: 25.5 ml/m2 LVLd ap4: 10.0 cm LVLd ap2: 9.8 cm LAV(MOD-sp2): 59.0 ml EDV(MOD-sp4): 133.3 ml EDV(MOD-sp2): 145.8 ml LAV(MOD-sp4): 55.6 ml EDV(sp4-el): 134.6 ml EDV(sp2-el): 152.3 ml LVAs ap4: 24.3 cm2 LVAs ap2: 26.2 cm2 LVLs ap4: 8.4 cm LVLs ap2: 8.6 cm ESV(MOD-sp4): 58.2 ml ESV(MOD-sp2): 68.3 ml ESV(sp4-el): 59.7 ml ESV(sp2-el): 67.9 ml EF(MOD-sp4): 56.3 % EF(MOD-sp2): 53.1 % EF(sp4-el): 55.7 % SV(MOD-sp4): 75.1 ml SV(MOD-sp2): 77.5 ml SV(sp4-el): 75.0 ml LA A4 area: 22.3 cm2 RA A4 area: 20.0 cm2 TAPSE: 2.6 cm Time Measurements MV dec time: 0.29 sec Doppler Measurements & Calculations MV E max tyson: 75.1 cm/sec Lat Peak E' Tyson: 6.9 cm/sec Med Peak E' Tyson: 7.0 cm/sec MV A max tyson: 110.9 cm/sec E/E' lat: 10.8 E/E' med: 10.7 MV E/A: 0.68 MV dec slope: 241.7 cm/sec2 Ao V2 max: 233.5 cm/sec AI max tyson: 385.7 cm/sec Ao max P.8 mmHg AI max P.5 mmHg Ao V2 mean: 155.3 cm/sec AI dec slope: 128.6 cm/sec2 Ao mean P.0 mmHg AI P1/2t: 878.7 msec Ao V2 VTI: 50.8 cm AV (velocity ratio): 0.61 DEENA(I,D): 2.5 cm2 DEENA(V,D): 2.2 cm2 LV V1 max: 127.2 cm/sec SV(LVOT): 124.5 ml PA V2 max: 93.3 cm/sec LV V1 max P.5 mmHg LV V1 mean P.4 mmHg LV V1 mean: 87.3 cm/sec LV V1 VTI: 31.1 cm TR max tyson: 258.1 cm/sec TR max P.6 mmHg ECHO/Echo Complete W/ Contrast Interpretation Summary Normal LV size. Left ventricular systolic function is normal. The estimated ejection fraction is 55 %. Pulmonary artery systolic pressure is 30 mmHg. Mild to moderately dilated aortic root. Compared to the previous echocardiogram the aortic root dimensions are about th e same. Contrast injection was performed. Ordering Physician: Gary Ash Referring Physician: Joe Trotter Performed By: Saniya Vicente RDCS
== END | disposition home or self-care (01) ==
LOC: CVS 12:12
PROVIDERS: PCP Family Medicine; Referring Provider Nurse Practitioner Family; Visit Provider Nurse Practitioner Family
DX: I48.0 Paroxysmal atrial fibrillation (principal)
CPT/HCPCS: 93306; Q9957; A4216; C8929

== ENCOUNTER 2023-08-24 07:30 | Outpatient (RCR) | payer MEDICARE, SELFPAY ==
[2023-08-05 23:41] VITALS: BMI 34.1
[2023-08-24 10:33] LABS: Absolute Lymphocyte Count 1.44 X10^3/uL (0.83-4.51); Absolute Neutrophil Count 5.8 X10^3/uL (2.0-7.7); Basophil# 0.09 X10^3/uL; Basophil% 1.1 % (0-1); Eosinophil# 0.15 X10^3/uL; Eosinophils% 1.8 % (0-5); Hematocrit 44.5 % (40-54); Hemoglobin 14.5 g/dL (13.0-16.5); International Normalized Ratio 2.2; Lymphocyte # 1.44 X10^3/ul (0.83-4.51); Lymphocyte % 16.9 % (19-41); Mean Corp Hgb Conc 32.6 g/dL (32-36); Mean Corpuscular Hgb 29.2 pg (27.0-32.0); Mean Corpuscular Volume 89.5 fL (80-94); Mean Platelet Vol. 10.8 fl (6.2-12.0); Monocyte# 1.03 X10^3/uL; Monocyte% 12.1 % (0-10); NRBC Flagged by Analyzer 0 % (0-5); Neutrophil # 5.76 X10^3/uL (2.7-7.7); Neutrophil % 67.5 % (47-70); Platelet Count 257 K/mm3 (150-450); Prothrombin Time (Protime)PT. 24.6 SECONDS (11.7-14.9); RBC Distribution Width CV 13.9 % (11.6-14.6); RBC Distribution Width SD 45.7 fl (35.1-43.9); Red Blood Count 4.97 M/mm3 (4.6-6.2); White Blood Count 8.5 K/mm3 (4.4-11.0)
[2023-08-24 11:18] LABS: ALB/GLOB Ratio 0.7 RATIO (0.9-2.4); AST(SGOT) 14 U/L (15-37); Alanine Aminotransfer ALT/SGPT 21 U/L (16-61); Albumin, Serum 3.2 g/dL (3.2-5.0); Alkaline Phosphatase 89 U/L (45-117); Anion Gap 4 (5-15); BUN 29 mg/dL (7-18); BUN/Creat Ratio 28.4 RATIO (10-20); Chloride 108 mmol/L (98-107); Cholesterol 152 mg/dL (200); Creatinine, Serum 1.02 mg/dL (0.70-1.30); EST Glomerular Filtration Rate 75 mL/min (>60); Est Glom Filt Rate - Afr Amer 91 mL/min (>60); Globulin 4.9 g/dL (2.2-4.2); Glucose 100 mg/dL (74-106); High Density Lipoprotein 41 mg/dL; Potassium 3.9 mmol/L (3.5-5.1); Protein, Total 8.1 g/dL (6.4-8.2); Sodium Level 137 mmol/L (136-145); T4 Free Direct 1.23 ng/dL (0.76-1.46); Thyroid Stim Hormone (TSH) 1.47 uIU/mL (0.358-3.74); Triglycerides 70 mg/dL; Very Low Density Lipoprotein 14 mg/dL (5-40)
== END 2023-09-03 18:00 | disposition home or self-care (01) ==
LOC: MTLAB 07:30
PROVIDERS: Nurse Practitioner Family; Family Provider Family Medicine; PCP Family Medicine; Referring Provider Internal Medicine Cardiovascular Disease; Visit Provider Internal Medicine Cardiovascular Disease
DX: I48.0 Paroxysmal atrial fibrillation (principal); Z79.01 Long term (current) use of anticoagulants; E78.00 Pure hypercholesterolemia, unspecified; Z51.81 Encounter for therapeutic drug level monitoring
CPT/HCPCS: 36415; 80053; 80061; 84439; 84443; 85025; 85610

== ENCOUNTER 2023-11-02 10:10 | Outpatient (RCR) | payer MEDICARE, SELFPAY ==
[2023-09-04 02:18] VITALS: BMI 34.1
[2023-10-13 08:55] LABS: Prothrombin Time Fingerstick 32.3 SEC (11.7-14.9)
== END 2023-11-03 22:03 | disposition home or self-care (01) ==
LOC: MTLAB 10:10
PROVIDERS: Family Provider Family Medicine; PCP Family Medicine; Referring Provider Internal Medicine Cardiovascular Disease; Visit Provider Internal Medicine Cardiovascular Disease
DX: I48.0 Paroxysmal atrial fibrillation (principal); Z79.01 Long term (current) use of anticoagulants
CPT/HCPCS: 36416; 85610

== ENCOUNTER 2023-12-07 10:21 | Outpatient (RCR) | payer MEDICARE, SELFPAY ==
[2023-11-03 22:04] VITALS: BMI 34.1
[2023-12-07 14:22] LABS: INR Fingerstick 1.8; Prothrombin Time Fingerstick 18.9 SEC (11.7-14.9)
== END 2023-12-07 18:00 | disposition home or self-care (01) ==
LOC: MTLAB 10:21
PROVIDERS: Family Provider Family Medicine; PCP Family Medicine; Referring Provider Internal Medicine Cardiovascular Disease; Visit Provider Internal Medicine Cardiovascular Disease
DX: I48.0 Paroxysmal atrial fibrillation (principal); Z79.01 Long term (current) use of anticoagulants
CPT/HCPCS: 36416; 85610

== ENCOUNTER 2024-01-13 08:24 | Outpatient (RCR) | payer MEDICARE, SELFPAY ==
[2024-01-04 04:26] VITALS: BMI 34.1
[2024-01-13 08:34] LABS: INR Fingerstick 2.2; Prothrombin Time Fingerstick 22.5 SEC (11.7-14.9)
== END 2024-02-03 18:00 | disposition home or self-care (01) ==
LOC: MTLAB 08:24
PROVIDERS: Family Provider Family Medicine; PCP Family Medicine; Referring Provider Internal Medicine Cardiovascular Disease; Visit Provider Internal Medicine Cardiovascular Disease
DX: I48.0 Paroxysmal atrial fibrillation (principal); Z79.01 Long term (current) use of anticoagulants
CPT/HCPCS: 36416; 85610

== ENCOUNTER 2024-02-18 08:33 | Outpatient (RCR) | payer MEDICARE, SELFPAY ==
[2024-02-03 23:25] VITALS: BMI 34.1
[2024-02-18 08:57] LABS: INR Fingerstick 3.2; Prothrombin Time Fingerstick 32.1 SEC (11.7-14.9)
== END 2024-02-18 18:00 | disposition home or self-care (01) ==
LOC: MTLAB 08:33
PROVIDERS: Family Provider Family Medicine; PCP Family Medicine; Referring Provider Internal Medicine Cardiovascular Disease; Visit Provider Internal Medicine Cardiovascular Disease
DX: I48.0 Paroxysmal atrial fibrillation (principal); Z79.01 Long term (current) use of anticoagulants
CPT/HCPCS: 36416; 85610

== ENCOUNTER → 2024-04-12 | Outpatient (CLI) | payer MEDICARE, SELFPAY ==
[2024-04-18 17:07] LABS: Acetylcholine Receptor Binding < 0.03 nmol/L (0.00-0.24); Immunoglobulin A 167 mg/dL (61-437); Immunoglobulin G 2473 mg/dL (603-1613); Immunoglobulin M 31 mg/dL (15-143); PROEL- A/G Ratio 0.8 (0.7-1.7); PROEL- Albumin 3.5 g/dL (2.9-4.4); PROEL- Alpha-1 Globulin 0.3 g/dL (0.0-0.4); PROEL- Alpha-2 Globulin 0.8 g/dL (0.4-1.0); PROEL- Beta Globulin 2.6 g/dL (0.7-1.3); PROEL- Gamma Globulin 0.5 g/dL (0.4-1.8); PROEL- Globulin, Total 4.2 g/dL (2.2-3.9); PROEL- TOTAL PROTEIN 7.7 g/dL (6.0-8.5); PROEL-M-Spike 2.1 g/dL (Not Observed)
== END | disposition home or self-care (01) ==
PROVIDERS: PCP Family Medicine; Referring Provider Family Medicine; Visit Provider Family Medicine
DX: R53.1 Weakness (principal); D47.2 Monoclonal gammopathy; R77.1 Abnormality of globulin
CPT/HCPCS: 36415; 82784; 84165; 84238; 86334

== ENCOUNTER 2024-05-06 13:11 | Outpatient (RCR) | payer MEDICARE, SELFPAY ==
[2024-03-05 21:18] VITALS: BMI 34.1
[2024-05-06 13:20] LABS: INR Fingerstick 3.8; Prothrombin Time Fingerstick 37.5 SEC (11.7-14.9)
== END 2024-06-04 18:00 | disposition home or self-care (01) ==
LOC: MTLAB 13:11
PROVIDERS: Family Provider Family Medicine; PCP Family Medicine; Referring Provider Internal Medicine Cardiovascular Disease; Visit Provider Internal Medicine Cardiovascular Disease
DX: I48.0 Paroxysmal atrial fibrillation (principal); Z79.01 Long term (current) use of anticoagulants
CPT/HCPCS: 36416; 85610

== ENCOUNTER → 2024-05-20 | Outpatient (CLI) | payer MEDICARE, SELFPAY ==
--- NOTE | 2024-05-20 16:54 | MRI_ITS ---
ACR Level 3 findings have been noted. An addendum which confirms receipt of the report will follow. EXAM: MR CERVICAL SPINE WITHOUT INTRAVENOUS CONTRAST CLINICAL INDICATION: severe progressive myelopathy TECHNIQUE: Multiplanar and multisequence MR images of the cervical spine without intravenous contrast were performed. COMPARISON: No relevant prior studies available. FINDINGS: VERTEBRAE: See below. SPINAL CORD: Unremarkable in signal and morphology. SOFT TISSUES: Unremarkable. No prevertebral soft tissue swelling. LYMPH NODES: Unremarkable. There is no cervical adenopathy. DISCS/SPINAL CANAL/NEURAL FORAMINA: C2-C3: Unremarkable. Normal disc height and morphology. Normal spinal canal. Normal neuroforamina. C3-C4: Moderate disc space narrowing. Mild anterior subluxation of C3 on C4 measuring 2.5 mm. Congenital narrowing of the canal. Slight generalized disc bulge. Prominent ligamentum flavum thickening bilaterally. AP diameter of the canal is narrowed to 3.3 mm with severe compression of the cervical cord. Abnormal signal intensity within the cervical cord over a length of approximately 1.5 cm centered at C3-C4. Neural foraminal narrowing bilaterally due to uncovertebral joint osteophytes, facet arthropathy, and ligamentum flavum thickening. C4-C5: Moderate disc space narrowing. Mild generalized disc bulge and small central disc protrusion. Congenital narrowing of the canal. AP diameter of the canal measures 8 mm. Moderate bilateral facet arthropathy. Bilateral neural foraminal stenosis due to facet arthropathy and uncovertebral joint osteophytes. C5-C6: Marked disc space narrowing. Moderate generalized disc bulge. Mild congenital narrowing of the canal. AP diameter of the canal measures 8 mm. Mild bilateral facet arthropathy. Mild bilateral neural foraminal narrowing due to facet arthropathy and uncovertebral joint osteophytes. C6-C7: Mild disc space narrowing. No significant spinal canal or foraminal stenosis. C7-T1: Unremarkable. Normal disc height and morphology. Normal spinal canal. Normal neuroforamina. MRI/Spine Cervical (Routine) IMPRESSION: 1. C3-C4 severe spinal stenosis with marked compression of the cord and associated myelomalacia. This is due to degenerative disc disease with anterior subluxation of C3 on C4 measuring 2.5 mm, congenital narrowing of the canal, and prominent bilateral ligamentum flavum thickening. Bilateral neural foraminal stenosis due to uncovertebral joint osteophytes, facet arthropathy, and ligamentum flavum thickening. 2. C4-C5 mild spinal stenosis due to generalized disc bulge and central disc protrusion and congenitally M the canal. Bilateral neural foraminal stenosis due to facet arthropathy and uncovertebral joint osteophytes. 3. C5-C6 mild spinal stenosis due to generalized disc bulge and congenital narrowing of the canal. Mild bilateral neural foraminal stenosis due to facet arthropathy and uncovertebral joint osteophytes. 4. C6-C7 spondylosis without significant spinal canal or foraminal stenosis. Electronically Signed: Alvarado Alanis MD at 19:42 EST ,
== END | disposition home or self-care (01) ==
LOC: MRI 16:49
PROVIDERS: PCP Family Medicine; Referring Provider Orthopaedic Surgery Orthopaedic Surgery of the Spine; Visit Provider Orthopaedic Surgery Orthopaedic Surgery of the Spine
DX: G95.9 Disease of spinal cord, unspecified (principal)
CPT/HCPCS: 72141

== ENCOUNTER 2024-05-22 08:52 | Emergency (ER) | payer MEDICARE, SELFPAY ==
[2024-05-22 08:53] VITALS: BP 152/86; PULSE 79; RESP 16; TEMP 36.3; O2SAT 97; BMI 29.0
--- NOTE | 2024-05-22 09:04 | EKG12_ITS ---
Test Reason : NUMBNESS Blood Pressure : */* mmHG Vent. Rate : 74 BPM Atrial Rate : 74 BPM P-R Int : 212 ms QRS Dur : 80 ms QT Int : 412 ms P-R-T Axes : 94 -32 148 degrees QTcB Int : 457 ms Sinus rhythm with 1st degree A-V block Left axis deviation Minimal voltage criteria for LVH, may be normal variant ( R in aVL ) Nonspecific ST and T wave abnormality Abnormal ECG Confirmed by ANDRAE BRITO, ANDREW ([id number]), image editor AMARILIS VERA ([id number]) on 05/23/2024 9:43:07 AM Referred By: Confirmed By: ANDREW ABEBE MD
--- NOTE | 2024-05-22 09:11 | EDS_ITS ---
HPI History of Present Illness Chief Complaint: Numb/Ting Narrative Narrative: 79-year-old male past medical history of cervical stenosis, states he has had left arm numbness for 10 years. They tried to do an ulnar nerve surgery without relief of his symptoms. He states his symptoms began worsening 3 months ago when he was using a pole digger. He states that while using it it send shockwaves through his body and into his neck. He began having worsening symptoms of numbness and his bilateral upper extremities, left greater than right. He saw the spinal surgeon, Dr. Madrid on Thursday, 2 days ago, and states he had an MRI performed that day. He got the results and he has cervical stenosis. He states that he was told by the orthopedic surgeon that if his symptoms worsen, that he should come to the emergency department. Today, he awoke, and he had worsening symptoms of numbness of his upper arms. He states he had mild left flank numbness as well. No fevers or chills. He started walking with a cane a few months ago, and it is progressed to having to use a walker. When he attempted to use the bathroom today, he states he did not make it in time and experienced loss of bowel and bladder. However, he still have a sensation that he had to urinate and defecate. As he was having problems with increased numbness of his arms, he had his call 911 because he felt he was worsening in his symptoms. He states he is not having any neck pain or low back pain, no exacerbating or alleviating factors. [facility] Medical History Nonobstructive atherosclerosis of coronary artery Bloody stool Dilated aortic root Basal cell carcinoma Paroxysmal supraventricular tachycardia Essential (primary) hypertension MGUS (monoclonal gammopathy of unknown significance) Neuropathy Osteoarthritis Lumbar spinal stenosis Degenerative disc disease, lumbar Paroxysmal atrial fibrillation Venous insufficiency Shortness of breath Obesity (BMI 30-39.9) Borderline diabetes Hyperlipidemia Home Medications ?Medication ?Instructions ?Recorded ?Last Taken ?Type cholecalciferol (vitamin D3) 50 4,000 unit PO DAILY 04/05/20 Unknown History mcg (2,000 unit) tablet multivitamin with minerals 1 ea PO DAILY 08/16/20 Unknown History warfarin 5 mg tablet 5 mg PO DAILY #90 tabs 12/17/23 Unknown Rx hydrochlorothiazide 25 mg tablet 25 mg PO .COMPLEX PRN edema #90 01/18/24 Unknown Rx tabs metoprolol tartrate 50 mg tablet 50 mg PO BID #180 tabs 02/12/24 Unknown Rx amlodipine 10 mg tablet 10 mg PO DAILY #90 tabs 04/12/24 Unknown Rx amiodarone 200 mg tablet 100 mg (1/2 x 200 mg) PO DAILY #45 05/17/24 Unknown Rx tabs dexamethasone 4 mg tablet 8 mg (2 x 4 mg) PO DAILY #14 tabs 05/22/24 Unknown Rx warfarin 5 mg tablet 2.5 mg PO MOFR 05/22/24 Unknown History Allergy/AdvReac Type Severity Reaction Status Date / Time acetaminophen (From [place]) Allergy Severe SOB and Verified 05/20/24 11:11 leg weakness hydrocodone (From [place]) Allergy Severe SOB and Verified 05/20/24 11:11 leg weakness codeine AdvReac Severe GOOFY Verified 05/20/24 11:11 peppermint AdvReac Severe Other Verified 05/20/24 11:11 Family History Father CAD (coronary artery disease) Myocardial infarction, Onset Age: 57 Brother Hypertension Brother Hx of CABG Sister Atrial fibrillation Surgical History History of basal cell carcinoma excision (03/2019) 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 HEENT: No sore throat. No neck pain. No loss of vision. No rhinorrhea. Cardiovascular: No chest pain. No palpitations. No pedal edema. Respiratory: No cough, no shortness of breath. Abdominal: No abdominal pain. No nausea. No vomiting. Genitourinary: No dysuria. No hematuria. Musculoskeletal: No myalgias. No arthralgias. Neurologic: No headaches. No dizziness. No lightheadedness. Positive paresthesias of bilateral upper extremities. No loss of sensation of having to urinate or defecate. Skin: No rash. No change in color. EXAM Physical Exam Narrative Exam Narrative: Afebrile. Vital signs noted. Nontoxic-appearing. Cardiovascular examination reveals a regular rate and rhythm. Lungs are clear to auscultation bilaterally. Abdomen is soft and nontender with normal active bowel sounds. No guarding or rebound. Neurological examination is nonfocal and nonlateralizing. He is neurovascular intact to the bilateral lower extremities. Flexion extension at knees and hips intact. EHL intact bilaterally. Mild difficulty raising bilateral lower extremity straight off bed, consistent with his chronic weakness. Moves bilateral upper extremities, but states is unable to raise arms higher than 45 degrees in front of body at baseline. Bilateral patellar reflexes diminished/difficult to obtain. Const Vital Signs: 05/22/24 08:53 05/22/24 10:53 Temperature 97.3 F L Temperature Source Temporal Pulse Rate 79 64 Respiratory Rate 16 19 H Blood Pressure 152/86 H 143/71 H Blood Pressure Mean 108 95 Pulse Ox 97 94 Oxygen Delivery Method Room Air Room Air MDM MDM MDM Narrative Medical decision making narrative: Differential diagnosis includes exacerbation of cervical stenosis versus cauda equina syndrome. Patient had difficulty getting to the bathroom in time, and does not have saddle anesthesia and complete loss of bowel or bladder so I have low suspicion for cauda equina. EKG was obtained and interpreted by myself independently as normal sinus rhythm with first-degree AV block at [address] changes. No STEMI. There is baseline artifact noted on EKG as well. I reviewed the patient's outpatient MRI. He has severe cervical stenosis with narrowing of the spinal canal, with congenital narrowing. I discussed the MRI results with Dr. Madrid. Patient has moderate to severe myelopathy. Although the patient is on warfarin for her atrial fibrillation, he states that he has held it since Thursday over the last 2 days in anticipation of surgery. In discussion with orthopedic spine surgery, they prefer that the patient be either admitted or assigned observation with possible surgery tomorrow. Baseline laboratory workup was pursued. I reviewed his laboratory work and he has normal white count of 10.7, hemoglobin 14.9, hematocrit 45.1, platelet count normal at 234. INR is still elevated at 3.1 although he states that he has been holding his Coumadin/warfarin since Thursday. BUN slightly elevated at 19 with normal creatinine of 1.06. Glucose appropriately elevated at 99. LFTs are grossly unremarkable. While I had spoken with Dr. Madrid, the plan would be to observe him with the hopes of patient having possible surgery tomorrow. I discussed patient with Dr. Nguyen, who contacted the OR, and there is no available times for the next 2 days. He spoke with Dr. Madrid who suggested discharge with soft collar and Decadron burst. Patient was written a prescription for 8 mg to take daily over the next 7 days. He will continue to hold his anticoagulant with anticipation of having surgery later this week, possibly 3 days from now. Was felt that he could be discharged to follow-up with Dr. Madrid tomorrow. Disposition is discharged home in stable condition. History & Record Review Discussion w/independent historian: Patient Lab Data Attestation: I reviewed the patient's lab results. Labs: Laboratory Results - last 24 hr 05/22/24 05/22/24 09:10 09:25 WBC 10.7 RBC 4.99 Hgb 14.9 Hct 45.1 MCV 90.4 MCH 29.9 MCHC 33.0 RDW Std Deviation 46.5 H RDW Coeff of Emre 13.9 Plt Count 234 MPV 11.3 Immature Gran % (Auto) 0.500 Neut % (Auto) 77.4 H Lymph % (Auto) 9.2 L Rice % (Auto) 10.8 H Eos % (Auto) 1.3 Baso % (Auto) 0.8 Absolute Neuts (auto) 8.3 H Absolute Lymphs (auto) 0.98 Nucleated RBC % 0 PT 32.0 H INR 3.1 Sodium 141 Potassium 4.2 Chloride 106 Carbon Dioxide 28.0 Anion Gap 7 BUN 19 H Creatinine 1.06 Estim Creat Clear Calc 71.44 Est GFR (MDRD) Af Amer 87 Est GFR (MDRD) Non-Af 72 BUN/Creatinine Ratio 17.9 Glucose 99 Calcium 10.1 Magnesium 2.1 Total Bilirubin 1.00 AST 33 ALT 23 Alkaline Phosphatase 89 Total Protein 8.0 Albumin 3.0 L Globulin 5.0 H Albumin/Globulin Ratio 0.6 L Management Discussion w/another healthcare provider: Hospitalist and Call Center Support Representative Discharge Plan Triage Chief Complaint: Numb/Ting ED Provider: Naveen Aguilar Dx/Rx/DC Orders Clinical Impression: Cervical myelopathy, Weakness, Difficulty in walking Prescriptions: New dexamethasone 4 mg tablet 8 mg PO DAILY Qty: 14 0RF No Action cholecalciferol (vitamin D3) 50 mcg (2,000 unit) tablet 4,000 unit PO DAILY multivitamin with minerals 1 EACH tablet 1 ea PO DAILY warfarin 5 mg tablet 2.5 mg PO MOFR Protocol: Dose Management Condition: Thursday Dose/Route: 5 mg Instruction: 1 x 5 mg tablet Condition: Thursday Dose/Route: 5 mg Instruction: 1 x 5 mg tablet Condition: Thursday Dose/Route: 5 mg Instruction: 1 x 5 mg tablet Condition: Thursday Dose/Route: 5 mg Instruction: 1 x 5 mg tablet Condition: Dose/Route: 2.5 mg Instruction: 0.5 x 5 mg tablets Condition: Thursday Dose/Route: 0 mg Instruction: 0 tablets Condition: Thursday Dose/Route: 5 mg Instruction: 1 x 5 mg tablet Protocol Text: Adjustment Start Date: Thursday05/06/24 INR Value: 3.8 INR Date: 05/06/24 Recheck Date: 05/13/24 warfarin 5 mg tablet 5 mg PO DAILY Qty: 90 3RF Protocol: Dose Management Condition: Thursday Dose/Route: 5 mg Instruction: 1 x 5 mg tablet Condition: Thursday Dose/Route: 5 mg Instruction: 1 x 5 mg tablet Condition: Thursday Dose/Route: 5 mg Instruction: 1 x 5 mg tablet Condition: Thursday Dose/Route: 5 mg Instruction: 1 x 5 mg tablet Condition: Dose/Route: 2.5 mg Instruction: 0.5 x 5 mg tablets Condition: Thursday Dose/Route: 0 mg Instruction: 0 tablets Condition: Thursday Dose/Route: 5 mg Instruction: 1 x 5 mg tablet Protocol Text: Adjustment Start Date: Thursday05/06/24 INR Value: 3.8 INR Date: 05/06/24 Recheck Date: 05/13/24 Rx Instructions: Take one daily or as directed hydrochlorothiazide 25 mg tablet 25 mg PO .COMPLEX PRN (Reason: edema) Qty: 90 3RF Rx Instructions: 25 mg orally 1 tablet by mouth daily needed for ankle or leg swelling; PRN; metoprolol tartrate 50 mg tablet 50 mg PO BID Qty: 180 3RF amlodipine 10 mg tablet 10 mg PO DAILY Qty: 90 3RF amiodarone 200 mg tablet 100 mg PO DAILY Qty: 45 3RF Primary Care Provider: Joe Trotter Referrals: Jesús Madrid MD [Med Staff - Active Staff] - 1 Day Joe Trotter DO [Primary Care Provider] - Activity Restrictions/Additional Instructions: Call Dr. Madrid tomorrow regarding possible surgery later this week. Wear your soft collar. Continue to hold your Coumadin/warfarin in anticipation of having surgery in the near future. Print Language: U[place] Disposition Disposition: Home, Self Care
[2024-05-22 09:23] LABS: Absolute Lymphocyte Count 0.98 X10^3/uL (0.83-4.51); Absolute Neutrophil Count 8.3 X10^3/uL (2.0-7.7); Basophil# 0.08 X10^3/uL; Basophil% 0.8 % (0-1); Eosinophil# 0.14 X10^3/uL; Eosinophils% 1.3 % (0-5); Hematocrit 45.1 % (40-54); Hemoglobin 14.9 g/dL (13.0-16.5); Lymphocyte # 0.98 X10^3/ul (0.83-4.51); Lymphocyte % 9.2 % (19-41); Mean Corpuscular Hgb 29.9 pg (27.0-32.0); Mean Corpuscular Volume 90.4 fL (80-94); Mean Platelet Vol. 11.3 fl (6.2-12.0); Monocyte# 1.15 X10^3/uL; Monocyte% 10.8 % (0-10); NRBC Flagged by Analyzer 0 % (0-5); Neutrophil # 8.26 X10^3/uL (2.7-7.7); Neutrophil % 77.4 % (47-70); Platelet Count 234 K/mm3 (150-450); RBC Distribution Width CV 13.9 % (11.6-14.6); RBC Distribution Width SD 46.5 fl (35.1-43.9); Red Blood Count 4.99 M/mm3 (4.6-6.2); White Blood Count 10.7 K/mm3 (4.4-11.0)
[2024-05-22 09:40] LABS: International Normalized Ratio 3.1
[2024-05-22 09:42] LABS: ALB/GLOB Ratio 0.6 RATIO (0.9-2.4); AST(SGOT) 33 U/L (15-37); Alanine Aminotransfer ALT/SGPT 23 U/L (16-61); Alkaline Phosphatase 89 U/L (45-117); Anion Gap 7 (5-15); BUN 19 mg/dL (7-18); BUN/Creat Ratio 17.9 RATIO (10-20); Calcium,Total 10.1 mg/dL (8.5-10.1); Chloride 106 mmol/L (98-107); Creatinine, Serum 1.06 mg/dL (0.70-1.30); EST Glomerular Filtration Rate 72 mL/min (>60); Est Glom Filt Rate - Afr Amer 87 mL/min (>60); Estimated Creatinine Clearance 71.44 ml/min; Glucose 99 mg/dL (74-106); Magnesium 2.1 mg/dL (1.6-2.6); Potassium 4.2 mmol/L (3.5-5.1); Sodium Level 141 mmol/L (136-145)
[2024-05-22 10:53] VITALS: BP 143/71; PULSE 64; RESP 19; O2SAT 94
[2024-05-22 11:37] LABS: Red Blood Cells-Urine 0 SEEN /hpf (0-5)
[2024-05-22] MEDS: dexAMETHasone 4 MG Tablet 8 MG PO (11:37)
[2024-05-22 11:43] LABS: Color, Urine Yellow (Yellow); Glucose, Dipstick Normal (Normal); Ketone-Dipstick 5 mg/dl (Negative); Leukocyte Esterase-Dipstick 25 /ul (Negative); Nitrite-Dipstick Negative (Negative); Occult Blood-Urine Negative /ul (Negative); Protein-Dipstick 15 mg/dl (Negative); Specific Gravity, Urine 1.015 (1.002-1.030); Urine Bilirubin Dipstick Negative (Negative); Urine Clarity Clear (Clear); Urine Urobilinogen 4 mg/dl (Normal)
[2024-05-22 11:44] VITALS: BP 148/84; PULSE 79; RESP 16; TEMP 36.7; O2SAT 100
[2024-05-22 12:00] VITALS: RESP 18
[2024-05-22 12:13] LABS: Amorphous Sediment 2+; Bacteria 2+ /hpf (None Seen); Mucous, Urine 1+ /hpf (<or=2+); Squamous Epithelial Cells - UA 0-5 SEEN /hpf (0-5); White Blood Cells 0-5 SEEN /hpf (0-5)
== END 2024-05-22 12:11 | disposition home or self-care (01) ==
PROVIDERS: Emergency Provider Emergency Medicine; PCP Family Medicine; Visit Provider Emergency Medicine
DX: M48.02 Spinal stenosis, cervical region (principal); G99.2 Myelopathy in diseases classified elsewhere; I48.0 Paroxysmal atrial fibrillation; X58.XXXA Exposure to other specified factors, initial encounter; R53.1 Weakness; I25.10 Atherosclerotic heart disease of native coronary artery without angina pectoris; I10 Essential (primary) hypertension; R26.2 Difficulty in walking, not elsewhere classified; Z79.01 Long term (current) use of anticoagulants; Z79.899 Other long term (current) drug therapy; Z87.891 Personal history of nicotine dependence
CPT/HCPCS: 80053; 81001; 83735; 85025; 85610; 93005; 99285

== ENCOUNTER 2024-05-30 11:02 | Observation (INO) | payer MEDICARE, SELFPAY ==
[2024-05-26 13:36] LABS: Magnesium 2.4 mg/dL (1.6-2.6)
[2024-05-26 14:34] LABS: HIV - WCH Non-Reactive (Nonreactive); Hepatitis B Surface Antibody Non-Reactive; Hepatitis C Antibody Non-Reactive (Nonreactive)
[2024-05-28 06:10] LABS: Hepatitis A AB, Total Positive (Negative)
[2024-05-30] VITALS (22 sets, daily range): BP systolic 104–149; BP diastolic 56–83; PULSE 58–86; RESP 14–18; TEMP 36.1–37.1; O2SAT 93–96; BMI 30.4
[2024-05-30 05:40] LABS: INR Fingerstick 1.7; Prothrombin Time Fingerstick 19.5 SEC (11.7-14.9)
[2024-05-30] MEDS: Lactated Ringers 1,000 ML 15 ML IV (06:30)
[2024-05-30] MEDS: Magnesium 1 GM over 15 mins IV (06:30)
[2024-05-30] MEDS: Acetaminophen 500 MG Tablet 1000 MG PO ×2 (06:31→23:11)
[2024-05-30 06:42] LABS: International Normalized Ratio 1.6; Prothrombin Time (Protime)PT. 19.3 SECONDS (11.7-14.9)
[2024-05-30 06:54] LABS: Bedside Glucose 109 mg/dL (74-106)
--- NOTE | 2024-05-30 07:10 | PRE.ANES_ITS ---
ASA Classification* ASA Classification ASA Classification: 3 Assessment & Plan Anesthesia* Anesthesia Assessment Anesthesia Assessment: Discussed sedation and/or anesthesia options, risks, benefits, and alternatives with patient/parents/legal guardian/POA. Questions invited. The patient/parents/legal guardian/POA seems to understand and agrees to proceed with anesthesia plan. Reviewed the physical assessment, medical history, allergy history and patient home medications list prior to surgery/procedure/anesthetic and documented any changes. Performed airway and anesthesia risk assessments. Anesthesia Type Anesthesia Type: General Anesthesia Focused Assessment* Temperature: 98.4 F Pulse Rate: 66 Blood Pressure: 104/79 Respiratory Rate: 17 Pulse Ox: 96 Airway Assessment Mouth opens: >3 cm Mallampati Score: II Focused Labs Anesthesia Preop lab: CBC WBC 10.7 K/mm3 (4.4-11.0) 05/22/24 09:10 RBC 4.99 M/mm3 (4.6-6.2) 05/22/24 09:10 Hgb 14.9 g/dL (13.0-16.5) 05/22/24 09:10 Hct 45.1 % (40-54) 05/22/24 09:10 Plt Count 234 K/mm3 (150-450) 05/22/24 09:10 CHEMISTRY Potassium 4.2 mmol/L (3.5-5.1) 05/22/24 09:10 Sodium 141 mmol/L (136-145) 05/22/24 09:10 Magnesium 2.4 mg/dL (1.6-2.6) 05/26/24 12:35 BUN 19 mg/dL (7-18) H 05/22/24 09:10 Creatinine 1.06 mg/dL (0.70-1.30) 05/22/24 09:10 Glucose 99 mg/dL (74-106) 05/22/24 09:10 POC Glucose 109 mg/dL (74-106) H 05/30/24 05:59 TSH 1.47 uIU/mL (0.358-3.74) 08/24/23 07:35 COAG PT 19.3 SECONDS (11.7-14.9) H 05/30/24 05:36 INR 4.1 H* 06/28/20 12:38 Pre-Assessment Diagnosis/Proposed Procedure Planned Operative Procedure(s): ANTERIOR CERVICAL DISC FUSION C3-4 C4-5 Anesthesia History 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 When Was Last Pacemaker Check QUESTION #4 FULL TEXT: You/Your Family Experience fever (hyperthermia) with Anesthesia Last Oral Intake Last Oral intake: Last Oral Intake NPO since 04:30 05/30/24 06:18 Meds taken in AM with sips of No 05/30/24 06:18 water? Meds patient instructed to take am of surgery PONV PONV - rail switch operator: PONV - rail switch operator Female No 05/25/24 10:46 HX of Motion Sickness No 05/25/24 10:46 HX of N/V After Surgery No 05/25/24 10:46 Non-Smoker Yes 05/25/24 10:46 Duration of Surgery greater Yes 05/25/24 10:46 than 60 minutes Number of Risk Factors 2 05/25/24 10:46 PONV Score Moderate Risk 05/25/24 10:46 Height & Weight Height & Weight: Anesthesia: Height & Weight Height 6 ft 1 in 05/30/24 06:18 Weight: 104.5 kg 05/30/24 06:18 Body Mass Index (BMI) 30.4 05/30/24 06:18 Respiratory Assessment Respiratory Assessment - rail switch operator: Respiratory Tract Infection Hx - rail switch operator Hx Respiratory Tract Infection No 05/25/24 10:46 STOP Sleep Apnea STOP Sleep Apnea - rail switch operator: STOP Sleep Apnea - rail switch operator Hx Hypertension Yes: CONTROLLED WITH MEDS 05/25/24 10:46 Hx Sleep Apnea No 05/25/24 10:46 CPAP No 10/15/20 08:53 BIPAP No 10/15/20 08:53 Do you snore loudly (louder No 05/25/24 10:46 than talking or can be heard Do you often feel tired/ No 05/25/24 10:46 fatigued/ sleepy during daytime? Has anyone observed you stop No 05/25/24 10:46 breathing during sleep? STOP Results Negative 05/25/24 10:46 QUESTION #5 FULL TEXT : Do you snore loudly (louder than talking or can be heard through closed doors)? 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 Tobacco Use Smoking Status Former smoker 05/25/24 10:46 Hx Tobacco Use No 05/25/24 10:46 Years Smoking Packs Smoked per Day Smoking Cessation Date was No - quit smoking greater 05/25/24 10:46 within the last 15 years than 15 years ago Hx Smoking Cessation Date Hx Smoking Cessation No 05/25/24 10:46 Counseling Hematologic Medial History Hematologic Hx - rail switch operator: Hematologic Medical Hx - physician vice president Hx of Blood Transfusion No 05/25/24 10:46 Hx of Transfusion in last 3 No 05/25/24 10:46 Months Date of Last Transfusion (if within last 3 months) Ever experience any problems No 05/25/24 10:46 with transfusion(s)? Specify any problems Hx of Preganancy in last 3 N/A 05/25/24 10:46 Months Nurse Filling Out Transfusion DSCHRIBER 05/25/24 10:46 & Questions: Date: 05/25/24 05/25/24 10:46 Time: 10:48 05/25/24 10:46 Patient unable to answer at this time (ie. confused, unrespo /Reproduction History /Reproductive History - rail switch operator: /Reproductive Hx- rail switch operator Hx Now No 05/25/24 10:46 Gestational Age (in weeks): EDC: Hx Hx Para Hx Section SAB No 05/25/24 10:46 Active Medications Active Medications: Current Medications Generic Name Dose Route Start Last Admin Trade Name Freq PRN Reason Stop Dose Admin Acetaminophen 1,000 mg 05/30/24 07:30 05/30/24 06:31 Acetaminophen 500 Mg Tablet PO 05/30/24 07:31 1,000 mg X1 ONE Administration Dexamethasone Sodium Phosphate 8 mg 05/30/24 07:30 Dexamethasone 10 Mg/Ml Vial IV 05/30/24 07:31 X1 ONE Dexamethasone Sodium Phosphate 4 mg 05/30/24 07:30 Dexamethasone 4 Mg/Ml Vial IV 05/30/24 07:31 X1 ONE Magnesium Sulfate 1 gm/ 102 mls @ 408 mls/hr 05/30/24 07:30 05/30/24 06:30 Dextrose IV 05/30/24 07:44 408 mls/hr X1 ONE Administration Tranexamic Acid 1,000 mg/ 110 mls @ 440 mls/hr 05/30/24 07:30 Sodium Chloride IV 05/30/24 07:44 X1 ONE Tranexamic Acid 1,000 mg/ 110 mls @ 440 mls/hr 05/30/24 07:30 Sodium Chloride IV 05/30/24 07:44 X1 ONE Cefazolin Sodium 2 gm/ N/A 20 mls @ 400 mls/hr 05/30/24 07:30 IV 05/30/24 07:32 PREOP ONE Lactated Ringer's 1,000 mls @ 15 mls/hr 05/30/24 05:45 05/30/24 06:30 IV 06/04/24 19:04 15 mls/hr .Q48H NIRMAL Administration Protocol Insulin Human Lispro 1 - 6 unit 05/30/24 07:30 Insulin Lispro 100 Unit/Ml Insuln.Pen SC 05/30/24 18:00 Q4H PRN PRN BG>/= 180, SEE PROTOCOL Protocol PFSH Medical History Loss of hearing Wears glasses History of steroid therapy Walker as ambulation aid Injury of head and neck Gastric reflux Former smoker History of edema History of echocardiogram Cardiology follow-up encounter Neuropathy Nonobstructive atherosclerosis of coronary artery Bloody stool Dilated aortic root Paroxysmal supraventricular tachycardia Essential (primary) hypertension MGUS (monoclonal gammopathy of unknown significance) Osteoarthritis Lumbar spinal stenosis Degenerative disc disease, lumbar Paroxysmal atrial fibrillation Venous insufficiency Hyperlipidemia Home Medications ?Medication ?Instructions ?Recorded ?Last Taken ?Type cholecalciferol (vitamin D3) 50 4,000 unit PO DAILY 04/05/20 05/29/24 History mcg (2,000 unit) tablet multivitamin with minerals 1 ea PO DAILY 08/16/20 Unknown History metoprolol tartrate 50 mg tablet 50 mg PO BID #180 tabs 02/12/24 Unknown Rx amlodipine 10 mg tablet 10 mg PO DAILY #90 tabs 04/12/24 05/29/24 Rx amiodarone 200 mg tablet 100 mg (1/2 x 200 mg) PO DAILY #45 05/17/24 05/29/24 Rx tabs dexamethasone 4 mg tablet 8 mg (2 x 4 mg) PO DAILY #14 tabs 05/22/24 Unknown Rx warfarin 5 mg tablet 2.5 mg PO MOWEFR 05/22/24 05/25/24 History hydrochlorothiazide 25 mg tablet 25 mg PO DAILY PRN PRN edema 05/25/24 Unknown History magnesium 250 mg tablet 1,000 mg PO DAILY 05/25/24 05/29/24 History mecobalamin (vitamin B12) 1,000 1,000 mcg PO DAILY 05/25/24 05/29/24 History mcg chewable tablet potassium 99 mg tablet 99 mg PO DAILY 05/25/24 Unknown History warfarin 5 mg tablet 5 mg PO SUTUTHSA 05/25/24 05/24/24 History Allergy/AdvReac Type Severity Reaction Status Date / Time acetaminophen (From [place]) Allergy Severe SOB and Verified 05/30/24 06:16 leg weakness hydrocodone (From [place]) Allergy Severe SOB and Verified 05/30/24 06:16 leg weakness codeine AdvReac Severe GOOFY Verified 05/30/24 06:16 peppermint AdvReac Severe Other Verified 05/30/24 06:16 Family History Father CAD (coronary artery disease) Myocardial infarction, Onset Age: 57 Brother Hypertension Brother Hx of CABG Sister Atrial fibrillation Surgical History Hx of decompression of ulnar nerve Hx of colonoscopy Hx of right cataract extraction Hx of left cataract extraction History of basal cell carcinoma excision (03/2019) 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
--- NOTE | 2024-05-30 07:37 | HP.PCM_ITS ---
History and Physical Date of Admission: 05/30/24 MR#: [id number] Acct: [id number] Name: TUCKER BOWEN Rep #: [id number] : 1945 Provider: Dr. Jesús Madrid MD Age/Sex: 79/M Location: [facility] [place] Status: Signed Intake Vital Signs 05/22/2408:53 Height 6 ft 1 in Intake Visit Reasons: cervical spine Accompanied by: Daughter Is patient in pain?: No Allergies acetaminophen (From [place]) Allergy (Severe, Verified 05/25/24 10:38) SOB and leg weaknesshydrocodone (From [place]) Allergy (Severe, Verified 05/25/24 10:38) SOB and leg weaknesscodeine Adverse Reaction (Severe, Verified 05/25/24 10:38) GOOFYpeppermint Adverse Reaction (Severe, Verified 05/25/24 10:38) Other Medications ?Medication ?Instructions ?Recorded ?Confirmed ?Type cholecalciferol (vitamin D3) 50 4,000 unit PO DAILY 04/05/20 05/25/24 History mcg (2,000 unit) tablet multivitamin with minerals 1 ea PO DAILY 08/16/20 05/25/24 History metoprolol tartrate 50 mg tablet 50 mg PO BID #180 tabs 02/12/24 05/25/24 Rx amlodipine 10 mg tablet 10 mg PO DAILY #90 tabs 04/12/24 05/25/24 Rx amiodarone 200 mg tablet 100 mg (1/2 x 200 mg) PO DAILY #45 05/17/24 05/25/24 Rx tabs dexamethasone 4 mg tablet 8 mg (2 x 4 mg) PO DAILY #14 tabs 05/22/24 05/25/24 Rx warfarin 5 mg tablet 2.5 mg PO MOWEFR 05/22/24 05/25/24 History hydrochlorothiazide 25 mg tablet 25 mg PO DAILY PRN PRN edema 05/25/24 05/25/24 History magnesium 250 mg tablet 1,000 mg PO DAILY 05/25/24 05/25/24 History mecobalamin (vitamin B12) 1,000 1,000 mcg PO DAILY 05/25/24 05/25/24 History mcg chewable tablet potassium 99 mg tablet 99 mg PO DAILY 05/25/24 05/25/24 History warfarin 5 mg tablet 5 mg PO SUTUTHSA 05/25/24 05/25/24 History Have you fallen in the past year?: No PFSH Medical History (Updated 05/25/24 @ 11:02 by Mee Grier) Loss of hearing Wears glasses History of steroid therapy Walker as ambulation aid Injury of head and neck Gastric reflux Former smoker History of edema History of echocardiogram Cardiology follow-up encounter Neuropathy Nonobstructive atherosclerosis of coronary artery Bloody stool Dilated aortic root Paroxysmal supraventricular tachycardia Essential (primary) hypertension MGUS (monoclonal gammopathy of unknown significance) Osteoarthritis Lumbar spinal stenosis Degenerative disc disease, lumbar Paroxysmal atrial fibrillation Venous insufficiency Hyperlipidemia Surgical History (Updated 05/25/24 @ 11:02 by Mee Grier) Hx of decompression of ulnar nerve Hx of colonoscopy Hx of right cataract extraction Hx of left cataract extraction History of basal cell carcinoma excision (03/2019) 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) History of carpal tunnel surgery (2003) History of lumbar laminectomy History of left heart catheterization (LHC) (02/2008) Family History Father CAD (coronary artery disease) Myocardial infarction, Onset Age: 57Brother HypertensionBrother Hx of CABGSister Atrial fibrillation Social History Smoking Status: Former smoker how long ago did patient quit smokin years ago alcohol intake: never substance use type: does not use caffeine: Yes Type: coffee Number of servings: 1 what type of physical activity do you participate in: walking and weight training frequency: daily seatbelt use: always do you feel safe at home: Yes HPI cervical spine Details: This documentation accurately reflects the service provided and the decisions made by me, Dr. Jesús Madrid MD 05/24/24 1256. Part of today?s visit was documented by Yulia CURTIS , acting as scribe. TUCKER BOWEN is a 79 year old M here today for a Pre-op. dos 05/30/2024 Patient is having Anterior Cervical Disc Fusion C3-4 and C4-5. Patient signed consent and was given soaps and drinks and explained about them. Went to the ER on 05/22 for weakness and being unable to walk, no admission. He has walked with a walker at home since then. Says that he has been constipated since then and has had to use an enema at home. MRI done. Patient wearing soft collar. He will hold Warfarin. HPI from 05/20/24: TUCKER BOWEN is a 79 year old M here today for cervical spine issues. Patient notes that about 2 months ago he was working on his fence and digging, and he had a spasm the next day and his pain increased. He states that he has had numbness in his left hand and arm for 10 years and since this started, he has had right hand symptoms. He has muscle wasting of the left hand due to this 10 year issue. He has numbness throughout his chest and arms. Says that he has numbness into his right shoulder arm. Says that before the onset of these symptoms he wasn't using an ambulatory device. Since then he has had to in use a cane and walker, all within 2 months. Patient had bilateral carpal tunnel release about 12 years ago. Patient went to the chiropractor for the last month, and he is much worse. He is using a walker to ambulate. He has dexterity issues when using eating utensils. He states that when he moves his cervical spine, he gets a shock wave down his arms and legs. Patient did 3 weeks of physical therapy and traction with the chiropractor. He denies any physical therapy, xrays or MRI. Patient denies any pain medication as he doesnt have pain. History of A fib and is on Warfarin. He has stopped the Warfarin in the past for procedures Ortho Exam General General: Yes no acute distress Neurologic: Yes alert and Yes oriented x3 Spine SPINE TESTING CERVICAL THORACIC LUMBAR Musculoskeletal Strength 0=absent - 5=normal Details: Neurological exam of the upper extremities shows 4- power of the upper extremities and 5 power of the lower extremities. Normal sensations across all dermatomes. 2+ lower extremity reflexes, exam limited due to patient sitting in a wheelchair. No midline or paraspinal tenderness. Jayjay's positive bilaterally. Left chronic first dorsal interossei muscle wasting. Coding Level of Care Code Off vis,est,level 4 Diagnoses Cervical myelopathy G95.9 Time Spent (min) 35 Assessment and Plan Assessment and Plan (1) Cervical myelopathy: Status: Acute Plan Reviewed MRI from 05/20 today with the patient. MRI showed C3-C4 severe spinal stenosis with marked compression of the cord and associated myelomalacia. This is due to degenerative disc disease with anterior subluxation of C3 on C4 measuring 2.5 mm. C4-5 shows moderate stenosis with cord indentation. Again reviewed prior xrays which showed multilevel disc height loss and anterolisthesis of C3 on C4 with instability. Explained imaging findings in detail. Patient has developed severe progressive cervical myelopathy with worsening of function rapidly progressing over the last 2 months. Explained the natural history of cervical myelopathy which is typically that of progression. Because of the rapid progression, I recommend urgent surgical decompression with C3-5 ACDF. Explained that the functional capacity that he regains after surgery is uncertain due to the severe myelopathy. Reviewed the benefits and risks of surgery. Planned C3-5 ACDF cervical fusion. Risks of surgery include bleeding, infection, visceral injury, dysphagia, hardware failure, pseudoarthrosis, adjacent segment degeneration, pneumonia, DVT, pulmonary embolism, atelectasis, gait abnormality, persistent pain, stretch injuries, chance for future surgeries. Patient understands and agrees to proceed with surgery. Explained in detail the procedure of the cervical fusion. Discussed post surgery restrictions such as no bending, lifting, or twisting and wear schedule of the cervical collar. Answered all questions that he had today in preparation for next week. He will need clearance from his PCP and cardiology. Consent was signed. Patient is in agreement. On the day of surgery today, patient's INR still seems to be high at 1.6, despite stopping Coumadin last week. Discussed with patient regarding the risks of bleeding during surgery and hematoma afterwards. Discussed with anesthesia regarding use of vitamin K to bring down INR, but the peak may not be recent to 12 hours as it is slow acting. Will discuss with hospitalist to continue with additional vitamin K after surgery. Patient understands and agrees to proceed.
--- NOTE | 2024-05-30 07:51 | NURSING ---
verbal order per dr dsouza, give 10 mg vit k IV x1. rx called. ok to bring pt back to surgery before starting meds.
[2024-05-30] MEDS: Cefazolin 2 GM in Syringe IV ×2 (07:55→17:26)
[2024-05-30] MEDS: TRANEXAMIC ACID 1,000 MG in 0.9% Normal Saline (100mL Bag) 100 ML 440 MG IV ×2 (08:05→10:15)
--- NOTE | 2024-05-30 08:11 | RAD_ITS ---
STUDY: X-RAY - CERVICAL SPINE REASON FOR EXAM: Male, 79 years old. ANTERIOR CERVICAL FUSION C3-4 AND C4-5 TECHNIQUE: 7 view(s) of the cervical spine were obtained. COMPARISON: None FINDINGS: 14 seconds of fluoroscopy the cervical spine was utilized operating room during anterior cervical discectomy and fusion and 7 images are submitted for interpretation. . RAD/Cerv Spine 2 or 3 Views IMPRESSION: Fluoroscopy during anterior cervical discectomy and fusion. Electronically Signed: Ac Tong MD at 13:04 EST ,
[2024-05-30] MEDS: dexAMETHasone 10 MG/ML Vial 8 MG IV (08:25)
--- NOTE | 2024-05-30 10:56 | OP.PCM_ITS ---
Operative Report (Standard) Operative Information Surgery/Procedure Performed: C3-5 anterior cervical discectomy fusion Surgeon: Jesús Madrid Date of Procedure: 05/30/24 Procedure Start Time: 08:35 Procedure Stop Time: 10:59 Pre-Operative Diagnosis: C3-5 stenosis, myelopathy, myelomalacia Post-Operative Diagnosis: Same Select all DRAINS/GRAFTS/IMPLANTS that apply: Drains Drain details: Hemovac suction drain , Graft Graft details: Allograft structural cortical cancellous, DBX and Implanted device Implanted device details: Medtronic [place] Elite anterior cervical plate instrumentation Type of Anesthesia: General Estimated Blood Loss: 30 cc Specimen collected: No Description of surgery: Preoperative diagnosis: C3-4 spondylolisthesis, C3-5 disc degeneration with stenosis, myelopathy, cord compression with cord signal changes Postoperative diagnosis: Same Name of procedure: C3-5 anterior cervical discectomy and fusion with plate instrumentation - Anterior cervical fusion C3-4, CPT code 63468 - Anterior plate instrumentation C3-5, CPT code 96407/59 - Anterior cervical fusion C4-5, CPT code 75955/51 -C3-4 structural allograft bone with DBX, CPT code 22640 -C4-5 structural allograft bone with DBX, CPT code 04879 Attending surgeon: Jesús Madrid M.D. Anesthesia: Gen. endotracheal Estimated blood loss: 30 mL Complications: None Instrumentation used: Medtronic [place] Elite plate, LASR corticocancellous block Indications: The patient is a pleasant 79-year-old gentleman who presented with rapidly progressive worsening of dexterity and balance over 2 months. He had severe weakness of both upper and both lower extremities and was progressively losing his ability to walk and feed himself. MRI showed C4-5 spondylolisthesis, C3-5 disc degeneration with stenosis, cord compression with cord signal changes. In order to halt the progression of myelopathy, the patient requested surgical treatment. All risks and benefits of the procedure were explained to the patient. The risks include but are not limited to infection, bleeding, injury to nerves and vessels, vertebral artery injury, spinal cord injury, paralysis, vocal cord paralysis, injury to esophagus, pseudoarthrosis, need for further procedures, adjacent segment degeneration. Procedure: The patient was identified in the preoperative suite using unique patient identifiers. Skin was marked consent was taken and all questions were answered. The patient was then brought back to the operative room and a timeout was performed. General endotracheal anesthesia was given. Intraoperative neuro monitoring leads were applied. The patient was carefully positioned supine on a regular OR table. A lateral view with a C-arm was done to identify the level and to define the incision. The anterior neck was then prepped and draped in the usual fashion. A final timeout was then performed. A transverse skin incision was taken to the left of midline. Subcutaneous tissue was then divided with Bovie. Platysma was identified and cut along the incision with scissors. The fascial interval between the sternocleidomastoid and the larynx was developed. Omohyoid was identified and retracted. The esophagus with the larynx was retracted medially to reach the prevertebral fascia. Marker x-ray was performed with bent spinal needle and disc space and levels were confirmed. Longus coli muscle was elevated on both sides at and above and below C3-C5 discs. Self-retaining retractors were then placed. A long handle knife was then used to perform annulotomy at C3-4. Disc fragments were removed with the pituitary. Wagner pins were placed in C3 and C4 for disc distraction. Curettes and bur was utilized to remove cartilage from the endplates. Discectomy was performed laterally up to the uncovertebral joints. Posterior osteophytes were thinned down with the bur and adequate decompression in the central and foraminal areas were performed and PLL was thinned out. Once the disc space was prepared, trials of various sizes were utilized. Thorough irrigation was given. 6 mm LASR cortical cancellous allograft bone large footprint was then fashioned in such a way that concavities were burred out inferiorly and superiorly and half cc of DBX (demineralized bone matrix) was squeezed into the cancellous portion. The graft was then inserted into the C3-4 disc space. The retractors were then repositioned and the procedure was repeated for C4-5 discs with complete discectomy. Graft size was 6 mm at with large footprint at C4-5. The grafts were found to be in good apposition with good pullout strength. A 40 mm Medtronic [place] Elite plate was then fixed to C3-5 with 16 mm screws. A lateral x-ray was then taken to check the length of the screws. Both AP and lateral x-rays showed good positioning of plate and screws. The locking mechanism over the screw heads was then turned. Thorough irrigation was again given. Hemostasis was achieved. A Hemovac drain was then inserted through a separate skin incision. Closure was done with 3-0 Vicryl for the platysma and subcutaneous tissue layers and 4-0 Monocryl for the skin. Drain was fixed to the skin with 3-0 nylon. Steri-Strips were applied and dressing was done with 4 x 4 gauze and Tegaderm. A cervical collar was then applied. The patient was then woken up from anesthesia extubated and taken to PACU in stable condition. From here, the patient will be transitioned to the floor. Intraoperative neuro monitoring was performed throughout this procedure. Motor evoked potentials were run periodically. All potentials remained at baseline throughout the procedure. I was present for the entire surgery and performed the surgery myself. 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
--- NOTE | 2024-05-30 11:02 | PCM.POST.ANE ---
Anesthesia: Postop Eval I Current Vital Signs Temperature: 97.3 F Pulse Rate: 65 Blood Pressure: 134/56 Respiratory Rate: 14 Pulse Ox: 95 Oxygen Delivery Method: Simple Mask Oxygen Flow Rate (L/min): 6 Assessment Airway patent: Yes Spontaneous unlabored respirations: Yes Mental status: Awake nausea: No Vomiting: No Anesthesia Complication: No Fluid Hydration Crystalloid volume administer (ml): 1,700 Total IV fluid infused: 1,700 Progress Note Anesthesia document: Postop Eval 1 completed: Yes
--- NOTE | 2024-05-30 11:44 | POSTOPAN2_ITS ---
Anesthesia Postop Eval I Sum Postop Eval Completion status Anesthesia document: Postop Eval 1 completed: Yes Anesthesia Postop Eval I Summary Anesthesia Postop Eval I Summary: Anesthesia Postop Eval I: Assessment Summary Airway patent Yes 05/30/24 11:04 WINDOW INSTALLATION [email or web address] Spontaneous unlabored Yes 05/30/24 11:04 WINDOW INSTALLATION [email or web address] respirations Mental status Awake 05/30/24 11:04 WINDOW INSTALLATION [email or web address] nausea No 05/30/24 11:04 WINDOW INSTALLATION [email or web address] Vomiting No 05/30/24 11:04 WINDOW INSTALLATION [email or web address] Anesthesia Postop Eval I: Fluid Summary Crystalloid volume administer 1,700 05/30/24 11:04 WINDOW INSTALLATION [email or web address] (ml) Colloids volume administered ( ml) Blood Product volume administered (ml) Total IV fluid infused 1,700 05/30/24 11:04 WINDOW INSTALLATION [email or web address] Anesthesia Postop Eval I: Summary Notes Anesthesia Complication No 05/30/24 11:04 WINDOW INSTALLATION [email or web address] Anesthesia Complication Comment: Post-operative progress note Anesthesia: Postop Eval II Evaluation Mental status: Awake Pain Level: 0 nausea: No Vomiting: No
--- NOTE | 2024-05-30 11:44 | PCM.POSTANE2 ---
Anesthesia Postop Eval I Sum Postop Eval Completion status Anesthesia document: Postop Eval 1 completed: Yes Anesthesia Postop Eval I Summary Anesthesia Postop Eval I Summary: Anesthesia Postop Eval I: Assessment Summary Airway patent Yes 05/30/24 11:04 [email or web address] Spontaneous unlabored Yes 05/30/24 11:04 [email or web address] respirations Mental status Awake 05/30/24 11:04 [email or web address] nausea No 05/30/24 11:04 [email or web address] Vomiting No 05/30/24 11:04 SECTION [email or web address] Anesthesia Postop Eval I: Fluid Summary Crystalloid volume administer 1,700 05/30/24 11:04 [email or web address] (ml) Colloids volume administered ( ml) Blood Product volume administered (ml) Total IV fluid infused 1,700 05/30/24 11:04 SECTION [email or web address] Anesthesia Postop Eval I: Summary Notes Anesthesia Complication No 05/30/24 11:04 SECTION [email or web address] Anesthesia Complication Comment: Post-operative progress note Anesthesia: Postop Eval II Evaluation Mental status: Awake Pain Level: 0 nausea: No Vomiting: No
[2024-05-30] MEDS: Ketorolac 15 MG/ML Vial IV ×2 (12:39→17:27)
[2024-05-30] MEDS: dexAMETHasone 4 MG/ML Vial IV ×2 (14:46→23:08)
--- NOTE | 2024-05-30 16:52 | PCM.PN.HOSP ---
Subjective Subjective Doing well after surgery. Being weaned off oxygen Objective Data Objective Data Vital Signs: Vital Signs Temp Pulse Resp BP Pulse Ox O2 Del Method O2 Flow Rate 97.9 F 70 16 149/81 H 96 Nasal Cannula 4 05/30/24 15:18 05/30/24 15:18 05/30/24 15:18 05/30/24 15:18 05/30/24 15:18 05/30/24 15:18 05/30/24 15:18 Oxygen Flow Rate (L/min) 4 Oxygen Delivery Method Nasal Cannula Weight: 230 lb 6.129 oz Body Mass Index (BMI) 30.4 Intake & Output: Intake and Output for Last 24 Hours 05/29/24 05/30/24 05/31/24 03:59 03:59 03:59 Intake Total 1342 / 1342 Balance 1342 / 1342 Lab / Micro Data 05/31/24 05:51 05/31/24 05:51 Labs: Laboratory Results - last 24 hr 05/30/24 05:36: POC PT 19.5 H, PT 19.3 H, INR 1.7 05/30/24 05:36: INR 1.6 05/30/24 05:59: POC Glucose 109 H Micro: Microbiology 05/26/24 12:35 Swab (Method) Nasal Screen MRSA/MSSA - Final Radiography Diagnostic Testing: Radiology Impression Cervical Spine X-Ray 05/30/24 08:11 IMPRESSION: Fluoroscopy during anterior cervical discectomy and fusion. Electronically Signed: Ac Tong MD at 13:04 EST , Physical Exam Narrative General: Alert, Oriented x3, Cooperative, No apparent distress HEENT: Atraumatic, PERRLA, EOMI, Normocephalic Oral: Moist Mucosa Neck: Supple, No JVD, c-collar Lungs: Diminished, Normal air movement, No rhonchi, No wheeze, No rales Cardiovascular: Regular rate, Regular Rhythm, Normal S1, Normal S2, No murmurs Abdomen: Soft, Non Tender, Non-Distended, No Hepato-splenomegaly Extremities: No edema, Capillary Refill Less than 3 Seconds Skin: Anterior neck dressing CDI, drain in place Musculoskeletal: No Tenderness to Palpation of Joints or Extremities Neurological: No focal neurological deficits, Motor Exam 5/5 strength throughout, Sensory exam intact to light touch and pain Psych/Mental Status: Normal Affect, Appropriate Assessment & Plan Assessment/Plan (1) Cervical myelopathy: PLAN: Plan 1 cervical myelopathy status post C3-5 anterior cervical discectomy fusion on 05/30/2024 ? Pain management per primary ? Discharge planning per primary ? PT/OT 2. A-fib/essential HTN ? INR prior to surgery was 1.6, he did receive a unit of FFP during surgery ? Will check hemoglobin tomorrow ? Can resume his home blood pressure medications ? Surgery would like Coumadin held for 72 hours postoperatively which should be fine as his [id number] is a 3 DVT: Per primary Charges/Coding Visit Charges Office Visits / Consults: 34434 OV L3 New 30min
[2024-05-30] MEDS: 0.9% Normal Saline (1000mL) 1,000 ML 30 ML IV (17:25)
[2024-05-30] MEDS: Metoprolol Tartrate 50 MG Tablet PO (23:09)
[2024-05-30] MEDS: Senna/Docusate Sodium 1 Tablet 2 TABLET PO (23:10)
[2024-05-31] MEDS: Ketorolac 15 MG/ML Vial IV ×2 (00:08→06:25)
[2024-05-31] MEDS: Cefazolin 2 GM in Syringe IV (00:10)
[2024-05-31 03:27] VITALS: BP 151/77; PULSE 57; RESP 15; TEMP 36.7; O2SAT 96
[2024-05-31] MEDS: dexAMETHasone 4 MG/ML Vial IV (03:33)
[2024-05-31] MEDS: Acetaminophen 500 MG Tablet 1000 MG PO ×2 (06:25→13:35)
[2024-05-31 06:34] LABS: Hematocrit 42.8 % (40-54); Hemoglobin 14.2 g/dL (13.0-16.5); Mean Corp Hgb Conc 33.2 g/dL (32-36); Mean Corpuscular Hgb 30.1 pg (27.0-32.0); Mean Corpuscular Volume 90.9 fL (80-94); Mean Platelet Vol. 12.1 fl (6.2-12.0); Platelet Count 231 K/mm3 (150-450); RBC Distribution Width SD 46.4 fl (35.1-43.9); Red Blood Count 4.71 M/mm3 (4.6-6.2); White Blood Count 23.3 K/mm3 (4.4-11.0)
--- NOTE | 2024-05-31 07:00 | RAD_ITS ---
STUDY: X-RAY - CERVICAL SPINE REASON FOR EXAM: Male, 79 years old. s/p cervical fusion -- please do upright AP and LAT TECHNIQUE: 2 view(s) of the cervical spine were obtained. COMPARISON: 05/20/2024 FINDINGS: Normal anterior atlantoaxial articulation. Normal odontoid process. Normal cervical lordosis. Interval anterior cervical discectomy and fusion from C3 through C5 with no change in the 2 mm of anterolisthesis of C3 on C4.. There is multi-level degenerative disc disease with multilevel disc space narrowing. Normal visualized intervertebral neuroforamina. The soft tissue structures are unremarkable. RAD/Cerv Spine 2 or 3 Views IMPRESSION: Interval anterior cervical discectomy and fusion from C3 through C5 with persistent 2 mm of anterolisthesis of C3 on C4. Degenerative disc disease inferior to the effusion. Electronically Signed: Ac Tong MD at 9:15 EST ,
[2024-05-31 07:04] LABS: International Normalized Ratio 1.6; Prothrombin Time (Protime)PT. 18.9 SECONDS (11.7-14.9)
[2024-05-31 07:06] LABS: Anion Gap 6 (5-15); BUN 33 mg/dL (7-18); BUN/Creat Ratio 33.1 RATIO (10-20); Calcium,Total 9.6 mg/dL (8.5-10.1); Chloride 104 mmol/L (98-107); EST Glomerular Filtration Rate 77 mL/min (>60); Est Glom Filt Rate - Afr Amer 93 mL/min (>60); Estimated Creatinine Clearance 77.28 ml/min; Glucose 118 mg/dL (74-106); Sodium Level 136 mmol/L (136-145)
[2024-05-31 08:30] VITALS: BP 146/74; PULSE 61; RESP 18; TEMP 36.5; O2SAT 96
[2024-05-31 08:52] VITALS: BP 146/74; PULSE 61
[2024-05-31] MEDS: Metoprolol Tartrate 50 MG Tablet PO (08:52)
[2024-05-31] MEDS: Amiodarone 200 MG Tablet 100 MG PO (08:52)
[2024-05-31] MEDS: Multivitamins,Ther W-Minerals Tablet 1 TABLET PO (08:52)
[2024-05-31] MEDS: Senna/Docusate Sodium 1 Tablet 2 TABLET PO (08:54)
[2024-05-31] MEDS: Meloxicam 15 MG Tablet PO (08:54)
[2024-05-31] MEDS: amLODIPine 10 MG Tablet PO (08:54)
[2024-05-31] MEDS: 0.9% Saline Lock 10 ML Syringe IV (09:03)
--- NOTE | 2024-05-31 10:13 | CASEMGMT ---
SARAH VICTOR Assessment: Face to Face with pt for initial transition planning/care coordination assessment. SARAH VICTOR introduced self and role at [facility], pt voices understanding and consents to assessment. Pt is A&O x4 and answers all questions appropriately at this time. Pt sitting up in chair in no distress with neck collar on. Care providers, pharmacy, and demographics verified/updated. Admitting Dx: s/p cervical fusion Strata Score: 1 PCP:Sergo Specialists:Julius, ortho; Priscilla, cardio; Nadir chiro Preferred Pharmacy: [facility] Retail Insurance: [employer] Prescription Benefit: yes LNOK: Claire Mercado, ; Rayma Iris, dtr Living Arrangements: Pt lives with in a single story home with 2 steps to enter with a rail. Pt reports he is I in ADLs and denies concerns at home. Transportation: Pt drives self and denies concerns with transportation. Pt dtrs will transport pt until he can drive again. DME:shower chair, raised toilet seat, cane, walker HHC/SNF: Denies hx of Pt states no concerns with going home at time of dc. Pt states no further concerns/needs. CM to follow. Advised pt to ask CM if any further question/concerns/needs arise, voices understanding. Pt Goal: Home Plan: Home Mis SMITH CM
--- NOTE | 2024-05-31 10:28 | PCM.PN.HOSP ---
Subjective Subjective Doing well, no issues overnight Objective Data Objective Data Vital Signs: Vital Signs Temp Pulse Resp BP Pulse Ox O2 Del Method O2 Flow Rate 97.7 F L 61 18 146/74 H 96 Room Air 4 05/31/24 08:30 05/31/24 08:52 05/31/24 08:30 05/31/24 08:52 05/31/24 08:30 05/31/24 08:30 05/30/24 15:18 Oxygen Flow Rate (L/min) 4 Oxygen Delivery Method Room Air Weight: 230 lb 6.129 oz Body Mass Index (BMI) 30.4 Intake & Output: Intake and Output for Last 24 Hours 05/30/24 05/31/24 06/01/24 03:59 03:59 03:59 Intake Total 1732 / 1732 Output Total 450 / 450 250 / 250 Balance 1282 / 1282 -250 / -250 Lab / Micro Data 05/31/24 05:51 05/31/24 05:51 Labs: Laboratory Results - last 24 hr 05/31/24 05:51: WBC 23.3 H, RBC 4.71, Hgb 14.2, Hct 42.8, MCV 90.9, MCH 30.1, MCHC 33.2, RDW Std Deviation 46.4 H, RDW Coeff of Emre 14.0, Plt Count 231, MPV 12.1 H, PT 18.9 H, INR 1.6, Sodium 136, Potassium 4.0, Chloride 104, Carbon Dioxide 27.0, Anion Gap 6, BUN 33 H, Creatinine 1.00, Estim Creat Clear Calc 77.28, Est GFR (MDRD) Af Amer 93, Est GFR (MDRD) Non-Af 77, BUN/Creatinine Ratio 33.1 H, Glucose 118 H, Calcium 9.6 Micro: Microbiology 05/26/24 12:35 Swab (Method) Nasal Screen MRSA/MSSA - Final Radiography Diagnostic Testing: Radiology Impression Cervical Spine X-Ray 05/30/24 08:11 IMPRESSION: Fluoroscopy during anterior cervical discectomy and fusion. Electronically Signed: Ac Tong MD at 13:04 EST , Cervical Spine X-Ray 05/31/24 07:00 IMPRESSION: Interval anterior cervical discectomy and fusion from C3 through C5 with persistent 2 mm of anterolisthesis of C3 on C4. Degenerative disc disease inferior to the effusion. Electronically Signed: Ac Tong MD at 9:15 EST , Physical Exam Narrative General: Alert, Oriented x3, Cooperative, No apparent distress HEENT: Atraumatic, PERRLA, EOMI, Normocephalic Oral: Moist Mucosa Neck: Supple, No JVD, c-collar Lungs: Diminished, Normal air movement, No rhonchi, No wheeze, No rales Cardiovascular: Regular rate, Regular Rhythm, Normal S1, Normal S2, No murmurs Abdomen: Soft, Non Tender, Non-Distended, No Hepato-splenomegaly Extremities: No edema, Capillary Refill Less than 3 Seconds Skin: Anterior neck dressing CDI, drain in place Musculoskeletal: No Tenderness to Palpation of Joints or Extremities Neurological: No focal neurological deficits, Motor Exam 5/5 strength throughout, Sensory exam intact to light touch and pain Psych/Mental Status: Normal Affect, Appropriate Assessment & Plan Assessment/Plan (1) Cervical myelopathy: PLAN: Plan 1. cervical myelopathy status post C3-5 anterior cervical discectomy fusion on 05/30/2024 ? Pain management per primary ? Discharge planning per primary ? PT/OT ? Serosanguineous drainage in his drain. Leukocytosis is reactive ? From a medical perspective he would be stable for discharge today 2. A-fib/essential HTN ? INR today is 1.6 after his unit of FFP ? Hemoglobin is stable ? Continue with his home blood pressure medications ? Surgery would like Coumadin held for 72 hours postoperatively which should be fine as his [id number] is a 3 DVT: Per primary Charges/Coding Visit Charges Office Visits / Consults: 54062 OV L3 Est 20min
--- NOTE | 2024-05-31 11:23 | CASEMGMT ---
Met with patient to complete WOLFE form. WOLFE form explained to patient who voiced understanding but was physically unable to sign form. Original form placed in pt?s chart and copy provided to patient. Hodan Villagomez, Discharge Planning Asst
[2024-05-31 12:40] VITALS: BP 131/75; PULSE 64; RESP 17; TEMP 36.7; O2SAT 97
--- NOTE | 2024-06-06 12:22 | CASEMGMT ---
ASRAH VICTOR received tc from Josefa at [facility] who states pt bautista Mccullough called in and stated HHC was to be set up. TC to pt bautista Mccullough, , she states this RN CM met with pt and her sister and made them aware that HHC was going to be set up and that it is in the dc instructions that it will be set up. Made her aware that there were not any visitors present when this RN CM met with pt. Reviewed therapy notes, pt ambulated 175 feet and went up 4 steps. Made aware this RN CM did not set up HHC but if pt needs this service, she can reach 's office to set up. Provided her with 's phone number. Also provided her with this RN CM's phone number in case she is unable to reach his office. She states pt is now not able to get out of the chair on his own.
== END 2024-05-31 15:00 | disposition home or self-care (01) ==
LOC: SDC 14:39 → MS3 14:39
PROVIDERS: Anesthesiology; Family Medicine; Student in an Organized Health Care Education/Training Program; Admitting Provider Orthopaedic Surgery Orthopaedic Surgery of the Spine; PCP Family Medicine; Referring Provider Orthopaedic Surgery Orthopaedic Surgery of the Spine; Visit Provider Orthopaedic Surgery Orthopaedic Surgery of the Spine
PROC: (CPT 22551; principal; 2024-05-30 07:00)
DX: M48.02 Spinal stenosis, cervical region (principal); G95.89 Other specified diseases of spinal cord; I48.0 Paroxysmal atrial fibrillation; E78.5 Hyperlipidemia, unspecified; I10 Essential (primary) hypertension; M50.01 Cervical disc disorder with myelopathy, high cervical region; M43.12 Spondylolisthesis, cervical region; I25.10 Atherosclerotic heart disease of native coronary artery without angina pectoris; Z87.891 Personal history of nicotine dependence; M62.542 Muscle wasting and atrophy, not elsewhere classified, left hand; Z79.899 Other long term (current) drug therapy; Z79.01 Long term (current) use of anticoagulants; K21.9 Gastro-esophageal reflux disease without esophagitis; D47.2 Monoclonal gammopathy
CPT/HCPCS: 22551; 22552; 22845; 20931; 00670; 36415; 36416; 36430; 72040; 76000; 80048; 82962; 83735; 85027; 85610; 86703; 86706; 86708; 86803; 86850; 86900; 86901; 87081; 94668; 96374; 96375; 96376; 97162; 97166; 97530; 97535; 99221; C1713; J7030; J7120; A4216; G0378; J2405; J3475; J3490; P9017

== ENCOUNTER 2024-06-16 15:33 | Inpatient (IN) | payer MEDICARE, SELFPAY ==
[2024-06-16] VITALS (10 sets, daily range): BP systolic 101–219; BP diastolic 69–180; PULSE 68–76; RESP 15–19; TEMP 36.6–36.9; O2SAT 91–99; BMI 29.8; BMI 29.2
[2024-06-16 16:34] LABS: Absolute Lymphocyte Count 0.67 X10^3/uL (0.83-4.51); Absolute Neutrophil Count 8.8 X10^3/uL (2.0-7.7); Basophil# 0.07 X10^3/uL; Basophil% 0.6 % (0-1); Eosinophil# 0.28 X10^3/uL; Eosinophils% 2.5 % (0-5); Hematocrit 43.3 % (40-54); Hemoglobin 13.8 g/dL (13.0-16.5); Lymphocyte # 0.67 X10^3/ul (0.83-4.51); Lymphocyte % 5.9 % (19-41); Mean Corp Hgb Conc 31.9 g/dL (32-36); Mean Corpuscular Hgb 29.9 pg (27.0-32.0); Mean Corpuscular Volume 93.7 fL (80-94); Mean Platelet Vol. 11.4 fl (6.2-12.0); Monocyte# 1.43 X10^3/uL; Monocyte% 12.6 % (0-10); NRBC Flagged by Analyzer 0 % (0-5); Neutrophil # 8.77 X10^3/uL (2.7-7.7); Neutrophil % 77.6 % (47-70); Platelet Count 248 K/mm3 (150-450); RBC Distribution Width CV 14.6 % (11.6-14.6); RBC Distribution Width SD 49.7 fl (35.1-43.9); Red Blood Count 4.62 M/mm3 (4.6-6.2); White Blood Count 11.3 K/mm3 (4.4-11.0)
--- NOTE | 2024-06-16 16:50 | EDS_ITS ---
HPI <JACKELINE Daniels - Last Filed: 06/16/24 21:36> History of Present Illness Chief Complaint: Neuro S/Sx Narrative Narrative: Patient presenting today due to inability to ambulate over the last 4 days. He had a cervical fusion performed by Dr. Madrid on 05/30. He reports that he has had chronic paresthesias to his bilateral upper extremities that seems worse since his surgery. He reports that 4 days ago he was walking to the bathroom when his right leg, went out causing him to fall. He called the squad at that time and they did not transport him to the hospital but got him back into his chair where he has been unable to to ambulate from without assistance. He was suffering from constipation and took milk of magnesia and a suppository last night and had several loose bowel movements and a few episodes of bowel incontinence since. He reports that he is able to tell when he has to have a bowel movement, he is just unable to make it to the bathroom. Because he is having a difficult time ambulating he is not able to clean up after himself. He denies urinary incontinence/retention, saddle paresthesia. He saw Dr. Madrid today in the office who recommended coming into the emergency department for evaluation. [facility] <JACKELINE Daniels - Last Filed: 06/16/24 21:36> [facility] Medical History Loss of hearing Wears glasses History of steroid therapy Walker as ambulation aid Injury of head and neck Gastric reflux Former smoker History of edema History of echocardiogram Cardiology follow-up encounter Neuropathy Nonobstructive atherosclerosis of coronary artery Bloody stool Dilated aortic root Paroxysmal supraventricular tachycardia Essential (primary) hypertension MGUS (monoclonal gammopathy of unknown significance) Osteoarthritis Lumbar spinal stenosis Degenerative disc disease, lumbar Paroxysmal atrial fibrillation Venous insufficiency Hyperlipidemia Home Medications ?Medication ?Instructions ?Recorded ?Last Taken ?Type cholecalciferol (vitamin D3) 50 4,000 unit PO DAILY 04/05/20 05/29/24 History mcg (2,000 unit) tablet multivitamin with minerals 1 ea PO DAILY 08/16/20 Unknown History metoprolol tartrate 50 mg tablet 50 mg PO BID #180 tabs 02/12/24 Unknown Rx amlodipine 10 mg tablet 10 mg PO DAILY #90 tabs 04/12/24 05/29/24 Rx hydrochlorothiazide 25 mg tablet 25 mg PO DAILY PRN PRN edema 05/25/24 Unknown History magnesium 250 mg tablet 1,000 mg PO DAILY 05/25/24 05/29/24 History mecobalamin (vitamin B12) 1,000 1,000 mcg PO DAILY 05/25/24 05/29/24 History mcg chewable tablet potassium 99 mg tablet 99 mg PO DAILY 05/25/24 Unknown History acetaminophen 500 mg tablet 500 mg PO Q6H #30 tabs 05/31/24 Unknown Rx sennosides 8.6 mg-docusate sodium 2 tab PO BID PRN constipation #30 05/31/24 Unknown Rx 50 mg tablet (Stimulant Laxative tabs Plus) tramadol 50 mg tablet 50 mg PO TID PRN pain 5 days #15 05/31/24 Unknown Rx tabs apixaban 5 mg tablet (Eliquis) 5 mg PO BID #60 tabs 06/07/24 Unknown Rx amiodarone 200 mg tablet 200 mg PO QDAY #90 tabs 06/14/24 Unknown Rx Allergy/AdvReac Type Severity Reaction Status Date / Time acetaminophen (From [place]) Allergy Severe SOB and Verified 06/16/24 15:34 leg weakness hydrocodone (From [place]) Allergy Severe SOB and Verified 06/16/24 15:34 leg weakness codeine AdvReac Severe GOOFY Verified 06/16/24 15:34 peppermint AdvReac Severe Other Verified 06/16/24 15:34 Family History Father CAD (coronary artery disease) Myocardial infarction, Onset Age: 57 Brother Hypertension Brother Hx of CABG Sister Atrial fibrillation Surgical History Hx of decompression of ulnar nerve Hx of colonoscopy Hx of right cataract extraction Hx of left cataract extraction History of basal cell carcinoma excision (03/2019) 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 Fifi Pimentel MD) household members: spouse Smoking Status: Former smoker how long ago did patient quit smokin years ago alcohol intake: never substance use type: does not use caffeine: Yes Type: coffee Number of servings: 1 what type of physical activity do you participate in: walking and weight training frequency: daily seatbelt use: always do you feel safe at home: Yes ROS <JACKELINE Daniels - Last Filed: 06/16/24 21:36> ROS ED Constitutional Constitutional ED: Denies chills or fever(s) Cardiovascular Cardiovascular: Denies chest pain Respiratory/Chest Respiratory/Chest: Denies dyspnea Gastrointestinal Gastrointestinal: Denies abdominal pain, nausea or vomiting Genitourinary Genitourinary ED: Denies dysuria, hematuria or urinary frequency Musculoskeletal Musculoskeletal: Denies back pain or neck pain Integumentary Denies rash Neurologic Neurologic: Reports paresthesias and weakness EXAM <JACKELINE Daniels - Last Filed: 06/16/24 21:36> Physical Exam Const Vital Signs: 06/16/24 15:35 06/16/24 16:34 06/16/24 18:00 Temperature 98 F Temperature Source Temporal Pulse Rate 68 74 76 Respiratory Rate 18 19 H 18 Blood Pressure 219/180 H 133/74 H 117/77 Blood Pressure Mean 193 93 90 Pulse Ox 99 94 98 Oxygen Delivery Method Room Air 06/16/24 19:00 06/16/24 19:45 06/16/24 20:00 Temperature 98.3 F Temperature Source Pulse Rate 73 73 69 Respiratory Rate 18 18 18 Blood Pressure 112/78 112/78 105/69 Blood Pressure Mean 89 89 81 Pulse Ox 91 91 91 Oxygen Delivery Method Room Air Room Air 06/16/24 21:00 Temperature Temperature Source Pulse Rate 70 Respiratory Rate 15 Blood Pressure 128/89 H Blood Pressure Mean 102 Pulse Ox 91 Oxygen Delivery Method Room Air Positive well nourished, well developed and no apparent distress General Appearance ED: well developed HEENT Reports normocephalic and head/scalp atraumatic Mouth ED: Yes moist mucous membranes normal Eyes PERRL and EOMs intact bilaterally Neck full ROM and supple Chest Wall inspection of chest normal Resp normal respiratory effort and clear to auscultation bilaterally Cardio regular rate and regular rhythm GI soft to palpation, non-tender, non-distended and no masses GI Narrative: Rectal: Normal sphincter tone, intact anal wink Back/Spine normal ROM and normal to inspection Extremity normal to inspection and full ROM Neuro oriented x3, CN's II-XII intact bilaterally, moves all extremities, no focal motor deficits and no sensory deficits noted Neuro Narrative: NIH 0. Strength and sensation 5 out of 5 upper extremities bilaterally, strength 4 out of 5 bilateral lower extremities. Intact sensation lower extremities. Sensorium / Orientation: awake and alert Psych mental status grossly normal and thought process normal Skin no rashes or lesions noted and no wounds <Dr. Niles Cordoba DO - Last Filed: 06/16/24 22:03> Physical Exam Const Vital Signs: 06/16/24 15:35 06/16/24 16:34 06/16/24 18:00 Temperature 98 F Temperature Source Temporal Pulse Rate 68 74 76 Respiratory Rate 18 19 H 18 Blood Pressure 219/180 H 133/74 H 117/77 Blood Pressure Mean 193 93 90 Pulse Ox 99 94 98 Oxygen Delivery Method Room Air 06/16/24 19:00 06/16/24 19:45 06/16/24 20:00 Temperature 98.3 F Temperature Source Pulse Rate 73 73 69 Respiratory Rate 18 18 18 Blood Pressure 112/78 112/78 105/69 Blood Pressure Mean 89 89 81 Pulse Ox 91 91 91 Oxygen Delivery Method Room Air Room Air 06/16/24 21:00 Temperature Temperature Source Pulse Rate 70 Respiratory Rate 15 Blood Pressure 128/89 H Blood Pressure Mean 102 Pulse Ox 91 Oxygen Delivery Method Room Air [facility] <JACKELINE Daniels - Last Filed: 06/16/24 21:36> [facility] Narrative Medical decision making narrative: Patient presenting today with leg weakness and inability to ambulate over the last 4 days. He had a cervical fusion performed on 05/30/[address] Madrid and had been doing well up until 4 days ago. He is nontoxic-appearing. He saw Dr. Madrid in the office today who had concerns for stroke, he had low suspicion that this was stemming from his recent surgery, his incision is healing without any signs of infection. He has been having bowel incontinence but is able to tell when he needs to have a bowel movement, he is just not making it in time after taking the suppository and milk of magnesia. He has an intact sphincter tone and and awake on exam. No saddle paresthesia, no urinary retention or incontinence, low suspicion for cauda equina syndrome. Head CT was obtained and is negative for acute findings, cervical spine CT negative for acute findings. Basic labs show a WBC of 11.3, BUN of 28. Given he is unable to ambulate, I will speak with hospitalist regarding admission, he will be admitted in stable condition. Lab Data Attestation: I reviewed the patient's lab results. Labs: Laboratory Results - last 24 hr 06/16/24 16:00 WBC 11.3 H RBC 4.62 Hgb 13.8 Hct 43.3 MCV 93.7 MCH 29.9 MCHC 31.9 L RDW Std Deviation 49.7 H RDW Coeff of Emre 14.6 Plt Count 248 MPV 11.4 Immature Gran % (Auto) 0.800 Neut % (Auto) 77.6 H Lymph % (Auto) 5.9 L [place] % (Auto) 12.6 H Eos % (Auto) 2.5 Baso % (Auto) 0.6 Absolute Neuts (auto) 8.8 H Absolute Lymphs (auto) 0.67 L Nucleated RBC % 0 Sodium 142 Potassium 3.8 Chloride 108 H Carbon Dioxide 30.0 Anion Gap 4 L BUN 28 H Creatinine 1.00 Estim Creat Clear Calc 76.66 Est GFR (MDRD) Af Amer 93 Est GFR (MDRD) Non-Af 77 BUN/Creatinine Ratio 28.0 H Glucose 93 Calcium 10.6 H Magnesium 2.5 Total Creatine Kinase 23 L Radiography Diagnostic Testing: Clinical Impression(s) from Imaging Studies Abdomen/Bladder Ultrasound 06/16/24 17:00 IMPRESSION: Normal ultrasound of the urinary bladder. Electronically Signed: Marck Albert MD at 18:45 EST , Brain CT 06/16/24 17:10 IMPRESSION: Chronic involutional changes of the brain. No change and no acute abnormality. Electronically Signed: Marck Albert MD at 18:08 EST , Cervical Spine CT 06/16/24 19:24 IMPRESSION: Degenerative and postoperative change with foraminal narrowing. Electronically Signed: Christopher Solis MD at 21:08 EST , <Dr. Niles Cordoba, DO - Last Filed: 06/16/24 22:03> [facility] MDM Narrative Medical decision making narrative: Patient presenting today with leg weakness and inability to ambulate over the last 4 days. He had a cervical fusion performed on 05/30/[address] Madrid and had been doing well up until 4 days ago. He is nontoxic-appearing. He saw Dr. Madrid in the office today who had concerns for stroke, he had low suspicion that this was stemming from his recent surgery, his incision is healing without any signs of infection. He has been having bowel incontinence but is able to tell when he needs to have a bowel movement, he is just not making it in time after taking the suppository and milk of magnesia. He has an intact sphincter tone and and awake on exam. No saddle paresthesia, no urinary retention or incontinence, Suspicion for cauda equina syndrome. Head CT was obtained and is negative for acute findings, cervical spine CT negative for acute findings. Basic labs show a WBC of 11.3, BUN of 28. Given he is unable to ambulate, I will speak with hospitalist regarding admission, he will be admitted in stable condition. I have personally performed a face to face assessment of the patient and have reviewed the ARTHUR Note. I performed a substantive portion of the visit including all aspects of the following. My sifuentes findings include: History is 79-year-old male who presented to the emergency room with lower extremity weakness. He states that just about 48 hours ago he was coming out of the bathroom when his legs gave out and he fell to the ground. States he did not believe he was injured but he is really been unable to move his legs like he should since then. He had cervical spine surgery recently using a c-collar. He saw his surgeon today was concerned he may be having a stroke and so sent him to emergency room. He is on Eliquis. Patient denies any headache. He denies any upper extremity symptoms that are new since the surgery he notes that his thighs seem weak. Patient also complains of some constipation that he treated has not been having diarrhea and that he cannot control it. He states that he has been urinating at baseline. Exam is patient seems to have more of a truncal weakness on being that he has difficulty with flexion at the hip joints. He is able to move his legs he just cannot hold them up for 10 seconds. Sensation is normal. I do not appreciate symptoms of cauda equina on the exam.Rectal and perineal examination was performed by physician executive assistant to president. Medical Decison Making CT of brain with no acute findings. CT cervical spine was requested by hospitalist with no acute findings. Basic blood work showed a white count 11.3. Given that the patient is not able to safely ambulate. I did recommend further evaluation I do not see signs that we need to emergently perform an MRI at this time. History & Record Review Discussion w/independent historian: Patient Lab Data Labs: Laboratory Results - last 24 hr 06/16/24 16:00 WBC 11.3 H RBC 4.62 Hgb 13.8 Hct 43.3 MCV 93.7 MCH 29.9 MCHC 31.9 L RDW Std Deviation 49.7 H RDW Coeff of Emre 14.6 Plt Count 248 MPV 11.4 Immature Gran % (Auto) 0.800 Neut % (Auto) 77.6 H Lymph % (Auto) 5.9 L [place] % (Auto) 12.6 H Eos % (Auto) 2.5 Baso % (Auto) 0.6 Absolute Neuts (auto) 8.8 H Absolute Lymphs (auto) 0.67 L Nucleated RBC % 0 Sodium 142 Potassium 3.8 Chloride 108 H Carbon Dioxide 30.0 Anion Gap 4 L BUN 28 H Creatinine 1.00 Estim Creat Clear Calc 76.66 Est GFR (MDRD) Af Amer 93 Est GFR (MDRD) Non-Af 77 BUN/Creatinine Ratio 28.0 H Glucose 93 Calcium 10.6 H Magnesium 2.5 Total Creatine Kinase 23 L Radiography Diagnostic Testing: Clinical Impression(s) from Imaging Studies Abdomen/Bladder Ultrasound 06/16/24 17:00 IMPRESSION: Normal ultrasound of the urinary bladder. Electronically Signed: Marck Albert MD at 18:45 EST , Brain CT 06/16/24 17:10 IMPRESSION: Chronic involutional changes of the brain. No change and no acute abnormality. Electronically Signed: Marck Albert MD at 18:08 EST , Cervical Spine CT 06/16/24 19:24 IMPRESSION: Degenerative and postoperative change with foraminal narrowing. Electronically Signed: Christopher Solis MD at 21:08 EST , Discharge Plan Dx/Rx/DC Orders Clinical Impression: Bilateral leg weakness, Paroxysmal atrial fibrillation, Fall, Anticoagulated Disposition Disposition: Acute Care Hospital [facility] Discharge Date/Time: 06/16/24 21:45
[2024-06-16 16:55] LABS: Anion Gap 4 (5-15); BUN 28 mg/dL (7-18); Calcium,Total 10.6 mg/dL (8.5-10.1); Chloride 108 mmol/L (98-107); EST Glomerular Filtration Rate 77 mL/min (>60); Est Glom Filt Rate - Afr Amer 93 mL/min (>60); Estimated Creatinine Clearance 76.66 ml/min; Glucose 93 mg/dL (74-106); Potassium 3.8 mmol/L (3.5-5.1); Sodium Level 142 mmol/L (136-145)
--- NOTE | 2024-06-16 17:00 | US_ITS ---
STUDY: ULTRASOUND - URINARY BLADDER REASON FOR EXAM: Male, 79 years old. urinary retention TECHNIQUE: Ultrasound evaluation of the urinary bladder was performed with real-time and static alonzo-scale imaging. COMPARISON: None. FINDINGS: There is no right UVJ calculus. There is a non-visualization of a right ureteral jet. There is no left UVJ calculus. There is a non-visualization of a left ureteral jet. The distended volume of the urinary bladder is 171 ml. The empty volume of the urinary bladder is 37 ml. The bladder wall is within normal limits. The bladder wall measures 2.7 mm. There is no demonstrated bladder wall mass lesion. There are no demonstrated bladder calculi. US/Post Void Residual Bladder IMPRESSION: Normal ultrasound of the urinary bladder. Electronically Signed: Marck Albert MD at 18:45 EST ,
--- NOTE | 2024-06-16 17:10 | CT_ITS ---
STUDY: CT BRAIN WITHOUT CONTRAST REASON FOR EXAM: Male, 79 years old. weakness, paresthesias RADIATION DOSAGE (If Supplied By Facility): CTDIvol = ( 44.99 ) mGy, DLP = ( 812.98 ) mGycm TECHNIQUE: Transaxial CT imaging of the brain was performed without administration of intravenous contrast material. Individualized dose optimization techniques were used for this CT. COMPARISON: 08/16/2020 FINDINGS: Normal soft tissue structures. Normal calvarium. There is mild cerebral atrophy with widening of the extra-axial spaces and ventricular dilatation. There are areas of decreased attenuation within the white matter tracts of the supratentorial brain, consistent with microvascular disease changes. Normal basal ganglia and thalami. Normal brainstem. There is mild cerebellar atrophy. There is no intracranial hemorrhage. There are no findings of an acute ischemic infarction. Normal visualized paranasal sinuses. CT/Brain/Head without Contrast IMPRESSION: Chronic involutional changes of the brain. No change and no acute abnormality. Electronically Signed: aMrck Albert MD at 18:08 EST ,
--- NOTE | 2024-06-16 19:23 | PCM.HP.STD ---
HPI - General General Date of Admission: 06/16/24 Date of Service: 06/16/24 Chief Complaint: Weakness HPI Narrative The patient is a 79 y/o M w/ PMHx: Obesity, Nonobstructive CAD, HTN, HLD, MGUS, GERD, Former tobacco use, PAF, CKD stage II per GFR trending, recent discharge 05/31/2024 following C3-5 anterior cervical discectomy fusion secondary to history of stenosis, myelopathy and myelomalacia performed per Dr. Madrid who now re-presents to the [facility] ED on 06/16/24 with history of inability to ambulate over the last 4 days with chronic paresthesias to bilateral upper extremities however he notes these are worse since his surgery and that 4 days prior to current presentation he had been walking the bathroom when his right leg went out causing him to fall prompting squad call at that time but they did not transport him to the hospital and was able at that time to get him back in his chair but is been unable to ambulate since without assistance and has been suffering from constipation with self administration of milk of magnesia as well as a suppository last night with several loose bowel movements following as well as bowel incontinence with no reported urinary incontinence or retention or saddle paresthesias with evaluation by his surgeon on day of presentation with recommended ED evaluation. Patient orthospine surgeon had concern for stroke and noted low suspicion that this was stemming from his recent surgery with incision well-healing. In the ED sphincter tone was intact with no paresthesias. Work-up in the ED included T98, heart 68, BP 219/180, respiratory rate 18, 99% on room air with most recent repeat vitals heart rate 76, BP 117/77, respiratory rate 18, 98% on room air, CBC with WBC 11.3, hemoglobin 13.8, platelet count 248 with left shift and lymphopenia, BMP with chloride 108, BUN/creatinine 28/1.0, GFR 77, calcium 10.6, CT of the brain with chronic involutional changes with no acute intracranial findings, abdominal ultrasound within normal ultrasound of the urinary bladder with a distended volume very bladder 171 mL in the empty volume of the bladder 37 mL. Given history of recent cervical surgery discussed with the ED PA and CT of the neck will also be obtained to be thorough which was obtained to be cautious and noted degenerative and postoperative changes with foraminal narrowing. [facility] Medical History Loss of hearing Wears glasses History of steroid therapy Walker as ambulation aid Injury of head and neck Gastric reflux Former smoker History of edema History of echocardiogram Cardiology follow-up encounter Neuropathy Nonobstructive atherosclerosis of coronary artery Bloody stool Dilated aortic root Paroxysmal supraventricular tachycardia Essential (primary) hypertension MGUS (monoclonal gammopathy of unknown significance) Osteoarthritis Lumbar spinal stenosis Degenerative disc disease, lumbar Paroxysmal atrial fibrillation Venous insufficiency Hyperlipidemia Home Medications ?Medication ?Instructions ?Recorded ?Last Taken ?Type cholecalciferol (vitamin D3) 50 4,000 unit PO DAILY 04/05/20 05/29/24 History mcg (2,000 unit) tablet multivitamin with minerals 1 ea PO DAILY 08/16/20 Unknown History metoprolol tartrate 50 mg tablet 50 mg PO BID #180 tabs 02/12/24 Unknown Rx amlodipine 10 mg tablet 10 mg PO DAILY #90 tabs 04/12/24 05/29/24 Rx hydrochlorothiazide 25 mg tablet 25 mg PO DAILY PRN PRN edema 05/25/24 Unknown History magnesium 250 mg tablet 1,000 mg PO DAILY 05/25/24 05/29/24 History mecobalamin (vitamin B12) 1,000 1,000 mcg PO DAILY 05/25/24 05/29/24 History mcg chewable tablet potassium 99 mg tablet 99 mg PO DAILY 05/25/24 Unknown History acetaminophen 500 mg tablet 500 mg PO Q6H #30 tabs 05/31/24 Unknown Rx sennosides 8.6 mg-docusate sodium 2 tab PO BID PRN constipation #30 05/31/24 Unknown Rx 50 mg tablet (Stimulant Laxative tabs Plus) tramadol 50 mg tablet 50 mg PO TID PRN pain 5 days #15 05/31/24 Unknown Rx tabs apixaban 5 mg tablet (Eliquis) 5 mg PO BID #60 tabs 06/07/24 Unknown Rx amiodarone 200 mg tablet 200 mg PO QDAY #90 tabs 06/14/24 Unknown Rx Allergy/AdvReac Type Severity Reaction Status Date / Time acetaminophen (From [place]) Allergy Severe SOB and Verified 06/16/24 15:34 leg weakness hydrocodone (From [place]) Allergy Severe SOB and Verified 06/16/24 15:34 leg weakness codeine AdvReac Severe GOOFY Verified 06/16/24 15:34 peppermint AdvReac Severe Other Verified 06/16/24 15:34 Family History Father CAD (coronary artery disease) Myocardial infarction, Onset Age: 57 Brother Hypertension Brother Hx of CABG Sister Atrial fibrillation Surgical History Hx of decompression of ulnar nerve Hx of colonoscopy Hx of right cataract extraction Hx of left cataract extraction History of basal cell carcinoma excision (03/2019) 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 Fifi Pimentel MD) household members: spouse Smoking Status: Former smoker how long ago did patient quit smokin years ago alcohol intake: never substance use type: does not use caffeine: Yes Type: coffee Number of servings: 1 what type of physical activity do you participate in: walking and weight training frequency: daily seatbelt use: always do you feel safe at home: Yes ROS ROS Narrative Admission Review of Systems: CONSTITUTIONAL: No weight loss, fever, chills, + weakness or fatigue. HEENT: Eyes: No visual loss, blurred vision, double vision or yellow sclerae. Ears, Nose, Throat: No hearing loss, sneezing, congestion, runny nose or sore throat. SKIN: No rash or itching, lesions, wounds except status post recent OR with cervical spine surgery with incision intact, no drainage, very stage ecchymoses, abrasions with history of recent fall. CARDIOVASCULAR: No chest pain, chest pressure or chest discomfort, palpitations, edema, orthopnea, syncopal events. RESPIRATORY: No shortness of breath, cough or sputum, wheezing, hemoptysis. GASTROINTESTINAL: No anorexia, nausea, vomiting or diarrhea, abdominal pain, melena, BRBPR. GENITOURINARY: + Notes some mild time prolongation with start of the urine stream but following improves. No dysuria, frequency, urgency or retention. NEUROLOGICAL: + Bilateral lower extremity reported weakness although patient is able to significantly push and pull against resistance but has difficulty elevating his legs with no pain to the lumbar back when he does so, chronic bilateral upper extremity paresthesias. No headache, dizziness, syncope, paralysis, ataxia, change in bowel or bladder control, seizure. Of note patient has had recent diarrhea but took a significant amount of bowel regimen. MUSCULOSKELETAL: + muscle, back pain, joint pain or stiffness. HEMATOLOGIC: No anemia. + Easy bleeding/bruising. LYMPHATICS: No enlarged nodes. No history of splenectomy. PSYCHIATRIC: No history of depression or anxiety. ENDOCRINOLOGIC: No reports of sweating, cold or heat intolerance. No polyuria or polydipsia. ALLERGIES: No history of asthma, hives, eczema or rhinitis. Vital Signs Vital Signs Vital Signs: 06/16/24 15:35 06/16/24 16:34 06/16/24 18:00 Temperature 98 F Temperature Source Temporal Pulse Rate 68 74 76 Respiratory Rate 18 19 H 18 Blood Pressure 219/180 H 133/74 H 117/77 Blood Pressure Mean 193 93 90 Pulse Ox 99 94 98 Oxygen Delivery Method Room Air 06/16/24 19:00 Temperature Temperature Source Pulse Rate 73 Respiratory Rate 18 Blood Pressure 112/78 Blood Pressure Mean 89 Pulse Ox 91 Oxygen Delivery Method Room Air Weight Weight: 226 lb 6.636 oz Body Mass Index (BMI) 29.8 Physical Exam Narrative Physical Examination: General: Awake, alert, oriented x 3 and cooperative, seated upright in the ED bed, no acute distress, neck brace in place. Skin: Normal color, normal turgor, no icterus, no cyanosis except for very stage ecchymoses, abrasions, bilateral lower extremity venous stasis skin changes, recent cervical surgery with incision intact well-appearing. HEENT: AT aside from recent surgical intervention with incision without drainage/NC, EOMI, PERRLA, mildly dry MM, no carotid bruits or JVD noted. Lungs: Mildly diminished, greater bases, appropriate effort, no rales, ronchi or wheezing. Heart: Regular rate and rhythm; no gallop, rub audible. Abdomen: Soft, obese, NTTP, ND, mildly hyperactive BS, no appreciated HSM. Extremities: No cyanosis, no marked clubbing, pedal to ankle not markedly pitting edema, significant venous stasis skin changes, see above. Neurological: Patient awake, alert, oriented as noted, cognitive function intact; pupils equally reactive to light and accommodation, cranial nerves gross normal, moving all 4 extremities but difficulty keeping legs up against gravity bilaterally but able to push and pull with the foot and muscles of the distal extremities without issue with strength appropriate, sensation bilaterally intact to lower extremities, chronic paresthesias unchanged upper extremities, negative Babinski, strength given recent surgery and complaints acutely severely globally decreased. Psychiatric: Affect appears normal, no acute evidence of depressive or anxiety feelings. Results Lab / Micro Data 06/16/24 16:00 06/16/24 16:00 Labs: Laboratory Results - last 24 hr 06/16/24 16:00: WBC 11.3 H, RBC 4.62, Hgb 13.8, Hct 43.3, MCV 93.7, MCH 29.9, MCHC 31.9 L, RDW Std Deviation 49.7 H, RDW Coeff of Emre 14.6, Plt Count 248, MPV 11.4, Immature Gran % (Auto) 0.800, Neut % (Auto) 77.6 H, Lymph % (Auto) 5.9 L, [place] % (Auto) 12.6 H, Eos % (Auto) 2.5, Baso % (Auto) 0.6, Absolute Neuts (auto) 8.8 H, Absolute Lymphs (auto) 0.67 L, Nucleated RBC % 0, Sodium 142, Potassium 3.8, Chloride 108 H, Carbon Dioxide 30.0, Anion Gap 4 L, BUN 28 H, Creatinine 1.00, Estim Creat Clear Calc 76.66, Est GFR (MDRD) Af Amer 93, Est GFR (MDRD) Non-Af 77, BUN/Creatinine Ratio 28.0 H, Glucose 93, Calcium 10.6 H Imaging Radiology Impression Abdomen/Bladder Ultrasound 06/16/24 17:00 IMPRESSION: Normal ultrasound of the urinary bladder. Electronically Signed: Marck Albert MD at 18:45 EST , Brain CT 06/16/24 17:10 IMPRESSION: Chronic involutional changes of the brain. No change and no acute abnormality. Electronically Signed: Marck Albert MD at 18:08 EST , Assessment & Plan Assessment/Plan (1) Fall: (2) Bilateral leg weakness: PLAN: Plan The patient is a 79 y/o M w/ PMHx: Obesity, Nonobstructive CAD, HTN, HLD, MGUS, GERD, Former tobacco use, PAF, CKD stage II per GFR trending, recent discharge 05/31/2024 following C3-5 anterior cervical discectomy fusion secondary to history of stenosis, myelopathy and myelomalacia performed per Dr. Madrid who now re-presents to the [facility] ED on 06/16/24 with history of inability to ambulate over the last 4 days with chronic paresthesias to bilateral upper extremities however he notes these are worse since his surgery and that 4 days prior to current presentation he had been walking the bathroom when his right leg went out causing him to fall. #1. Debility, fall, bilateral lower extremity reported weakness of unclear etiology status post recent cervical spine surgery as noted below #2, possible lumbar spine injury w/ recent fall, low suspicion CVA given timeline but uncertain with adult FTT: Will admit to PCU, will obtain MRI Brain, MRI of the lumbar.thoracic spine, PT/OT/Speech/Nutrition evaluation per protocol. Given timeline we will continue hypertensive regimen, continue Eliquis regimen, obtain FLP in AM/magnesium/TSH/HgbA1c. Maintain on fall and aspiration precautions. If MRI of the brain with any evidence CVA would consider obtaining echocardiogram at that time if no previous with bubble study and follow-up CTA imaging also but will defer repeat at this time as noted low suspicion CVA and planned MRI. CPK requested given length of time debilitated, not moving. If no obvious findings but continued BL LE weakness may need to consider additional lab work-up (NAIDA, SPEP, ESR as examples) and Neurology consultation. #2. History cervical stenosis, myelopathy and myelomalacia status post cervical discectomy fusion: 05/30/2024 C3-5 anterior cervical discectomy fusion secondary to underlying stenosis, myelopathy and myelomalacia with chronic bilateral upper extremity paresthesias although left greater than right and patient noted that the right had only started over the last 3 months prior to his operative intervention, incision well-appearing, will maintain neck brace per surgery direction, fall precautions, continue therapies as noted. #3. Nonobstructive CAD: We will continue patient on Eliquis, now on statin therapy, continue metoprolol regimen given 4-day history of the symptoms. #4. Hypertension: Continue home regimen including amlodipine, metoprolol given that patient has had the symptoms for 4 days, PRN hydralazine. #5. PAF: We will continue patient home amiodarone and Eliquis regimen. #6. Hyperlipidemia: Not on regimen, FLP in AM. #7. Chronic Kidney Disease Stage III, unclear subtype per GFR trending: Admission BUN/Cr 28/1.0, GFR 77, baseline renal function 0.9 -1.1 primary, repeat BMP in AM. #8. Obesity: Weight loss and lifestyle changes encouraged. #9. DVT prophylaxis: We will continue patient home Eliquis regimen. #10. CODE status: Patient HCPOA and living will are not in place but he notes his daughter who is present would be his medical decision-maker if necessary. Discussed CODE status at length including difference between FULL code, DNR-CCA and DNR-CC status. Following discussions about the differences in these status, requested Full Code status. He does report that he would not want to have prolonged life support. Advanced Care Planning Face to Face Time: 16 minutes. Charges/Coding Visit Charges Inpatient E&M: 50096 Init Hosp L2 Procedures Hospitalists Procedures: 71354 Advncd Care Plan 30 Min
--- NOTE | 2024-06-16 19:24 | CT_ITS ---
STUDY: CT CERVICAL SPINE WITHOUT CONTRAST REASON FOR EXAM: Male, 79 years old. Weakness, paresthesia RADIATION DOSAGE (If Supplied By Facility): CTDIvol = ( 23.85 ) mGy, DLP = ( 510.85 ) mGycm TECHNIQUE: High resolution transaxial imaging was performed without contrast material. Sagittal and coronal images were reconstructed. Individualized dose optimization techniques were used for this CT. COMPARISON: X-ray FINDINGS: Normal craniovertebral junction. There are degenerative changes of the anterior atlantoaxial articulation. Normal odontoid process. There is straightening of the normal cervical lordosis. There is no acute fracture. There is anterior cervical fusion with fixation plate and screws and hardware in the disc spaces from C3 through C5. C2-3: Ankylosis of the disc space. Facet ankylosis. Normal central canal and intervertebral neuroforamina. C3-4: Anterior fusion. Facet spurring and ankylosis. No canal stenosis. Bilateral foraminal narrowing. C4-5: Anterior fusion. Spurring is noted in the left. Facet spurring on the left more than the right. Moderate canal stenosis. Left greater than right foraminal narrowing. C5-6: Disc space narrowing with endplate change. Spurring. Facet spurring. Mild canal stenosis. Bilateral foraminal narrowing. C6-7: Mild spurring. Mild facet spurring. No canal stenosis. Neural foramina are patent. C7-T1: Mild spurring. Mild facet spurring. No canal stenosis. Mild right foraminal narrowing. Normal visualized soft tissue structures. CT/Spine Cervical without Contras IMPRESSION: Degenerative and postoperative change with foraminal narrowing. Electronically Signed: Christopher Solis MD at 21:08 EST ,
[2024-06-16 21:43] LABS: CPK Total, Creatine Kinase 23 U/L (39-308); Magnesium 2.5 mg/dL (1.6-2.6)
--- NOTE | 2024-06-16 21:56 | MRI_ITS ---
STUDY: MRI LUMBAR SPINE WITHOUT CONTRAST REASON FOR EXAM: Male, 79 years old. Fall, BL LE weakness TECHNIQUE: Standardized fat and water weighted pulse sequences were obtained in the sagittal and axial planes. COMPARISON: Lumbar spine radiograph December 16, 2016 MRI lumbar spine September 21, 2015 FINDINGS: Mild scoliosis. T12-L1: Normal endplates. Normal disc height, hydration and morphology. Normal bilateral facet joints. Normal central canal and bilateral lateral recesses. Normal bilateral intervertebral neural foramina. Normal lumbar lordosis. Normal conus medullaris that terminates at the L1-2 level. L1-2: Normal endplates. Normal disc height, hydration and morphology. Normal bilateral facet joints. Normal central canal and bilateral lateral recesses. Normal bilateral intervertebral neural foramina. L2-3: Normal endplates. Normal disc height, hydration and morphology. Normal bilateral facet joints. Normal central canal and bilateral lateral recesses. Normal bilateral intervertebral neural foramina. L3-4: There appears to be fluid signal and disc space narrowing since the previous exam with erosions of the endplates on either side. Schmorl''s node disease is also noted at multiple other levels. Fluid-filled hypertrophic facets causing moderate narrowing of the neural foramina bilaterally. L4-5: Bony ankylosis and circumferential disc marginal osteophyte and moderate narrowing of the neural foramina bilaterally. Moderate trefoil narrowing of the thecal sac. L5-S1: Space narrowing. Slight retrolisthesis. Severe narrowing of the neural foramina bilaterally. Central thecal sac patent. Normal visualized sacral ala. Normal visualized paraspinous soft tissue structures. MRI/Spine Lumbar (Routine) IMPRESSION: No acute fracture identified. New fluid signal and disc space narrowing/erosions of the L3-4 level. Acute or chronic Discitis difficult to exclude. Follow-up MRI of lumbar spine with IV contrast. Multilevel bilateral neural foraminal narrowing unchanged. Electronically Signed: Jaylan Hu MD at 19:43 EST ,
--- NOTE | 2024-06-16 21:56 | MRI_ITS ---
STUDY: MRI BRAIN WITHOUT CONTRAST REASON FOR EXAM: Male, 79 years old. Falls, weakness TECHNIQUE: Standardized multiplanar fat and water weighted pulse sequences were obtained. COMPARISON: CT brain June 16, 2024. FINDINGS: There is moderate cerebral atrophy with widening of the extra-axial spaces and ventricular dilatation. There are multiple white matter hyperintensities, distributed throughout the deep white matter tracts of the cerebral hemispheres, consistent with moderate chronic white matter ischemic changes. Normal bilateral basal ganglia. Normal thalami. There is no extra-axial fluid accumulation. Normal flow voids within the major intracranial circulation suggesting patency by spin echo criteria. Normal sella turcica, pituitary gland, infundibular stalk, optic chiasm and hypothalamus. Normal tectal plate and pineal gland. Normal midbrain, césar and medulla. Normal cerebellum. Normal basal cisterns. Normal bilateral temporal bones. Normal bilateral internal auditory canals. No demonstrated orbital abnormality, within the constraints of a routine brain study. Normal visualized paranasal sinuses. Normal calvarium and skull base. Normal visualized soft tissue structures. Normal visualized upper cervical spine. MRI/Brain without Contrast IMPRESSION: No acute disease Electronically Signed: Jaylan Hu MD at 19:15 EST ,
--- NOTE | 2024-06-16 21:56 | MRI_ITS ---
STUDY: MRI THORACIC SPINE WITHOUT CONTRAST REASON FOR EXAM: Male, 79 years old. BL LE weakness TECHNIQUE: Standardized fat and water weighted pulse sequences were obtained in the sagittal and axial planes. COMPARISON: None. FINDINGS: Cervical hardware. Normal kyphosis of the thoracic spine. There is mild substantial scoliosis. T1-2, T2-3, T3-4, T4-5, T5-6, T6-7, T7-8, T8-9, T9-10, T10-11, T11-12: Normal endplates. Normal disc hydration, heights and morphology of the corresponding intervertebral discs. Normal central canal and intervertebral neural foramina at the corresponding levels.11 mm focus of T2 lengthening T12 vertebral body to the left of midline. Normal visualized thoracic cord. Normal conus medullaris that terminates at the lumbar levels.. The soft tissue structures are unremarkable. MRI/Spine Thoracic (Routine) IMPRESSION: No acute disease. Small focus of T2 lengthening T12 vertebral body. Recommend follow-up MRI of the thoracic spine with IV contrast to exclude metastatic disease. Electronically Signed: Jaylan Hu MD at 19:51 EST ,
[2024-06-17] VITALS (11 sets, daily range): BP systolic 108–139; BP diastolic 65–90; PULSE 55–76; RESP 16–18; TEMP 36.3–36.8; O2SAT 93–98; BMI 29.2
[2024-06-17] MEDS: Menthol/Lanolin/Calamine/Znox 113 GM Tube 1 APPLIC TOPICAL ×4 (00:22→21:08)
[2024-06-17] MEDS: APIXABAN 5 MG TABLET PO ×3 (00:22→21:08)
[2024-06-17 06:47] LABS: Absolute Lymphocyte Count 0.89 X10^3/uL (0.83-4.51); Absolute Neutrophil Count 6.2 X10^3/uL (2.0-7.7); Basophil# 0.04 X10^3/uL; Basophil% 0.5 % (0-1); Eosinophil# 0.28 X10^3/uL; Eosinophils% 3.2 % (0-5); Hematocrit 38.5 % (40-54); Hemoglobin 12.2 g/dL (13.0-16.5); Lymphocyte # 0.89 X10^3/ul (0.83-4.51); Lymphocyte % 10.3 % (19-41); Mean Corp Hgb Conc 31.7 g/dL (32-36); Mean Corpuscular Hgb 29.7 pg (27.0-32.0); Mean Corpuscular Volume 93.7 fL (80-94); Mean Platelet Vol. 11.3 fl (6.2-12.0); Monocyte% 13.8 % (0-10); NRBC Flagged by Analyzer 0 % (0-5); Neutrophil # 6.21 X10^3/uL (2.7-7.7); Neutrophil % 71.5 % (47-70); Platelet Count 200 K/mm3 (150-450); RBC Distribution Width CV 14.6 % (11.6-14.6); RBC Distribution Width SD 50.7 fl (35.1-43.9); Red Blood Count 4.11 M/mm3 (4.6-6.2); White Blood Count 8.7 K/mm3 (4.4-11.0)
[2024-06-17 07:26] LABS: ALB/GLOB Ratio 0.7 RATIO (0.9-2.4); AST(SGOT) 9 U/L (15-37); Alanine Aminotransfer ALT/SGPT 15 U/L (16-61); Albumin, Serum 2.3 g/dL (3.2-5.0); Alkaline Phosphatase 90 U/L (45-117); Anion Gap 4 (5-15); BUN 26 mg/dL (7-18); BUN/Creat Ratio 28.8 RATIO (10-20); Calcium,Total 9.7 mg/dL (8.5-10.1); Chloride 110 mmol/L (98-107); Cholesterol 123 mg/dL (200); EST Glomerular Filtration Rate 87 mL/min (>60); Est Glom Filt Rate - Afr Amer 105 mL/min (>60); Estimated Creatinine Clearance 84.41 ml/min; Globulin 3.4 g/dL (2.2-4.2); Glucose 90 mg/dL (74-106); High Density Lipoprotein 38 mg/dL; Potassium 3.6 mmol/L (3.5-5.1); Protein, Total 5.7 g/dL (6.4-8.2); Sodium Level 142 mmol/L (136-145); Triglycerides 67 mg/dL; Very Low Density Lipoprotein 13 mg/dL (5-40)
--- NOTE | 2024-06-17 08:07 | EKG12_ITS ---
Test Reason : Blood Pressure : */* mmHG Vent. Rate : 69 BPM Atrial Rate : * BPM P-R Int : * ms QRS Dur : 80 ms QT Int : 400 ms P-R-T Axes : * -26 6 degrees QTcB Int : 428 ms Normal sinus rhythm Minimal voltage criteria for LVH, may be normal variant ( R in aVL ) Abnormal ECG When compared with ECG of 22-May-2024 09:14, Junctional rhythm has replaced Sinus rhythm Nonspecific T wave abnormality, improved in Anterolateral leads Confirmed by ANDRAE BRITO, ANDREW ([id number]), film and video editor TERRENCE BOWERS ([id number]) on 06/20/2024 12:48:59 PM Referred By: ROBERTO Confirmed By: ANDREW ABEBE MD
[2024-06-17] MEDS: Amiodarone 200 MG Tablet PO (08:47)
[2024-06-17] MEDS: Metoprolol Tartrate 50 MG Tablet PO (08:47)
[2024-06-17] MEDS: 0.9% Normal Saline (1000mL) 1,000 ML 125 ML IV (09:14)
[2024-06-17] MEDS: 0.9% Saline Lock 10 ML Syringe IV (09:14)
--- NOTE | 2024-06-17 11:11 | PN_ITS ---
Subjective Subjective Patient seen and examined. He was lying in bed. He still complains of weakness in his lower extremities, worse on the left side. He admits to fecal incontinence but denies any urinary incontinence. He also complains of numbness and tingling in his upper extremities. Review of systems otherwise negative. He is due for MRI of the thoracic and lumbar spine today as well as MRI of the brain. Objective Data Objective Data Vital Signs: Vital Signs Temp Pulse Resp BP Pulse Ox O2 Del Method 98.1 F 71 18 133/81 H 95 Room Air 06/17/24 07:38 06/17/24 08:47 06/17/24 07:38 06/17/24 08:47 06/17/24 07:38 06/17/24 07:38 Oxygen Delivery Method Room Air Weight: 222 lb 0.088 oz Body Mass Index (BMI) 29.2 Intake & Output: Intake and Output for Last 24 Hours 06/15/24 06/16/24 06/17/24 23:59 23:59 23:59 Output Total 300 / 300 Balance -300 / -300 Lab / Micro Data 06/17/24 06:17 06/17/24 06:17 Labs: Laboratory Results - last 24 hr 06/16/24 16:00: WBC 11.3 H, RBC 4.62, Hgb 13.8, Hct 43.3, MCV 93.7, MCH 29.9, M CHC 31.9 L, RDW Std Deviation 49.7 H, RDW Coeff of Emre 14.6, Plt Count 248, MPV 11.4, Immature Gran % (Auto) 0.800, Neut % (Auto) 77.6 H, Lymph % (Auto) 5.9 L, Ellis % (Auto) 12.6 H, Eos % (Auto) 2.5, Baso % (Auto) 0.6, Absolute Neuts (auto) 8.8 H, Absolute Lymphs (auto) 0.67 L, Nucleated RBC % 0, Sodium 142, Potassium 3.8, Chloride 108 H, Carbon Dioxide 30.0, Anion Gap 4 L, BUN 28 H, Creatinine 1.00, Estim Creat Clear Calc 76.66, Est GFR (MDRD) Af Amer 93, Est GFR (MDRD) Non-Af 77, BUN/Creatinine Ratio 28.0 H, Glucose 93, Calcium 10.6 H, Magnesium 2.5, Total Creatine Kinase 23 L 06/17/24 06:17: WBC 8.7, RBC 4.11 L, Hgb 12.2 L, Hct 38.5 L, MCV 93.7, MCH 29.7, MCHC 31.7 L, RDW Std Deviation 50.7 H, RDW Coeff of Emre 14.6, Plt Count 200, MPV 11.3, Immature Gran % (Auto) 0.700, Neut % (Auto) 71.5 H, Lymph % (Auto) 10.3 L, Ellis % (Auto) 13.8 H, Eos % (Auto) 3.2, Baso % (Auto) 0.5, Absolute Neuts (auto) 6.2, Absolute Lymphs (auto) 0.89, Nucleated RBC % 0, Sodium 142, Potassium 3.6, Chloride 110 H, Carbon Dioxide 28.0, Anion Gap 4 L, BUN 26 H, Creatinine 0.90, Estim Creat Clear Calc 84.41, Est GFR (MDRD) Af Amer 105, Est GFR (MDRD) Non-Af 87, BUN/Creatinine Ratio 28.8 H, Glucose 90, Hemoglobin A1c 5.0, Calcium 9.7, Total Bilirubin 0.60, AST 9 L, ALT 15 L, Alkaline Phosphatase 90, Total Protein 5.7 L, Albumin 2.3 L, Globulin 3.4, Albumin/Globulin Ratio 0.7 L, Triglycerides 67, Cholesterol 123, LDL Cholesterol 72, VLDL Cholesterol 13, HDL Cholesterol 38 L, TSH 1.100 Radiography Diagnostic Testing: Radiology Impression Abdomen/Bladder Ultrasound 06/16/24 17:00 IMPRESSION: Normal ultrasound of the urinary bladder. Electronically Signed: Marck Albert MD at 18:45 EST , Brain CT 06/16/24 17:10 IMPRESSION: Chronic involutional changes of the brain. No change and no acute abnormality. Electronically Signed: Marck Albert MD at 18:08 EST , Cervical Spine CT 06/16/24 19:24 IMPRESSION: Degenerative and postoperative change with foraminal narrowing. Electronically Signed: Christopher Solis MD at 21:08 EST , Physical Exam Const alert and oriented x3 General Appearance: cooperative HEENT normocephalic and head/scalp atraumatic Eyes PERRL and EOMs intact bilaterally Neck Neck Narrative: in neck brace Lymph Lymphatic: no lymphadenopathy noted and no lymphedema noted Resp normal respiratory effort, normal air movement and clear to auscultation bilaterally Cardio regular rate, regular rhythm, S1 normal heart sound, S2 normal heart sound and no murmurs GI normal to inspection, nondistended, normoactive bowel sounds, soft to palpation, non-tender and non-distended Extremity normal capillary refill, no clubbing, cyanosis or edema and no calf tenderness General Extremity: no tenderness to palpation of joints or extremities Skin General Skin Exam: no breakdown Neuro CN's II-XII intact bilaterally Neuro Narrative: has mildly decreased sensation to light touch on LLE, power in LLE is 2/5, power in RLE is 3/5. Motor Exam: general weakness Psych thought process normal and cooperative Appearance: appropriate Assessment & Plan Assessment/Plan (1) Bilateral leg weakness: (2) Low back pain: PLAN: Plan #Debility due to bilateral lower extremity weakness with mechanical fall * Patient has a history of chronic paresthesias bilateral upper extremities. He did have surgery namely C3-C5 anterior cervical discectomy and fusion due to history of cervical stenosis. Surgery was done on 05/31/2024 and was subsequently discharged home. * However his upper extremity numbness and tingling as well as weakness, numbness and tingling in his lower extremities worsened. Was mainly in the left lower extremity. He fell at home and so came into the ED. * Concern is for possible lumbar spinal injury. MRI of the brain was ordered to rule out a stroke. MRI of the lumbar and thoracic spine ordered today. * PT OT on board. Fall precautions. * #History of cervical stenosis and myelopathy as well as myelomalacia * Status post C3-C5 anterior cervical discectomy and fusion on 05/30/2024. * Still having paresthesias of both upper extremities. Has neck brace in place since maintain this per spine surgery. * PT OT on board. Fall precautions. * #Nonobstructive CAD * on eliquis, metoprolol and statin. * #Hypertension: * on amlodipine and metoprolol. IV hydralazine prn. * Blood pressure was running low this morning so amlodipine held. * On recheck blood pressure, up to around 115 systolic. * Will continue holding amlodipine for now as patient is on metoprolol and amiodarone. * Hydrate gently with IV fluids normal saline 125 cc/h for 1 bag as urine is also concentrated. #paroxysmal afib: on amiodarone and eliquis #Hyperlipidemia: on statin #Obesity: BMI is 29.3. Complicates acute care, expected recovery and prognosis. DVT prophylaxis: On Eliquis CODE STATUS: Full code Charges/Coding Visit Charges Inpatient E&M: 15219 Subs Hosp L2
[2024-06-17] MEDS: Nystatin Ointment 1 APPLIC TOPICAL ×2 (14:15→21:08)
[2024-06-17] MEDS: Acetaminophen 325 MG Tablet 650 MG PO (14:18)
--- NOTE | 2024-06-17 14:28 | CASEMGMT ---
SARAH CM in discuss possible needs at discharge. Patient states he was doing well at home till he had a fall at home. Patient states he is willing to go somewhere for additonal rehab but wants to see how he does with therapy. MRI result are pending and therapy anticipated to see patient tomorrow. CM will follow up with patient after therapy evals.
--- NOTE | 2024-06-17 14:58 | CHAPLAIN ---
Type of Pastoral Visit _x__ Initial Visit ___ Follow-up Visit ___ On-call Visit ___ General Patient Visit ___ Spiritual Assessment ___ Family Conference ___ Bereavement ___ Rapid Response ___ Code Blue ___ Other (describe below) Pastoral Care Referral From _x__ Patient ___ Family ___ Nurse ___ Physician ___ Binder Cutter ___ Plant Breeder Scientist ___ Other (describe below) Sacrament/Intervention _x__ Active listening ___ Anointing ___ Rastafarian ___ Bereavement ___ Communion _x__ Macy exploration ___ _x__ Life review _x__ Prayer ___ Reconciliation ___ Sacrament of Sick _x__ Supportive presence ___ Wedding ___ Other (describe below) Pastoral Comments patient is a new admit and acknowledges that he is in pain, discomfort, and that he was just in the hospital for surgery less than two weeks ago; pt seeks help from the RN who just left the room; pt talks about his recent surgery and his current pain source; pt identifies self as a believer and active in his evangelical; pt is talkative about his spiritual macy and that he would like a prayer to be made to his evangelical; phone call placed to his needle loom operator; prayer is also welcomed
--- NOTE | 2024-06-17 15:46 | CON.PCM.OR_ITS ---
HPI Consult Data Date of Consult: 06/17/24 HPI Narrative HPI Narrative: TUCKER BOWEN, is a 79 M who presents new onset weakness of left worse than right lower extremities. I saw him in clinic yesterday and sent him to the ED because of the new weakness. He is more than 2 weeks status post C3-5 ACDF for severe cervical myelopathy. He had good improvement from surgery until Thursday of this week when he had a fall and had sudden worsening weakness. I was not able to see the patient as patient had been moved to the MRI. Reviewed CT cervical spineWhich shows postsurgical changes. No new stroke on CT brain. Recommend continued collar wear. Unclear if steroids might be helpful, but can be tried. Will review once all the MRIs are complete. [facility], [facility] Medical History Loss of hearing Wears glasses History of steroid therapy Walker as ambulation aid Injury of head and neck Gastric reflux Former smoker History of edema History of echocardiogram Cardiology follow-up encounter Neuropathy Nonobstructive atherosclerosis of coronary artery Bloody stool Dilated aortic root Paroxysmal supraventricular tachycardia Essential (primary) hypertension MGUS (monoclonal gammopathy of unknown significance) Osteoarthritis Lumbar spinal stenosis Degenerative disc disease, lumbar Paroxysmal atrial fibrillation Venous insufficiency Hyperlipidemia Home Medications ?Medication ?Instructions ?Recorded ?Last Taken ?Type cholecalciferol (vitamin D3) 50 4,000 unit PO DAILY 04/05/20 05/29/24 History mcg (2,000 unit) tablet metoprolol tartrate 50 mg tablet 50 mg PO BID #180 tabs 02/12/24 Unknown Rx amlodipine 10 mg tablet 10 mg PO DAILY #90 tabs 04/12/24 05/29/24 Rx hydrochlorothiazide 25 mg tablet 25 mg PO DAILY PRN PRN edema 05/25/24 Unknown History magnesium 250 mg tablet 1,000 mg PO DAILY 05/25/24 05/29/24 History mecobalamin (vitamin B12) 1,000 1,000 mcg PO DAILY 05/25/24 05/29/24 History mcg chewable tablet potassium 99 mg tablet 99 mg PO DAILY 05/25/24 Unknown History sennosides 8.6 mg-docusate sodium 2 tab PO BID PRN constipation #30 05/31/24 Unknown Rx 50 mg tablet (Stimulant Laxative tabs Plus) apixaban 5 mg tablet (Eliquis) 5 mg PO BID #60 tabs 06/07/24 Unknown Rx amiodarone 200 mg tablet 200 mg PO QDAY #90 tabs 06/14/24 Unknown Rx acetaminophen 500 mg tablet 500 mg PO Q6H PRN pain 06/16/24 Unknown History Allergy/AdvReac Type Severity Reaction Status Date / Time acetaminophen (From [place]) Allergy Severe SOB and Verified 06/16/24 15:34 leg weakness hydrocodone (From [place]) Allergy Severe SOB and Verified 06/16/24 15:34 leg weakness codeine AdvReac Severe GOOFY Verified 06/16/24 15:34 peppermint AdvReac Severe Other Verified 06/16/24 15:34 Family History Father CAD (coronary artery disease) Myocardial infarction, Onset Age: 57 Brother Hypertension Brother Hx of CABG Sister Atrial fibrillation Surgical History Hx of decompression of ulnar nerve Hx of colonoscopy Hx of right cataract extraction Hx of left cataract extraction History of basal cell carcinoma excision (03/2019) 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 Fifi Pimentel MD) household members: spouse Smoking Status: Former smoker how long ago did patient quit smokin years ago alcohol intake: never substance use type: does not use caffeine: Yes Type: coffee Number of servings: 1 what type of physical activity do you participate in: walking and weight training frequency: daily seatbelt use: always do you feel safe at home: Yes Vital Signs Vital Signs Vital Signs: 06/16/24 16:34 06/16/24 18:00 06/16/24 19:00 Temperature Temperature Source Pulse Rate 74 76 73 Pulse Rate [Lying] Pulse Rate [Sitting (for 1 minute prior to obtaining)] Respiratory Rate 19 H 18 18 Respiratory Effort Respiratory Depth Respiratory Pattern Blood Pressure 133/74 H 117/77 112/78 Blood Pressure [Lying] Blood Pressure [Sitting (for 1 minute prior to obtaining)] Blood Pressure Mean 93 90 89 Blood Pressure Mean [Lying] Blood Pressure Mean [Sitting (for 1 minute prior to obtaining)] Blood Pressure Source Blood Pressure Position Blood Pressure Location Pulse Ox 94 98 91 Oxygen Delivery Method Room Air 06/16/24 19:45 06/16/24 20:00 06/16/24 21:00 Temperature 98.3 F Temperature Source Pulse Rate 73 69 70 Pulse Rate [Lying] Pulse Rate [Sitting (for 1 minute prior to obtaining)] Respiratory Rate 18 18 15 Respiratory Effort Respiratory Depth Respiratory Pattern Blood Pressure 112/78 105/69 128/89 H Blood Pressure [Lying] Blood Pressure [Sitting (for 1 minute prior to obtaining)] Blood Pressure Mean 89 81 102 Blood Pressure Mean [Lying] Blood Pressure Mean [Sitting (for 1 minute prior to obtaining)] Blood Pressure Source Blood Pressure Position Blood Pressure Location Pulse Ox 91 91 91 Oxygen Delivery Method Room Air Room Air 06/16/24 21:50 06/16/24 22:00 06/16/24 22:40 Temperature 98.4 F 98 F Temperature Source Oral Oral Pulse Rate 76 76 Pulse Rate [Lying] Pulse Rate [Sitting (for 1 minute prior to obtaining)] Respiratory Rate 16 16 Respiratory Effort Normal Non-Labored Respiratory Depth Normal Respiratory Pattern Normal Blood Pressure 125/114 H 101/79 Blood Pressure [Lying] Blood Pressure [Sitting (for 1 minute prior to obtaining)] Blood Pressure Mean 117 86 Blood Pressure Mean [Lying] Blood Pressure Mean [Sitting (for 1 minute prior to obtaining)] Blood Pressure Source Monitor Monitor Blood Pressure Position Semi-Fowlers Semi-Fowlers Blood Pressure Location Left Arm Right Forearm Pulse Ox 97 95 Oxygen Delivery Method Room Air Room Air Room Air 06/16/24 23:49 06/17/24 00:20 06/17/24 00:24 Temperature 98 F Temperature Source Oral Pulse Rate 75 75 Pulse Rate [Lying] Pulse Rate [Sitting (for 1 minute prior to obtaining)] Respiratory Rate 16 Respiratory Effort Respiratory Depth Respiratory Pattern Blood Pressure 109/82 H 109/82 H Blood Pressure [Lying] Blood Pressure [Sitting (for 1 minute prior to obtaining)] Blood Pressure Mean 91 Blood Pressure Mean [Lying] Blood Pressure Mean [Sitting (for 1 minute prior to obtaining)] Blood Pressure Source Monitor Blood Pressure Position Semi-Fowlers Blood Pressure Location Left Arm Pulse Ox 96 96 Oxygen Delivery Method Room Air Room Air 06/17/24 04:20 06/17/24 07:33 06/17/24 07:38 Temperature 97.7 F L 98.1 F Temperature Source Oral Oral Pulse Rate 75 72 Pulse Rate [Lying] Pulse Rate [Sitting (for 1 minute prior to obtaining)] Respiratory Rate 16 18 Respiratory Effort Respiratory Depth Respiratory Pattern Blood Pressure 125/75 H 115/78 Blood Pressure [Lying] Blood Pressure [Sitting (for 1 minute prior to obtaining)] Blood Pressure Mean 91 90 Blood Pressure Mean [Lying] Blood Pressure Mean [Sitting (for 1 minute prior to obtaining)] Blood Pressure Source Monitor Monitor Blood Pressure Position Semi-Fowlers Semi-Fowlers Blood Pressure Location Left Arm Right Arm Pulse Ox 95 95 95 Oxygen Delivery Method Room Air Room Air Room Air 06/17/24 08:27 06/17/24 08:35 06/17/24 08:47 Temperature Temperature Source Pulse Rate 71 Pulse Rate [Lying] 71 Pulse Rate [Sitting (for 1 minute prior to obtaining)] 69 Respiratory Rate Respiratory Effort Normal Non-Labored Respiratory Depth Normal Respiratory Pattern Normal Blood Pressure 133/81 H Blood Pressure [Lying] 133/81 H Blood Pressure [Sitting (for 1 minute prior to obtaining)] 120/86 H Blood Pressure Mean Blood Pressure Mean [Lying] 98 Blood Pressure Mean [Sitting (for 1 minute prior to obtaining)] 97 Blood Pressure Source Blood Pressure Position Blood Pressure Location Pulse Ox Oxygen Delivery Method Room Air 06/17/24 12:24 06/17/24 14:00 Temperature 98.1 F Temperature Source Oral Pulse Rate 62 Pulse Rate [Lying] Pulse Rate [Sitting (for 1 minute prior to obtaining)] Respiratory Rate 16 Respiratory Effort Normal Non-Labored Respiratory Depth Normal Respiratory Pattern Normal Blood Pressure 108/65 Blood Pressure [Lying] Blood Pressure [Sitting (for 1 minute prior to obtaining)] Blood Pressure Mean 79 Blood Pressure Mean [Lying] Blood Pressure Mean [Sitting (for 1 minute prior to obtaining)] Blood Pressure Source Monitor Blood Pressure Position Supine Blood Pressure Location Right Forearm Pulse Ox 93 Oxygen Delivery Method Room Air Room Air Weight Weight: 222 lb 0.088 oz Body Mass Index (BMI) 29.2 Lab / Micro Data 06/17/24 06:17 06/17/24 06:17 Labs: Laboratory Results - last 24 hr 06/16/24 16:00: WBC 11.3 H, RBC 4.62, Hgb 13.8, Hct 43.3, MCV 93.7, MCH 29.9, M CHC 31.9 L, RDW Std Deviation 49.7 H, RDW Coeff of Emre 14.6, Plt Count 248, MPV 11.4, Immature Gran % (Auto) 0.800, Neut % (Auto) 77.6 H, Lymph % (Auto) 5.9 L, [place] % (Auto) 12.6 H, Eos % (Auto) 2.5, Baso % (Auto) 0.6, Absolute Neuts (auto) 8.8 H, Absolute Lymphs (auto) 0.67 L, Nucleated RBC % 0, Sodium 142, Potassium 3.8, Chloride 108 H, Carbon Dioxide 30.0, Anion Gap 4 L, BUN 28 H, Creatinine 1.00, Estim Creat Clear Calc 76.66, Est GFR (MDRD) Af Amer 93, Est GFR (MDRD) Non-Af 77, BUN/Creatinine Ratio 28.0 H, Glucose 93, Calcium 10.6 H, Magnesium 2.5, Total Creatine Kinase 23 L 06/17/24 06:17: WBC 8.7, RBC 4.11 L, Hgb 12.2 L, Hct 38.5 L, MCV 93.7, MCH 29.7, MCHC 31.7 L, RDW Std Deviation 50.7 H, RDW Coeff of Emre 14.6, Plt Count 200, MPV 11.3, Immature Gran % (Auto) 0.700, Neut % (Auto) 71.5 H, Lymph % (Auto) 10.3 L, [place] % (Auto) 13.8 H, Eos % (Auto) 3.2, Baso % (Auto) 0.5, Absolute Neuts (auto) 6.2, Absolute Lymphs (auto) 0.89, Nucleated RBC % 0, Sodium 142, Potassium 3.6, Chloride 110 H, Carbon Dioxide 28.0, Anion Gap 4 L, BUN 26 H, Creatinine 0.90, Estim Creat Clear Calc 84.41, Est GFR (MDRD) Af Amer 105, Est GFR (MDRD) Non-Af 87, BUN/Creatinine Ratio 28.8 H, Glucose 90, Hemoglobin A1c 5.0, Calcium 9.7, Total Bilirubin 0.60, AST 9 L, ALT 15 L, Alkaline Phosphatase 90, Total Protein 5.7 L, Albumin 2.3 L, Globulin 3.4, Albumin/Globulin Ratio 0.7 L, Triglycerides 67, Cholesterol 123, LDL Cholesterol 72, VLDL Cholesterol 13, HDL Cholesterol 38 L, TSH 1.100 Imaging Radiology Impression Abdomen/Bladder Ultrasound 06/16/24 17:00 IMPRESSION: Normal ultrasound of the urinary bladder. Electronically Signed: Marck Albert MD at 18:45 EST , Brain CT 06/16/24 17:10 IMPRESSION: Chronic involutional changes of the brain. No change and no acute abnormality. Electronically Signed: Marck Albert MD at 18:08 EST , Cervical Spine CT 06/16/24 19:24 IMPRESSION: Degenerative and postoperative change with foraminal narrowing. Electronically Signed: Christopher Solis MD at 21:08 EST ,
--- NOTE | 2024-06-17 17:14 | NURSING ---
NIHSS due at 1624 late, as pt off floor for MRI.
--- NOTE | 2024-06-17 21:49 | PCM.HOSP.N ---
Hospitalist Note MRI of the brain with no acute findings however there are additional findings including in the thoracic spine a small focus of T2 lengthening with the T12 vertebral body recommended follow-up MRI thoracic spine with IV contrast to ensure no metastatic disease in addition to lumbar spine with a new fluid signal and to space narrowing/erosions of the L3-4 level with inability to exclude acute or chronic discitis. Will start IV vancomycin and cefepime and will request MRI of the lumbar and thoracic spine with IV contrast.
--- NOTE | 2024-06-17 21:50 | MRI_ITS ---
STUDY: MRI THORACIC SPINE WITH CONTRAST REASON FOR EXAM: Male, 79 years old. Evaluation metastatic disease, COMPARE TO WITHOUT MRI ON 06/17 TECHNIQUE: IV CLARISCAN 20ML was administered. COMPARISON: MR thoracic spine without contrast 06/17/2024. CT cervical spine without contrast 06/16/2024. FINDINGS: Normal kyphosis of the thoracic spine. There is no substantial scoliosis. T1-2, T2-3, T3-4, T4-5, T5-6, T6-7, T7-8, T8-9, T9-10, T10-11, T11-12: Schmorl''s nodes with reactive marrow edema in the T2 superior endplate. There is contrast enhancement of the vertebral marrow underneath the vertebral endplates at T1-T2 disc space level due to intervertebral osteochondritis with contrast enhancement due to aseptic intervertebral osteochondritis. There are no T1 hypointense lesions throughout the osseous elements of the thoracic spine. There is no bone metastases throughout the thoracic spine. No abnormal enhancing lesions intradurally and extradurally. Minimal old anterior wedge compression fractures involving T7, T8 and T9 vertebral bodies. Mild central concavity in the posterior T10 superior endplate and posterior T10 for endplate without reactive marrow edema are Schmorl''s nodes. There is a prominent central Schmorl''s node in the L1 inferior endplate. No reactive marrow edema. Small left upper T12 benign vertebral body hemangioma is more obvious on the sagittal STIR sequence of comparison MRI thoracic spine series 10, image 4.There is faint contrast enhancement of the T12 vertebral body hemangioma. No thoracic extruded disc fragment. Normal central canal and bilateral intervertebral neuroforamina. Modic type II degenerative vertebral marrow fatty marrow infiltration underneath the vertebral endplates at T7-T8 and T8-T9 disc space levels. Normal visualized thoracic cord. Normal conus medullaris that terminates at the T12-L1 disc space level. The soft tissue structures are unremarkable. MRI/Spine Thoracic WITH Contrast IMPRESSION: 1. Enhancing vertebral marrow edema underneath the T1-T2 vertebral endplates due to aseptic intervertebral osteochondritis (Modic type I). 2. Mild Modic type II degenerative vertebral marrow fatty infiltration underneath the vertebral endplates at T7-T8 and T8-T9 disc space levels. 3. Mild old anterior wedge compression fractures of the T7, T8 and T9 vertebral bodies. 4. No abnormal T1 hypointensity lesions of the osseous elements of the entire thoracic spine including T12 to suspect or suggest bone metastatic disease. 5. Previously described focus of T2 lengthening at T12 was an error of the numbering of the vertebral bodies of the thoracic spine. This is a prominent central Schmorl''s node of the L1 inferior endplate without reactive marrow edema and without contrast enhancement. There is, however, a small round enhancing posterior upper T12 benign vertebral body hemangioma. This is not bone metastases. 6. Normal thoracic spinal cord. Electronically Signed: Naveen Benavidez MD at 13:33 [facility] ,
--- NOTE | 2024-06-17 21:50 | MRI_ITS ---
STUDY: MRI LUMBAR SPINE WITH CONTRAST REASON FOR EXAM: Male, 79 years old. Discitis, COMPARE TO WITHOUT MRI ON 06/17 TECHNIQUE: These are postcontrast images only consisting of fat suppressed T1-weighted sagittal and T1 axial with contrast following administration of 20 mL of IV Clariscan. COMPARISON: MRI lumbar spine without contrast 06/17/2024. CT abdomen and pelvis with IV contrast 04/06/2023. FINDINGS: There is mild contrast enhancement of the vertebral marrow underneath the vertebral endplates at L3-L4 disc space level due to Modic type I degenerative vertebral marrow edema. This is aseptic intervertebral osteochondritis. Small enhancing round posterior upper T12 benign vertebral body hemangioma is not bone metastases. Prominent central Schmorl''s node of the L1 inferior endplate with minimal reactive marrow fatty infiltration. Ankylosis of the L4 and L5 vertebral bodies with moderate amount of Modic type II degenerative fatty infiltration. There are no abnormally enhancing lesions intradurally and extradurally. MRI/Spine Lumbar WITH Contrast IMPRESSION: 1. No abnormal enhancing lesions intradurally and extradurally to suspect metastases to the lumbar spine. 2. Mild contrast enhancement of the vertebral marrow underneath the vertebral endplates at L3-L4 disc space level due to aseptic intervertebral osteochondritis (Modic type I). 3. Small enhancing round upper posterior T12 benign vertebral body hemangioma is not metastases. 4. Ankylosis of the L4 and L5 vertebral bodies with Modic type II changes of the vertebral marrow. Electronically Signed: Naveen Benavidez MD at 13:46 EST ,
[2024-06-18] VITALS (8 sets, daily range): BP systolic 125–152; BP diastolic 63–94; PULSE 62–94; RESP 16–18; TEMP 36.6–36.9; O2SAT 93–96; BMI 30.3
[2024-06-18] MEDS: Cefepime HCl 2 GM in 0.9% Normal Saline (100mL MB+) 100 ML IV (05:03)
[2024-06-18] MEDS: 0.9% Saline Lock 10 ML Syringe IV ×2 (05:04→07:04)
[2024-06-18] MEDS: Menthol/Lanolin/Calamine/Znox 113 GM Tube 1 APPLIC TOPICAL ×3 (05:05→20:55)
[2024-06-18 06:47] LABS: Absolute Lymphocyte Count 0.85 X10^3/uL (0.83-4.51); Absolute Neutrophil Count 5.5 X10^3/uL (2.0-7.7); Basophil# 0.05 X10^3/uL; Basophil% 0.6 % (0-1); Eosinophils% 3.8 % (0-5); Hematocrit 38.2 % (40-54); Hemoglobin 12.2 g/dL (13.0-16.5); Lymphocyte # 0.85 X10^3/ul (0.83-4.51); Lymphocyte % 10.9 % (19-41); Mean Corp Hgb Conc 31.9 g/dL (32-36); Mean Corpuscular Hgb 29.9 pg (27.0-32.0); Mean Corpuscular Volume 93.6 fL (80-94); Mean Platelet Vol. 11.2 fl (6.2-12.0); Monocyte# 1.02 X10^3/uL; NRBC Flagged by Analyzer 0 % (0-5); Neutrophil # 5.54 X10^3/uL (2.7-7.7); Neutrophil % 70.8 % (47-70); Platelet Count 197 K/mm3 (150-450); RBC Distribution Width CV 14.6 % (11.6-14.6); RBC Distribution Width SD 50.6 fl (35.1-43.9); Red Blood Count 4.08 M/mm3 (4.6-6.2); White Blood Count 7.8 K/mm3 (4.4-11.0)
--- NOTE | 2024-06-18 06:52 | PCM.HOSP.N ---
Hospitalist Note Patient notes throat tightness, increased numbness to his arms following start of his cefepime. Will stop and give IV benadryl and monitor.
[2024-06-18] MEDS: DiphenhydrAMINE 50 MG/ML Syringe 25 MG IV (07:03)
[2024-06-18 07:37] LABS: Anion Gap 4 (5-15); BUN 24 mg/dL (7-18); BUN/Creat Ratio 27.1 RATIO (10-20); Calcium,Total 9.5 mg/dL (8.5-10.1); Chloride 107 mmol/L (98-107); Creatinine, Serum 0.88 mg/dL (0.70-1.30); EST Glomerular Filtration Rate 89 mL/min (>60); Est Glom Filt Rate - Afr Amer 107 mL/min (>60); Glucose 101 mg/dL (74-106); Potassium 3.5 mmol/L (3.5-5.1); Sodium Level 140 mmol/L (136-145)
[2024-06-18] MEDS: Amiodarone 200 MG Tablet PO (09:22)
[2024-06-18] MEDS: APIXABAN 5 MG TABLET PO ×2 (09:22→20:52)
[2024-06-18] MEDS: Acetaminophen 325 MG Tablet 650 MG PO ×2 (09:28→23:00)
[2024-06-18] MEDS: Metoprolol Tartrate 50 MG Tablet PO ×2 (09:28→20:55)
--- NOTE | 2024-06-18 11:56 | PN.ORTHO_ITS ---
Subjective Subjective Saw patient in PCU 116 today. Patient mentions that his strength seems much better today and he was able to stand for a few seconds when they changed out his bed. Since MRI lumbar without contrast last night showed suspicion of discitis, antibiotics were tried however patient said he had severe reaction to it including tongue swelling and could not breathe and improved with Benadryl. He mentions that his low back pain has been a problem for many years and has been more painful the more he walked after the surgery until last Thursday when there was severe pain that caused him to lose strength in his legs. He denies any neck pain. Objective Data Objective Data Vital Signs: Vital Signs Temp Pulse Resp BP Pulse Ox O2 Del Method 98.3 F 94 16 152/93 H 95 Room Air 06/18/24 09:19 06/18/24 09:28 06/18/24 09:19 06/18/24 09:28 06/18/24 09:19 06/18/24 09:19 Oxygen Delivery Method Room Air Weight: 229 lb 11.547 oz Body Mass Index (BMI) 30.3 Intake & Output: Intake and Output for Last 24 Hours 06/16/24 06/17/24 06/18/24 23:59 23:59 23:59 Intake Total 1960.00 / 1960.00 100 / 100 Output Total 1350 / 1350 Balance 610.00 / 610.00 100 / 100 Lab / Micro Data 06/18/24 06:04 06/18/24 06:04 Labs: Laboratory Results - last 24 hr 06/18/24 06:04: WBC 7.8, RBC 4.08 L, Hgb 12.2 L, Hct 38.2 L, MCV 93.6, MCH 29.9, MCHC 31.9 L, RDW Std Deviation 50.6 H, RDW Coeff of Emre 14.6, Plt Count 197, MPV 11.2, Immature Gran % (Auto) 0.900, Neut % (Auto) 70.8 H, Lymph % (Auto) 10.9 L, [place] % (Auto) 13.0 H, Eos % (Auto) 3.8, Baso % (Auto) 0.6, Absolute Neuts (auto) 5.5, Absolute Lymphs (auto) 0.85, Nucleated RBC % 0, Sodium 140, Potassium 3.5, Chloride 107, Carbon Dioxide 29.0, Anion Gap 4 L, BUN 24 H, Creatinine 0.88, Estim Creat Clear Calc 87.70, Est GFR (MDRD) Af Amer 107, Est GFR (MDRD) Non-Af 89, BUN/Creatinine Ratio 27.1 H, Glucose 101, Calcium 9.5 Radiography Diagnostic Testing: Radiology Impression Brain MRI 06/16/24 21:56 IMPRESSION: No acute disease Electronically Signed: Jaylan Hu MD at 19:15 EST Reading Location ID and State: [address] [place] [address] Tel , Service support , Lumbar Spine MRI 06/16/24 21:56 IMPRESSION: No acute fracture identified. New fluid signal and disc space narrowing/erosions of the L3-4 level. Acute or chronic Discitis difficult to exclude. Follow-up MRI of lumbar spine with IV contrast. Multilevel bilateral neural foraminal narrowing unchanged. Electronically Signed: Jaylan Hu MD at 19:43 EST Reading Location ID and State: [address] [place] [address] Tel , Service support , Thoracic Spine MRI 06/16/24 21:56 IMPRESSION: No acute disease. Small focus of T2 lengthening T12 vertebral body. Recommend follow-up MRI of the thoracic spine with IV contrast to exclude metastatic disease. Electronically Signed: Jaylan Hu MD at 19:51 EST Reading Location ID and State: [address] [place] [address] Tel , Service support , Physical Exam Narrative Cervical spine incisions well-healed, has some dark scabs which may be removed with soft soap and water. Okay to shave with electric razor. Neurologic evaluation shows grade 4+ strength in all 4 extremities. Some hypertonia noticed in the lower extremities which is baseline. Assessment & Plan Assessment/Plan (1) Status post cervical spinal fusion: (2) Other intervertebral disc degeneration, lumbar region with discogenic back pain and lower extremity pain: PLAN: Plan Reviewed CT cervical spine, MRI lumbar and thoracic spine without contrast done yesterday. These show hardware and bone graft in good position cervical spine. Lumbar and thoracic spine showed suspicious lesions which are being evaluated by contrast MRIs. I did go through the contrast MRI images but official read is pending. There is a suspicion of L3-4 discitis on the noncontrast MRI. Explained to him the imaging findings in detail. Considering no pain at rest, my clinical suspicion for discitis is low, but I would wait for the official read for the contrast MRIs. Once discitis or any infection is ruled out, he may benefit from a short course of steroids. It appears that he had a severe bout of pain after walking a certain distance on Thursday which led him to have severe back pain and his legs giving out on him causing him in the fall. I suspect that the fall may have caused some increase in spinal cord edema in the cervical spine which may benefit from a short course of steroids. Patient seems motivated, and I encouraged aggressive physical therapy mobilization. He may still need placement depending on his strength and independence with PT. Will continue to follow.
--- NOTE | 2024-06-18 12:32 | PN_ITS ---
Subjective Subjective Patient seen and examined. He was started on IV vancomycin and cefepime yesterday after his lumbar spine MRI showed evidence of possible discitis. Patient however refused to take the vancomycin as his had a previous Red man syndrome reaction to vancomycin, making him reluctant to take it. He did take the cefepime, but subsequently developed a swollen tongue for which he received benadryl. He still complains of some weakness in his arms and his legs, mainly ins LLE. He has remained hemodynamically stable otherwise. Objective Data Objective Data Vital Signs: Vital Signs Temp Pulse Resp BP Pulse Ox O2 Del Method 98.3 F 94 16 152/93 H 95 Room Air 06/18/24 09:19 06/18/24 09:28 06/18/24 09:19 06/18/24 09:28 06/18/24 09:19 06/18/24 09:19 Oxygen Delivery Method Room Air Weight: 229 lb 11.547 oz Body Mass Index (BMI) 30.3 Intake & Output: Intake and Output for Last 24 Hours 06/16/24 06/17/24 06/18/24 23:59 23:59 23:59 Intake Total 1960.00 / 1960.00 100 / 100 Output Total 1350 / 1350 Balance 610.00 / 610.00 100 / 100 Lab / Micro Data 06/18/24 06:04 06/18/24 06:04 Labs: Laboratory Results - last 24 hr 06/18/24 06:04: WBC 7.8, RBC 4.08 L, Hgb 12.2 L, Hct 38.2 L, MCV 93.6, MCH 29.9, MCHC 31.9 L, RDW Std Deviation 50.6 H, RDW Coeff of Emre 14.6, Plt Count 197, MPV 11.2, Immature Gran % (Auto) 0.900, Neut % (Auto) 70.8 H, Lymph % (Auto) 10.9 L, [place] % (Auto) 13.0 H, Eos % (Auto) 3.8, Baso % (Auto) 0.6, Absolute Neuts (auto) 5.5, Absolute Lymphs (auto) 0.85, Nucleated RBC % 0, Sodium 140, Potassium 3.5, Chloride 107, Carbon Dioxide 29.0, Anion Gap 4 L, BUN 24 H, Creatinine 0.88, Estim Creat Clear Calc 87.70, Est GFR (MDRD) Af Amer 107, Est GFR (MDRD) Non-Af 89, BUN/Creatinine Ratio 27.1 H, Glucose 101, Calcium 9.5 Radiography Diagnostic Testing: Radiology Impression Brain MRI 06/16/24 21:56 IMPRESSION: No acute disease Electronically Signed: Jaylan Hu MD at 19:15 EST Reading Location ID and State: [address] [place] [address] Tel , Service support , Lumbar Spine MRI 06/16/24 21:56 IMPRESSION: No acute fracture identified. New fluid signal and disc space narrowing/erosions of the L3-4 level. Acute or chronic Discitis difficult to exclude. Follow-up MRI of lumbar spine with IV contrast. Multilevel bilateral neural foraminal narrowing unchanged. Electronically Signed: Jaylan Hu MD at 19:43 EST Reading Location ID and State: [address] [place] [address] Tel , Service support , Thoracic Spine MRI 06/16/24 21:56 IMPRESSION: No acute disease. Small focus of T2 lengthening T12 vertebral body. Recommend follow-up MRI of the thoracic spine with IV contrast to exclude metastatic disease. Electronically Signed: Jaylan Hu MD at 19:51 EST Reading Location ID and State: [address] [place] [address] Tel , Service support , Physical Exam Const alert and oriented x3 General Appearance: cooperative HEENT normocephalic, head/scalp atraumatic and moist oral mucous membranes Eyes PERRL and EOMs intact bilaterally Neck supple and no JVD Neck Narrative: in neck brace Lymph Lymphatic: no lymphadenopathy noted and no lymphedema noted Resp normal respiratory effort, normal air movement and clear to auscultation bilaterally Cardio regular rate, regular rhythm, S1 normal heart sound, S2 normal heart sound and no murmurs GI normal to inspection, nondistended, normoactive bowel sounds, soft to palpation, non-tender and non-distended Extremity normal capillary refill, no clubbing, cyanosis or edema and no calf tenderness General Extremity: no tenderness to palpation of joints or extremities Skin General Skin Exam: no breakdown Neuro CN's II-XII intact bilaterally Neuro Narrative: has mildly decreased sensation to light touch on LLE, power in LLE is 2/5, power in RLE is 3/5. Motor Exam: general weakness Psych thought process normal and cooperative Appearance: appropriate Assessment & Plan Assessment/Plan (1) Bilateral leg weakness: (2) Low back pain: PLAN: Plan #Debility due to bilateral lower extremity weakness with mechanical fall * Patient has a history of chronic paresthesias bilateral upper extremities. He did have surgery namely C3-C5 anterior cervical discectomy and fusion due to history of cervical stenosis. Surgery was done on 05/31/2024 and was subsequently discharged home. * However his upper extremity numbness and tingling as well as weakness, numbness and tingling in his lower extremities worsened. Was mainly in the left lower extremity. He fell at home and so came into the ED. * Concern is for possible lumbar spinal injury. MRI of the brain was ordered to rule out a stroke. * MRI of the lumbar spine showed new fluid signal and disc space narrowing at the L3-L4 level and acute on chronic discitis could not be excluded and there was also multilevel bilateral neuroforaminal narrowing. * Patient was started on IV vancomycin and cefepime. 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 He took the cefepime but subsequently had a swollen tongue for which he received Benadryl. * MRI of the lumbar and thoracic spine with contrast ordered. This has been done and I discussed with Dr. Rodriguez who reviewed the images and did not think he show any evidence of discitis but once to wait for the official read. * Will DC antibiotics for now. If MRI is negative, will start on p.o. prednisone to help with the pain * PT OT on board. Fall precautions. * #History of cervical stenosis and myelopathy as well as myelomalacia * Status post C3-C5 anterior cervical discectomy and fusion on 05/30/2024. * Still having paresthesias of both upper extremities. Has neck brace in place since maintain this per spine surgery. * PT OT on board. Fall precautions. * #Nonobstructive CAD * on eliquis, metoprolol and statin. * #Hypertension: * on amlodipine and metoprolol. IV hydralazine prn. * Resume amlodipine. On metoprolol and amiodarone also. * #paroxysmal afib: on amiodarone and eliquis as well as metoprolol #Hyperlipidemia: on statin #Obesity: BMI is 29.3. Complicates acute care, expected recovery and prognosis. DVT prophylaxis: On Eliquis CODE STATUS: Full code Charges/Coding Visit Charges Inpatient E&M: 78764 Subs Hosp L2
--- NOTE | 2024-06-18 14:46 | CASEMGMT ---
Social Work SW met with pt to discuss discharge plans. SW discussed with pt progress with therapy this morning. Pt is agreeable that he will need SNF at time of DC. A list of SNF providers including quality and resource use data and consistent with the patient?s preferred geographic region, medical needs, and insurance network were provided from the [employer] Guide. Pt preferred provider is [facility]. SW to make referral at this time. SW encouraged pt to review list and make additional choices in the event TCU is unable to accept. Pt expressing understanding. Plan: TCU, pending acceptance and precert OLEG [facility]
[2024-06-18] MEDS: Nystatin Ointment 1 APPLIC TOPICAL ×2 (15:19→20:56)
[2024-06-19] VITALS (8 sets, daily range): BP systolic 126–163; BP diastolic 76–82; PULSE 62–76; RESP 16–18; TEMP 36.6–36.9; O2SAT 94–97
[2024-06-19] MEDS: Nystatin Ointment 1 APPLIC TOPICAL ×2 (06:32→15:32)
[2024-06-19] MEDS: Menthol/Lanolin/Calamine/Znox 113 GM Tube 1 APPLIC TOPICAL ×3 (06:32→21:04)
[2024-06-19 06:34] LABS: Absolute Lymphocyte Count 0.65 X10^3/uL (0.83-4.51); Absolute Neutrophil Count 5.5 X10^3/uL (2.0-7.7); Basophil# 0.06 X10^3/uL; Basophil% 0.8 % (0-1); Eosinophil# 0.28 X10^3/uL; Eosinophils% 3.8 % (0-5); Hematocrit 38.2 % (40-54); Hemoglobin 12.1 g/dL (13.0-16.5); Lymphocyte # 0.65 X10^3/ul (0.83-4.51); Lymphocyte % 8.7 % (19-41); Mean Corp Hgb Conc 31.7 g/dL (32-36); Mean Corpuscular Volume 94.6 fL (80-94); Mean Platelet Vol. 11.1 fl (6.2-12.0); Monocyte# 0.95 X10^3/uL; Monocyte% 12.8 % (0-10); NRBC Flagged by Analyzer 0 % (0-5); Neutrophil # 5.45 X10^3/uL (2.7-7.7); Neutrophil % 73.1 % (47-70); Platelet Count 191 K/mm3 (150-450); RBC Distribution Width CV 14.6 % (11.6-14.6); Red Blood Count 4.04 M/mm3 (4.6-6.2); White Blood Count 7.5 K/mm3 (4.4-11.0)
[2024-06-19 06:59] LABS: Anion Gap 3 (5-15); BUN 19 mg/dL (7-18); BUN/Creat Ratio 25.7 RATIO (10-20); Calcium,Total 9.7 mg/dL (8.5-10.1); Chloride 109 mmol/L (98-107); Creatinine, Serum 0.74 mg/dL (0.70-1.30); EST Glomerular Filtration Rate 109 mL/min (>60); Est Glom Filt Rate - Afr Amer 132 mL/min (>60); Estimated Creatinine Clearance 96.08 ml/min; Glucose 82 mg/dL (74-106); Potassium 3.6 mmol/L (3.5-5.1); Sodium Level 141 mmol/L (136-145)
[2024-06-19] MEDS: Amiodarone 200 MG Tablet PO (09:09)
[2024-06-19] MEDS: Metoprolol Tartrate 50 MG Tablet PO ×2 (09:09→21:03)
[2024-06-19] MEDS: APIXABAN 5 MG TABLET PO ×2 (09:09→21:04)
--- NOTE | 2024-06-19 09:46 | PN_ITS ---
Subjective Subjective Patient seen and examined. He still complains of numbness and tingling in his upper extremities but says it is much better today. He has no other complaints. Review of systems otherwise negative. Objective Data Objective Data Vital Signs: Vital Signs Temp Pulse Resp BP Pulse Ox O2 Del Method 97.8 F 67 16 153/81 H 96 Room Air 06/19/24 08:50 06/19/24 09:09 06/19/24 08:50 06/19/24 09:09 06/19/24 08:50 06/19/24 08:56 Oxygen Delivery Method Room Air Weight: 227 lb 11.8 oz Body Mass Index (BMI) 30.0 Intake & Output: Intake and Output for Last 24 Hours 06/17/24 06/18/24 06/19/24 23:59 23:59 23:59 Intake Total 1960.00 / 1960.00 1060 / 1260 400 / 400 Output Total 1350 / 1350 600 / 1000 800 / 800 Balance 610.00 / 610.00 460 / 260 -400 / -400 Lab / Micro Data 06/19/24 05:45 06/19/24 05:45 Labs: Laboratory Results - last 24 hr 06/19/24 05:45: WBC 7.5, RBC 4.04 L, Hgb 12.1 L, Hct 38.2 L, MCV 94.6 H, MCH 30.0, MCHC 31.7 L, RDW Std Deviation 50.0 H, RDW Coeff of Emre 14.6, Plt Count 191, MPV 11.1, Immature Gran % (Auto) 0.800, Neut % (Auto) 73.1 H, Lymph % (Auto) 8.7 L, [place] % (Auto) 12.8 H, Eos % (Auto) 3.8, Baso % (Auto) 0.8, Absolute Neuts (auto) 5.5, Absolute Lymphs (auto) 0.65 L, Nucleated RBC % 0, Sodium 141, Potassium 3.6, Chloride 109 H, Carbon Dioxide 29.0, Anion Gap 3 L, B UN 19 H, Creatinine 0.74, Estim Creat Clear Calc 96.08, Est GFR (MDRD) Af Amer 132, Est GFR (MDRD) Non-Af 109, BUN/Creatinine Ratio 25.7 H, Glucose 82, Calcium 9.7 Radiography Diagnostic Testing: Radiology Impression Lumbar Spine MRI 06/17/24 21:50 IMPRESSION: 1. No abnormal enhancing lesions intradurally and extradurally to suspect metastases to the lumbar spine. 2. Mild contrast enhancement of the vertebral marrow underneath the vertebral endplates at L3-L4 disc space level due to aseptic intervertebral osteochondritis (Modic type I). 3. Small enhancing round upper posterior T12 benign vertebral body hemangioma is not metastases. 4. Ankylosis of the L4 and L5 vertebral bodies with Modic type II changes of the vertebral marrow. Electronically Signed: Naveen Benavidez MD at 13:46 EST , Thoracic Spine MRI 06/17/24 21:50 IMPRESSION: 1. Enhancing vertebral marrow edema underneath the T1-T2 vertebral endplates due to aseptic intervertebral osteochondritis (Modic type I). 2. Mild Modic type II degenerative vertebral marrow fatty infiltration underneath the vertebral endplates at T7-T8 and T8-T9 disc space levels. 3. Mild old anterior wedge compression fractures of the T7, T8 and T9 vertebral bodies. 4. No abnormal T1 hypointensity lesions of the osseous elements of the entire thoracic spine including T12 to suspect or suggest bone metastatic disease. 5. Previously described focus of T2 lengthening at T12 was an error of the numbering of the vertebral bodies of the thoracic spine. This is a prominent central Schmorl''s node of the L1 inferior endplate without reactive marrow edema and without contrast enhancement. There is, however, a small round enhancing posterior upper T12 benign vertebral body hemangioma. This is not bone metastases. 6. Normal thoracic spinal cord. Electronically Signed: Naveen Benavidez MD at 13:33 EST , Physical Exam Const alert and oriented x3 Constitutional Narrative: weak General Appearance: cooperative HEENT normocephalic, head/scalp atraumatic and moist oral mucous membranes Eyes PERRL and EOMs intact bilaterally Neck supple and no JVD Neck Narrative: in neck brace Lymph Lymphatic: no lymphadenopathy noted and no lymphedema noted Resp normal respiratory effort, normal air movement and clear to auscultation bilaterally Cardio regular rate, regular rhythm, S1 normal heart sound, S2 normal heart sound and no murmurs GI normal to inspection, nondistended, normoactive bowel sounds, soft to palpation, non-tender and non-distended Extremity normal capillary refill, no clubbing, cyanosis or edema and no calf tenderness General Extremity: no tenderness to palpation of joints or extremities Skin General Skin Exam: no breakdown Neuro CN's II-XII intact bilaterally Neuro Narrative: has mildly decreased sensation to light touch on LLE, power in LLE is 2/5, power in RLE is 3/5. Motor Exam: general weakness Psych thought process normal and cooperative Appearance: appropriate Assessment & Plan Assessment/Plan (1) Bilateral leg weakness: (2) Low back pain: PLAN: Plan #Debility due to bilateral lower extremity weakness with mechanical fall * Patient has a history of chronic paresthesias bilateral upper extremities. He did have surgery namely C3-C5 anterior cervical discectomy and fusion due to history of cervical stenosis. Surgery was done on 05/31/2024 and was subsequently discharged home. * However his upper extremity numbness and tingling as well as weakness, numbness and tingling in his lower extremities worsened. Was mainly in the left lower extremity. He fell at home and so came into the ED. * Concern is for possible lumbar spinal injury. * MRI of the brain showed no acute intracranial pathology. * MRI of the lumbar spine showed new fluid signal and disc space narrowing at the L3-L4 level and acute on chronic discitis could not be excluded and there was also multilevel bilateral neuroforaminal narrowing. * Patient was started on IV vancomycin and cefepime. 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 He took the cefepime but subsequently had a swollen tongue for which he received Benadryl. * MRI of the lumbar and thoracic spine with contrast ordered. This has been done and I discussed with Dr. Rodriguez who reviewed the images and did not think he show any evidence of discitis but once to wait for the official read. * MRI of the lumbar spine with contrast showed no abnormal enhancing lesions intradurally and extradurally to suspect mets to the spine, and mild contrast enhancement of the vetebral marrow at L3-L4 due to aseptic intervertebral osteochondritis; no evidence of discitis * will start on IV decadron to help with pain. * PT OT on board. Fall precautions. * #History of cervical stenosis and myelopathy as well as myelomalacia * Status post C3-C5 anterior cervical discectomy and fusion on 05/30/2024. * Still having paresthesias of both upper extremities. Has neck brace in place; maintain this per spine surgery. * PT OT on board. Fall precautions. * #Nonobstructive CAD * on eliquis, metoprolol and statin. * #Hypertension: * on amlodipine and metoprolol. IV hydralazine prn. * Resume amlodipine. On metoprolol and amiodarone also. * #paroxysmal afib: on amiodarone and eliquis as well as metoprolol #Hyperlipidemia: on statin #Obesity: BMI is 29.3. Complicates acute care, expected recovery and prognosis. DVT prophylaxis: On Eliquis CODE STATUS: Full code Charges/Coding Visit Charges Inpatient E&M: 73855 Subs Hosp L2
[2024-06-19] MEDS: Acetaminophen 325 MG Tablet 650 MG PO (11:53)
[2024-06-19] MEDS: dexAMETHasone 4 MG/ML Vial IV ×2 (12:03→21:03)
--- NOTE | 2024-06-19 19:06 | PCM.PN.ORT ---
Subjective Subjective Saw patient in PCU 116 today. Family present. Was able to sit on chair for 6 hours. Objective Data Objective Data Vital Signs: Vital Signs Temp Pulse Resp BP Pulse Ox O2 Del Method 98.3 F 66 16 126/82 H 97 Room Air 06/19/24 15:49 06/19/24 15:49 06/19/24 15:49 06/19/24 15:49 06/19/24 15:49 06/19/24 15:49 Oxygen Delivery Method Room Air Weight: 227 lb 11.8 oz Body Mass Index (BMI) 30.0 Intake & Output: Intake and Output for Last 24 Hours 06/17/24 06/18/24 06/19/24 23:59 23:59 23:59 Intake Total 1960.00 / 1960.00 1060 / 1260 1000 / 1000 Output Total 1350 / 1350 600 / 1000 1200 / 1200 Balance 610.00 / 610.00 460 / 260 -200 / -200 Lab / Micro Data 06/19/24 05:45 06/19/24 05:45 Labs: Laboratory Results - last 24 hr 06/19/24 05:45: WBC 7.5, RBC 4.04 L, Hgb 12.1 L, Hct 38.2 L, MCV 94.6 H, MCH 30.0, MCHC 31.7 L, RDW Std Deviation 50.0 H, RDW Coeff of Emre 14.6, Plt Count 191, MPV 11.1, Immature Gran % (Auto) 0.800, Neut % (Auto) 73.1 H, Lymph % (Auto) 8.7 L, [place] % (Auto) 12.8 H, Eos % (Auto) 3.8, Baso % (Auto) 0.8, Absolute Neuts (auto) 5.5, Absolute Lymphs (auto) 0.65 L, Nucleated RBC % 0, Sodium 141, Potassium 3.6, Chloride 109 H, Carbon Dioxide 29.0, Anion Gap 3 L, BUN 19 H, Creatinine 0.74, Estim Creat Clear Calc 96.08, Est GFR (MDRD) Af Amer 132, Est GFR (MDRD) Non-Af 109, BUN/Creatinine Ratio 25.7 H, Glucose 82, Calcium 9.7 Physical Exam Narrative Cervical spine incisions well-healed, has some dark scabs which may be removed with soft soap and water. Okay to shave with electric razor. Neurologic evaluation shows grade 4+ strength in all 4 extremities. Some hypertonia noticed in the lower extremities which is baseline. Assessment & Plan Assessment/Plan (1) Status post cervical spinal fusion: (2) Other intervertebral disc degeneration, lumbar region with discogenic back pain and lower extremity pain: PLAN: Plan Reviewed CT cervical spine, MRI lumbar and thoracic spine w/wo contrast. These show hardware and bone graft in good position cervical spine. Contrast MRI not showing any discitis. Explained to him the imaging findings in detail. It appears that he had a severe bout of pain after walking a certain distance on Thursday which led him to have severe back pain and his legs giving out on him causing him in the fall. I suspect that the fall may have caused some increase in spinal cord edema in the cervical spine which may benefit from a short course of steroids. Patient seems motivated, and I encouraged aggressive physical therapy mobilization. He may still need placement depending on his strength and independence with PT. Hoping to go to TCU if available. Okay to shave with electric razor. Will continue to follow.
[2024-06-19] MEDS: 0.9% Saline Lock 10 ML Syringe IV (21:04)
[2024-06-20] VITALS (10 sets, daily range): BP systolic 96–170; BP diastolic 67–105; PULSE 61–75; RESP 18–20; TEMP 36.1–36.6; O2SAT 94–96; BMI 30.1
[2024-06-20 06:13] LABS: Absolute Lymphocyte Count 0.33 X10^3/uL (0.83-4.51); Absolute Neutrophil Count 8.6 X10^3/uL (2.0-7.7); Basophil# 0.03 X10^3/uL; Basophil% 0.3 % (0-1); Eosinophil# 0.01 X10^3/uL; Eosinophils% 0.1 % (0-5); Hematocrit 39.6 % (40-54); Hemoglobin 12.7 g/dL (13.0-16.5); Lymphocyte # 0.33 X10^3/ul (0.83-4.51); Lymphocyte % 3.4 % (19-41); Mean Corp Hgb Conc 32.1 g/dL (32-36); Mean Corpuscular Hgb 29.8 pg (27.0-32.0); Mean Platelet Vol. 11.1 fl (6.2-12.0); Monocyte# 0.55 X10^3/uL; Monocyte% 5.7 % (0-10); NRBC Flagged by Analyzer 0 % (0-5); Neutrophil # 8.61 X10^3/uL (2.7-7.7); Neutrophil % 89.8 % (47-70); POSITIVE DIFFERENTIAL YES; Platelet Count 227 K/mm3 (150-450); RBC Distribution Width CV 14.3 % (11.6-14.6); RBC Distribution Width SD 48.4 fl (35.1-43.9); Red Blood Count 4.26 M/mm3 (4.6-6.2); White Blood Count 9.6 K/mm3 (4.4-11.0)
[2024-06-20 06:40] LABS: Anion Gap 3 (5-15); BUN 20 mg/dL (7-18); BUN/Creat Ratio 23.2 RATIO (10-20); Chloride 108 mmol/L (98-107); Creatinine, Serum 0.86 mg/dL (0.70-1.30); EST Glomerular Filtration Rate 91 mL/min (>60); Est Glom Filt Rate - Afr Amer 110 mL/min (>60); Estimated Creatinine Clearance 89.46 ml/min; Glucose 131 mg/dL (74-106); Potassium 3.8 mmol/L (3.5-5.1); Sodium Level 139 mmol/L (136-145)
[2024-06-20] MEDS: Amiodarone 200 MG Tablet PO (09:06)
[2024-06-20] MEDS: APIXABAN 5 MG TABLET PO ×2 (09:06→20:35)
[2024-06-20] MEDS: Metoprolol Tartrate 50 MG Tablet PO ×2 (09:06→20:35)
[2024-06-20] MEDS: 0.9% Saline Lock 10 ML Syringe IV ×2 (09:07→20:36)
[2024-06-20] MEDS: dexAMETHasone 4 MG/ML Vial IV (09:07)
--- NOTE | 2024-06-20 11:09 | PCM.PN.ORT ---
Subjective Subjective Saw Pt in PCU. He is doing well today and feels that his strength has returned since yesterday. Patient sitting upright in bed with cervical collar in good position. He has been seen by PT/OT. Objective Data Objective Data Vital Signs: Vital Signs Temp Pulse Resp BP Pulse Ox O2 Del Method 97.2 F L 69 18 136/105 H 94 Room Air 06/20/24 09:00 06/20/24 11:00 06/20/24 09:00 06/20/24 09:06 06/20/24 09:00 06/20/24 09:00 Oxygen Delivery Method Room Air Weight: 228 lb 2.855 oz Body Mass Index (BMI) 30.1 Intake & Output: Intake and Output for Last 24 Hours 06/18/24 06/19/24 06/20/24 23:59 23:59 23:59 Intake Total 1060 / 1260 1000 / 1000 Output Total 600 / 1000 1200 / 1800 600 / 600 Balance 460 / 260 -200 / -800 -600 / -600 Lab / Micro Data 06/20/24 05:52 06/20/24 05:52 Labs: Laboratory Results - last 24 hr 06/20/24 05:52: WBC 9.6, RBC 4.26 L, Hgb 12.7 L, Hct 39.6 L, MCV 93.0, MCH 29.8, MCHC 32.1, RDW Std Deviation 48.4 H, RDW Coeff of Emre 14.3, Plt Count 227, MPV 11.1, Immature Gran % (Auto) 0.700, Neut % (Auto) 89.8 H, Lymph % (Auto) 3.4 L, [place] % (Auto) 5.7, Eos % (Auto) 0.1, Baso % (Auto) 0.3, Absolute Neuts (auto) 8.6 H, Absolute Lymphs (auto) 0.33 L, Nucleated RBC % 0, Sodium 139, Potassium 3.8, Chloride 108 H, Carbon Dioxide 28.0, Anion Gap 3 L, BUN 20 H, Creatinine 0.86, Estim Creat Clear Calc 89.46, Est GFR (MDRD) Af Amer 110, Est GFR (MDRD) Non-Af 91, BUN/Creatinine Ratio 23.2 H, Glucose 131 H, Calcium 10.0 Physical Exam Narrative Cervical spine incisions well-healed, has some dark scabs which may be removed with soft soap and water. Okay to shave with electric razor. Neurologic evaluation shows grade 4+ strength in all 4 extremities. Some hypertonia noticed in the lower extremities which is baseline. Assessment & Plan Assessment/Plan (1) Other intervertebral disc degeneration, lumbar region with discogenic back pain and lower extremity pain: PLAN: Plan Patient seems motivated, and I encouraged aggressive physical therapy mobilization. He may still need placement depending on his strength and independence with PT. Hoping to go to TCU if available. Patient uncertain if he wishes to go to a SNF after discharge due [facility]. Explained to him the benefit of rehab before going home to increase safety and strength and to prevent any further falls. Patient will discuss options with therapy, medical case manager, and family. Charges/Coding Visit Charges Inpatient E&M: 86702 Subs Hosp L2
--- NOTE | 2024-06-20 12:10 | PN_ITS ---
Subjective Subjective Patient seen and examined. He had no active complaints and felt much better today. He is asking if he can go home with home therapy. Review of systems is otherwise negative. He has remained hemodynamically stable. Objective Data Objective Data Vital Signs: Vital Signs Temp Pulse Resp BP Pulse Ox O2 Del Method 97.2 F L 69 18 136/105 H 94 Room Air 06/20/24 09:00 06/20/24 11:00 06/20/24 09:00 06/20/24 09:06 06/20/24 09:00 06/20/24 09:00 Oxygen Delivery Method Room Air Weight: 228 lb 2.855 oz Body Mass Index (BMI) 30.1 Intake & Output: Intake and Output for Last 24 Hours 06/18/24 06/19/24 06/20/24 23:59 23:59 23:59 Intake Total 1060 / 1260 1000 / 1000 Output Total 600 / 1000 1200 / 1800 1000 / 1000 Balance 460 / 260 -200 / -800 -1000 / -1000 Lab / Micro Data 06/20/24 05:52 06/20/24 05:52 Labs: Laboratory Results - last 24 hr 06/20/24 05:52: WBC 9.6, RBC 4.26 L, Hgb 12.7 L, Hct 39.6 L, MCV 93.0, MCH 29.8, MCHC 32.1, RDW Std Deviation 48.4 H, RDW Coeff of Emre 14.3, Plt Count 227, MPV 11.1, Immature Gran % (Auto) 0.700, Neut % (Auto) 89.8 H, Lymph % (Auto) 3.4 L, [place] % (Auto) 5.7, Eos % (Auto) 0.1, Baso % (Auto) 0.3, Absolute Neuts (auto) 8.6 H, Absolute Lymphs (auto) 0.33 L, Nucleated RBC % 0, Sodium 139, Potassium 3.8, Chloride 108 H, Carbon Dioxide 28.0, Anion Gap 3 L, BUN 20 H, Creatinine 0.86, Estim Creat Clear Calc 89.46, Est GFR (MDRD) Af Amer 110, Est GFR (MDRD) Non-Af 91, BUN/Creatinine Ratio 23.2 H, Glucose 131 H, Calcium 10.0 Physical Exam Const alert and oriented x3 Constitutional Narrative: weak General Appearance: cooperative HEENT normocephalic, head/scalp atraumatic and moist oral mucous membranes Eyes PERRL and EOMs intact bilaterally Neck supple and no JVD Neck Narrative: in neck brace Lymph Lymphatic: no lymphadenopathy noted and no lymphedema noted Resp normal respiratory effort, normal air movement and clear to auscultation bilaterally Cardio regular rate, regular rhythm, S1 normal heart sound, S2 normal heart sound and no murmurs GI normal to inspection, nondistended, normoactive bowel sounds, soft to palpation, non-tender and non-distended Extremity normal capillary refill, no clubbing, cyanosis or edema and no calf tenderness General Extremity: no tenderness to palpation of joints or extremities Skin General Skin Exam: no breakdown Neuro CN's II-XII intact bilaterally Neuro Narrative: has mildly decreased sensation to light touch on LLE, power in LLE is now 3/5, power in RLE is 3/5. Motor Exam: general weakness Psych thought process normal and cooperative Appearance: appropriate Assessment & Plan Assessment/Plan (1) Bilateral leg weakness: (2) Low back pain: PLAN: Plan #Debility due to bilateral lower extremity weakness with mechanical fall * Patient has a history of chronic paresthesias bilateral upper extremities. He did have surgery namely C3-C5 anterior cervical discectomy and fusion due to history of cervical stenosis. Surgery was done on 05/31/2024 and was subsequently discharged home. * However his upper extremity numbness and tingling as well as weakness, numbness and tingling in his lower extremities worsened. Was mainly in the left lower extremity. He fell at home and so came into the ED. * MRI of the brain showed no acute intracranial pathology. * MRI of the lumbar spine showed new fluid signal and disc space narrowing at the L3-L4 level and acute on chronic discitis could not be excluded and there was also multilevel bilateral neuroforaminal narrowing. * Patient was started on IV vancomycin and cefepime. 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 He took the cefepime but subsequently had a swollen tongue for which he received Benadryl. * MRI of the lumbar and thoracic spine with contrast ordered. This has been done and I discussed with Dr. Rodriguez who reviewed the images and did not think he show any evidence of discitis but once to wait for the official read. * MRI of the lumbar spine with contrast showed no abnormal enhancing lesions intradurally and extradurally to suspect mets to the spine, and mild contrast enhancement of the vetebral marrow at L3-L4 due to aseptic intervertebral osteochondritis; no evidence of discitis * on IV decadron * PT OT on board. Fall precautions. * #History of cervical stenosis and myelopathy as well as myelomalacia * Status post C3-C5 anterior cervical discectomy and fusion on 05/30/2024. * Still having paresthesias of both upper extremities. Has neck brace in place; maintain this per spine surgery. * PT OT on board. Fall precautions. * #Nonobstructive CAD * on eliquis, metoprolol and statin. * #Hypertension: * on amlodipine and metoprolol. IV hydralazine prn. * On amiodarone also. * #paroxysmal afib: on amiodarone and eliquis as well as metoprolol #Hyperlipidemia: on statin #Obesity: BMI is 29.3. Complicates acute care, expected recovery and prognosis. DVT prophylaxis: On Eliquis CODE STATUS: Full code Disposition: awaiting placement. Charges/Coding Visit Charges Inpatient E&M: 45081 Subs Hosp L2
[2024-06-20] MEDS: Menthol/Lanolin/Calamine/Znox 113 GM Tube 1 APPLIC TOPICAL ×2 (13:50→20:42)
--- NOTE | 2024-06-20 14:31 | CASEMGMT ---
SW spoke with patient. Introduced self and role at [facility]. Patient confirmed he would like one of the two units at [facility]. ANDREW spoke with Ashlee in TCU/Rehab and TCU is full , but Acute Rehab could take patient pending pre-cert. SW went to patient's room and let him know this information. SW also let patient know that he will stay here at [facility] until his insurance approves him. SW will let patient know as soon as SW hears something. Plan: D/c to [facility] Acute Rehab Unit pending insurance approval. Soco Senll [employer] MIRIAM
--- NOTE | 2024-06-20 15:39 | CASEMGMT ---
ANDREW received a call from patient's daughter, Sadia. Sadia was inquiring about patient's discharge plan. ANDREW explained TCU was full, but Acute Rehab can take patient. ANDREW explained patient will be at [facility] until his insurance approves him. This will likely be tomorrow. Plan: d/c to Acute Rehab pending insurance approval. Soco PINEDA
[2024-06-20] MEDS: Nystatin Ointment 1 APPLIC TOPICAL (20:42)
[2024-06-21] VITALS (9 sets, daily range): BP systolic 100–144; BP diastolic 64–97; PULSE 54–68; RESP 16; TEMP 36.2–36.8; O2SAT 92–96; BMI 30.2
[2024-06-21 06:20] LABS: Absolute Lymphocyte Count 0.73 X10^3/uL (0.83-4.51); Absolute Neutrophil Count 10.2 X10^3/uL (2.0-7.7); Basophil# 0.03 X10^3/uL; Basophil% 0.2 % (0-1); Eosinophil# 0.04 X10^3/uL; Eosinophils% 0.3 % (0-5); Hematocrit 40.3 % (40-54); Hemoglobin 12.6 g/dL (13.0-16.5); Lymphocyte # 0.73 X10^3/ul (0.83-4.51); Lymphocyte % 5.8 % (19-41); Mean Corp Hgb Conc 31.3 g/dL (32-36); Mean Corpuscular Hgb 29.6 pg (27.0-32.0); Mean Corpuscular Volume 94.6 fL (80-94); Mean Platelet Vol. 11.1 fl (6.2-12.0); Monocyte# 1.41 X10^3/uL; Monocyte% 11.2 % (0-10); NRBC Flagged by Analyzer 0 % (0-5); Neutrophil # 10.24 X10^3/uL (2.7-7.7); Neutrophil % 81.5 % (47-70); Platelet Count 263 K/mm3 (150-450); RBC Distribution Width CV 14.8 % (11.6-14.6); RBC Distribution Width SD 50.7 fl (35.1-43.9); Red Blood Count 4.26 M/mm3 (4.6-6.2); White Blood Count 12.6 K/mm3 (4.4-11.0)
[2024-06-21 06:41] LABS: Anion Gap 3 (5-15); BUN 26 mg/dL (7-18); BUN/Creat Ratio 32.1 RATIO (10-20); Calcium,Total 9.9 mg/dL (8.5-10.1); Chloride 108 mmol/L (98-107); Creatinine, Serum 0.81 mg/dL (0.70-1.30); EST Glomerular Filtration Rate 98 mL/min (>60); Est Glom Filt Rate - Afr Amer 118 mL/min (>60); Glucose 107 mg/dL (74-106); Sodium Level 140 mmol/L (136-145)
[2024-06-21] MEDS: Amiodarone 200 MG Tablet PO (07:48)
[2024-06-21] MEDS: Metoprolol Tartrate 50 MG Tablet PO ×2 (07:48→20:57)
[2024-06-21] MEDS: APIXABAN 5 MG TABLET PO ×2 (07:49→20:57)
[2024-06-21] MEDS: dexAMETHasone 4 MG Tablet PO (09:37)
--- NOTE | 2024-06-21 12:23 | PN_ITS ---
Subjective Subjective Patient seen and examined. He has no active complaints. His IV infiltrated overnight fluid has been removed. He has no other active complaints. Review of systems otherwise negative. He is awaiting placement. Objective Data Objective Data Vital Signs: Vital Signs Temp Pulse Resp BP Pulse Ox O2 Del Method 98 F 54 L 16 119/64 95 Room Air 06/21/24 11:40 06/21/24 11:49 06/21/24 11:40 06/21/24 11:40 06/21/24 11:40 06/21/24 11:40 Oxygen Delivery Method Room Air Weight: 228 lb 13.437 oz Body Mass Index (BMI) 30.2 Intake & Output: Intake and Output for Last 24 Hours 06/19/24 06/20/24 06/21/24 23:59 23:59 23:59 Intake Total 1000 / 1000 370 / 370 Output Total 1200 / 1800 1150 / 1450 300 / 300 Balance -200 / -800 -1150 / -1330 70 / 70 Lab / Micro Data 06/21/24 05:51 06/21/24 05:51 Labs: Laboratory Results - last 24 hr 06/21/24 05:51: WBC 12.6 H, RBC 4.26 L, Hgb 12.6 L, Hct 40.3, MCV 94.6 H, MCH 29.6, MCHC 31.3 L, RDW Std Deviation 50.7 H, RDW Coeff of Emre 14.8 H, Plt Count 263, MPV 11.1, Immature Gran % (Auto) 1.000 H, Neut % (Auto) 81.5 H, Lymph % (Auto) 5.8 L, [place] % (Auto) 11.2 H, Eos % (Auto) 0.3, Baso % (Auto) 0.2, A bsolute Neuts (auto) 10.2 H, Absolute Lymphs (auto) 0.73 L, Nucleated RBC % 0, Sodium 140, Potassium 4.0, Chloride 108 H, Carbon Dioxide 28.0, Anion Gap 3 L, B UN 26 H, Creatinine 0.81, Estim Creat Clear Calc 95.10, Est GFR (MDRD) Af Amer 118, Est GFR (MDRD) Non-Af 98, BUN/Creatinine Ratio 32.1 H, Glucose 107 H, Calcium 9.9 Physical Exam Const alert and oriented x3 Constitutional Narrative: weak General Appearance: cooperative HEENT normocephalic, head/scalp atraumatic and moist oral mucous membranes Eyes PERRL and EOMs intact bilaterally Neck supple and no JVD Neck Narrative: in neck brace Lymph Lymphatic: no lymphadenopathy noted and no lymphedema noted Resp normal respiratory effort, normal air movement and clear to auscultation bilaterally Cardio regular rate, regular rhythm, S1 normal heart sound, S2 normal heart sound and no murmurs GI normal to inspection, nondistended, normoactive bowel sounds, soft to palpation, non-tender and non-distended Extremity normal capillary refill, no clubbing, cyanosis or edema and no calf tenderness General Extremity: no tenderness to palpation of joints or extremities Skin General Skin Exam: no breakdown Neuro CN's II-XII intact bilaterally Neuro Narrative: has mildly decreased sensation to light touch on LLE, power in LLE is now 3/5, power in RLE is 3/5. Motor Exam: general weakness Psych thought process normal and cooperative Appearance: appropriate Assessment & Plan Assessment/Plan (1) Bilateral leg weakness: (2) Low back pain: PLAN: Plan #Debility due to bilateral lower extremity weakness with mechanical fall * Patient has a history of chronic paresthesias bilateral upper extremities. He did have surgery namely C3-C5 anterior cervical discectomy and fusion due to history of cervical stenosis. Surgery was done on 05/31/2024 and was subsequently discharged home. * However his upper extremity numbness and tingling as well as weakness, numbness and tingling in his lower extremities worsened. Was mainly in the left lower extremity. He fell at home and so came into the ED. * MRI of the brain showed no acute intracranial pathology. * MRI of the lumbar spine showed new fluid signal and disc space narrowing at the L3-L4 level and acute on chronic discitis could not be excluded and there was also multilevel bilateral neuroforaminal narrowing. * Patient was started on IV vancomycin and cefepime. 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 He took the cefepime but subsequently had a swollen tongue for which he received Benadryl. * MRI of the lumbar spine with contrast showed no abnormal enhancing lesions intradurally and extradurally to suspect mets to the spine, and mild contrast enhancement of the vetebral marrow at L3-L4 due to aseptic intervertebral osteochondritis; no evidence of discitis * on IV decadron; will switch to p.o. Decadron 4 mg daily today. * PT OT on board. Fall precautions. * #History of cervical stenosis and myelopathy as well as myelomalacia * Status post C3-C5 anterior cervical discectomy and fusion on 05/30/2024. * Paresthesias in both upper extremities has improved. Remains in neck brace. * PT OT on board. Fall precautions. * #Nonobstructive CAD * on eliquis, metoprolol and statin. * #Hypertension: * on amlodipine and metoprolol. IV hydralazine prn. * On amiodarone also. * #paroxysmal afib: on amiodarone and eliquis as well as metoprolol #Hyperlipidemia: on statin #Obesity: BMI is 29.3. Complicates acute care, expected recovery and prognosis. DVT prophylaxis: On Eliquis CODE STATUS: Full code Disposition: awaiting placement. Charges/Coding Visit Charges Inpatient E&M: 72907 Subs Hosp L2
[2024-06-21] MEDS: Bisacodyl 10 MG Suppository RC (13:25)
[2024-06-21] MEDS: Menthol/Lanolin/Calamine/Znox 113 GM Tube 1 APPLIC TOPICAL ×2 (13:28→20:59)
[2024-06-21] MEDS: Nystatin Ointment 1 APPLIC TOPICAL ×2 (13:29→20:58)
--- NOTE | 2024-06-21 13:46 | PN.ORTHO_ITS ---
Subjective Subjective Saw patient in PCU. Patient says today he has increased pain as compared to yesterday given the fact that he has had constipation which he says, presses on his sciatic nerve. Suppository to be given by nursing. Says therapy came to see him this morning however given his leg pain and weakness he was not able to do much with them. Says when he stood with therapy his leg gave out again. Objective Data Objective Data Vital Signs: Vital Signs Temp Pulse Resp BP Pulse Ox O2 Del Method 98 F 54 L 16 119/64 95 Room Air 06/21/24 11:40 06/21/24 11:49 06/21/24 11:40 06/21/24 11:40 06/21/24 11:40 06/21/24 11:40 Oxygen Delivery Method Room Air Weight: 228 lb 13.437 oz Body Mass Index (BMI) 30.2 Intake & Output: Intake and Output for Last 24 Hours 06/19/24 06/20/24 06/21/24 23:59 23:59 23:59 Intake Total 1000 / 1000 370 / 370 Output Total 1200 / 1800 1150 / 1450 300 / 300 Balance -200 / -800 -1150 / -1330 70 / 70 Lab / Micro Data 06/21/24 05:51 06/21/24 05:51 Labs: Laboratory Results - last 24 hr 06/21/24 05:51: WBC 12.6 H, RBC 4.26 L, Hgb 12.6 L, Hct 40.3, MCV 94.6 H, MCH 29.6, MCHC 31.3 L, RDW Std Deviation 50.7 H, RDW Coeff of Emre 14.8 H, Plt Count 263, MPV 11.1, Immature Gran % (Auto) 1.000 H, Neut % (Auto) 81.5 H, Lymph % (Auto) 5.8 L, [place] % (Auto) 11.2 H, Eos % (Auto) 0.3, Baso % (Auto) 0.2, A bsolute Neuts (auto) 10.2 H, Absolute Lymphs (auto) 0.73 L, Nucleated RBC % 0, Sodium 140, Potassium 4.0, Chloride 108 H, Carbon Dioxide 28.0, Anion Gap 3 L, B UN 26 H, Creatinine 0.81, Estim Creat Clear Calc 95.10, Est GFR (MDRD) Af Amer 118, Est GFR (MDRD) Non-Af 98, BUN/Creatinine Ratio 32.1 H, Glucose 107 H, Calcium 9.9 Physical Exam Narrative Cervical spine incisions well-healed. Okay to shave with electric razor. Neurologic evaluation shows grade 4+ strength in all 4 extremities. Some hypertonia noticed in the lower extremities which is baseline. Limited range of motion today in the bilateral lower extremities due to pain, also limited right shoulder range of motion due to a pre-existing bursitis. Const alert, oriented x3 and no apparent distress Assessment & Plan Assessment/Plan (1) Other intervertebral disc degeneration, lumbar region with discogenic back pain and lower extremity pain: PLAN: Plan Awaiting TCU approval from insurance. Patient uncertain if he wishes to go to a SNF after discharge due to fear of illness at the correction. Explained to him the benefit of rehab before going home to increase safety and strength and to prevent any further falls since he is continue to have his lower extremities give out on him when standing and walking with therapy. Patient will discuss options with therapy, employment case manager, and family. Encouraged patient to see therapy again today to do more activities with them. Encouraged bed mobility and exercises. Encouraged that he drink more fluids and increase movement and once the suppository is given hopefully his constipation will alleviate. Charges/Coding Visit Charges Inpatient E&M: 15008 Subs Hosp L2
[2024-06-21] MEDS: Acetaminophen 325 MG Tablet 650 MG PO (14:23)
[2024-06-21] MEDS: Senna/Docusate Sodium 1 Tablet 2 TABLET PO (16:49)
[2024-06-22 01:38] VITALS: BMI 30.2
[2024-06-22 03:00] VITALS: BP 158/73; PULSE 55; RESP 16; TEMP 36.6; O2SAT 93
[2024-06-22 03:25] VITALS: BMI 29.4
[2024-06-22 07:32] LABS: Absolute Lymphocyte Count 0.73 X10^3/uL (0.83-4.51); Absolute Neutrophil Count 9.1 X10^3/uL (2.0-7.7); Basophil# 0.03 X10^3/uL; Basophil% 0.3 % (0-1); Eosinophil# 0.05 X10^3/uL; Eosinophils% 0.4 % (0-5); Hematocrit 38.5 % (40-54); Hemoglobin 12.2 g/dL (13.0-16.5); Lymphocyte # 0.73 X10^3/ul (0.83-4.51); Lymphocyte % 6.3 % (19-41); Mean Corp Hgb Conc 31.7 g/dL (32-36); Mean Corpuscular Hgb 29.9 pg (27.0-32.0); Mean Corpuscular Volume 94.4 fL (80-94); Mean Platelet Vol. 11.4 fl (6.2-12.0); Monocyte# 1.44 X10^3/uL; Monocyte% 12.5 % (0-10); NRBC Flagged by Analyzer 0 % (0-5); Neutrophil # 9.12 X10^3/uL (2.7-7.7); Neutrophil % 79.3 % (47-70); Platelet Count 272 K/mm3 (150-450); RBC Distribution Width CV 14.7 % (11.6-14.6); RBC Distribution Width SD 51.2 fl (35.1-43.9); Red Blood Count 4.08 M/mm3 (4.6-6.2); White Blood Count 11.5 K/mm3 (4.4-11.0)
[2024-06-22 07:49] LABS: Anion Gap 1 (5-15); BUN 35 mg/dL (7-18); BUN/Creat Ratio 45.1 RATIO (10-20); Calcium,Total 9.8 mg/dL (8.5-10.1); Chloride 109 mmol/L (98-107); Creatinine, Serum 0.78 mg/dL (0.70-1.30); EST Glomerular Filtration Rate 103 mL/min (>60); Est Glom Filt Rate - Afr Amer 125 mL/min (>60); Estimated Creatinine Clearance 95.13 ml/min; Glucose 95 mg/dL (74-106); Sodium Level 141 mmol/L (136-145)
[2024-06-22 09:00] VITALS: BP 130/94; PULSE 65; RESP 16; TEMP 36.2; O2SAT 95
[2024-06-22 09:14] VITALS: PULSE 65
[2024-06-22] MEDS: Metoprolol Tartrate 50 MG Tablet PO ×2 (09:14→20:46)
[2024-06-22] MEDS: Amiodarone 200 MG Tablet PO (09:14)
[2024-06-22] MEDS: dexAMETHasone 4 MG Tablet PO (09:14)
[2024-06-22] MEDS: APIXABAN 5 MG TABLET PO ×2 (09:14→20:50)
--- NOTE | 2024-06-22 09:58 | PCM.PN.ORT ---
Subjective Subjective Patient is doing better today and says that his constipation has cleared up which has improved his sciatic leg pain. Plans to work with therapy later. Objective Data Objective Data Vital Signs: Vital Signs Temp Pulse Resp BP Pulse Ox O2 Del Method 97.2 F L 65 16 130/94 H 95 Room Air 06/22/24 09:00 06/22/24 09:14 06/22/24 09:00 06/22/24 09:00 06/22/24 09:00 06/22/24 09:00 Oxygen Delivery Method Room Air Weight: 222 lb 14.197 oz Body Mass Index (BMI) 29.4 Intake & Output: Intake and Output for Last 24 Hours 06/20/24 06/21/24 06/22/24 23:59 23:59 23:59 Intake Total 1020 / 1020 Output Total 1150 / 1450 500 / 800 775 / 775 Balance -1150 / -1330 520 / 220 -775 / -775 Lab / Micro Data 06/22/24 06:26 06/22/24 06:26 Labs: Laboratory Results - last 24 hr 06/22/24 06:26: WBC 11.5 H, RBC 4.08 L, Hgb 12.2 L, Hct 38.5 L, MCV 94.4 H, MCH 29.9, MCHC 31.7 L, RDW Std Deviation 51.2 H, RDW Coeff of Emre 14.7 H, Plt Count 272, MPV 11.4, Immature Gran % (Auto) 1.200 H, Neut % (Auto) 79.3 H, Lymph % (Auto) 6.3 L, [place] % (Auto) 12.5 H, Eos % (Auto) 0.4, Baso % (Auto) 0.3, Absolute Neuts (auto) 9.1 H, Absolute Lymphs (auto) 0.73 L, Nucleated RBC % 0, Sodium 141, Potassium 4.0, Chloride 109 H, Carbon Dioxide 31.0, Anion Gap 1 L, BUN 35 H, Creatinine 0.78, Estim Creat Clear Calc 95.13, Est GFR (MDRD) Af Amer 125, Est GFR (MDRD) Non-Af 103, BUN/Creatinine Ratio 45.1 H, Glucose 95, Calcium 9.8 Physical Exam Narrative Cervical spine incisions well-healed. Neurologic evaluation shows grade 4+ strength in all 4 extremities. Some hypertonia noticed in the lower extremities which is baseline. Const alert, oriented x3 and no apparent distress Assessment & Plan Assessment/Plan (1) Other intervertebral disc degeneration, lumbar region with discogenic back pain and lower extremity pain: PLAN: Plan Awaiting rehab or TCU approval from insurance. Patient says that he will stay with [facility] however does not wish to go to an outside custodial facility and will return home if insurance doesn't approve. Says that he wants to walk more with therapy and with nursing, encouraged him to do so and to discuss with therapy to allow aides to walk with patient. If is at the TCU we will see him there in 2 weeks, otherwise he will follow up in the office in 2 weeks. Charges/Coding Visit Charges Inpatient E&M: 90922 Subs Hosp L2
--- NOTE | 2024-06-22 12:29 | PN_ITS ---
Subjective Subjective Patient seen and examined. He had no active complaints and felt much better. Review of systems is otherwise negative. He is now asking to go home with outpatient therapy if he does not get placement in TCU or acute rehab. He has remained hemodynamically stable. Objective Data Objective Data Vital Signs: Vital Signs Temp Pulse Resp BP Pulse Ox O2 Del Method 97.2 F L 65 16 130/94 H 95 Room Air 06/22/24 09:00 06/22/24 09:14 06/22/24 09:00 06/22/24 09:00 06/22/24 09:00 06/22/24 09:00 Oxygen Delivery Method Room Air Weight: 222 lb 14.197 oz Body Mass Index (BMI) 29.4 Intake & Output: Intake and Output for Last 24 Hours 06/20/24 06/21/24 06/22/24 23:59 23:59 23:59 Intake Total 1020 / 1020 Output Total 1150 / 1450 500 / 800 775 / 775 Balance -1150 / -1330 520 / 220 -775 / -775 Lab / Micro Data 06/22/24 06:26 06/22/24 06:26 Labs: Laboratory Results - last 24 hr 06/22/24 06:26: WBC 11.5 H, RBC 4.08 L, Hgb 12.2 L, Hct 38.5 L, MCV 94.4 H, MCH 29.9, MCHC 31.7 L, RDW Std Deviation 51.2 H, RDW Coeff of Emre 14.7 H, Plt Count 272, MPV 11.4, Immature Gran % (Auto) 1.200 H, Neut % (Auto) 79.3 H, Lymph % (Auto) 6.3 L, [place] % (Auto) 12.5 H, Eos % (Auto) 0.4, Baso % (Auto) 0.3, A bsolute Neuts (auto) 9.1 H, Absolute Lymphs (auto) 0.73 L, Nucleated RBC % 0, Sodium 141, Potassium 4.0, Chloride 109 H, Carbon Dioxide 31.0, Anion Gap 1 L, B UN 35 H, Creatinine 0.78, Estim Creat Clear Calc 95.13, Est GFR (MDRD) Af Amer 125, Est GFR (MDRD) Non-Af 103, BUN/Creatinine Ratio 45.1 H, Glucose 95, Calcium 9.8 Physical Exam Const alert and oriented x3 Constitutional Narrative: weak General Appearance: cooperative HEENT normocephalic, head/scalp atraumatic and moist oral mucous membranes Eyes PERRL and EOMs intact bilaterally Neck supple and no JVD Neck Narrative: in neck brace Lymph Lymphatic: no lymphadenopathy noted and no lymphedema noted Resp normal respiratory effort, normal air movement and clear to auscultation bilaterally Cardio regular rate, regular rhythm, S1 normal heart sound, S2 normal heart sound and no murmurs GI normal to inspection, nondistended, normoactive bowel sounds, soft to palpation, non-tender and non-distended Extremity normal capillary refill, no clubbing, cyanosis or edema and no calf tenderness General Extremity: no tenderness to palpation of joints or extremities Skin General Skin Exam: no breakdown Neuro CN's II-XII intact bilaterally Neuro Narrative: has mildly decreased sensation to light touch on LLE, power in LLE is now 3/5, power in RLE is 3/5. Motor Exam: general weakness Psych thought process normal and cooperative Appearance: appropriate Assessment & Plan Assessment/Plan (1) Bilateral leg weakness: (2) Low back pain: PLAN: Plan #Debility due to bilateral lower extremity weakness with mechanical fall * Patient has a history of chronic paresthesias bilateral upper extremities. He did have surgery namely C3-C5 anterior cervical discectomy and fusion due to history of cervical stenosis. Surgery was done on 05/31/2024 and was subsequently discharged home. * However his upper extremity numbness and tingling as well as weakness, numbness and tingling in his lower extremities worsened. Was mainly in the left lower extremity. He fell at home and so came into the ED. * MRI of the brain showed no acute intracranial pathology. * MRI of the lumbar spine showed new fluid signal and disc space narrowing at the L3-L4 level and acute on chronic discitis could not be excluded and there was also multilevel bilateral neuroforaminal narrowing. * Patient was started on IV vancomycin and cefepime. 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 He took the cefepime but subsequently had a swollen tongue for which he received Benadryl. * MRI of the lumbar spine with contrast showed no abnormal enhancing lesions intradurally and extradurally to suspect mets to the spine, and mild contrast enhancement of the vetebral marrow at L3-L4 due to aseptic intervertebral osteochondritis; no evidence of discitis * now on PO decadron * PT OT on board. Fall precautions. * #History of cervical stenosis and myelopathy as well as myelomalacia * Status post C3-C5 anterior cervical discectomy and fusion on 05/30/2024. * Paresthesias in both upper extremities has improved. Remains in neck brace. * PT OT on board. Fall precautions. * #Nonobstructive CAD * on eliquis, metoprolol and statin. * #Hypertension: * on amlodipine and metoprolol. IV hydralazine prn. * On amiodarone also. * #paroxysmal afib: on amiodarone and eliquis as well as metoprolol #Hyperlipidemia: on statin #Obesity: BMI is 29.3. Complicates acute care, expected recovery and prognosis. DVT prophylaxis: On Eliquis CODE STATUS: Full code Disposition: still awaiting placement. Charges/Coding Visit Charges Inpatient E&M: 35446 Subs Hosp L2
[2024-06-22] MEDS: Menthol/Lanolin/Calamine/Znox 113 GM Tube 1 APPLIC TOPICAL ×2 (14:55→20:45)
[2024-06-22] MEDS: Nystatin Ointment 1 APPLIC TOPICAL ×2 (14:56→20:50)
[2024-06-22 15:00] VITALS: BP 132/94; PULSE 70; RESP 16; TEMP 36.6; O2SAT 95
[2024-06-22 15:04] VITALS: BMI 29.4
--- NOTE | 2024-06-22 15:29 | CASEMGMT ---
ANDREW met with patient and let him know that we are still waiting on his insurance to approve him. ANDREW explained sometimes insurance can take a couple of days. SW will let him know as soon as SW hears something. ANDREW asked patient if he would like SW to call anyone and he asked SW to call Sadia. ANDREW called Sadia and let her know this information as well. Plan: [facility] Acute Rehab pending pre-cert [facility] PINEDA
--- NOTE | 2024-06-22 17:21 | MDS.RN ---
Per Ale Masters patient approved for rehab unit. Dr. Celaya notified.
[2024-06-22 20:46] VITALS: BP 127/86; PULSE 63
[2024-06-22] MEDS: Senna/Docusate Sodium 1 Tablet 2 TABLET PO (20:53)
[2024-06-22 21:00] VITALS: BP 127/86; PULSE 63; RESP 16; TEMP 36.6; O2SAT 97
[2024-06-23 01:39] VITALS: BMI 29.4
[2024-06-23 03:00] VITALS: BP 138/74; PULSE 57; RESP 16; TEMP 36.4; O2SAT 95
[2024-06-23 05:23] VITALS: BMI 29.4
[2024-06-23 07:11] LABS: Absolute Lymphocyte Count 1.07 X10^3/uL (0.83-4.51); Absolute Neutrophil Count 10.1 X10^3/uL (2.0-7.7); Basophil# 0.08 X10^3/uL; Basophil% 0.6 % (0-1); Eosinophil# 0.09 X10^3/uL; Eosinophils% 0.7 % (0-5); Hematocrit 37.9 % (40-54); Hemoglobin 12.3 g/dL (13.0-16.5); Lymphocyte # 1.07 X10^3/ul (0.83-4.51); Lymphocyte % 8.1 % (19-41); Mean Corp Hgb Conc 32.5 g/dL (32-36); Mean Corpuscular Hgb 30.4 pg (27.0-32.0); Mean Corpuscular Volume 93.6 fL (80-94); Mean Platelet Vol. 11.3 fl (6.2-12.0); Monocyte# 1.55 X10^3/uL; Monocyte% 11.8 % (0-10); NRBC Flagged by Analyzer 0 % (0-5); Neutrophil # 10.13 X10^3/uL (2.7-7.7); Neutrophil % 77.1 % (47-70); POSITIVE DIFFERENTIAL YES; Platelet Count 272 K/mm3 (150-450); RBC Distribution Width CV 14.6 % (11.6-14.6); RBC Distribution Width SD 50.4 fl (35.1-43.9); Red Blood Count 4.05 M/mm3 (4.6-6.2); White Blood Count 13.1 K/mm3 (4.4-11.0)
[2024-06-23 07:22] LABS: Differential Indicated SCAN CRITERIA MET
[2024-06-23 07:45] LABS: Anion Gap 2 (5-15); BUN 31 mg/dL (7-18); BUN/Creat Ratio 39.8 RATIO (10-20); Calcium,Total 9.8 mg/dL (8.5-10.1); Chloride 107 mmol/L (98-107); Creatinine, Serum 0.78 mg/dL (0.70-1.30); EST Glomerular Filtration Rate 102 mL/min (>60); Est Glom Filt Rate - Afr Amer 124 mL/min (>60); Estimated Creatinine Clearance 95.13 ml/min; Glucose 93 mg/dL (74-106); Potassium 3.9 mmol/L (3.5-5.1); Sodium Level 140 mmol/L (136-145)
[2024-06-23 09:37] LABS: Differential Comment SCANNED; Platelet Estimate ADEQUATE (ADEQ); Platelet Morphology LARGE
[2024-06-23 09:38] LABS: Ovalocyte 2+
[2024-06-23 10:10] VITALS: BP 105/92; PULSE 62; RESP 16; TEMP 36.2; O2SAT 98
[2024-06-23] MEDS: APIXABAN 5 MG TABLET PO (10:13)
[2024-06-23] MEDS: Amiodarone 200 MG Tablet PO (10:13)
[2024-06-23] MEDS: dexAMETHasone 4 MG Tablet PO (10:13)
[2024-06-23] MEDS: Acetaminophen 325 MG Tablet 650 MG PO (10:24)
--- NOTE | 2024-06-23 10:45 | TREXTCAR_ITS ---
Diet Diet Order/Speech Therapy: 06/16/24 21:57 Diet: Cardiac - Heart Healthy Food consistency:: Regular Liquid Consistency:: Regular/Thin Routine Orders/Code Status Enema Type: Fleetz Enema Frequency: Daily PRN DC O2, CPAP, BIPAP needs Home O2 Discharge instructions: No Wound(s) Murtaza buttock: Wound Type: shearing Therapies Weight Bearing: Weight bearing as tolerated Physical Therapy: Eval and Treat Occupational Therapy: Eval and Treat Problem/Diagnosis (1) Bilateral leg weakness: Status: Acute Code(s): R29.898 - Other symptoms and signs involving the musculoskeletal system (2) Low back pain: Status: Acute Code(s): M54.50 - Low back pain, unspecified Plan #Debility due to bilateral lower extremity weakness with mechanical fall * Patient has a history of chronic paresthesias bilateral upper extremities. He did have surgery namely C3-C5 anterior cervical discectomy and fusion due to history of cervical stenosis. Surgery was done on 05/31/2024 and was subsequently discharged home. * However his upper extremity numbness and tingling as well as weakness, numbness and tingling in his lower extremities worsened. Was mainly in the left lower extremity. He fell at home and so came into the ED. * MRI of the brain showed no acute intracranial pathology. * MRI of the lumbar spine showed new fluid signal and disc space narrowing at the L3-L4 level and acute on chronic discitis could not be excluded and there was also multilevel bilateral neuroforaminal narrowing. * Patient was started on IV vancomycin and cefepime. 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 He took the cefepime but subsequently had a swollen tongue for which he received Benadryl. * MRI of the lumbar spine with contrast showed no abnormal enhancing lesions intradurally and extradurally to suspect mets to the spine, and mild contrast enhancement of the vetebral marrow at L3-L4 due to aseptic intervertebral osteochondritis; no evidence of discitis * now on PO decadron * PT OT on board. Fall precautions. * #History of cervical stenosis and myelopathy as well as myelomalacia * Status post C3-C5 anterior cervical discectomy and fusion on 05/30/2024. * Paresthesias in both upper extremities has improved. Remains in neck brace. * PT OT on board. Fall precautions. * #Nonobstructive CAD * on eliquis, metoprolol and statin. * #Hypertension: * on amlodipine and metoprolol. IV hydralazine prn. * On amiodarone also. * #paroxysmal afib: on amiodarone and eliquis as well as metoprolol #Hyperlipidemia: on statin #Obesity: BMI is 29.3. Complicates acute care, expected recovery and prognosis. DVT prophylaxis: On Eliquis CODE STATUS: Full code Disposition: still awaiting placement. Allergies/Procedures Done in Hospital Allergies acetaminophen (From [place]) Allergy (Severe, Verified 06/16/24 15:34) SOB and leg weakness hydrocodone (From [place]) Allergy (Severe, Verified 06/16/24 15:34) SOB and leg weakness codeine Adverse Reaction (Severe, Verified 06/16/24 15:34) GOOFY GO OUT OF IT peppermint Adverse Reaction (Severe, Verified 06/16/24 15:34) Other HEADACHE Procedures: None Type of Care/Length of Stay Estimated LOS: Convalescent Care Less Than 30 days Type of Care Needed: Skilled Rehab Potential: Fair Prognosis: Fair Additional Orders/Day of Discharge Day of Discharge: 06/23/24 Dietary and Speech Recommendations Dietitian Recommendations/Changes: Continue Cardiac diet to manage medical condi tions. Discharge Plan Admission Admit Date/Time: 06/16/24 21:14 Primary Reason for Your Visit: debility due to mechanical fall Attending Provider: Nina Celaya Primary Care Provider: Joe Trotter Consulting Providers: Jesús Madrid; Fifi Pimentel Instructions Patient Instructions: ED FALL-from [id number] Discharge Orders/Prescriptions Prescriptions: Continued cholecalciferol (vitamin D3) 50 mcg (2,000 unit) tablet 4,000 unit PO DAILY magnesium 250 mg tablet 1,000 mg PO DAILY mecobalamin (vitamin B12) 1,000 mcg tablet,chewable 1,000 mcg PO DAILY potassium 99 mg tablet 99 mg PO DAILY hydrochlorothiazide 25 mg tablet 25 mg PO DAILY PRN PRN (Reason: edema) Rx Instructions: 25 mg orally 1 tablet by mouth daily needed for ankle or leg swelling; PRN; sennosides-docusate sodium [Stimulant Laxative Plus] 8.6-50 mg Tablet 2 tab PO BID PRN (Reason: constipation) Qty: 30 0RF acetaminophen 500 mg Tablet 500 mg PO Q6H PRN (Reason: pain) metoprolol tartrate 50 mg tablet 50 mg PO BID Qty: 180 3RF amlodipine 10 mg tablet 10 mg PO DAILY Qty: 90 3RF Eliquis 5 mg tablet 5 mg PO BID Qty: 60 11RF amiodarone 200 mg tablet 200 mg PO QDAY Qty: 90 3RF Referrals / Follow Up: Joe Trotter DO [Primary Care Provider] - Within 1 Week Jesús Madrid MD [Med Staff - Active Staff] - Within 2 Weeks Disposition Disposition (needs filled in before D/C Order can be placed): Care Home Facility
--- NOTE | 2024-06-23 10:51 | DS.PCM_ITS ---
Providers Date of Admission: 06/16/24 Date of Discharge: 06/23/24 Primary Care Physician: Dr. Joe Trotter, DO Consultations 06/16/24 21:56 Consult: Orthopedics Routine Consulting Provider: Jesús Madrid Reason for Consult: Recent cervical surgery EMERGENT Consult: No MD Notified: Yes Date Notified: 06/16/24 Time Notified: 21:17 Method of Notification: ED Physician Initiated Reason For Visit: DEBILITY,FALL, BL LE WEAKNESS Diagnosis Discharge Diagnosis (1) Bilateral leg weakness: Status: Acute Code(s): R29.898 - Other symptoms and signs involving the musculoskeletal system (2) Low back pain: Status: Deleted Code(s): M54.50 - Low back pain, unspecified Plan #Debility due to bilateral lower extremity weakness with mechanical fall * Patient has a history of chronic paresthesias bilateral upper extremities. He did have surgery namely C3-C5 anterior cervical discectomy and fusion due to history of cervical stenosis. Surgery was done on 05/31/2024 and was subsequently discharged home. * However his upper extremity numbness and tingling as well as weakness, numbness and tingling in his lower extremities worsened. Was mainly in the left lower extremity. He fell at home and so came into the ED. * MRI of the brain showed no acute intracranial pathology. * MRI of the lumbar spine showed new fluid signal and disc space narrowing at the L3-L4 level and acute on chronic discitis could not be excluded and there was also multilevel bilateral neuroforaminal narrowing. * Patient was started on IV vancomycin and cefepime. 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 He took the cefepime but subsequently had a swollen tongue for which he received Benadryl. * MRI of the lumbar spine with contrast showed no abnormal enhancing lesions intradurally and extradurally to suspect mets to the spine, and mild contrast enhancement of the vetebral marrow at L3-L4 due to aseptic intervertebral osteochondritis; no evidence of discitis * now on PO decadron * PT OT on board. Fall precautions. * #History of cervical stenosis and myelopathy as well as myelomalacia * Status post C3-C5 anterior cervical discectomy and fusion on 05/30/2024. * Paresthesias in both upper extremities has improved. Remains in neck brace. * PT OT on board. Fall precautions. * #Nonobstructive CAD * on eliquis, metoprolol and statin. * #Hypertension: * on amlodipine and metoprolol. IV hydralazine prn. * On amiodarone also. * #paroxysmal afib: on amiodarone and eliquis as well as metoprolol #Hyperlipidemia: on statin #Obesity: BMI is 29.3. Complicates acute care, expected recovery and prognosis. DVT prophylaxis: On Eliquis CODE STATUS: Full code Disposition: still awaiting placement. Medications at Discharge Home Medications cholecalciferol (vitamin D3) 50 mcg (2,000 unit) tablet 4,000 unit PO DAILY Supplement 04/05/20 metoprolol tartrate 50 mg tablet 50 mg PO BID BP #180 tabs 02/12/24 amlodipine 10 mg tablet 10 mg PO DAILY BP #90 tabs 04/12/24 magnesium 250 mg tablet 1,000 mg PO DAILY supplement 05/25/24 mecobalamin (vitamin B12) 1,000 mcg chewable tablet 1,000 mcg PO DAILY Supplement 05/25/24 potassium 99 mg tablet 99 mg PO DAILY Supplement 05/25/24 apixaban 5 mg tablet (Eliquis) 5 mg PO BID Blood thinner #60 tabs 06/07/24 amiodarone 200 mg tablet 200 mg PO QDAY BP #90 tabs 06/14/24 acetaminophen 500 mg tablet 500 mg PO Q6H PRN pain 06/16/24 sennosides 8.6 mg-docusate sodium 50 mg tablet (Stimulant Laxative Plus) 2 tab PO BID constipation 06/23/24 Hospital Course Operations None Procedures None Summary of Care Provided Minutes Spent on Discharge: 45 Hospital Course: Patient is a 79-year-old male with past medical history as outlined who recently had C3-5 anterior cervical discectomy and fusion due to history of cervical stenosis. This was done on 05/31/2024. He was doing well after surgery but came back to the ED on 06/16/2024 with a complaint of inability to ambulate for 4 days prior to admission. He also had paresthesias in his upper extremities which were chronic but had worsened. He said at home his right leg gave out and he fell. He therefore came into the ED. There was concern for stroke but CT of the brain showed no acute intracranial pathology. Abdominal ultrasound showed normal ultrasound of the urinary bladder with distended bladder. He was admitted and managed for debility due to mechanical fall in the setting of recent neck surgery with resultant bilateral lower extremity weakness. Spine surgery was consulted. MRI of the brain done to rule out a stroke. MRI of the lumbar spine showed new fluid signal and disc space narrowing at the L3-L4 level and acute on chronic discitis could not be excluded and there was also multilevel bilateral neuroforaminal narrowing. He was started on IV vancomycin and cefepime due to concerns about possible discitis. Patient refused to take vancomycin because his had had red man syndrome. He did take the cefepime but subsequently developed a swollen tongue for which she took Benadryl. MRI of the lumbar spine and thoracic spine with contrast was ordered and spine surgery reviewed the images and did not think that there was any evidence of discitis. Official read also did not show any evidence of discitis. Patient symptoms were therefore thought to be due to the neck surgery he had had. He was started on IV Decadron and subsequently transition to p.o. Decadron. His symptoms did improve and he felt much better. He was able to ambulate and work with therapy. His concern however remained some fecal incontinence and patient was told he would have to monitor this and see if it improves during therapy. He was discharged to acute rehab facility on 06/13/2024. He is follow-up with his primary care doctor and follow-up with spine surgery within 1 to 2 weeks. Patient seen and examined prior to discharge. He had no active complaints and felt much better. Review of symptoms otherwise negative. Labs and vitals reviewed. Home medication reviewed and reconciled. Physical Exam Const alert, oriented x3 and no apparent distress Constitutional Narrative: weak General Appearance: cooperative and comfortable HEENT normocephalic, head/scalp atraumatic, hearing grossly normal bilaterally and moist oral mucous membranes Mouth: oral and palatal mucosa normal Eyes PERRL and EOMs intact bilaterally Neck no lymphadenopathy, supple and no JVD Neck Narrative: in neck brace Lymph Lymphatic: no lymphadenopathy noted and no lymphedema noted Resp normal respiratory effort, normal air movement and clear to auscultation bilaterally Cardio regular rate, regular rhythm, S1 normal heart sound, S2 normal heart sound and no murmurs GI normal to inspection, nondistended, normoactive bowel sounds, soft to palpation, non-tender and non-distended Extremity normal to inspection, normal capillary refill, no clubbing, cyanosis or edema and no calf tenderness General Extremity: no tenderness to palpation of joints or extremities Skin no rashes or lesions noted General Skin Exam: no breakdown Neuro CN's II-XII intact bilaterally Neuro Narrative: has mildly decreased sensation to light touch on LLE, power in LLE is now 3/5, power in RLE is 3/5. Motor Exam: general weakness Psych thought process normal and cooperative Appearance: appropriate Weight / BMI Weight Weight: 222 lb 14.197 oz Body Mass Index (BMI) 29.4 ABG / Lab / Microbiology Data 06/23/24 06:09 06/23/24 06:05 Laboratory: Laboratory Results - last 24 hr 06/23/24 06:05: Sodium 140, Potassium 3.9, Chloride 107, Carbon Dioxide 31.0, A nion Gap 2 L, BUN 31 H, Creatinine 0.78, Estim Creat Clear Calc 95.13, Est GFR (MDRD) Af Amer 124, Est GFR (MDRD) Non-Af 102, BUN/Creatinine Ratio 39.8 H, Glucose 93, Calcium 9.8 06/23/24 06:09: WBC 13.1 H, RBC 4.05 L, Hgb 12.3 L, Hct 37.9 L, MCV 93.6, MCH 30.4, MCHC 32.5, RDW Std Deviation 50.4 H, RDW Coeff of Emre 14.6, Plt Count 272, MPV 11.3, Immature Gran % (Auto) 1.700 H, Neut % (Auto) 77.1 H, Lymph % (Auto) 8.1 L, Benton % (Auto) 11.8 H, Eos % (Auto) 0.7, Baso % (Auto) 0.6, Absolute Neuts (auto) 10.1 H, Absolute Lymphs (auto) 1.07, Nucleated RBC % 0, Differential Comment SCANNED, Diff Path Review May foll, Platelet Estimate ADEQUATE, Plt Morphology Comment LARGE, Ovalocytes 2+ D/C Instructions Discharge Diet: Low fat / Low cholesterol Discharge Activity: Return to Normal Activity Weight Bearing Status: Weight bearing as tolerated Call your doctor if you observe: Fever of 101 or Higher, Shortness of breath, Dizziness, Swelling in the ankles and Chest pain DC O2, CPAP, BIPAP Needs Home O2 Discharge instructions: No DC home with Oxygen: No Meaningful Use Info Meaningful Use Meaningful Use Diagnoses (Choose all that apply): None applicable Ischemic Stroke Statin Dosing Therapy Reference: STATIN DOSE THERAPY REFERENCE: * Patients > 75 years receive moderate or high dose statin therapy. * Patients 75 years or YOUNGER should receive HIGH intensity statin dose unless contraindicated. You will be required to document reason for non-treatment if statin daily dose does not meet guidelines. HIGH DOSE STATIN THERAPY DAILY Atorvastatin > than or = to 40 mg Rosuvastatin > than or = to 20 mg Amlodipine + Atorvastatin > than or = to 2.5/40 mg Ezetimibe + Simvastatin 10/80 mg Simvastatin 80mg Discharge Plan Admission Admit Date/Time: 06/16/24 21:14 Primary Reason for Your Visit: debility due to mechanical fall Attending Provider: Nina Celaya Primary Care Provider: Joe Trotter Consulting Providers: Jesús Madrid; Fifi Pimentel Instructions Patient Instructions: ED FALL-from [facility] Discharge Orders/Prescriptions Prescriptions: Continued cholecalciferol (vitamin D3) 50 mcg (2,000 unit) tablet 4,000 unit PO DAILY magnesium 250 mg tablet 1,000 mg PO DAILY mecobalamin (vitamin B12) 1,000 mcg tablet,chewable 1,000 mcg PO DAILY potassium 99 mg tablet 99 mg PO DAILY acetaminophen 500 mg Tablet 500 mg PO Q6H PRN (Reason: pain) metoprolol tartrate 50 mg tablet 50 mg PO BID Qty: 180 3RF amlodipine 10 mg tablet 10 mg PO DAILY Qty: 90 3RF Eliquis 5 mg tablet 5 mg PO BID Qty: 60 11RF amiodarone 200 mg tablet 200 mg PO QDAY Qty: 90 3RF No Action sennosides-docusate sodium [Stimulant Laxative Plus] 8.6-50 mg Tablet 2 tab PO BID Referrals / Follow Up: Jesús Madrid MD [Med Staff - Active Staff] - Within 2 Weeks Joe Trotter DO [Primary Care Provider] - Within 1 Week Disposition Disposition (needs filled in before D/C Order can be placed): [facility] Charges/Coding Visit Charges Inpatient E&M: 80132 Disch Hosp >30min
--- NOTE | 2024-06-23 11:11 | CASEMGMT ---
Social Work Precert has been obtained for pt to go to [facility]. Physician notified and pt is ready for dc today. SW met with pt and dgt Ramya and updated and both are agreeable to discharge to [facility] today. Ashlee in [facility] notified and pt's RN notified. Disposition: Inpatient Rehab [facility]
[2024-06-23 11:27] VITALS: BMI 29.4
[2024-06-24 13:57] LABS: Pathologist Review Reviewed
== END 2024-06-23 11:50 | disposition skilled nursing facility (03) | DRG 552 ==
LOC: ED 21:32 → PCU 21:48
PROVIDERS: Physician Assistant; Admitting Provider Family Medicine; Emergency Provider Emergency Medicine; PCP Family Medicine; Visit Provider Student in an Organized Health Care Education/Training Program
DX: M51.360 Other intervertebral disc degeneration, lumbar region with discogenic back pain only (principal); G95.89 Other specified diseases of spinal cord; I47.10 Supraventricular tachycardia, unspecified; G99.2 Myelopathy in diseases classified elsewhere; E66.9 Obesity, unspecified; D47.2 Monoclonal gammopathy; K21.9 Gastro-esophageal reflux disease without esophagitis; I48.0 Paroxysmal atrial fibrillation; I12.9 Hypertensive chronic kidney disease with stage 1 through stage 4 chronic kidney disease, or unspecified chronic kidney disease; I77.819 Aortic ectasia, unspecified site; E78.5 Hyperlipidemia, unspecified; N18.2 Chronic kidney disease, stage 2 (mild); G62.9 Polyneuropathy, unspecified; I25.10 Atherosclerotic heart disease of native coronary artery without angina pectoris; M48.061 Spinal stenosis, lumbar region without neurogenic claudication; W19.XXXA Unspecified fall, initial encounter; M48.02 Spinal stenosis, cervical region; M19.90 Unspecified osteoarthritis, unspecified site; I87.2 Venous insufficiency (chronic) (peripheral); R53.81 Other malaise; Z98.1 Arthrodesis status; R29.898 Other symptoms and signs involving the musculoskeletal system; Z87.891 Personal history of nicotine dependence; Z79.01 Long term (current) use of anticoagulants; Z68.29 Body mass index [BMI] 29.0-29.9, adult; Z79.891 Long term (current) use of opiate analgesic; Z99.89 Dependence on other enabling machines and devices; Z94.7 Corneal transplant status; Z98.890 Other specified postprocedural states; Z88.1 Allergy status to other antibiotic agents; Z95.1 Presence of aortocoronary bypass graft
CPT/HCPCS: 36415; 51798; 70450; 70551; 72125; 72146; 72147; 72148; 72149; 80048; 80053; 80061; 82550; 83036; 83735; 84443; 85025; 92610; 93005; 97163; 97166; 97530; 97535; 99283; A9575; A4216

== ENCOUNTER 2024-06-23 12:00 | Inpatient (IN) | payer MEDICARE, SELFPAY ==
[2024-06-23 12:36] VITALS: BMI 29.2
--- NOTE | 2024-06-23 12:57 | PCM.HP.STD ---
[facility] - General General Date of Admission: 06/23/24 Date of Service: 06/23/24 Chief Complaint: Debility secondary to cervical fusion HPI Narrative TUCKER BOWEN, is a 79-year-old M with a past medical history of nonobstructive coronary artery disease, hyperlipidemia, MGUS, GERD, chronic low back pain, remote tobacco dependence, paroxysmal atrial fibrillation, chronic anticoagulation (currently on Eliquis 5 mg twice daily) chronic renal failure stage II, hypertension and cervical myelopathy due to severe spinal stenosis at C3-C4 with myelomalacia. In 2023 with C3-C5 anterior cervical discectomy with fusion by Dr. Madrid. He was discharged home on 05/31/2024 with home health care. He presented to the emergency department at [facility] on 06/16/2024 complaining that he had been unable to ambulate over the preceding 4 days. He has chronic paresthesias in the bilateral upper extremities however he thought that it was worse than it was prior to surgery. He admitted to falling at home and the weakness progressed after the fall. He experienced an exacerbation of the chronic pain in the low back after the fall. He had been doing well until the fall. On physical exam in the emergency department he had weakness in both legs (L>R). Sphincter tone was normal. He denied urinary incontinence or retention. He was afebrile in the emergency department. CT of the brain showed chronic involutional changes with no acute intracranial findings. CT scan of the cervical spine showed degenerative and postoperative changes with foraminal narrowing. He was admitted to the hospitalist service and MRI of the brain, lumbar spine and thoracic spine was ordered. MRI of the brain showed no acute findings. A noncontrast MRI of the thoracic spine showed no acute disease. MRI of the lumbar spine without contrast showed new fluid signal and disc space narrowing/erosions of the L3-L4 level. MRIs of the thoracic and lumbar spine were repeated with contrast. MRI of the thoracic spine was normal with no evidence of bony metastasis that was suggested on the noncontrast MRI. MRI of the lumbar spine with contrast showed no abnormal enhancing lesions intradurally or extra Durally. There was mild contrast-enhancement of the vertebral marrow underneath the vertebral endplates at L3-L4 disc space level due to aseptic intervertebral osteochondritis. Consult was obtained with Dr. Madrid. A short course of steroids was recommended. The steroids helped and on 06/19/2024 he had 4+ strength in both lower extremities. While in the hospital he was seen by PT/OT and acute inpatient rehab was recommended at discharge. He was transferred to the acute inpatient rehab unit at [facility] on 06/23/2024 for 3 hours of therapy daily to restore function/independence at or near his level prior to his recent admission to the hospital. He is not on steroids at the time of transfer to rehab. All lab done on 06/23/2024 was personally reviewed as well as labs throughout his recent hospital admission. The white blood cell count is elevated at 13.1 and there is a left shift but, he has been on steroids. Hemoglobin is stable at 12.3 with normochromic normocytic indices. Platelets are within normal limits. Sodium is 140 and the potassium is 3.9. The BUN is 31 with a creatinine of 0.78. The creatinine is stable and the BUN may be elevated due to recent high-dose steroids. GFR is estimated at 102 which is normal. Fasting glucose was 93. [facility] Medical History (Updated 06/24/24 @ 15:[address] Sonal Torres, DO) Paroxysmal atrial fibrillation Grade I diastolic dysfunction Low back pain Myelomalacia of cervical cord Other intervertebral disc degeneration, lumbar region with discogenic back pain and lower extremity pain Fall Bilateral leg weakness Loss of hearing Wears glasses Walker as ambulation aid Injury of head and neck Gastric reflux Former smoker History of edema History of echocardiogram Cardiology follow-up encounter Neuropathy Nonobstructive atherosclerosis of coronary artery Bloody stool Dilated aortic root Paroxysmal supraventricular tachycardia Essential (primary) hypertension MGUS (monoclonal gammopathy of unknown significance) Osteoarthritis Lumbar spinal stenosis Degenerative disc disease, lumbar Venous insufficiency Hyperlipidemia Home Medications ?Medication ?Instructions ?Recorded ?Last Taken ?Type cholecalciferol (vitamin D3) 50 4,000 unit PO DAILY Supplement 04/05/20 05/29/24 History mcg (2,000 unit) tablet metoprolol tartrate 50 mg tablet 50 mg PO BID BP #180 tabs 02/12/24 Unknown Rx amlodipine 10 mg tablet 10 mg PO DAILY BP #90 tabs 04/12/24 05/29/24 Rx magnesium 250 mg tablet 1,000 mg PO DAILY supplement 05/25/24 05/29/24 History mecobalamin (vitamin B12) 1,000 1,000 mcg PO DAILY Supplement 05/25/24 05/29/24 History mcg chewable tablet potassium 99 mg tablet 99 mg PO DAILY Supplement 05/25/24 Unknown History apixaban 5 mg tablet (Eliquis) 5 mg PO BID Blood thinner #60 tabs 06/07/24 Unknown Rx amiodarone 200 mg tablet 200 mg PO QDAY BP #90 tabs 06/14/24 Unknown Rx acetaminophen 500 mg tablet 500 mg PO Q6H PRN pain 06/16/24 Unknown History sennosides 8.6 mg-docusate sodium 2 tab PO BID constipation 06/23/24 Unknown History 50 mg tablet (Stimulant Laxative Plus) Allergy/AdvReac Type Severity Reaction Status Date / Time hydrocodone (From [employer]) Allergy Severe SOB and Verified 06/16/24 15:34 leg weakness codeine AdvReac Severe GOOFY Verified 06/16/24 15:34 peppermint AdvReac Severe Other Verified 06/16/24 15:34 Family History Father CAD (coronary artery disease) Myocardial infarction, Onset Age: 57 Brother Hypertension Brother Hx of CABG Sister Atrial fibrillation Surgical History (Updated 06/24/24 @ 15:[address] 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) History of carpal tunnel surgery (2003) History of lumbar laminectomy History of left heart catheterization (LHC) (02/2008) Social History household members: spouse Smoking Status: Former smoker how long ago did patient quit smokin years ago alcohol intake: never substance use type: does not use caffeine: Yes Type: coffee Number of servings: 1 what type of physical activity do you participate in: walking and weight training frequency: daily seatbelt use: always do you feel safe at home: Yes ROS Constitutional Constitutional: Reports weakness; Denies anorexia, change in weight, chills, fatigue, fever(s) or night sweats Eyes Eyes: Denies blurry vision, change in vision, eye pain or loss of vision ENT HEENT: Reports abnormal hearing; Denies dysphagia, headache(s), hearing loss, nasal congestion or sore throat Cardiovascular Cardiovascular: Denies chest pain, dyspnea on exertion, edema, lightheadedness, orthopnea, palpitations, paroxysmal nocturnal dyspnea or syncope Respiratory/Chest Respiratory/Chest: Denies cough, dyspnea, shortness of breath at rest, shortness of breath with exertion or wheezing Gastrointestinal Gastrointestinal: Reports other Details: c/o numbness on the left side of the abd ; Denies abdominal pain, constipation, diarrhea, dyspepsia, hematemesis, hematochezia, nausea or vomiting Genitourinary Genitourinary: Denies dysuria, hematuria, nocturia, urinary frequency, urinary hesitancy, urinary incontinence or urinary urgency Musculoskeletal Musculoskeletal: Reports back pain and neck pain; Denies joint pain or joint swelling Integumentary Integumentary: Reports dry skin; Denies jaundice, pruritus or rash Neurologic Neurologic: Denies confusion, disequilibrium, dizziness, focal weakness, headache(s), paresthesias, seizures or tremor(s) Psychiatric Psychiatric: Denies anxiety, depression, homicidal ideation or suicidal ideation Endocrine Endocrinology: Denies change in body appearance, polydipsia or polyuria Hematologic/Lymphatic Hematologic/Lymphatic: Reports easy bleeding; Denies easy bruising or lymphadenopathy Allergic/Immunologic Allergic/Immunologic: Denies rhinitis, eczemia or asthma Physical Exam Const alert and oriented x3 General Appearance: cooperative HEENT normocephalic, head/scalp atraumatic and moist oral mucous membranes HEENT Narrative: No thrush Eyes PERRL, EOMs intact bilaterally, conjunctivae normal and no scleral icterus Eyes Narrative: No discharge from the eyes, no mattering of the eyelashes. Neck Neck Narrative: Timnath cervical collar is in place. General: normal visual inspection Chest Chest: symmetrical chest wall rise Resp normal respiratory effort, normal air movement and clear to auscultation bilaterally Resp Narrative: No cough, no respiratory distress. Effort and Inspection: able to speak in complete sentences Cardio regular rate, regular rhythm, S1 normal heart sound, S2 normal heart sound, no rub, no gallops and no clicks Cardio Narrative: He has a 2-3/6 NICOLETTE at the second RICS with no significant radiation. GI normal to inspection, nondistended, normoactive bowel sounds, soft to palpation and non-tender GI Narrative: No guarding with palpation Extremity no calf tenderness Extremity Narrative: No clubbing or cyanosis. He has edema of both ankles. There is superficial varicosities in both lower extremities with some hyperpigmentation of the skin distally. Has muscle atrophy in the thighs and the calves. Skin no jaundice, no petechiae and no mottling Skin Narrative: He has some scabs over his lower extremities which are superficial without evidence of erythema or discharge. General Skin Exam: dry skin Rashes: no rashes Neuro oriented x3 and CN's II-XII intact bilaterally Neuro Narrative: Weakness in the extremities. L Leg is weaker than the R but both are weak. He is able to lift both arms and they had no drift. 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 R hand dominant. Having pain in both hamstrings.........to the knee, no distal pain. He has some tingling in the distal LE's/feet. Psych cooperative, speech normal, denies hallucinations, denies homicidal ideation and denies suicidal ideation Appearance: grossly normal, appropriate and well kempt Attitude: calm Results Lab / Micro Data 06/24/24 04:27 06/24/24 04:27 Assessment & Plan Assessment/Plan (1) Physical debility: (2) Generalized weakness: (3) Myelomalacia of cervical cord: (4) Status post cervical spinal fusion: (5) Osteochondritis: (6) Foraminal stenosis of lumbar region: (7) Low back pain: (8) Essential (primary) hypertension: (9) Hyperlipidemia: QUALIFIERS: Hyperlipidemia type: pure hypercholesterolemia Qualified Code(s): E78.00 - Pure hypercholesterolemia, unspecified; E78.00 - Pure hypercholesterolemia, unspecified; E78.00 - Pure hypercholesterolemia, unspecified; E78.0 - Pure hypercholesterolemia (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 Patient denies epigastric pain, nausea, heartburn. DVT prophylaxis with continue Eliquis 5 mg twice daily Follow up with PCP, Dr. Madrid following DC from Rehab AM lab including CMP, CBC, Mag and Phos - ordered for the morning. Charges/Coding Visit Charges Inpatient E&M: 91505 Init Hosp L2
--- NOTE | 2024-06-23 13:25 | PCM.RU.PYE ---
Admission Information Primary Diagnosis:: Debility secondary to recent cervical discectomy/fusion and recent fall Status Changes from Prescreening?: No changes Identified Actual Problem List:: Falls, Skin Intergrity, Pain, ALteration in Cmfrt, Alteration in Sleep, Mobility Impaired, Self Care Deficit and Alteration-Leisure Activ. Potential Problem List:: DVT, Bleeding, Infection, UTI, Aspiration, Falls, Skin Integrity and Depression Risk of Complications DVT: RASHEED Hose and - (Eliquis 5 mg p.o. twice daily) Bleeding: Monitor Lab Values, Nursing to Teach Precautions for anti-coagulation therapy., Wound, if applicable, to be assessed every shift. and Stroke patients assessed for lethargy or change in status. Infection: Clinical Staff to Monitor for S/S of infection: and S/S of infection include fever, redness, warmth, etc. Urinary Tract Infection: Monitor for frequency, burning, discomfort, or incontinence. and Nursing will obtain urine sample for urinalysis and C&S when ordered. Aspiration: Clinical staff will monitor for coughing, drooling, congestion., Speech will evaluate swallowing and dsyphasia. and Nursing will monitor patient swallowing during meals. Falls: Patient will be evaluated for Fall Precautions and Patient will be placed on Fall Precautions as indicated per protocol. Skin Breakdown: Nursing will assess skin daily using assessment tool. and Nursing will place on Skin Breakdown Precautions as indicated. Pain: Clinical staff will assess patient's pain level per protocol., Medications will be given, if needed, and the pain level reassessed. and Other methods: Massage, distraction, decrease stimulus, etc. used PRN. Plan of Care Patient requires physician specializing in physical medicine and rehab oversight to provide close medical supervision of rehab issues including: Pain Management, Sleep Problems, Bowel and Bladder, Medical and co-morbidity Management, DVT prophylaxis, Rehabilitation Leadership and Coordination of treatment team Patient needs Physical Therapy: For a minimum of 1 hour and At least 5 out of 7 days Patient needs Physical Therapy to improve:: Mobility, Strengthening, Transfers, Stretching, ROM, Endurance, Stairs, Gait and Balance Patient needs Occupational Therapy: For a minimum of 1 hour and At least 5 out of 7 days Patient needs Occupational Therapy to improve ADL's incl.: Eating, Grooming, Bathing, Dressing, Toileting, Toilet transfers, Community Reintegration, Higher functioning activities, Household tasks, Adaptive Equipment, Splinting and Other activities as determined Patient requires 24/7 Rehabilitation Nursing for: Pain Issues, Identifying and preventing risk factors, Monitoring and reporting current medical conditions, Assisting with ambulation, transfer, and all ADL's, Teaching patients about disease process and medications, Family teaching, Providing safe environment, Bowel and Bladder Issues, Skin integrity and Medication Management Patient needs Oxygen Therapy Teacher/ Case Management for: Discharge Planning, Arranging Home Equipment or Services and Family Interventions Patient needs Dietary and Nutrition Services for: Adequate Nutrition, Nutritional Supplements and Nutritional Education Goals Goals Patient will remain: free from falls Patient will perform eating at: MOD I level of assist. Patient will perform bed mobility at: MOD I level of assist. Patient will complete transfers from bed to chair at: Standby Assist. Patient will ambulate: - (250 feet with least restrictive device at standby assist on various surfaces) Patient will complete upper body dressing at: - (Set up) Patient will complete lower body dressing at: - (Supervision with adaptive equipment as needed to improve independence with self-care) Patient will complete toilet transfer at: - (Supervision) Patient will complete toileting at: - (Supervision) Patient will perform bathing at: - (For body bathing and set up and lower body bathing at supervision with adaptive equipment as needed) Patient will perform Tub/Shower transfer at: - (Supervision) Patient will complete grooming at: - (Supervision while standing at the sink) Patient will achieve: - (2 steps with 1 handrail at standby assist to allow access to his home entrance.) Patient will have pain level of: of 3 or less Patient's skin will: remain intact Patient will receive: adequate nutrition. Discharge Planning Pt Prognosis for Sig. Practical Improv. w/in Reasonable Time: Good Estimated Length of stay (days): 21 Anticipated D/C Destination: Home with Home Health (Will need assistance from family at home. 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
[2024-06-23 14:30] VITALS: BP 101/71; PULSE 73; RESP 20; TEMP 37.2; O2SAT 97
[2024-06-23 18:00] VITALS: BP 91/54; PULSE 64; RESP 16; TEMP 37; O2SAT 94
[2024-06-23 20:50] VITALS: PULSE 72
[2024-06-23] MEDS: Menthol/Lanolin/Calamine/Znox 113 GM Tube 1 APPLIC TOPICAL (21:14)
[2024-06-23] MEDS: APIXABAN 5 MG TABLET PO (22:54)
[2024-06-23] MEDS: Senna/Docusate Sodium 1 Tablet 2 TABLET PO (22:54)
[2024-06-23 23:32] VITALS: BP 118/66; PULSE 64
[2024-06-23] MEDS: Metoprolol Tartrate 50 MG Tablet PO (23:32)
[2024-06-24] VITALS (10 sets, daily range): BP systolic 94–143; BP diastolic 59–83; PULSE 60–80; RESP 16–17; TEMP 36.6; O2SAT 93–194; BMI 30.3
[2024-06-24 05:19] LABS: Absolute Neutrophil Count 10.9 X10^3/uL (2.0-7.7); Basophil# 0.09 X10^3/uL; Basophil% 0.7 % (0-1); Eosinophil# 0.07 X10^3/uL; Eosinophils% 0.5 % (0-5); Hematocrit 38.1 % (40-54); Hemoglobin 12.3 g/dL (13.0-16.5); Lymphocyte % 6.6 % (19-41); Mean Corp Hgb Conc 32.3 g/dL (32-36); Mean Corpuscular Volume 92.9 fL (80-94); Mean Platelet Vol. 11.5 fl (6.2-12.0); Monocyte# 1.38 X10^3/uL; Monocyte% 10.1 % (0-10); NRBC Flagged by Analyzer 0 % (0-5); Neutrophil # 10.85 X10^3/uL (2.7-7.7); Platelet Count 278 K/mm3 (150-450); RBC Distribution Width CV 14.7 % (11.6-14.6); White Blood Count 13.7 K/mm3 (4.4-11.0)
[2024-06-24 05:44] LABS: ALB/GLOB Ratio 0.7 RATIO (0.9-2.4); AST(SGOT) 9 U/L (15-37); Alanine Aminotransfer ALT/SGPT 27 U/L (16-61); Albumin, Serum 2.4 g/dL (3.2-5.0); Alkaline Phosphatase 83 U/L (45-117); Anion Gap 4 (5-15); BUN 33 mg/dL (7-18); BUN/Creat Ratio 40.1 RATIO (10-20); Calcium,Total 9.8 mg/dL (8.5-10.1); Chloride 108 mmol/L (98-107); Creatinine, Serum 0.82 mg/dL (0.70-1.30); EST Glomerular Filtration Rate 96 mL/min (>60); Est Glom Filt Rate - Afr Amer 117 mL/min (>60); Globulin 3.3 g/dL (2.2-4.2); Glucose 96 mg/dL (74-106); Magnesium 2.4 mg/dL (1.6-2.6); Phosphorus 2.8 mg/dL (2.5-4.9); Potassium 4.1 mmol/L (3.5-5.1); Protein, Total 5.7 g/dL (6.4-8.2); Sodium Level 141 mmol/L (136-145)
[2024-06-24] MEDS: Amiodarone 200 MG Tablet PO (08:33)
[2024-06-24] MEDS: APIXABAN 5 MG TABLET PO ×2 (08:34→21:45)
[2024-06-24] MEDS: Metoprolol Tartrate 50 MG Tablet PO ×2 (08:34→21:45)
[2024-06-24] MEDS: Senna/Docusate Sodium 1 Tablet 2 TABLET PO ×2 (08:35→21:46)
[2024-06-24] MEDS: Cyanocobalamin 500 MCG Tablet 1000 MCG PO (08:35)
[2024-06-24] MEDS: Cholecalciferol (VIT D3) 25 MCG TABLET (1,000 UNITS) 100 MCG PO (08:35)
[2024-06-24] MEDS: Magnesium Chloride 64 MG Delay Rel.Tablet 128 MG PO (08:35)
[2024-06-24] MEDS: amLODIPine 10 MG Tablet PO (08:35)
[2024-06-24] MEDS: Menthol/Lanolin/Calamine/Znox 113 GM Tube 1 APPLIC TOPICAL ×2 (08:38→21:46)
--- NOTE | 2024-06-24 10:02 | PCM.PROGNOTE ---
Subjective Subjective Afebrile VSS -blood pressure has ranged from 91/54 to 135/83 since admission to rehab. Heart rate is within normal limits. The 91/54 was in the right arm and 135/83 as the left arm. Maintaining appropriate oxygen saturation on RA Oral intake - FOOD good FLUIDS fair Postvoid residuals x 3 are all less than 50. Discussed with nursing - no problems that need addressed Reviewed the THERAPY notes Medication list reviewed. All lab was personally reviewed. White blood cell count is elevated at 13.7 but he just recently finished a course of steroids. Hemoglobin is stable at 12.3. MCV and MCH are normal. Platelets are normal. Sodium is 141 and the potassium is 4.1. BUN is 33 with a creatinine of 0.82. Mucous membranes are moist and the elevated BUN/creatinine ratio is likely secondary to recent high-dose steroids. Phosphorus and magnesium are normal, calcium is normal. LFTs are unremarkable. Complaining of constipation today. He thinks that the sciatic pain is caused by the constipation and if he just moves his bowels he will be fine. I explained that he has foraminal stenosis in the Ls spine and that is what is causing the sciatica, not the constipation. We discussed that he has significant muscle atrophy in his legs which takes months to develop and he admits to having decreasing strength/weakness which predated the recent surgery. He has tried gabapentin in the past and did not tolerate it secondary to dizziness, drowsiness. He thinks he was on a high dose. Willing to try a lower dose. Back pain/sciatica likely worsened by the recent fall he had. Has not been able to tolerate tramadol in the past or narcotics. Admits to feeling depressed/anxious and not sleeping well at night. Does not want to be a burden to his family and feels like he is letting them down. We discussed trying Cymbalta for pain control/depression and he is agreeable. Denies N/V, dysuria, calf pain, vertigo, CP cough. He has lightheadedness with standing. Objective Data Objective Data Vital Signs: Vital Signs Temp Pulse Resp BP Pulse Ox O2 Del Method 97.8 F 72 16 135/83 H 94 Room Air 06/24/24 06:00 06/24/24 09:49 06/24/24 06:00 06/24/24 08:34 06/24/24 06:00 06/24/24 09:49 Oxygen Delivery Method Room Air Weight: 220 lb 7.008 oz Body Mass Index (BMI) 29.2 Intake & Output: Intake and Output for Last 24 Hours 06/22/24 06/23/24 06/24/24 23:59 23:59 23:59 Intake Total 820 / 1070 490 / 490 Output Total 700 / 700 675 / 675 Balance 120 / 370 -185 / -185 Lab / Micro Data 06/24/24 04:27 06/24/24 04:27 Labs: Laboratory Results - last 24 hr 06/24/24 04:27: WBC 13.7 H, RBC 4.10 L, Hgb 12.3 L, Hct 38.1 L, MCV 92.9, MCH 30.0, MCHC 32.3, RDW Std Deviation 50.0 H, RDW Coeff of Emre 14.7 H, Plt Count 278, MPV 11.5, Immature Gran % (Auto) 3.100 H, Neut % (Auto) 79.0 H, Lymph % (Auto) 6.6 L, [place] % (Auto) 10.1 H, Eos % (Auto) 0.5, Baso % (Auto) 0.7, Absolute Neuts (auto) 10.9 H, Absolute Lymphs (auto) 0.90, Nucleated RBC % 0, Sodium 141, Potassium 4.1, Chloride 108 H, Carbon Dioxide 29.0, Anion Gap 4 L, BUN 33 H, Creatinine 0.82, Estim Creat Clear Calc 90.90, Est GFR (MDRD) Af Amer 117, Est GFR (MDRD) Non-Af 96, BUN/Creatinine Ratio 40.1 H, Glucose 96, Calcium 9.8, Phosphorus 2.8, Magnesium 2.4, Total Bilirubin 0.40, AST 9 L, ALT 27, Alkaline Phosphatase 83, Total Protein 5.7 L, Albumin 2.4 L, Globulin 3.3, Albumin/Globulin Ratio 0.7 L Physical Exam Const alert and oriented x3 General Appearance: cooperative HEENT Mouth: dry mucous membranes Resp normal respiratory effort, normal air movement and clear to auscultation bilaterally Resp Narrative: No cough, no respiratory distress. Effort and Inspection: able to speak in complete sentences Cardio regular rate, regular rhythm, S1 normal heart sound, S2 normal heart sound, no rub, no gallops and no clicks GI normal to inspection, nondistended, normoactive bowel sounds, soft to palpation and non-tender GI Narrative: No guarding with palpation Extremity no calf tenderness Extremity Narrative: No clubbing or cyanosis. He has edema of both ankles. There is superficial varicosities in both lower extremities with some hyperpigmentation of the skin distally. Has muscle atrophy in the thighs and the calves. Skin Skin Narrative: He has some scabs over his lower extremities which are superficial without evidence of erythema or discharge. He has breakdown with stage 2 decubitus ulcers over the coccyx and the BL buttocks. No purulent DC and no significant erythema. Rashes: no rashes Neuro oriented x3 and CN's II-XII intact bilaterally Psych Psych Narrative: flat depressed affect, feeling like he is letting his family down and he does not want to be a burden. He scored a 14 on the PDQ -9 and this is consistent with mild-moderate depression. Assessment & Plan Assessment/Plan (1) Physical debility: (2) Generalized weakness: (3) Myelomalacia of cervical cord: (4) Status post cervical spinal fusion: (5) Osteochondritis: (6) Foraminal stenosis of lumbar region: (7) Low back pain: (8) Essential (primary) hypertension: (9) Hyperlipidemia: QUALIFIERS: Hyperlipidemia type: pure hypercholesterolemia Qualified Code(s): E78.00 - Pure hypercholesterolemia, unspecified; E78.00 - Pure hypercholesterolemia, unspecified; E78.00 - Pure hypercholesterolemia, unspecified; E78.0 - Pure hypercholesterolemia (10) halfway current use of anticoagulant: (11) Dilated aortic root: (12) Grade I diastolic dysfunction: (13) Paroxysmal atrial fibrillation: (14) Insomnia: (15) Depression: QUALIFIERS: Depression Type: reactive depression Qualified Code(s): F32.9 - Major depressive disorder, single episode, unspecified PLAN: Plan 1. Continue therapy 2. Nursing is giving laxatives today to get his bowels moving. Stool softeners have been ordered. 3. Add trazodone 50 mg p.o. nightly for insomnia 4. Start gabapentin 100 mg p.o. twice daily for radicular pain lower extremities 5. Schedule Tylenol 1 g p.o. every 8 hours for pain control 6. Check orthostatic vital signs 7. If he tolerates gabapentin adjust as needed. In the next few days consider adding a antidepressant. Will consider duloxetine to treat both depression and chronic pain. Charges/Coding Visit Charges Inpatient E&M: 09577 [facility] Hosp L1
--- NOTE | 2024-06-24 10:54 | CASEMGMT ---
Social Work Pt denied having documents and having verbal contract with daughters. SW educated to importance of completing advanced directives and the benefit to pt of putting wishes in writing for family and medical providers to follow. Pt did agree to complete. SW to complete prior to DC as time allows. Reva Avilez, GRIPPER INSTALLER DEMAND PLANNER
[2024-06-24] MEDS: Gabapentin 100 MG Capsule PO ×2 (11:54→16:25)
[2024-06-24] MEDS: Acetaminophen 500 MG Tablet 1000 MG PO ×2 (13:35→21:46)
[2024-06-24] MEDS: 0.9% Normal Saline (1000mL) 1,000 ML 250 ML IV (16:16)
[2024-06-25] MEDS: Menthol/Lanolin/Calamine/Znox 113 GM Tube 1 APPLIC TOPICAL ×2 (05:56→22:03)
[2024-06-25 06:00] VITALS: BP 131/79; PULSE 61; RESP 16; TEMP 36.4; O2SAT 99
[2024-06-25] MEDS: Bisacodyl 10 MG Suppository RC (06:08)
[2024-06-25] MEDS: Cholecalciferol (VIT D3) 25 MCG TABLET (1,000 UNITS) 100 MCG PO (10:06)
[2024-06-25 10:07] VITALS: BP 145/69; PULSE 67
[2024-06-25] MEDS: Magnesium Chloride 64 MG Delay Rel.Tablet 128 MG PO (10:07)
[2024-06-25] MEDS: Cyanocobalamin 500 MCG Tablet 1000 MCG PO (10:07)
[2024-06-25] MEDS: Amiodarone 200 MG Tablet PO (10:07)
[2024-06-25] MEDS: Metoprolol Tartrate 50 MG Tablet PO ×2 (10:07→22:03)
[2024-06-25] MEDS: APIXABAN 5 MG TABLET PO ×2 (10:07→22:02)
[2024-06-25] MEDS: Senna/Docusate Sodium 1 Tablet 2 TABLET PO ×2 (10:07→22:02)
[2024-06-25] MEDS: amLODIPine 10 MG Tablet PO (10:07)
[2024-06-25] MEDS: Gabapentin 100 MG Capsule PO ×2 (10:29→17:30)
[2024-06-25] MEDS: Polyethylene Glycol 3350 17 GM PACKET PO (13:16)
[2024-06-25] MEDS: Bisacodyl 5 MG Tablet 10 MG PO (13:16)
[2024-06-25] MEDS: Acetaminophen 500 MG Tablet 1000 MG PO (13:17)
[2024-06-25 18:00] VITALS: BP 127/49; PULSE 69; RESP 16; TEMP 36.8; O2SAT 96
[2024-06-25 22:03] VITALS: BP 108/61; PULSE 58
[2024-06-26 06:00] VITALS: BP 127/72; PULSE 61; RESP 17; TEMP 36.4; O2SAT 93
[2024-06-26 07:35] VITALS: O2SAT 94
[2024-06-26 08:17] VITALS: PULSE 61
[2024-06-26] MEDS: Cyanocobalamin 500 MCG Tablet 1000 MCG PO (08:17)
[2024-06-26] MEDS: Amiodarone 200 MG Tablet PO (08:17)
[2024-06-26] MEDS: amLODIPine 10 MG Tablet PO (08:17)
[2024-06-26] MEDS: Metoprolol Tartrate 50 MG Tablet PO (08:17)
[2024-06-26] MEDS: Magnesium Chloride 64 MG Delay Rel.Tablet 128 MG PO (08:18)
[2024-06-26] MEDS: Senna/Docusate Sodium 1 Tablet 2 TABLET PO ×2 (08:18→20:41)
[2024-06-26] MEDS: Cholecalciferol (VIT D3) 25 MCG TABLET (1,000 UNITS) 100 MCG PO (08:18)
[2024-06-26] MEDS: Menthol/Lanolin/Calamine/Znox 113 GM Tube 1 APPLIC TOPICAL ×2 (08:18→20:41)
[2024-06-26] MEDS: Gabapentin 100 MG Capsule PO ×2 (08:18→17:33)
[2024-06-26] MEDS: APIXABAN 5 MG TABLET PO ×2 (08:18→20:41)
[2024-06-26] MEDS: Polyethylene Glycol 3350 17 GM PACKET PO (08:19)
[2024-06-26] MEDS: Acetaminophen 500 MG Tablet 1000 MG PO ×3 (08:20→20:42)
--- NOTE | 2024-06-26 14:38 | PCM.PROGNOTE ---
Subjective Subjective Afebrile VSS - Maintaining appropriate oxygen saturation on RA Oral intake - FOOD very good FLUIDS better fluid intake yesterday. He was able to take 2420 in, 1420 of which was oral fluid. Following Dulcolax tablets and suppository yesterday he had 4 bowel movements and he had a bowel movement today. Discussed with nursing - no problems that need addressed Reviewed the THERAPY notes Medication list reviewed. Denies lightheadedness today. He also denies abdominal pain, nausea, vomiting, chest pain, shortness of breath, cough. He tells me that the sciatic pain is much improved. He denies dizziness. He is tolerating the gabapentin 100 mg twice daily without adverse effects. Slept well last night per nursing. Objective Data Objective Data Vital Signs: Vital Signs Temp Pulse Resp BP Pulse Ox O2 Del Method 97.6 F L 61 17 127/72 H 94 Room Air 06/26/24 06:00 06/26/24 08:17 06/26/24 06:00 06/26/24 06:00 06/26/24 07:35 06/26/24 07:35 Oxygen Delivery Method Room Air Weight: 228 lb 9.91 oz Body Mass Index (BMI) 30.3 Intake & Output: Intake and Output for Last 24 Hours 06/24/24 06/25/24 06/26/24 23:59 23:59 23:59 Intake Total 970 / 970 2420 / 2420 1440 / 1440 Output Total 1305 / 1305 1999 / 1999 1825 / 1825 Balance -335 / -335 420 / 420 -385 / -385 Lab / Micro Data 06/24/24 04:27 06/24/24 04:27 Physical Exam Const alert, oriented x3 and no apparent distress Constitutional Narrative: Looks comfortable lying in bed. Tells me he feels stronger and felt like he did a good job in therapy yesterday. General Appearance: cooperative HEENT Mouth: dry mucous membranes Resp clear to auscultation bilaterally Effort and Inspection: Negative for tachypneic or labored Cardio regular rate, regular rhythm and no gallops GI GI Narrative: The abdomen is soft today and nondistended. No significant tympany. Normal bowel sounds are heard in all quadrants. No guarding with palpation. Extremity no calf tenderness Skin Rashes: no rashes Neuro CN's II-XII intact bilaterally Neuro Narrative: Generalized weakness with muscle atrophy Assessment & Plan Assessment/Plan (1) Physical debility: (2) Generalized weakness: (3) Myelomalacia of cervical cord: (4) Status post cervical spinal fusion: (5) Osteochondritis: (6) Foraminal stenosis of lumbar region: (7) Low back pain: QUALIFIERS: Chronicity: chronic Back pain laterality: bilateral Sciatica presence: with sciatica Sciatica laterality: bilateral sciatica Qualified Code(s): M54.42 - Lumbago with sciatica, left side; M54.41 - Lumbago with sciatica, right side; G89.29 - Other chronic pain (8) Essential (primary) hypertension: (9) Hyperlipidemia: QUALIFIERS: Hyperlipidemia type: pure hypercholesterolemia Qualified Code(s): E78.00 - Pure hypercholesterolemia, unspecified; E78.00 - Pure hypercholesterolemia, unspecified; E78.00 - Pure hypercholesterolemia, unspecified; E78.0 - Pure hypercholesterolemia (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 Continue therapy 2. Start sertraline 50 mg daily in the a.m. Charges/Coding Visit Charges Inpatient E&M: 29416 Subs Hosp L1
[2024-06-26] MEDS: Sertraline 50 MG Tablet PO (15:01)
[2024-06-26 18:00] VITALS: BP 96/54; PULSE 59; RESP 16; TEMP 36.4; O2SAT 98
[2024-06-26 20:47] VITALS: BP 109/64; PULSE 55
[2024-06-27] MEDS: 0.9% Saline Lock 10 ML Syringe IV (05:09)
[2024-06-27] MEDS: Acetaminophen 500 MG Tablet 1000 MG PO ×2 (05:10→13:30)
[2024-06-27 06:00] VITALS: BP 107/67; PULSE 60; RESP 18; TEMP 36.9; O2SAT 93
[2024-06-27 07:37] VITALS: O2SAT 96
[2024-06-27 09:03] VITALS: BP 107/67; PULSE 60
[2024-06-27] MEDS: Metoprolol Tartrate 50 MG Tablet PO ×2 (09:03→21:51)
[2024-06-27] MEDS: Polyethylene Glycol 3350 17 GM PACKET PO (09:04)
[2024-06-27] MEDS: APIXABAN 5 MG TABLET PO ×2 (09:05→21:51)
[2024-06-27] MEDS: Cholecalciferol (VIT D3) 25 MCG TABLET (1,000 UNITS) 100 MCG PO (09:05)
[2024-06-27] MEDS: Magnesium Chloride 64 MG Delay Rel.Tablet 128 MG PO (09:06)
[2024-06-27] MEDS: Amiodarone 200 MG Tablet PO (09:06)
[2024-06-27] MEDS: Cyanocobalamin 500 MCG Tablet 1000 MCG PO (09:07)
[2024-06-27] MEDS: Menthol/Lanolin/Calamine/Znox 113 GM Tube 1 APPLIC TOPICAL ×2 (09:08→21:54)
[2024-06-27] MEDS: Senna/Docusate Sodium 1 Tablet 2 TABLET PO ×2 (09:08→21:51)
[2024-06-27] MEDS: amLODIPine 10 MG Tablet PO (09:09)
[2024-06-27] MEDS: Gabapentin 100 MG Capsule PO ×2 (09:20→17:04)
--- NOTE | 2024-06-27 11:41 | PCM.PROGNOTE ---
Subjective Subjective Joe was seen on team rounds today. No family was available to participate. Afebrile VSS -blood pressure has dropped over the past 24 hours. It was 127/72 yesterday a.m. and since then it has ranged from 96/54 to 109/64. Heart rate has ranged from 55-61. Refused metoprolol last night. Maintaining appropriate oxygen saturation on RA Oral intake - FOOD food intake has been excellent however this morning he only took 25 to 49% of his breakfast. FLUIDS good but urine output has been exceeding intake. He had been receiving hydrochlorothiazide 25 mg daily at presentation to rehab but this was discontinued the next day. Discussed with nursing -slept well last night. Reviewed the THERAPY notes Medication list reviewed. Joe complains of some mild lightheadedness when he is upright and exerting himself. He tells me the sciatic pain is much more tolerable. He has had no adverse effects with gabapentin. He is sleeping well at night. Denies chest pain, shortness of breath at rest, nausea/vomiting/abdominal pain, dysuria and calf tenderness Objective Data Objective Data Vital Signs: Vital Signs Temp Pulse Resp BP Pulse Ox O2 Del Method 98.4 F 60 18 107/67 96 Room Air 06/27/24 06:00 06/27/24 09:03 06/27/24 06:00 06/27/24 09:03 06/27/24 07:37 06/27/24 07:37 Oxygen Delivery Method Room Air Weight: 228 lb 9.91 oz Body Mass Index (BMI) 30.3 Intake & Output: Intake and Output for Last 24 Hours 06/25/24 06/26/24 06/27/24 23:59 23:59 23:59 Intake Total 2420 / 2420 2280 / 2280 360 / 360 Output Total 1999 2475 / 2475 650 / 650 Balance 420 / 420 -195 / -195 -290 / -290 Lab / Micro Data 06/27/24 12:13 06/27/24 12:13 Physical Exam Const alert, oriented x3 and no apparent distress Constitutional Narrative: Looks comfortable lying in bed. General Appearance: cooperative HEENT Mouth: dry mucous membranes Resp clear to auscultation bilaterally Effort and Inspection: Negative for tachypneic or labored Cardio regular rate, regular rhythm and no gallops GI GI Narrative: The abdomen is soft today and nondistended. No significant tympany. Normal bowel sounds are heard in all quadrants. No guarding with palpation. Extremity no calf tenderness General Extremity: Negative for edema Skin Rashes: no rashes Neuro CN's II-XII intact bilaterally Neuro Narrative: Generalized weakness with muscle atrophy Psych Psych Narrative: Depressed Assessment & Plan Assessment/Plan (1) Physical debility: (2) Generalized weakness: (3) Myelomalacia of cervical cord: (4) Status post cervical spinal fusion: (5) Osteochondritis: (6) Foraminal stenosis of lumbar region: (7) Low back pain: QUALIFIERS: Chronicity: chronic Back pain laterality: bilateral Sciatica presence: with sciatica Sciatica laterality: bilateral sciatica Qualified Code(s): M54.42 - Lumbago with sciatica, left side; M54.41 - Lumbago with sciatica, right side; G89.29 - Other chronic pain (8) Essential (primary) hypertension: (9) Hyperlipidemia: QUALIFIERS: Hyperlipidemia type: pure hypercholesterolemia Qualified Code(s): E78.00 - Pure hypercholesterolemia, unspecified; E78.00 - Pure hypercholesterolemia, unspecified; E78.00 - Pure hypercholesterolemia, unspecified; E78.0 - Pure hypercholesterolemia (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 Continue therapy 2. Orthostatic vital signs today and a weight 3. Check a CBC and BMP now 4. I suspect the lower blood pressures are secondary to intravascular volume depletion and inability to increase heart rate secondary to metoprolol and amiodarone. Hydrochlorothiazide should be out of his system soon. 5. Sertraline 50 mg daily started today for depression. Charges/Coding Visit Charges Inpatient E&M: 91984 Subs Hosp L2
[2024-06-27 12:21] LABS: Hematocrit 38.5 % (40-54); Hemoglobin 12.7 g/dL (13.0-16.5); Mean Corpuscular Hgb 31.2 pg (27.0-32.0); Mean Corpuscular Volume 94.6 fL (80-94); Mean Platelet Vol. 11.2 fl (6.2-12.0); POSITIVE MORPHOLOGY YES; Platelet Count 281 K/mm3 (150-450); RBC Distribution Width SD 51.7 fl (35.1-43.9); Red Blood Count 4.07 M/mm3 (4.6-6.2); White Blood Count 15.3 K/mm3 (4.4-11.0)
[2024-06-27 12:22] LABS: Scan Indicated on CBC? Y/N YES- FLAGS NOTED
[2024-06-27 12:46] LABS: Anion Gap 3 (5-15); BUN 25 mg/dL (7-18); BUN/Creat Ratio 28.9 RATIO (10-20); Calcium,Total 9.9 mg/dL (8.5-10.1); Chloride 106 mmol/L (98-107); Creatinine, Serum 0.86 mg/dL (0.70-1.30); EST Glomerular Filtration Rate 91 mL/min (>60); Est Glom Filt Rate - Afr Amer 110 mL/min (>60); Estimated Creatinine Clearance 88.15 ml/min; Glucose 113 mg/dL (74-106); Potassium 4.4 mmol/L (3.5-5.1); Sodium Level 136 mmol/L (136-145)
--- NOTE | 2024-06-27 13:36 | CASEMGMT ---
Addendum entered by Reva Avilez 06/27/24 14:55: Received phone call from dtr, Sadia, that dtrs were to be notified of Team meeting, but did not receive that communication. SW apologized and provided contact information for this worker and nurse's station. Provided verbal update from Team meeting and educated to upcoming Team meetings. Dtr appreciative. Dtr did clarify that pt's is home alone while pt is admitted; she is safe and does not require physical assistance from pt. Pt reminds of meds and cues throughout the day. thus the goal is for pt to return home. SW will assist in DC recommendations. Will continue to follow. Addendum entered by Reva Avilez 06/27/24 13:52: SW provided grounding techniques to pt. Original Note: Social Work IDT met with patient for Team meeting. Discussed patient's progress in PT/OT/SN. Educated to [facility] insurance with NRD 06/30 with insurance updates every 7 days. IDT is responsible for setting DC following Medicare guidelines. Medicare IRPAI approved 20 days, with EDC 07/13. Pt is primary caregiver for , and will not have assistance at home. Pt will need to greatly improve to return home. SW to discuss alternative DC options closer to DC. Will ReTeam weekly. Reva Avilez ANALYTICS ARCHITECT SEAT MAKER
--- NOTE | 2024-06-27 16:42 | CHAPLAIN ---
Type of Pastoral Visit ___ Initial Visit _x__ Follow-up Visit ___ On-call Visit ___ General Patient Visit ___ Spiritual Assessment ___ Family Conference ___ Bereavement ___ Rapid Response ___ Code Blue ___ Other (describe below) Pastoral Care Referral From _x__ Patient ___ Family ___ Nurse ___ Physician ___ [employer] Crewmember ___ Nurse Liaison ___ Other (describe below) Sacrament/Intervention _x__ Active listening ___ Anointing ___ Tenriism ___ Bereavement ___ Communion _x__ Macy exploration ___ ___ Life review _x__ Prayer ___ Reconciliation ___ Sacrament of Sick _x__ Supportive presence ___ Wedding ___ Other (describe below) Pastoral Comments patient was seen previously in PCU; pt reports on having workouts in the Rehab but thankful to be here for his recovery; pt had family visits yesterday but is admittedly disappointed that he won't be with his and family while in Rehab and missing some family time; pt speaks freely and with passion about his macy in [place] and brings spiritual perspective into his own situation, the future with [facility] in [facility], and how to make sense and purpose out of this season of rehabilitation; pt asked this rubber molder to visit another patient that he met today in therapy who could probably use you; prayer and presence welcomed; future visits welcomed
[2024-06-27 18:00] VITALS: BP 125/74; PULSE 61; RESP 16; TEMP 36.3; O2SAT 94
[2024-06-27 18:02] VITALS: BMI 29.7
[2024-06-27 21:51] VITALS: PULSE 61
[2024-06-27 22:05] VITALS: BP 97/58
[2024-06-28 06:00] VITALS: BP 102/68; PULSE 59; RESP 16; TEMP 36.6; O2SAT 93
[2024-06-28 06:05] VITALS: BP 102/68; BP 103/77; BP 99/67
[2024-06-28 08:32] VITALS: BP 123/57; PULSE 60; RESP 16; O2SAT 95
[2024-06-28] MEDS: Gabapentin 100 MG Capsule PO ×2 (08:33→17:15)
[2024-06-28] MEDS: Cholecalciferol (VIT D3) 25 MCG TABLET (1,000 UNITS) 100 MCG PO (08:33)
[2024-06-28] MEDS: amLODIPine 5 MG Tablet PO (08:34)
[2024-06-28] MEDS: Cyanocobalamin 500 MCG Tablet 1000 MCG PO (08:34)
[2024-06-28] MEDS: Senna/Docusate Sodium 1 Tablet 2 TABLET PO ×2 (08:34→20:31)
[2024-06-28] MEDS: Sertraline 50 MG Tablet PO (08:34)
[2024-06-28 08:35] VITALS: BP 123/57; PULSE 60
[2024-06-28] MEDS: Acetaminophen 500 MG Tablet 1000 MG PO (08:35)
[2024-06-28] MEDS: Magnesium Chloride 64 MG Delay Rel.Tablet 128 MG PO (08:35)
[2024-06-28] MEDS: Metoprolol Tartrate 50 MG Tablet PO (08:35)
[2024-06-28] MEDS: Amiodarone 200 MG Tablet PO (08:35)
[2024-06-28] MEDS: APIXABAN 5 MG TABLET PO ×2 (08:36→20:32)
[2024-06-28] MEDS: Polyethylene Glycol 3350 17 GM PACKET PO (08:36)
[2024-06-28 12:55] LABS: Bacteria 0 SEEN /hpf (None Seen); Mucous, Urine 0 SEEN /hpf (<or=2+); Squamous Epithelial Cells - UA 0 SEEN /hpf (0-5)
[2024-06-28 13:46] LABS: Color, Urine Yellow (Yellow); Glucose, Dipstick Normal (Normal); Ketone-Dipstick Negative (Negative); Leukocyte Esterase-Dipstick 25 /ul (Negative); Nitrite-Dipstick Negative (Negative); Occult Blood-Urine 10 /ul (Negative); Protein-Dipstick Negative (Negative); Urine Bilirubin Dipstick Negative (Negative); Urine Clarity Clear (Clear); Urine Urobilinogen 1 mg/dl (Normal); Urine pH 6.5 (5.0 - 8.0)
[2024-06-28 13:49] LABS: Red Blood Cells-Urine 0-5 SEEN /hpf (0-5); White Blood Cells 0-5 SEEN /hpf (0-5)
[2024-06-28 17:53] VITALS: BP 125/68; PULSE 51; RESP 17; TEMP 36.1; O2SAT 94
[2024-06-28] MEDS: 0.9% Saline Lock 10 ML Syringe IV (20:26)
[2024-06-28] MEDS: Menthol/Lanolin/Calamine/Znox 113 GM Tube 1 APPLIC TOPICAL (20:26)
[2024-06-28 20:31] VITALS: BP 104/66; PULSE 54
[2024-06-29 06:00] VITALS: BP 146/76; PULSE 57; RESP 12; TEMP 36.4; O2SAT 98
[2024-06-29] MEDS: Gabapentin 100 MG Capsule PO ×2 (08:11→17:11)
[2024-06-29 08:12] VITALS: BP 146/76; PULSE 61
[2024-06-29] MEDS: Metoprolol Tartrate 50 MG Tablet PO (08:12)
[2024-06-29] MEDS: APIXABAN 5 MG TABLET PO ×2 (08:12→20:58)
[2024-06-29] MEDS: amLODIPine 5 MG Tablet PO (08:13)
[2024-06-29] MEDS: Senna/Docusate Sodium 1 Tablet 2 TABLET PO ×2 (08:13→21:00)
[2024-06-29] MEDS: Magnesium Chloride 64 MG Delay Rel.Tablet 128 MG PO (08:13)
[2024-06-29] MEDS: Cyanocobalamin 500 MCG Tablet 1000 MCG PO (08:13)
[2024-06-29] MEDS: Cholecalciferol (VIT D3) 25 MCG TABLET (1,000 UNITS) 100 MCG PO (08:13)
[2024-06-29] MEDS: Sertraline 50 MG Tablet PO (08:14)
[2024-06-29] MEDS: Menthol/Lanolin/Calamine/Znox 113 GM Tube 1 APPLIC TOPICAL ×2 (08:14→21:01)
[2024-06-29] MEDS: Polyethylene Glycol 3350 17 GM PACKET PO (08:15)
[2024-06-29] MEDS: Amiodarone 200 MG Tablet PO (08:15)
--- NOTE | 2024-06-29 12:21 | PN_ITS ---
Subjective Subjective Afebrile VSS - Maintaining appropriate oxygen saturation on RA Oral intake - FOOD good FLUIDS urine output still exceeding fluid intake. Discussed with nursing - no problems that need addressed. Sleeping well with trazodone 50 mg at bedtime. Reviewed the THERAPY notes Medication list reviewed. Taking only Tylenol and gabapentin 100 mg twice daily for pain. Denies lightheadedness. Tells me his sciatic pain is much improved. Denies dizziness/vertigo. Denies nausea/vomiting/abdominal pain. No bowel movement since 06/26/2024. Currently taking senna 2 p.o. twice daily and MiraLAX 17 g once daily. TSH is normal. Joe actually denies sciatic pain today. He tells me that he has had problems in the past with constipation when he gets stressed. 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 Objective Data Objective Data Vital Signs: Vital Signs Temp Pulse Resp BP Pulse Ox O2 Del Method 97.6 F L 61 12 146/76 H 98 Room Air 06/29/24 06:00 06/29/24 08:12 06/29/24 06:00 06/29/24 08:12 06/29/24 06:00 06/29/24 06:00 Oxygen Delivery Method Room Air Weight: 224 lb 10.417 oz Body Mass Index (BMI) 29.7 Intake & Output: Intake and Output for Last 24 Hours 06/27/24 06/28/24 06/29/24 23:59 23:59 23:59 Intake Total 600 / 600 1790 / 1790 900 / 900 Output Total 900 / 900 2625 / 2625 1650 / 1650 Balance -300 / -300 -835 / -835 -750 / -750 Lab / Micro Data 06/27/24 12:13 06/27/24 12:13 Labs: Laboratory Results - last 24 hr 06/28/24 12:45: Urine Color Yellow, Urine Clarity Clear, Urine pH 6.5, Ur Specific [place] 1.010, Urine Protein Negative, Urine Glucose (UA) Normal, Urine Ketones Negative, Urine Occult Blood 10 H, Urine Nitrite Negative, Urine Bilirubin Negative, Urine Urobilinogen 1 H, Ur Leukocyte Esterase 25 H, Urine RBC 0-5 SEEN, Urine WBC 0-5 SEEN, Ur Squamous Epith Cells 0 SEEN, Urine Bacteria 0 SEEN, Urine Mucus 0 SEEN Physical Exam Const alert, oriented x3 and no apparent distress Constitutional Narrative: Looks comfortable lying in bed. General Appearance: cooperative HEENT Mouth: dry mucous membranes Resp clear to auscultation bilaterally Effort and Inspection: Negative for tachypneic or labored Cardio regular rate, regular rhythm and no gallops GI GI Narrative: The abdomen is soft today and nondistended. No significant tympany. Normal bowel sounds are heard in all quadrants. No guarding with palpation. Extremity no calf tenderness General Extremity: Negative for edema Skin Rashes: no rashes Psych Psych Narrative: Depressed and somewhat anxious. He is tolerating sertraline 50 mg daily without any adverse side effects. Assessment & Plan Assessment/Plan (1) IBS (irritable bowel syndrome): (2) Physical debility: (3) Generalized weakness: (4) Myelomalacia of cervical cord: (5) Status post cervical spinal fusion: (6) Osteochondritis: (7) Foraminal stenosis of lumbar region: (8) Low back pain: QUALIFIERS: Chronicity: chronic Back pain laterality: bilateral Sciatica presence: with sciatica Sciatica laterality: bilateral sciatica Q ualified Code(s): M54.42 - Lumbago with sciatica, left side; M54.41 - Lumbago with sciatica, right side; G89.29 - Other chronic pain (9) Essential (primary) hypertension: (10) Hyperlipidemia: QUALIFIERS: Hyperlipidemia type: pure hypercholesterolemia Q ualified Code(s): E78.00 - Pure hypercholesterolemia, unspecified; E78.00 - Pure hypercholesterolemia, unspecified; E78.00 - Pure hypercholesterolemia, unspecified; E78.0 - Pure hypercholesterolemia (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 Continue therapy 2. Increase MiraLAX to twice daily and give milk of mag or a GI cocktail today. TSH was normal this month. 3. I am fairly certain he suffers from irritable bowel syndrome with constipation. Tolerating sertraline 50 mg daily, will likely increase to 100 mg prior to discharge. Dani is not on the formulary at the hospital but he may benefit from Linzess going forward for IBS-C. Charges/Coding Visit Charges Inpatient E&M: 22985 Subs Hosp L1
[2024-06-29] MEDS: Magnesium Hydroxide 30 ML UDC PO (17:16)
[2024-06-29 18:00] VITALS: BP 97/60; PULSE 62; RESP 16; TEMP 36.4; O2SAT 98
[2024-06-29 21:00] VITALS: BP 97/48; PULSE 55
[2024-06-29 21:02] VITALS: BP 97/48; PULSE 55
[2024-06-29] MEDS: Acetaminophen 500 MG Tablet 1000 MG PO (21:02)
[2024-06-29] MEDS: 0.9% Saline Lock 10 ML Syringe IV (23:22)
[2024-06-30] MEDS: Bisacodyl 10 MG Suppository RC (04:33)
[2024-06-30] MEDS: Acetaminophen 500 MG Tablet 1000 MG PO ×2 (04:38→21:39)
[2024-06-30 06:00] VITALS: BP 114/51; PULSE 56; RESP 17; TEMP 36.3; O2SAT 94
[2024-06-30] MEDS: Polyethylene Glycol 3350 17 GM PACKET PO ×2 (08:01→21:39)
[2024-06-30 08:02] VITALS: BP 114/51; PULSE 56
[2024-06-30] MEDS: Senna/Docusate Sodium 1 Tablet 2 TABLET PO ×2 (08:02→21:39)
[2024-06-30] MEDS: Magnesium Chloride 64 MG Delay Rel.Tablet 128 MG PO (08:02)
[2024-06-30] MEDS: Metoprolol Tartrate 50 MG Tablet PO ×2 (08:02→21:39)
[2024-06-30] MEDS: Cholecalciferol (VIT D3) 25 MCG TABLET (1,000 UNITS) 100 MCG PO (08:02)
[2024-06-30] MEDS: Sertraline 50 MG Tablet PO (08:03)
[2024-06-30] MEDS: amLODIPine 5 MG Tablet PO (08:03)
[2024-06-30] MEDS: APIXABAN 5 MG TABLET PO ×2 (08:03→21:39)
[2024-06-30] MEDS: Menthol/Lanolin/Calamine/Znox 113 GM Tube 1 APPLIC TOPICAL ×2 (08:03→21:40)
[2024-06-30] MEDS: Amiodarone 200 MG Tablet PO (08:03)
[2024-06-30] MEDS: Gabapentin 100 MG Capsule PO ×2 (08:09→17:02)
[2024-06-30] MEDS: Cyanocobalamin 500 MCG Tablet 1000 MCG PO (08:12)
--- NOTE | 2024-06-30 08:36 | PN_ITS ---
Subjective Subjective Afebrile VSS -blood pressures since 6 PM last night have ranged from 97/48 to 114/51. Heart rate has ranged from 55-62. Maintaining appropriate oxygen saturation on RA Oral intake - FOOD good FLUIDS fluid balance continues to be negative. He was -1150 yesterday and -800 overnight. He is not on a diuretic. Hydrochlorothiazide was discontinued at admission to rehab. Discussed with nursing - no problems that need addressed. Nursing tells me that he has been refusing the MiraLAX. Reviewed the THERAPY notes Medication list reviewed. Had a large BM this morning but, still tells me that he is constipated. Denies sciatic pain. Denies chest pain, shortness of breath, cough, nausea/vomiting/abdominal pain, dysuria and calf tenderness. Objective Data Objective Data Vital Signs: Vital Signs Temp Pulse Resp BP Pulse Ox O2 Del Method 97.4 F L 56 L 17 114/51 L 94 Room Air 06/30/24 06:00 06/30/24 08:02 06/30/24 06:00 06/30/24 08:02 06/30/24 06:00 06/30/24 06:00 Oxygen Delivery Method Room Air Weight: 224 lb 10.417 oz Body Mass Index (BMI) 29.7 Intake & Output: Intake and Output for Last 24 Hours 06/28/24 06/29/24 06/30/24 23:59 23:59 23:59 Intake Total 1790 / 1790 2250 / 2250 400 / 400 Output Total 2625 / 2625 3400 / 3400 1200 / 1200 Balance -835 / -835 -1150 / -1150 -800 / -800 Lab / Micro Data 06/27/24 12:13 06/30/24 09:25 Micro: Microbiology 06/28/24 12:45 Urine Catheter - Catheter Urine Culture - Final Culture exhibits no growth. Physical Exam Const alert, oriented x3 and no apparent distress Constitutional Narrative: Looks comfortable lying in bed. General Appearance: cooperative HEENT Mouth: dry mucous membranes Resp clear to auscultation bilaterally Effort and Inspection: Negative for tachypneic or labored Cardio regular rate, regular rhythm and no gallops GI GI Narrative: The abdomen is soft today and nondistended. No significant tympany. Normal bowel sounds are heard in all quadrants. No guarding with palpation. Extremity no calf tenderness General Extremity: Negative for edema Assessment & Plan Assessment/Plan (1) IBS (irritable bowel syndrome): (2) Physical debility: (3) Generalized weakness: (4) Myelomalacia of cervical cord: (5) Status post cervical spinal fusion: (6) Osteochondritis: (7) Foraminal stenosis of lumbar region: (8) Low back pain: QUALIFIERS: Chronicity: chronic Back pain laterality: bilateral Sciatica presence: with sciatica Sciatica laterality: bilateral sciatica Q ualified Code(s): M54.42 - Lumbago with sciatica, left side; M54.41 - Lumbago with sciatica, right side; G89.29 - Other chronic pain (9) Essential (primary) hypertension: (10) Hyperlipidemia: QUALIFIERS: Hyperlipidemia type: pure hypercholesterolemia Q ualified Code(s): E78.00 - Pure hypercholesterolemia, unspecified; E78.00 - Pure hypercholesterolemia, unspecified; E78.00 - Pure hypercholesterolemia, unspecified; E78.0 - Pure hypercholesterolemia (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 Continue therapy 2. Check a serum osmolality, BMP and magnesium now. 3. I reinforced with him the need to take the stool softeners if we are going to prevent constipation. Charges/Coding Visit Charges Inpatient E&M: 63406 [facility] Hosp L1
[2024-06-30 10:52] LABS: Anion Gap 4 (5-15); BUN 18 mg/dL (7-18); BUN/Creat Ratio 17.6 RATIO (10-20); Calcium,Total 9.8 mg/dL (8.5-10.1); Chloride 106 mmol/L (98-107); Creatinine, Serum 1.02 mg/dL (0.70-1.30); EST Glomerular Filtration Rate 75 mL/min (>60); Est Glom Filt Rate - Afr Amer 91 mL/min (>60); Estimated Creatinine Clearance 73.72 ml/min; Glucose 99 mg/dL (74-106); Magnesium 2.3 mg/dL (1.6-2.6); Potassium 4.2 mmol/L (3.5-5.1); Sodium Level 139 mmol/L (136-145)
[2024-06-30 11:26] LABS: Osmolality, Serum 295 mOsm/KG (280-301)
[2024-06-30 14:40] VITALS: BMI 29.4
[2024-06-30 18:00] VITALS: BP 136/66; PULSE 56; RESP 16; TEMP 36.6; O2SAT 98
[2024-06-30 21:00] VITALS: PULSE 52; RESP 16; O2SAT 98
[2024-06-30 21:39] VITALS: BP 116/68; PULSE 52
[2024-06-30] MEDS: traZODone 50 MG Tablet PO (21:40)
[2024-07-01] VITALS (7 sets, daily range): BP systolic 84–108; BP diastolic 55–66; PULSE 50–62; RESP 18; TEMP 36–36.6; O2SAT 95–98
[2024-07-01] MEDS: Acetaminophen 500 MG Tablet 1000 MG PO ×3 (05:57→22:07)
[2024-07-01] MEDS: Cholecalciferol (VIT D3) 25 MCG TABLET (1,000 UNITS) 100 MCG PO (07:57)
[2024-07-01] MEDS: Sertraline 50 MG Tablet PO (07:57)
[2024-07-01] MEDS: Cyanocobalamin 500 MCG Tablet 1000 MCG PO (07:57)
[2024-07-01] MEDS: Amiodarone 200 MG Tablet PO (07:58)
[2024-07-01] MEDS: Magnesium Chloride 64 MG Delay Rel.Tablet 128 MG PO (07:58)
[2024-07-01] MEDS: Senna/Docusate Sodium 1 Tablet 2 TABLET PO ×2 (07:58→22:06)
[2024-07-01] MEDS: Metoprolol Tartrate 50 MG Tablet PO (07:59)
[2024-07-01] MEDS: Gabapentin 100 MG Capsule PO ×2 (07:59→17:34)
[2024-07-01] MEDS: APIXABAN 5 MG TABLET PO ×2 (08:00→22:06)
[2024-07-01] MEDS: Polyethylene Glycol 3350 17 GM PACKET PO ×2 (08:00→22:06)
[2024-07-01] MEDS: Menthol/Lanolin/Calamine/Znox 113 GM Tube 1 APPLIC TOPICAL ×2 (08:05→22:06)
--- NOTE | 2024-07-01 09:51 | PN_ITS ---
Subjective Subjective Afebrile VSS -positive orthostatics today. Blood pressure dropped to 84/56 when standing. Heart rate was 62 standing. Nursing has already given metoprolol this morning. Maintaining appropriate oxygen saturation on RA Oral intake - FOOD good FLUIDS good Weight has decreased 6 and half pounds over the past week. Discussed with nursing - no problems that need addressed Reviewed the THERAPY notes Medication list reviewed. Lab drawn yesterday was personally reviewed again. Sodium is 139. BUN was 18 but the creatinine was up at 1.02. Serum osmolality is normal at 295. Magnesium was normal at 2.3. He continues to c/o a ball of hard stool in the rectum that he has been unable to pass. He also complains of lightheadedness with sitting up for a prolonged period of time and with standing. He denies chest pain, shortness of breath, cough, nausea/vomiting/abdominal pain, dysuria and calf tenderness. Objective Data Objective Data Vital Signs: Vital Signs Temp Pulse Resp BP Pulse Ox O2 Del Method 96.8 F L 66 18 84/55 L 97 Room Air 07/01/24 05:20 07/01/24 07:59 07/01/24 05:20 07/01/24 09:29 07/01/24 05:20 07/01/24 05:20 Oxygen Delivery Method Room Air Weight: 222 lb 3.615 oz Body Mass Index (BMI) 29.4 Intake & Output: Intake and Output for Last 24 Hours 06/29/24 06/30/24 07/01/24 23:59 23:59 23:59 Intake Total 2250 / 2250 1910 / 1910 1060 / 1060 Output Total 3400 / 3400 2600 / 2600 995 / 995 Balance -1150 / -1150 -690 / -690 65 / 65 Lab / Micro Data 06/27/24 12:13 06/30/24 09:25 Labs: Laboratory Results - last 24 hr 06/30/24 09:25: Sodium 139, Potassium 4.2, Chloride 106, Carbon Dioxide 29.0, A nion Gap 4 L, BUN 18, Creatinine 1.02, Estim Creat Clear Calc 73.72, Est GFR (MDRD) Af Amer 91, Est GFR (MDRD) Non-Af 75, BUN/Creatinine Ratio 17.6, Glucose 99, Serum Osmolality 295, Calcium 9.8, Magnesium 2.3 Micro: Microbiology 06/28/24 12:45 Urine Catheter - Catheter Urine Culture - Final Culture exhibits no growth. Physical Exam Const alert, oriented x3 and no apparent distress HEENT Mouth: dry mucous membranes Resp clear to auscultation bilaterally Effort and Inspection: Negative for tachypneic or labored Cardio regular rate, regular rhythm and no gallops GI GI Narrative: The abdomen is soft today and nondistended. No significant tympany. Normal bowel sounds are heard in all quadrants. No guarding with palpation. Rectal revealed a large amount of hard stool in the rectal vault. I disimpacted a lot of hard stool and the stool I could reach after disimpaction was soft. A Dulcolax suppository was inserted. He felt much better after being disimpacted. Extremity no calf tenderness General Extremity: Negative for edema Assessment & Plan Assessment/Plan (1) IBS (irritable bowel syndrome): (2) Physical debility: (3) Generalized weakness: (4) Myelomalacia of cervical cord: (5) Status post cervical spinal fusion: (6) Osteochondritis: (7) Foraminal stenosis of lumbar region: (8) Low back pain: QUALIFIERS: Chronicity: chronic Back pain laterality: bilateral Sciatica presence: with sciatica Sciatica laterality: bilateral sciatica Q ualified Code(s): M54.42 - Lumbago with sciatica, left side; M54.41 - Lumbago with sciatica, right side; G89.29 - Other chronic pain (9) Essential (primary) hypertension: (10) Hyperlipidemia: QUALIFIERS: Hyperlipidemia type: pure hypercholesterolemia Q ualified Code(s): E78.00 - Pure hypercholesterolemia, unspecified; E78.00 - Pure hypercholesterolemia, unspecified; E78.00 - Pure hypercholesterolemia, unspecified; E78.0 - Pure hypercholesterolemia (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 Continue therapy 2. Bolus 1 L of normal saline over 2 hours and then run at 75 cc/h for an additional [address]ar[address] and metoprol[address] on hold 4. Cortrosyn stimulation test in the a.m. 5. Check a urine sodium-it was 17 which implies to me that he has adequate aldosterone to reabsorb sodium. 6. Unclear to me why urine outputs have been exceeding input even though he has good fluid intake......... today so far he has had 2600 and and 1270 out for positive fluid balance of 1330.. Will recheck orthostatics in the a.m. Charges/Coding Visit Charges Inpatient E&M: 62394 Subs Hosp L1
[2024-07-01] MEDS: 0.9% Normal Saline (1000mL) 1,000 ML 500 ML IV (10:36)
[2024-07-01] MEDS: 0.9% Normal Saline (1000mL) 1,000 ML 75 ML IV (13:14)
[2024-07-01 16:59] LABS: Urine Sodium 17 mmol/L (Not Establ.)
[2024-07-01] MEDS: Bisacodyl 10 MG Suppository RC (17:31)
[2024-07-01] MEDS: 0.9% Saline Lock 10 ML Syringe IV (20:17)
[2024-07-01] MEDS: traZODone 50 MG Tablet PO (22:06)
[2024-07-02] MEDS: 0.9% Normal Saline (1000mL) 1,000 ML 75 ML IV (03:02)
[2024-07-02] MEDS: Cosyntropin 0.25 MG in 0.9% Normal Saline (Pres. free 4 ML 150 MG IV (05:41)
[2024-07-02 06:00] VITALS: BP 137/73; BP 138/66; BP 139/73; PULSE 54; PULSE 64; PULSE 71; PULSE 73; RESP 17; TEMP 36.4; O2SAT 94
[2024-07-02] MEDS: Acetaminophen 500 MG Tablet 1000 MG PO ×3 (06:37→21:51)
[2024-07-02] MEDS: Gabapentin 100 MG Capsule PO ×2 (07:44→16:50)
[2024-07-02] MEDS: Magnesium Chloride 64 MG Delay Rel.Tablet 128 MG PO (09:42)
[2024-07-02] MEDS: APIXABAN 5 MG TABLET PO ×2 (09:42→21:51)
[2024-07-02] MEDS: Polyethylene Glycol 3350 17 GM PACKET PO ×2 (09:43→21:51)
[2024-07-02] MEDS: Senna/Docusate Sodium 1 Tablet 2 TABLET PO ×2 (09:44→21:51)
[2024-07-02] MEDS: Cyanocobalamin 500 MCG Tablet 1000 MCG PO (09:44)
[2024-07-02] MEDS: amLODIPine 5 MG Tablet PO (09:44)
[2024-07-02] MEDS: Sertraline 50 MG Tablet PO (09:45)
[2024-07-02] MEDS: Cholecalciferol (VIT D3) 25 MCG TABLET (1,000 UNITS) 100 MCG PO (09:45)
[2024-07-02] MEDS: Menthol/Lanolin/Calamine/Znox 113 GM Tube 1 APPLIC TOPICAL ×2 (09:46→22:01)
[2024-07-02 17:27] VITALS: BP 113/62; PULSE 77; RESP 16; TEMP 36.7; O2SAT 92
[2024-07-02] MEDS: 0.9% Saline Lock 10 ML Syringe IV (21:51)
[2024-07-02] MEDS: traZODone 50 MG Tablet PO (21:51)
[2024-07-03 06:00] VITALS: BP 125/79; PULSE 67; RESP 17; TEMP 36.2; O2SAT 94
[2024-07-03] MEDS: Acetaminophen 500 MG Tablet 1000 MG PO (06:06)
[2024-07-03] MEDS: Gabapentin 100 MG Capsule PO ×2 (08:02→17:52)
[2024-07-03] MEDS: Senna/Docusate Sodium 1 Tablet 2 TABLET PO (08:02)
[2024-07-03] MEDS: Cyanocobalamin 500 MCG Tablet 1000 MCG PO (08:02)
[2024-07-03] MEDS: Cholecalciferol (VIT D3) 25 MCG TABLET (1,000 UNITS) 100 MCG PO (08:02)
[2024-07-03] MEDS: APIXABAN 5 MG TABLET PO (08:03)
[2024-07-03] MEDS: amLODIPine 5 MG Tablet PO (08:03)
[2024-07-03] MEDS: Magnesium Chloride 64 MG Delay Rel.Tablet 128 MG PO (08:03)
[2024-07-03] MEDS: Menthol/Lanolin/Calamine/Znox 113 GM Tube 1 APPLIC TOPICAL (08:03)
[2024-07-03] MEDS: Polyethylene Glycol 3350 17 GM PACKET PO (08:03)
[2024-07-03] MEDS: Sertraline 50 MG Tablet PO (08:03)
[2024-07-03 18:00] VITALS: BP 106/74; PULSE 76; RESP 16; TEMP 36.3; O2SAT 100
[2024-07-04] MEDS: Menthol/Lanolin/Calamine/Znox 113 GM Tube 1 APPLIC TOPICAL ×3 (00:04→22:15)
[2024-07-04] MEDS: traZODone 50 MG Tablet PO (00:05)
[2024-07-04] MEDS: APIXABAN 5 MG TABLET PO ×3 (00:05→22:15)
[2024-07-04] MEDS: Senna/Docusate Sodium 1 Tablet 2 TABLET PO ×2 (00:06→09:06)
[2024-07-04] MEDS: Polyethylene Glycol 3350 17 GM PACKET PO ×3 (00:06→22:11)
[2024-07-04] MEDS: 0.9% Saline Lock 10 ML Syringe IV (00:09)
[2024-07-04 06:00] VITALS: BP 148/79; PULSE 72; RESP 16; TEMP 36.4; O2SAT 95; BMI 29.8
[2024-07-04] MEDS: Sertraline 50 MG Tablet PO ×2 (09:06→11:40)
[2024-07-04] MEDS: Cyanocobalamin 500 MCG Tablet 1000 MCG PO (09:06)
[2024-07-04] MEDS: Cholecalciferol (VIT D3) 25 MCG TABLET (1,000 UNITS) 100 MCG PO (09:06)
[2024-07-04] MEDS: Magnesium Chloride 64 MG Delay Rel.Tablet 128 MG PO (09:06)
[2024-07-04] MEDS: Gabapentin 100 MG Capsule PO ×2 (09:06→16:16)
[2024-07-04] MEDS: amLODIPine 5 MG Tablet PO (09:07)
--- NOTE | 2024-07-04 10:29 | PN_ITS ---
Subjective Subjective Afebrile VSS -blood pressures over the weekend have ranged from 108/61 to 148/79 this a.m. Heart rate has ranged from 54-77. Bradycardia has improved with holding Lopressor. Maintaining appropriate oxygen saturation on RA Oral intake - FOOD good FLUIDS good Having regular bowel movements since disimpaction. Discussed with nursing - no problems that need addressed-sleeping well at night now. Reviewed the THERAPY notes Medication list reviewed. We discussed his medications today and Joe tells me that he is on 100 mg of amiodarone daily, not 200 mg. He was sent to us on 200 mg daily. This may be why the heart rate was getting so slow. Denies shortness of breath, chest pain, palpitations, nausea/vomiting, dysuria and calf tenderness. He is complaining of dizziness but denies vertigo. Most recent orthostatics were negative and his weight is increasing so I doubt dehydration. He has increased edema in the left upper extremity. It was a little more swollen than the right at presentation to rehab but it is certainly more swollen now. Today he is also c/o of a tightness across the upper abdomen and ask me if this could be due to his heart. He has new somatic complaints every day. He is fixated on what all could be wrong with him and this affects his performance in therapy. He is not making the progress with therapy that we hoped he would. Not complaining of neck pain. Weight today is 225 pounds which is up from 222 and 3.6 ounces on 06/30/2024. He is eating 75 to 100% of all of his meals. Objective Data Objective Data Vital Signs: Vital Signs Temp Pulse Resp BP Pulse Ox O2 Del Method 97.5 F L 72 16 148/79 H 95 Room Air 07/04/24 06:00 07/04/24 06:00 07/04/24 06:00 07/04/24 06:00 07/04/24 06:00 07/04/24 06:00 Oxygen Delivery Method Room Air Weight: 225 lb Body Mass Index (BMI) 29.8 Intake & Output: Intake and Output for Last 24 Hours 07/02/24 07/03/24 07/04/24 23:59 23:59 23:59 Intake Total 3985 / 3985 2050 / 2050 570 / 570 Output Total 1700 / 1700 1175 / 1175 1375 / 1375 Balance 2285 / 2285 875 / 875 -805 / -805 Lab / Micro Data 06/27/24 12:13 06/30/24 09:25 Micro: Microbiology 06/28/24 12:45 Urine Catheter - Catheter Urine Culture - Final Culture exhibits no growth. Physical Exam Const alert and no apparent distress Constitutional Narrative: flat affect. Not making good eye contact when he is speaking with me. eyes and head are down frequently when talking. Many somatic complaints. General Appearance: cooperative HEENT normocephalic and moist oral mucous membranes Neck Neck Narrative: [place] collar remains in place. Resp normal respiratory effort, normal air movement and clear to auscultation bilaterally Resp Narrative: No cough Effort and Inspection: Negative for tachypneic Cardio regular rate and regular rhythm Cardio Narrative: HR is better with holding the amiodarone starting Thursday. will restart at 100 mg in a few days. 100 mg is his regular dose -he was mistakenly put on 200 mg daily at admission to the hospital. Rate: Negative for bradycardia or tachycardic GI normal to inspection, nondistended, normoactive bowel sounds, non-tender and non-distended Extremity normal capillary refill and no calf tenderness General Extremity: edema bilateral (Mild.) upper extremity Skin no rashes or lesions noted General Skin Exam: no breakdown Psych Psych Narrative: Depressed, flat affect. Not making good eye contact. Looking down when he is talking with me or to the left. Sleeping is better since the trazodone was started. Many somatic complaints. Appearance: appropriate Assessment & Plan Assessment/Plan (1) IBS (irritable bowel syndrome): (2) Physical debility: (3) Generalized weakness: (4) Myelomalacia of cervical cord: (5) Status post cervical spinal fusion: (6) Osteochondritis: (7) Foraminal stenosis of lumbar region: (8) Low back pain: QUALIFIERS: Chronicity: chronic Back pain laterality: bilateral Sciatica presence: with sciatica Sciatica laterality: bilateral sciatica Q ualified Code(s): M54.42 - Lumbago with sciatica, left side; M54.41 - Lumbago with sciatica, right side; G89.29 - Other chronic pain (9) Essential (primary) hypertension: (10) Hyperlipidemia: QUALIFIERS: Hyperlipidemia type: pure hypercholesterolemia Q ualified Code(s): E78.00 - Pure hypercholesterolemia, unspecified; E78.00 - Pure hypercholesterolemia, unspecified; E78.00 - Pure hypercholesterolemia, unspecified; E78.0 - Pure hypercholesterolemia (11) 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 (14) Depression: QUALIFIERS: Depression Type: reactive depression Qualified Code(s): F32.9 - Major depressive disorder, single episode, unspecified PLAN: Was started on sertraline 50 mg daily 1 week ago. Will increase to 100 mg which is a more therapeutic dose. This patient would definitely benefit from psychotherapy when discharged from rehab. (15) Orthostatic hypotension: PLAN: Resolved PLAN: Plan 1. Continue therapy 2. Restart Lopressor at a decreased dose of 25 mg twice daily....if the HR starts to increase or the BP is uncontrolled will go back up to 50 mg BID 3. Increase sertraline to 100 mg daily 4. CBC with differential, BMP in a.m. 5. Amiodarone has been on hold since 07/02/2024.......... will continue to hold and restart in another 2 to 4 days at 100 mg daily. 6. Venous ultrasound of the left upper extremity today Charges/Coding Visit Charges Inpatient E&M: 88571 Subs Hosp L2
--- NOTE | 2024-07-04 11:13 | VDUE_ITS ---
Reason For Study: Swelling Left Proximal Left jugular vein is spontaneous, widely patent, phasic, with no intraluminal echogenicity noted. Left subclavian vein is spontaneous, widely patent, phasic, with no intraluminal echogenicity noted. Left Arm Left axillary vein is spontaneous, patent, phasic, competent, compressible and demonstrates augmentation. Left brachial vein is compressible. Acute superficial vein thrombosis noted in the Lt Cephalic V at antecube. Recent IV site placement noted. Left basilic vein is compressible. Left Lower Arm Left radial vein is compressible. Left ulnar vein is compressible. Patient Safety Preliminary report given to IR Nurse. VL/Venous Duplex US, Unilateral Interpretation Summary Positive for acute superficial vein thrombosis in the left cephalic vein. Deep veins of the left upper extremity are patent and compressible segmentally. There is no evidence of deep vein thrombosis. Ordering Physician: Sonal Torres Referring Physician: Joe Trotter Performed By: Idalia Bernal RVT and Student ???
--- NOTE | 2024-07-04 13:45 | CASEMGMT ---
Social Work IDT met with patient and dtr Sadia, for Team meeting. Discussed patient's progress in PT/OT/SN. Educated to [facility] insurance with [employer] 07/07, updating every 7 days. Per Medicare guidance, anticipating DC approximately 07/24, pending progress and meeting criteria. Home vs SNF for DC plans, pending progress. cannot provide assistance, but does not need to provide physical assistance for her. Will determine DC recommendations closer to DC. Pts goal is to return home. SW will continue to follow to assist with DC planning. Will ReTeam next week. POLY KeithW
[2024-07-04 18:00] VITALS: BP 139/89; PULSE 90; RESP 16; TEMP 37.1; O2SAT 98
[2024-07-04 22:16] VITALS: BP 103/65; PULSE 82
[2024-07-04] MEDS: Metoprolol Tartrate 25 MG Tablet PO (22:16)
[2024-07-05 06:00] VITALS: BP 102/70; PULSE 86; RESP 16; TEMP 36.4; O2SAT 95
[2024-07-05 08:25] VITALS: BP 129/99; PULSE 67; RESP 16; O2SAT 97
[2024-07-05] MEDS: Cholecalciferol (VIT D3) 25 MCG TABLET (1,000 UNITS) 100 MCG PO (08:32)
[2024-07-05] MEDS: amLODIPine 5 MG Tablet PO (08:32)
[2024-07-05] MEDS: Gabapentin 100 MG Capsule PO ×2 (08:32→16:29)
[2024-07-05 08:33] VITALS: BP 129/99; PULSE 67
[2024-07-05] MEDS: Magnesium Chloride 64 MG Delay Rel.Tablet 128 MG PO (08:33)
[2024-07-05] MEDS: Cyanocobalamin 500 MCG Tablet 1000 MCG PO (08:33)
[2024-07-05] MEDS: Metoprolol Tartrate 25 MG Tablet PO ×2 (08:33→20:52)
[2024-07-05] MEDS: APIXABAN 5 MG TABLET PO ×2 (08:34→20:52)
[2024-07-05] MEDS: Menthol/Lanolin/Calamine/Znox 113 GM Tube 1 APPLIC TOPICAL ×2 (08:36→20:52)
--- NOTE | 2024-07-05 09:27 | PN.REHAB_ITS ---
Subjective Subjective Patient seen and examined. He states he has been having trouble with word finding since starting Sertraline and Trazodone. He admits upon admission to he was in a lot of pain, and was grumpy toward the staff, but he denies depression, and feels he is having side effects of new medications. He also notes lightheadedness from the Trazodone, he asked if he could come off these medications and see how he does. He also spoke of constipation requiring disimpaction by Dr. Torres, and despite being on bowel regimen, still feels constipated. Doppler ultrasound left upper extremity negative for DVT, but positive for superficial thrombophlebitis. Objective Data Objective Data Vital Signs: Vital Signs Temp Pulse Resp BP Pulse Ox O2 Del Method 97.5 F L 67 16 129/99 H 95 Room Air 07/05/24 06:00 07/05/24 08:33 07/05/24 06:00 07/05/24 08:33 07/05/24 06:00 07/05/24 06:00 Oxygen Delivery Method Room Air Weight: 102.058 kg Body Mass Index (BMI) 29.8 Intake & Output: Intake and Output for Last 24 Hours 07/03/24 07/04/24 07/05/24 23:59 23:59 23:59 Intake Total 0 / 0 1410 / 1530 620 / 620 Output Total 1175 / 1175 1575 / 2075 1550 / 1550 Balance 875 / 875 -165 / -545 -930 / -930 Lab / Micro Data 06/27/24 12:13 06/30/24 09:25 Micro: Microbiology 06/28/24 12:45 Urine Catheter - Catheter Urine Culture - Final Culture exhibits no growth. Radiography Diagnostic Testing: Radiology Impression Venous Doppler Study 07/04/24 11:13 Interpretation Summary Positive for acute superficial vein thrombosis in the left cephalic vein. Deep veins of the left upper extremity are patent and compressible segmentally. There is no evidence of deep vein thrombosis. Ordering Physician: Sonal Torres Referring Physician: Joe Trotter Performed By: Idalia Bernal RVT and Student ??? Indicators for Scoring Admitted with or Primary Diagnosis of CVA/Stroke: No Hx of CVA/Stroke: No Physical Exam Const alert General Appearance: cooperative HEENT normocephalic Eyes PERRL and EOMs intact bilaterally Neck supple, no JVD and no carotid bruits Resp normal respiratory effort, normal air movement and clear to auscultation bilaterally Cardio regular rate and regular rhythm GI normal to inspection, nondistended, normoactive bowel sounds, non-tender and non-distended Extremity normal capillary refill General Extremity: edema bilateral (Mild.) upper extremity Skin no rashes or lesions noted General Skin Exam: no breakdown Psych affect normal Appearance: appropriate Assessment & Plan Assessment/Plan (1) Debility: (2) Cervical spinal stenosis: (3) HTN (hypertension): (4) Atrial fibrillation: (5) Vitamin D deficiency: (6) Vitamin B12 deficiency: (7) Cervical radiculopathy: PLAN: Plan 79 year old male with below past medical history hospitalized for weakness after cervical spinal decompression surgery, admitted to with debility, here for 3 hours daily rehabilitation, strengthening, prior to disharge home. * Debility - PT/OT. * Pain - Tylenol 1000mg q8. * Bowel - senna/colace 2 tablets bid, Miralax 17gm bid, Dulcolax 10mg pr x 1 prn, MOM 30mL po x 1 prn.Magnesium citrate 300ml po x 1 bottle. * Atrial fibrillation - Metoprolol 25mg bid, Amiodarone 100mg daily, Eliquis 5mg bid. * Vitamin D deficiency - D3 100mcg daily. * Vitamin B12 deficiency - B12 1000mcg daily. * Cervical radiculopathy - Gabapentin 100mg bidcm. * Hypomagnesemia - Magnesium 128mg bid. * Skin irritation - Calmoseptine topical bid. * Hypertension - Metoprolol 25mg bid, Amlodipine 5mg daily. * Depression - Stop Sertraline 100mg daily and see how he does. * Insomnia - Stop Trazodone 50mg qhs and see how he does.
[2024-07-05 11:29] VITALS: BP 102/70; BP 79/56; BP 98/59; PULSE 66; PULSE 71; PULSE 78
[2024-07-05 12:56] LABS: Hematocrit 39.2 % (40-54); Hemoglobin 12.3 g/dL (13.0-16.5); Mean Corp Hgb Conc 31.4 g/dL (32-36); Mean Corpuscular Hgb 31.4 pg (27.0-32.0); Mean Platelet Vol. 11.2 fl (6.2-12.0); Platelet Count 246 K/mm3 (150-450); RBC Distribution Width CV 16.2 % (11.6-14.6); RBC Distribution Width SD 58.9 fl (35.1-43.9); Red Blood Count 3.92 M/mm3 (4.6-6.2)
--- NOTE | 2024-07-05 13:11 | NURSING ---
This nurse attempted to administer mag citrate per physician order, patient stated, I am not constipated, if anything, I'm having diarrhea, I don't need that stuff This nurse asked patient if he had a conversation with the physician regarding constipation or feeling constipated, patient denies talking to physician about constipation. This information conflicts with provider's progress note from this morning. Patient refusing mag citrate at this time. Patient did have a medium loose BM this afternoon and stated he had one this morning as well. Patient also concerned about Zoloft medication administration, patient stated, I'm not depressed, I don't know what she's thinking, I'm fine, that stuff just makes me feel dizzy Patient's vitals are stable. Patient educated that he refused AM dose of Zoloft and did not receive the medication this morning. Patient stated, Oh, well I don't want it anyway patient has brought up his Zoloft medication upon each interaction with this nurse. Patient also stated, I think I'm in A-fib, I need an EKG, that's why I'm dizzy this nurse educated patient that his heart rate was regular and at 67bpm which is within normal reference range. Patient continues to hyper-fixate on A-fib and Zoloft medication despite education from this nurse and provider. Physician aware of all of the above. No new orders at this time.
[2024-07-05 13:28] LABS: Anion Gap 6 (5-15); BUN 23 mg/dL (7-18); BUN/Creat Ratio 27.1 RATIO (10-20); Calcium,Total 9.6 mg/dL (8.5-10.1); Chloride 109 mmol/L (98-107); Creatinine, Serum 0.85 mg/dL (0.70-1.30); EST Glomerular Filtration Rate 93 mL/min (>60); Est Glom Filt Rate - Afr Amer 112 mL/min (>60); Estimated Creatinine Clearance 88.53 ml/min; Glucose 107 mg/dL (74-106); Sodium Level 139 mmol/L (136-145)
[2024-07-05] MEDS: 0.9% Saline Lock 10 ML Syringe IV (16:32)
[2024-07-05] MEDS: 0.9% Normal Saline (1000mL) 1,000 ML 500 ML IV (16:34)
[2024-07-05 17:32] VITALS: BP 123/71; PULSE 83; RESP 17; TEMP 36.7; O2SAT 96
[2024-07-05 20:52] VITALS: BP 114/61; PULSE 69
[2024-07-06] MEDS: Acetaminophen 500 MG Tablet 1000 MG PO ×3 (05:40→21:23)
[2024-07-06 05:45] VITALS: BP 108/74; PULSE 63; RESP 20; TEMP 36.2; O2SAT 98
[2024-07-06] MEDS: Gabapentin 100 MG Capsule PO ×2 (09:00→17:32)
[2024-07-06] MEDS: APIXABAN 5 MG TABLET PO ×2 (09:04→21:23)
[2024-07-06] MEDS: Cyanocobalamin 500 MCG Tablet 1000 MCG PO (09:04)
[2024-07-06] MEDS: Senna/Docusate Sodium 1 Tablet 2 TABLET PO (09:05)
[2024-07-06] MEDS: Magnesium Chloride 64 MG Delay Rel.Tablet 128 MG PO (09:05)
[2024-07-06] MEDS: Polyethylene Glycol 3350 17 GM PACKET PO (09:06)
[2024-07-06] MEDS: Cholecalciferol (VIT D3) 25 MCG TABLET (1,000 UNITS) 100 MCG PO (09:06)
[2024-07-06] MEDS: amLODIPine 5 MG Tablet PO (09:06)
[2024-07-06 09:09] VITALS: PULSE 67
[2024-07-06] MEDS: Metoprolol Tartrate 25 MG Tablet PO ×2 (09:09→21:25)
[2024-07-06] MEDS: Menthol/Lanolin/Calamine/Znox 113 GM Tube 1 APPLIC TOPICAL ×2 (09:12→21:30)
[2024-07-06 10:00] VITALS: RESP 16
[2024-07-06] MEDS: 0.9% Saline Lock 10 ML Syringe IV (14:11)
[2024-07-06 15:40] VITALS: BP 125/77; PULSE 82; RESP 16; TEMP 36.6
[2024-07-06 21:25] VITALS: PULSE 82
[2024-07-07] MEDS: Acetaminophen 500 MG Tablet 1000 MG PO ×2 (05:59→21:51)
[2024-07-07 06:09] VITALS: BP 95/55; PULSE 78; RESP 16; TEMP 36.5; O2SAT 96
[2024-07-07 06:39] VITALS: BMI 29.5
[2024-07-07] MEDS: Cholecalciferol (VIT D3) 25 MCG TABLET (1,000 UNITS) 100 MCG PO (08:15)
[2024-07-07] MEDS: amLODIPine 5 MG Tablet PO (08:16)
[2024-07-07] MEDS: APIXABAN 5 MG TABLET PO ×2 (08:16→21:51)
[2024-07-07] MEDS: Cyanocobalamin 500 MCG Tablet 1000 MCG PO (08:16)
[2024-07-07] MEDS: Magnesium Chloride 64 MG Delay Rel.Tablet 128 MG PO (08:16)
[2024-07-07] MEDS: Polyethylene Glycol 3350 17 GM PACKET PO ×2 (08:17→21:52)
[2024-07-07] MEDS: Menthol/Lanolin/Calamine/Znox 113 GM Tube 1 APPLIC TOPICAL ×2 (08:17→21:52)
[2024-07-07] MEDS: Senna/Docusate Sodium 1 Tablet 2 TABLET PO (08:17)
[2024-07-07 08:18] VITALS: PULSE 78
[2024-07-07] MEDS: Metoprolol Tartrate 25 MG Tablet PO ×2 (08:18→21:52)
[2024-07-07] MEDS: Gabapentin 100 MG Capsule PO ×2 (08:25→17:01)
--- NOTE | 2024-07-07 08:41 | PN.REHAB_ITS ---
Subjective Subjective Patient seen, examined. He feels his mentation is improved off Sertraline and Trazodone. He did not complain of insomnia day. He has some swelling of left upper extremity, I reassured him it should resolve on its own along with superficial thrombophlembitis. Objective Data Objective Data Vital Signs: Vital Signs Temp Pulse Resp BP Pulse Ox O2 Del Method O2 Flow Rate 97.7 F L 78 16 95/55 L 96 Room Air 95 07/07/24 06:09 07/07/24 08:18 07/07/24 06:09 07/07/24 06:09 07/07/24 06:09 07/07/24 06:09 07/06/24 15:40 Oxygen Flow Rate (L/min) 95 Oxygen Delivery Method Room Air Weight: 100.9 kg Body Mass Index (BMI) 29.5 Intake & Output: Intake and Output for Last 24 Hours 07/05/24 07/06/24 07/07/24 23:59 23:59 23:59 Intake Total 2870 / 3170 1290 / 1290 540 / 540 Output Total 1700 / 2600 2475 / 2475 500 / 500 Balance 1170 / 570 -1185 / -1185 40 / 40 Lab / Micro Data 07/05/24 12:50 07/05/24 12:50 Micro: Microbiology 06/28/24 12:45 Urine Catheter - Catheter Urine Culture - Final Culture exhibits no growth. Indicators for Scoring Admitted with or Primary Diagnosis of CVA/Stroke: No Hx of CVA/Stroke: No Physical Exam Const alert General Appearance: cooperative HEENT normocephalic Eyes PERRL and EOMs intact bilaterally Neck supple, no JVD and no carotid bruits Resp normal respiratory effort, normal air movement and clear to auscultation bilaterally Cardio regular rate and regular rhythm GI normal to inspection, nondistended, normoactive bowel sounds, non-tender and non-distended Extremity normal capillary refill General Extremity: edema bilateral (Mild.) upper extremity Skin no rashes or lesions noted General Skin Exam: no breakdown Psych affect normal Appearance: appropriate Assessment & Plan Assessment/Plan (1) Debility: (2) Cervical spinal stenosis: (3) HTN (hypertension): (4) Atrial fibrillation: (5) Vitamin D deficiency: (6) Vitamin B12 deficiency: (7) Cervical radiculopathy: PLAN: Plan 79 year old male with below past medical history hospitalized for weakness after cervical spinal decompression surgery, admitted to with debility, here for 3 hours daily rehabilitation, strengthening, prior to disharge home. * Debility - PT/OT. * Pain - Tylenol 1000mg q8. * Bowel - senna/colace 2 tablets bid, Miralax 17gm bid, Dulcolax 10mg pr x 1 prn, MOM 30mL po x 1 prn.Magnesium citrate 300ml po x 1 bottle. * Atrial fibrillation - Metoprolol 25mg bid, Amiodarone 100mg daily, Eliquis 5mg bid. * Vitamin D deficiency - D3 100mcg daily. * Vitamin B12 deficiency - B12 1000mcg daily. * Cervical radiculopathy - Gabapentin 100mg bidcm. * Hypomagnesemia - Magnesium 128mg bid. * Skin irritation - Calmoseptine topical bid. * Hypertension - Metoprolol 25mg bid, Amlodipine 5mg daily. * Depression - Mood okay off Sertraline. * Insomnia - Sleeping okay without Trazodone.
[2024-07-07 18:00] VITALS: BP 107/66; PULSE 76; RESP 16; TEMP 36.4; O2SAT 96
[2024-07-07 21:30] VITALS: PULSE 71; RESP 16; O2SAT 96
[2024-07-07 21:52] VITALS: BP 144/82; PULSE 71
[2024-07-08] VITALS (10 sets, daily range): BP systolic 73–111; BP diastolic 46–68; PULSE 60–87; RESP 16–18; TEMP 36.2–36.7; O2SAT 95–97
[2024-07-08] MEDS: Acetaminophen 500 MG Tablet 1000 MG PO ×2 (06:19→21:51)
[2024-07-08] MEDS: Cholecalciferol (VIT D3) 25 MCG TABLET (1,000 UNITS) 100 MCG PO (07:40)
[2024-07-08] MEDS: Metoprolol Tartrate 25 MG Tablet PO (07:40)
[2024-07-08] MEDS: Cyanocobalamin 500 MCG Tablet 1000 MCG PO (07:40)
[2024-07-08] MEDS: APIXABAN 5 MG TABLET PO ×2 (07:41→21:51)
[2024-07-08] MEDS: Amiodarone 200 MG Tablet 100 MG PO (07:41)
[2024-07-08] MEDS: amLODIPine 5 MG Tablet PO (07:41)
[2024-07-08] MEDS: Magnesium Chloride 64 MG Delay Rel.Tablet 128 MG PO (07:41)
[2024-07-08] MEDS: Gabapentin 100 MG Capsule PO ×2 (07:42→17:22)
[2024-07-08] MEDS: Menthol/Lanolin/Calamine/Znox 113 GM Tube 1 APPLIC TOPICAL ×2 (07:43→21:56)
--- NOTE | 2024-07-08 15:10 | CHAPLAIN ---
Type of Pastoral Visit ___ Initial Visit _x__ Follow-up Visit ___ On-call Visit ___ General Patient Visit ___ Spiritual Assessment ___ Family Conference ___ Bereavement ___ Rapid Response ___ Code Blue ___ Other (describe below) Pastoral Care Referral From _x__ Patient ___ Family ___ Nurse ___ Physician ___ Aircraft Detail Draftsperson ___ Skein Tier ___ Other (describe below) Sacrament/Intervention _x__ Active listening ___ Anointing ___ Restorationist ___ Bereavement ___ Communion ___ Macy exploration ___ ___ Life review _x__ Prayer ___ Reconciliation ___ Sacrament of Sick ___ Supportive presence ___ Wedding ___ Other (describe below) Pastoral Comments patient is sitting up in the chair and appears to be more energetic and less confined as before when in bed; pt agrees that he is having progress and that his neck brace coming off on Thursday will be beneficial; pt continues to be hopeful about his recovery and life; pt recognizes that patience is needed; prayer is again welcomed
--- NOTE | 2024-07-08 18:05 | NURSING ---
c/o lightheadedness this AM. BP 96/52 HR 68. Blood pressure monitored throughout the day and continually running low. Dr Burns made aware. changes made to BP meds. Will continue to monitor.
[2024-07-08] MEDS: 0.9% Saline Lock 10 ML Syringe IV (21:52)
[2024-07-08] MEDS: Metoprolol Tartrate 25 MG Tablet 12.5 MG PO (21:52)
[2024-07-09] VITALS (7 sets, daily range): BP systolic 109–131; BP diastolic 70–88; PULSE 79–99; RESP 16–17; TEMP 36.6–36.8; O2SAT 94–96
[2024-07-09] MEDS: Acetaminophen 500 MG Tablet 1000 MG PO (05:04)
[2024-07-09] MEDS: Metoprolol Tartrate 25 MG Tablet 12.5 MG PO ×2 (08:35→21:40)
[2024-07-09] MEDS: amLODIPine 5 MG Tablet PO (08:38)
[2024-07-09] MEDS: Magnesium Chloride 64 MG Delay Rel.Tablet 128 MG PO (08:38)
[2024-07-09] MEDS: Cholecalciferol (VIT D3) 25 MCG TABLET (1,000 UNITS) 100 MCG PO (08:38)
[2024-07-09] MEDS: Gabapentin 100 MG Capsule PO ×2 (08:38→16:39)
[2024-07-09] MEDS: Cyanocobalamin 500 MCG Tablet 1000 MCG PO (08:38)
[2024-07-09] MEDS: APIXABAN 5 MG TABLET PO ×2 (08:38→21:40)
[2024-07-09] MEDS: Menthol/Lanolin/Calamine/Znox 113 GM Tube 1 APPLIC TOPICAL ×2 (08:39→21:45)
[2024-07-09] MEDS: 0.9% Saline Lock 10 ML Syringe IV (21:42)
[2024-07-10] VITALS (8 sets, daily range): BP systolic 95–127; BP diastolic 52–75; PULSE 65–86; RESP 16–18; TEMP 36.5–36.6; O2SAT 94–97; BMI 30.4
[2024-07-10] MEDS: Gabapentin 100 MG Capsule PO ×2 (08:05→18:19)
[2024-07-10] MEDS: Magnesium Chloride 64 MG Delay Rel.Tablet 128 MG PO (08:05)
[2024-07-10] MEDS: Metoprolol Tartrate 25 MG Tablet 12.5 MG PO ×2 (08:05→22:12)
[2024-07-10] MEDS: Cholecalciferol (VIT D3) 25 MCG TABLET (1,000 UNITS) 100 MCG PO (08:05)
[2024-07-10] MEDS: Menthol/Lanolin/Calamine/Znox 113 GM Tube 1 APPLIC TOPICAL ×2 (08:06→22:16)
[2024-07-10] MEDS: Cyanocobalamin 500 MCG Tablet 1000 MCG PO (08:06)
[2024-07-10] MEDS: amLODIPine 5 MG Tablet PO (08:06)
[2024-07-10] MEDS: APIXABAN 5 MG TABLET PO ×2 (08:06→22:12)
[2024-07-10] MEDS: Polyethylene Glycol 3350 17 GM PACKET PO (22:11)
[2024-07-10] MEDS: Senna/Docusate Sodium 1 Tablet 2 TABLET PO (22:11)
[2024-07-10] MEDS: Acetaminophen 500 MG Tablet 1000 MG PO (22:12)
[2024-07-11] VITALS (7 sets, daily range): BP systolic 128–152; BP diastolic 69–92; PULSE 64–78; RESP 16–19; TEMP 36.6–37.1; O2SAT 93–96
[2024-07-11] MEDS: Metoprolol Tartrate 25 MG Tablet 12.5 MG PO ×2 (08:03→21:03)
[2024-07-11] MEDS: Cholecalciferol (VIT D3) 25 MCG TABLET (1,000 UNITS) 100 MCG PO (08:03)
[2024-07-11] MEDS: Polyethylene Glycol 3350 17 GM PACKET PO ×2 (08:04→21:03)
[2024-07-11] MEDS: Cyanocobalamin 500 MCG Tablet 1000 MCG PO (08:04)
[2024-07-11] MEDS: Gabapentin 100 MG Capsule PO (08:04)
[2024-07-11] MEDS: APIXABAN 5 MG TABLET PO ×2 (08:04→21:04)
[2024-07-11] MEDS: Magnesium Chloride 64 MG Delay Rel.Tablet 128 MG PO (08:04)
[2024-07-11] MEDS: Menthol/Lanolin/Calamine/Znox 113 GM Tube 1 APPLIC TOPICAL ×2 (08:11→21:07)
--- NOTE | 2024-07-11 08:49 | CASEMGMT ---
Social Work IDT met with patient and dtr for Team meeting. Discussed patient's progress in PT/OT/SN. [facility] [facility], with updates every 7 days and IDT is responsible for setting DC date. Dtr inquire about current medications and concerned with taking so many that he wasn't taking at home. Nursing and Dr reviewed medications and made adjustments per pt/dtr request. SW broached IDT recommending DC to SNF for safety and is not currently independent. Dtr denied anyone being able to assist pt 26/01 at [facility] or further needs. cannot assist physically. SW educated to SNF coverage, as a precert will need to be obtained. Currently, IDT is concerned with pt meeting criteria for further stay in [place], and wanting to protect pt from receiving any OOP cost. In addition, the goal is for precert to be approved for SNF, and those chances decrease after extended stay in [place]. Pt and dtr refuting the need for a SNF, expressing concerns with care allegedly provided at SNFs. SW attempted to answer questions for pt and dtr, however, offered to meet with pt/dtr separately to review concerns and answer questions further. Both agreed. SW encouraged both to discuss the options in the meantime. SW to follow up with pt after therapy sessions and phone dtrs. Will continue to follow. POLY Keith
--- NOTE | 2024-07-11 11:32 | PN.REHAB_ITS ---
Subjective Subjective Patient seen, examined on Team Rounds today, daughter present. Cervical collar can be removed today. Patient continues to progress with therapy, but the pace has slowed. Team offered SNF on discharge, patient/daughter not excited about discharge to SNF, but will discuss and let us know. His blood pressure was low over the weekend, blood pressure medications adjusted. He does have some swelling of the legs, and 3 pound weight gain, will give him 1 dose of Furosemide 40mg. Objective Data Objective Data Vital Signs: Vital Signs Temp Pulse Resp BP Pulse Ox O2 Del Method O2 Flow Rate 97.9 F 72 16 135/76 H 96 Room Air 95 07/11/24 10:00 07/11/24 10:07/11/24 10:00 07/11/24 10:07/11/24 10:07/11/24 10:00 07/06/24 15:40 Oxygen Flow Rate (L/min) 95 Oxygen Delivery Method Room Air Weight: 104.355 kg Body Mass Index (BMI) 30.4 Intake & Output: Intake and Output for Last 24 Hours 07/09/24 07/10/24 07/11/24 23:59 23:59 23:59 Intake Total 1760 / 1760 1355 / 1355 540 / 540 Output Total 1200 / 1200 1425 / 1625 350 / 350 Balance 560 / 560 -70 / -270 190 / 190 Lab / Micro Data 07/05/24 12:50 07/05/24 12:50 Micro: Microbiology 06/28/24 12:45 Urine Catheter - Catheter Urine Culture - Final Culture exhibits no growth. Indicators for Scoring Admitted with or Primary Diagnosis of CVA/Stroke: No Hx of CVA/Stroke: No Physical Exam Const alert General Appearance: cooperative HEENT normocephalic Eyes PERRL and EOMs intact bilaterally Neck supple, no JVD and no carotid bruits Neck Narrative: C collar. Resp normal respiratory effort, normal air movement and clear to auscultation bilaterally Cardio regular rate and regular rhythm GI normal to inspection, nondistended, normoactive bowel sounds, non-tender and non-distended Extremity normal capillary refill General Extremity: edema bilateral (Mild.) upper extremity Skin no rashes or lesions noted General Skin Exam: no breakdown Psych affect normal Appearance: appropriate Assessment & Plan Assessment/Plan (1) Debility: (2) Cervical spinal stenosis: (3) HTN (hypertension): (4) Atrial fibrillation: (5) Vitamin D deficiency: (6) Vitamin B12 deficiency: (7) Cervical radiculopathy: PLAN: Plan 79 year old male with below past medical history hospitalized for weakness after cervical spinal decompression surgery, admitted to with debility, here for 3 hours daily rehabilitation, strengthening, prior to disharge home. * Debility - PT/OT. * Pain - Tylenol 1000mg q8. * Bowel - senna/colace 2 tablets bid, Miralax 17gm bid, Dulcolax 10mg pr x 1 prn, MOM 30mL po x 1 prn.Magnesium citrate 300ml po x 1 bottle. * Atrial fibrillation - Metoprolol 12.5mg bid, Amiodarone 100mg daily, Eliquis 5mg bid. * Vitamin D deficiency - D3 100mcg daily. * Vitamin B12 deficiency - B12 1000mcg daily. * Cervical radiculopathy - Stop Gabaentin 100mg bidcm, patient feels not necessary. * Hypomagnesemia - Magnesium 128mg bid. * Skin irritation - Calmoseptine topical bid. * Hypertension - Blood pressure too low, lower Metoprolol 12.5mg bid, Stop Amlodipine. * Depression - Mood okay off Sertraline. * Insomnia - Sleeping okay without Trazodone. * Edema - Furosemide 40mg po x 1 dose.
--- NOTE | 2024-07-11 15:05 | CASEMGMT ---
Social Work SW returned to speak with pt and answer questions. Offered to phone dtr during conversation but pt denied stating she was running around and was not available. SW answered questions pertaining to IDTs recommendations for home vs SNF. Pt refuted the need for assistance and IDT 'labeling' pt as a fall risk and not allowing pt to transfer or ambulate independently. SW provided active listening and assisted in explanation to support recommendations, such as pt is not independent and is a fall risk. Explained returning home does not provide the / supervision IDT is recommending, as cannot assist, and dtrs work full-time. However, SW explained IDT's goal for DC is safety, and pt has the right to make his own decision. SW to assist with that decision for DC planning. SW educated to pt hiring private duty caregivers in the home to assist. Pt interested in that option, though has not ruled out a SNF. Pt shared several personal experiences from friends/family on negative scenarios on SNFs, deterring pt from placement. SW expressed understanding and offered to assist with pt's decision. SW to contact dtr to answer questions. Pt appreciative. Reva Avilez, CLIENT RETENTION SPECIALIST CAR RENTAL SALES ASSISTANT
--- NOTE | 2024-07-11 20:35 | NURSING ---
Patient asked this nurse if he was receiving a dose of Lasix tonight for his edema. Patient stated he had spoke with Dr. Burns this morning about taking a dose of Lasix to help with the swelling and weight gain. This nurse educated patient that there was a one time dose of Lasix ordered for 0800 and it was marked not given due to patient refusal. Patient stated, I never refused any Lasix! I only refused my Tylenol because I wasn't having any pain. I would never refuse my Lasix. This nurse educated patient that I could request another dose for tonight from the provider due to the AM dose not being administered. Patient stated, well the swelling looks better tonight, we'll wait until morning and see how the swelling is This nurse educated patient on the reasoning for the Lasix order because of the 3lb weight gain and BLE edema. Patient verbalized understanding and stated, the swelling in my legs has gone down quite a bit, I'd like to wait until morning This nurse educated patient that the edema in his feet and ankles is still a 3+ and his blood pressure is elevated at 150/92. Patient still refusing to have this nurse attempt to receive an order for the Lasix tonight, continues to insist we wait until morning to re-evaluate swelling.
[2024-07-11] MEDS: Senna/Docusate Sodium 1 Tablet 2 TABLET PO (21:03)
[2024-07-12 06:00] VITALS: BP 130/66; PULSE 65; RESP 16; TEMP 36.4; O2SAT 93; BMI 30.4
[2024-07-12 07:44] VITALS: BP 130/66; PULSE 65
[2024-07-12] MEDS: Polyethylene Glycol 3350 17 GM PACKET PO ×2 (07:44→21:28)
[2024-07-12] MEDS: Metoprolol Tartrate 25 MG Tablet 12.5 MG PO ×2 (07:44→21:29)
[2024-07-12] MEDS: Cholecalciferol (VIT D3) 25 MCG TABLET (1,000 UNITS) 100 MCG PO (07:44)
[2024-07-12] MEDS: Cyanocobalamin 500 MCG Tablet 1000 MCG PO (07:44)
[2024-07-12] MEDS: Magnesium Chloride 64 MG Delay Rel.Tablet 128 MG PO (07:44)
[2024-07-12] MEDS: APIXABAN 5 MG TABLET PO ×2 (07:44→21:28)
[2024-07-12] MEDS: Menthol/Lanolin/Calamine/Znox 113 GM Tube 1 APPLIC TOPICAL ×2 (07:46→21:28)
--- NOTE | 2024-07-12 10:17 | CCN.REFER ---
Social Work SW phoned dtr and offered to answer questions about DC. Dtr inquired about the conflict of setting a DC date prior to the 30 days initially explained. SW further clarified the prior explanations stating the [facility] Medicare days allowed 20 days, which would be DC 07/13, but if pt continued meeting criteria, such as showing significant progress in therapy and requires the oversight of an MD 3-days/wk, to allow insurance coverage. Reiterated insurance will not approve coverage until after the stay is completed, and the team wants to avoid pt paying OOP for any part of the stay. SW explained the goal was to have pt remain between 20-30 days, pending pt meeting criteria. Dtr remain unsatisfied with answer and was very short with this worker. Dtr stated she will talk to he pt about a decision for home vs SNF. SW educated to dtr on hiring SPA TECHNICIAN and dtr also interested. SW requested dtr contact this worker tomorrow with DC plan. Dtr agreed. Reva Avilez, POLY SUAREZW
--- NOTE | 2024-07-12 15:27 | CASEMGMT ---
Social Work SW notified by nursing that pt decided on DC plans. SW spoke with pt. Pt decided he will DC home on 07/17. IDT agreeable to DC date. Pt is accepting of list of private duty caregivers, and will decide between HHC vs OP therapy after speaking with dtr and notify this worker. SW will continue to follow to finalize DC plans. IDT updated. Plan: DC home with and additional caregiver assistance 07/17, HHC vs OP therapy Reva Avilez MSW MACHINE STOPPAGE FREQUENCY CHECKER
[2024-07-12 18:00] VITALS: BP 114/75; PULSE 71; RESP 16; TEMP 36.6; O2SAT 94
[2024-07-12] MEDS: Senna/Docusate Sodium 1 Tablet 2 TABLET PO (21:28)
[2024-07-12 21:29] VITALS: BP 156/77; PULSE 72
[2024-07-13 05:55] VITALS: BP 144/72; PULSE 58; RESP 18; TEMP 36.5; O2SAT 95
[2024-07-13 08:07] VITALS: BP 144/72; PULSE 58
[2024-07-13] MEDS: Metoprolol Tartrate 25 MG Tablet 12.5 MG PO ×2 (08:07→21:17)
[2024-07-13] MEDS: Magnesium Chloride 64 MG Delay Rel.Tablet 128 MG PO (08:07)
[2024-07-13] MEDS: Cholecalciferol (VIT D3) 25 MCG TABLET (1,000 UNITS) 100 MCG PO (08:07)
[2024-07-13] MEDS: Cyanocobalamin 500 MCG Tablet 1000 MCG PO (08:07)
[2024-07-13] MEDS: APIXABAN 5 MG TABLET PO ×2 (08:07→21:17)
[2024-07-13] MEDS: Menthol/Lanolin/Calamine/Znox 113 GM Tube 1 APPLIC TOPICAL ×2 (08:08→21:19)
--- NOTE | 2024-07-13 08:55 | PCM.PROGNOTE ---
Subjective Subjective Afebrile VSS - BP has ranged from 114/75 to 152/90 gfor the past 48 H. Heart rate is ranged from 58-72. He has a hx of orthostatic hypotension. Maintaining appropriate oxygen saturation on RA Oral intake - FOOD good FLUIDS good Had a bowel movement on the seventh and had a bowel movement already today on the eighth. Discussed with nursing - SW/O LE edema but, will not elevate his legs per nursing because it is uncomfortable. Requested Lasix and Dr. Burns ordered and then he refused the dose. Reviewed the THERAPY notes Medication list reviewed. Has been refusing senna frequently then c/o constipation and wants laxatives. Also refuses MiraLAX not infrequently. He is c/o swelling in the legs. It is mostly controlled with the RASHEED hose. He denies SOB and lightheadedness. He denies chest pain, cough, palpitations, nausea/vomiting/abdominal pain, dysuria and calf pain. Objective Data Objective Data Vital Signs: Vital Signs Temp Pulse Resp BP Pulse Ox O2 Del Method O2 Flow Rate 97.7 F L 58 L 18 144/72 H 95 Room Air 95 07/13/24 05:55 07/13/24 08:07 07/13/24 05:55 07/13/24 08:07 07/13/24 05:55 07/12/24 20:52 07/06/24 15:40 Oxygen Flow Rate (L/min) 95 Oxygen Delivery Method Room Air Weight: 229 lb 8 oz Body Mass Index (BMI) 30.4 Intake & Output: Intake and Output for Last 24 Hours 07/11/24 07/12/24 07/13/24 23:59 23:59 23:59 Intake Total 1200 / 1600 2100 / 2400 1140 / 1140 Output Total 1050 / 1400 1650 / 1900 800 / 800 Balance 150 / 200 450 / 500 340 / 340 Lab / Micro Data 07/05/24 12:50 07/05/24 12:50 Micro: Microbiology 06/28/24 12:45 Urine Catheter - Catheter Urine Culture - Final Culture exhibits no growth. Physical Exam Const alert Constitutional Narrative: Sitting in the straight-backed chair at the bedside with his legs dependent. General Appearance: cooperative HEENT HEENT Narrative: No thrush Neck Neck Narrative: He has the [place] collar on today. Resp normal respiratory effort, normal air movement and clear to auscultation bilaterally Effort and Inspection: Negative for tachypneic Cardio regular rate and regular rhythm Cardio Narrative: No ectopy GI normal to inspection, nondistended, normoactive bowel sounds, non-tender and non-distended Extremity Extremity Narrative: Continues to have some mild edema of the left upper extremity which improves when he elevates it. General Extremity: edema bilateral (Mild.) upper extremity Skin General Skin Exam: no breakdown Psych affect normal Appearance: appropriate Assessment & Plan Assessment/Plan (1) Physical debility: (2) Generalized weakness: (3) Myelomalacia of cervical cord: (4) Status post cervical spinal fusion: (5) Foraminal stenosis of lumbar region: (6) Low back pain: QUALIFIERS: Chronicity: chronic Back pain laterality: bilateral Sciatica presence: with sciatica Sciatica laterality: bilateral sciatica Qualified Code(s): M54.42 - Lumbago with sciatica, left side; M54.41 - Lumbago with sciatica, right side; G89.29 - Other chronic pain (7) technician terminal and repeater current use of anticoagulant: (8) Paroxysmal atrial fibrillation: (9) Orthostatic hypotension: (10) Venous insufficiency: PLAN: Plan 1. Continue therapy. Plan discharge is more 07/17/2024. He will be going home. 2. Check a CBC with differential and a BMP in the a.m. 3. No Lasix. Has orthostatic hypotension and has needed IV fluids in the past. I reinforced with him that the edema is due to venous insufficiency and the best treatment for this is salt restriction, compression and elevation of his legs when he is sitting in the chair. Charges/Coding Visit Charges Inpatient E&M: 89137 Subs Hosp L1
--- NOTE | 2024-07-13 14:10 | CASEMGMT ---
Social Work SW followed up with pt on HHC vs OP therapy. Pt prefers HHC. SW provided printed list of skilled HHC agencies including quality and resource data via [employer]. Pt reviewed and prefers [facility]. SW provided pt with nonskilled HHC resource list. SW phoned [facility] for PT/OT/SN/KUMARI/SW. Reva Avilez, POLY SUAREZW
[2024-07-13] MEDS: 0.9% Saline Lock 10 ML Syringe IV (16:39)
[2024-07-13 17:37] VITALS: BP 131/71; PULSE 70; RESP 16; TEMP 36.2; O2SAT 99
[2024-07-13 21:00] VITALS: BP 139/60; PULSE 63; RESP 16; O2SAT 99
[2024-07-13 21:17] VITALS: BP 139/60; PULSE 63
[2024-07-13] MEDS: Senna/Docusate Sodium 1 Tablet 2 TABLET PO (21:18)
[2024-07-14 05:00] VITALS: BP 147/57; PULSE 60; RESP 17; TEMP 36.5; O2SAT 94
[2024-07-14] MEDS: Cholecalciferol (VIT D3) 25 MCG TABLET (1,000 UNITS) 100 MCG PO (07:57)
[2024-07-14 07:58] VITALS: PULSE 60
[2024-07-14] MEDS: Metoprolol Tartrate 25 MG Tablet 12.5 MG PO ×2 (07:58→20:52)
[2024-07-14] MEDS: Senna/Docusate Sodium 1 Tablet 2 TABLET PO ×2 (07:58→20:52)
[2024-07-14] MEDS: Magnesium Chloride 64 MG Delay Rel.Tablet 128 MG PO (07:58)
[2024-07-14] MEDS: Cyanocobalamin 500 MCG Tablet 1000 MCG PO (07:58)
[2024-07-14] MEDS: APIXABAN 5 MG TABLET PO ×2 (07:58→20:52)
[2024-07-14] MEDS: Menthol/Lanolin/Calamine/Znox 113 GM Tube 1 APPLIC TOPICAL (08:02)
[2024-07-14] MEDS: 0.9% Saline Lock 10 ML Syringe IV (08:02)
[2024-07-14 08:51] LABS: Absolute Lymphocyte Count 0.71 X10^3/uL (0.83-4.51); Absolute Neutrophil Count 8.4 X10^3/uL (2.0-7.7); Basophil# 0.08 X10^3/uL; Basophil% 0.8 % (0-1); Eosinophil# 0.21 X10^3/uL; Eosinophils% 2.1 % (0-5); Lymphocyte # 0.71 X10^3/ul (0.83-4.51); Mean Corp Hgb Conc 31.6 g/dL (32-36); Mean Corpuscular Hgb 31.1 pg (27.0-32.0); Mean Corpuscular Volume 98.4 fL (80-94); Mean Platelet Vol. 10.8 fl (6.2-12.0); Monocyte# 0.62 X10^3/uL; Monocyte% 6.2 % (0-10); NRBC Flagged by Analyzer 0 % (0-5); Neutrophil # 8.38 X10^3/uL (2.7-7.7); Neutrophil % 83.1 % (47-70); Platelet Count 204 K/mm3 (150-450); RBC Distribution Width CV 16.3 % (11.6-14.6); RBC Distribution Width SD 58.8 fl (35.1-43.9); Red Blood Count 3.86 M/mm3 (4.6-6.2); White Blood Count 10.1 K/mm3 (4.4-11.0)
--- NOTE | 2024-07-14 09:17 | PCM.PROGNOTE ---
Subjective Subjective Afebrile VSS -heart rate over the past 24 hours has ranged from 58-70. Currently taking metoprolol 12.5 g p.o. twice daily. Amiodarone was discontinued due to bradycardia that complicated orthostatic hypotension. Maintaining appropriate oxygen saturation on RA Oral intake - FOOD good FLUIDS good Discussed with nursing - no problems that need addressed. Pitting edema of the lower extremities documented by nursing is secondary to venous insufficiency. Patient refuses to elevate his legs and sits in the straight-backed chair at the bedside with his legs dependent for most of the day. Continue RASHEED hose. Continue to recommend elevation of the legs. No diuretics......due to orthostatic hypotension when he gets diuretics. Reviewed the THERAPY notes Medication list reviewed. All lab drawn this morning was personally reviewed. White blood cell count is normal at 10.1. Hemoglobin is stable at 12 and platelets are within normal limits. BMP is unremarkable Denies lightheadedness, chest pain, shortness of breath, cough, abdominal pain, dysuria. Objective Data Objective Data Vital Signs: Vital Signs Temp Pulse Resp BP Pulse Ox O2 Del Method O2 Flow Rate 97.7 F L 60 17 147/57 H 94 Room Air 95 07/14/24 05:00 07/14/24 07:58 07/14/24 05:00 07/14/24 05:00 07/14/24 05:00 07/14/24 05:00 07/06/24 15:40 Oxygen Flow Rate (L/min) 95 Oxygen Delivery Method Room Air Weight: 229 lb 8 oz Body Mass Index (BMI) 30.4 Intake & Output: Intake and Output for Last 24 Hours 07/12/24 07/13/24 07/14/24 23:59 23:59 23:59 Intake Total 2100 / 2400 1710 / 1710 790 / 790 Output Total 1650 / 1900 1500 / 1500 575 / 575 Balance 450 / 500 210 / 210 215 / 215 Lab / Micro Data 07/14/24 08:45 07/14/24 08:45 Labs: Laboratory Results - last 24 hr 07/14/24 08:45: WBC 10.1, RBC 3.86 L, Hgb 12.0 L, Hct 38.0 L, MCV 98.4 H, MCH 31.1, MCHC 31.6 L, RDW Std Deviation 58.8 H, RDW Coeff of Emre 16.3 H, Plt Count 204, MPV 10.8, Immature Gran % (Auto) 0.800, Neut % (Auto) 83.1 H, Lymph % (Auto) 7.0 L, Beadle % (Auto) 6.2, Eos % (Auto) 2.1, Baso % (Auto) 0.8, Absolute Neuts (auto) 8.4 H, Absolute Lymphs (auto) 0.71 L, Nucleated RBC % 0 Micro: Microbiology 06/28/24 12:45 Urine Catheter - Catheter Urine Culture - Final Culture exhibits no growth. Physical Exam Const alert Constitutional Narrative: Sitting in the straight-backed chair at the bedside with his legs dependent. General Appearance: cooperative Resp normal respiratory effort, normal air movement and clear to auscultation bilaterally Effort and Inspection: Negative for tachypneic Cardio regular rate and regular rhythm Cardio Narrative: No ectopy GI normal to inspection, nondistended, normoactive bowel sounds, non-tender and non-distended Extremity Extremity Narrative: Continues to have some mild edema of the left upper extremity which improves when he elevates it. General Extremity: edema bilateral (Mild.) upper extremity Psych Psych Narrative: Sleeping well at night without trazodone now. Denies feeling depressed. Also denies feeling anxious. Makes good eye contact when we speak. He is calm and not restless. Assessment & Plan Assessment/Plan (1) Physical debility: (2) Generalized weakness: (3) Myelomalacia of cervical cord: (4) Status post cervical spinal fusion: (5) Foraminal stenosis of lumbar region: (6) Low back pain: QUALIFIERS: Chronicity: chronic Back pain laterality: bilateral Sciatica presence: with sciatica Sciatica laterality: bilateral sciatica Qualified Code(s): M54.42 - Lumbago with sciatica, left side; M54.41 - Lumbago with sciatica, right side; G89.29 - Other chronic pain (7) correction current use of anticoagulant: (8) Paroxysmal atrial fibrillation: (9) Orthostatic hypotension: (10) Venous insufficiency: PLAN: Plan 1. Continue therapy 2. Has been in a regular rhythm. he is currently only on 12.5 mg of Metoprolol BID and HR still in the 58-63 range most of the time. Not on amiodarone any longer. Stopped by Dr. Burns on 07/08/24. SSS? 3. check orthostatics today. Charges/Coding Visit Charges Inpatient E&M: 24301 Subs Hosp L1
[2024-07-14 09:23] LABS: Anion Gap 4 (5-15); BUN 17 mg/dL (7-18); BUN/Creat Ratio 16.5 RATIO (10-20); Calcium,Total 9.8 mg/dL (8.5-10.1); Chloride 108 mmol/L (98-107); Creatinine, Serum 1.03 mg/dL (0.70-1.30); EST Glomerular Filtration Rate 74 mL/min (>60); Est Glom Filt Rate - Afr Amer 90 mL/min (>60); Estimated Creatinine Clearance 73.74 ml/min; Glucose 136 mg/dL (74-106); Potassium 4.1 mmol/L (3.5-5.1); Sodium Level 140 mmol/L (136-145)
[2024-07-14 09:59] VITALS: BP 112/7; BP 112/74; BP 126/78; PULSE 56; PULSE 59; PULSE 70
--- NOTE | 2024-07-14 13:23 | CASEMGMT ---
Social Work SW followed up with pt on skilled HHC choices. Pt provided list: 1. [facility], 2. [facility], 3. [facility], 4. [facility]. SW sent referrals to all agencies via [facility]. Will await outcomes. Reva Avilez, CHOKER SETTER LEAD NEURODIAGNOSTIC TECHNOLOGIST
[2024-07-14 17:45] VITALS: BP 123/87; PULSE 74; RESP 16; TEMP 37; O2SAT 94
[2024-07-14 20:30] VITALS: BP 135/69; PULSE 65; RESP 16; O2SAT 94
[2024-07-14 20:52] VITALS: BP 135/69; PULSE 65
[2024-07-15 05:00] VITALS: BP 133/77; PULSE 62; RESP 16; TEMP 36.3; O2SAT 92
[2024-07-15 08:00] VITALS: PULSE 62
[2024-07-15] MEDS: Metoprolol Tartrate 25 MG Tablet 12.5 MG PO ×2 (08:00→20:27)
[2024-07-15] MEDS: Cholecalciferol (VIT D3) 25 MCG TABLET (1,000 UNITS) 100 MCG PO (08:00)
[2024-07-15] MEDS: Magnesium Chloride 64 MG Delay Rel.Tablet 128 MG PO (08:00)
[2024-07-15] MEDS: Polyethylene Glycol 3350 17 GM PACKET PO (08:00)
[2024-07-15] MEDS: APIXABAN 5 MG TABLET PO ×2 (08:00→20:27)
[2024-07-15] MEDS: Senna/Docusate Sodium 1 Tablet 2 TABLET PO ×2 (08:01→20:27)
[2024-07-15] MEDS: Cyanocobalamin 500 MCG Tablet 1000 MCG PO (08:01)
[2024-07-15] MEDS: Menthol/Lanolin/Calamine/Znox 113 GM Tube 1 APPLIC TOPICAL (08:02)
[2024-07-15] MEDS: 0.9% Saline Lock 10 ML Syringe IV (08:06)
--- NOTE | 2024-07-15 11:55 | CASEMGMT ---
Addendum entered by Reva Avilez 07/15/24 15:55: SW spoke with pt and pt agreeable. Pt requested resource for [facility] Medical Alert system. SW provided information. Original Note: Social Work SW referred to a total of 11 [facility] agencies and only accepting agency is [facility]. SW secured for PT/OT/SN/KUMARI/SW. Reva Avilez, POLY DEJESUS
--- NOTE | 2024-07-15 16:38 | DCINST_ITS ---
Discharge Instructions Diet Discharge Diet: No restrictions DC O2, CPAP, BIPAP needs Home O2 Discharge instructions: No Dressing / Incision Discharge Activity: May Not Drive, May Shower and Use Walker Weight Bearing Status: Full weight bearing Keep extremity elevated above heart level: Legs Dressing / Incision Call your doctor if you observe: Fever of 101 or Higher, Inability to urinate, Inability to have a bowel movement, Shortness of breath, Dizziness, Fainting spells, Chest pain, Increased palpitations (irregular heartbeat), Calf discomfort and Uncontrolled pain Follow Up Care Please Follow Up With: Joe Trotter DO When: within the next 7-10 days. You will also need to follow up with [facility] Test Results: Test results from this visit will be discussed in further detail at your follow- up appointment, if applicable. Pending Tests Upon Discharge: none Discharge Plan Admission Admit Date/Time: 06/23/24 12:00 Primary Reason for Your Visit: Debility secondary to generalized weakness Attending Provider: Sonal Torres Primary Care Provider: Joe Trotter Instructions Additional Instructions / Restrictions: 1. You are off Amiodarone and the dose of the Metoprolol has been decreased from 50 mg twice a day to 12.5 mg twice a day. Your heart rate at rest has been ranging form 58-65 and it does increase into the 80's with exercise. You have not been in AFIB any time I have examined you while on rehab. If you go into AFIB the heart rate may get fast. If your heart rate is fast go to the ER. 2. You have been taking the stool softeners sometimes. If you have constipation at home you can start taking Miralax or Metamucil as needed. 3. I am giving you a prescription for Metoprolol tablets 25 mg. You will need to break them in half and take a half tablet twice a day. 4. If you have any questions after you leave rehab OR you find you need a prescription for something please do not hesitate to call me. OFFICE: [phone] CELL: [phone] NURSES STATION ON REHAB: [phone] Discharge Orders/Prescriptions Prescriptions: New metoprolol tartrate 25 mg Tablet 12.5 mg PO BID Qty: 16 0RF Rx Instructions: Take 1/2 tablet twice daily Continued cholecalciferol (vitamin D3) 50 mcg (2,000 unit) tablet 4,000 unit PO DAILY magnesium 250 mg tablet 1,000 mg PO DAILY mecobalamin (vitamin B12) 1,000 mcg tablet,chewable 1,000 mcg PO DAILY potassium 99 mg tablet 99 mg PO DAILY acetaminophen 500 mg Tablet 500 mg PO Q6H PRN (Reason: pain) Eliquis 5 mg tablet 5 mg PO BID Qty: 60 11RF Discontinued sennosides-docusate sodium [Stimulant Laxative Plus] 8.6-50 mg Tablet 2 tab PO BID metoprolol tartrate 50 mg tablet 50 mg PO BID Qty: 180 3RF amlodipine 10 mg tablet 10 mg PO DAILY Qty: 90 3RF amiodarone 200 mg tablet 200 mg PO QDAY Qty: 90 3RF Referrals / Follow Up: Jesús Madrid MD [Med Staff - Active Staff] - 07/21/24 10:00 am Joe Trotter DO [Primary Care Provider] - Disposition Disposition (needs filled in before D/C Order can be placed): Home Health Service
--- NOTE | 2024-07-15 17:03 | DS.PCM_ITS ---
Providers Date of Admission: 06/23/24 Date of Discharge: 07/17/24 Primary Care Physician: Dr. Joe Trotter DO Reason For Visit: CERVICAL SPINE INFUSION Diagnosis Discharge Diagnosis (1) Physical debility: Status: Acute Code(s): R53.81 - Other malaise (2) Generalized weakness: Status: Acute Code(s): R53.1 - Weakness (3) Myelomalacia of cervical cord: Status: Chronic Code(s): G95.89 - Other specified diseases of spinal cord (4) Status post cervical spinal fusion: Status: Inactive Code(s): Z98.1 - Arthrodesis status (5) Foraminal stenosis of lumbar region: Status: Chronic Code(s): M48.061 - Spinal stenosis, lumbar region without neurogenic claudication (6) Low back pain: Status: Chronic Code(s): M54.50 - Low back pain, unspecified Qualifiers: Back pain laterality: bilateral Chronicity: chronic Sciatica laterality: bilateral sciatica Sciatica presence: with sciatica Qualified Code(s): M54.42 - Lumbago with sciatica, left side; M54.41 - Lumbago with sciatica, right side; G89.29 - Other chronic pain (7) care home current use of anticoagulant: Status: Chronic Code(s): Z79.01 - meterman (current) use of anticoagulants (8) Paroxysmal atrial fibrillation: Status: Chronic Code(s): I48.0 - Paroxysmal atrial fibrillation (9) Orthostatic hypotension: Status: Acute Code(s): I95.1 - Orthostatic hypotension (10) Venous insufficiency: Status: Chronic Code(s): I87.2 - Venous insufficiency (chronic) (peripheral) (11) Bradycardia: Status: Acute Code(s): R00.1 - Bradycardia, unspecified Plan: Amiodarone had to be discontinued and the metoprolol had to be decreased to 12.5 mg BID from 50 mg BID. He likes to take Lasix for the edema in his legs (he sits with them dependent most of the day) and then gets orthostatic again. We have not been giving diuretics. Lungs have been CTA. (12) Depression: Status: Acute Code(s): F32.A - Depression, unspecified Qualifiers: Depression Type: reactive depression Qualified Code(s): F32.9 - Major depressive disorder, single episode, unspecified Plan: C/O depression and insomnia at admission to rehab. He was started on Trazodone for insomnia and this was effective. He remained depressed duej to poor performance in therapy and Sertraline was added to the drug regimen. He later requested these medications be discontinued. (13) Insomnia: Status: Acute Code(s): G47.00 - Insomnia, unspecified Qualifiers: Insomnia type: unspecified Qualified Code(s): G47.00 - Insomnia, unspecified (14) Cervical radiculopathy: Status: Acute Code(s): M54.12 - Radiculopathy, cervical region Plan: He complained of this at admission to rehab. He was started on gabapentin 100 mg twice daily which seemed to help with his pain. He later requested that this be discontinued. (15) Obstipation: Status: Acute Code(s): K59.00 - Constipation, unspecified Plan: Severe. He was disimpacted and started on stool softeners and laxatives. He had a good response. He was on Miralax and Senna and having regular BM's. He3 sometimes refuses the stool softeners. I suspect he has had IBS C for quite some time. 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 Plan 1. Discharge home with [facility] care on 07/17/2024. PT/OT/SN/GENERALIST/SW. No DME needed. 2. He has a follow-up appointment with Dr. Rodriguez scheduled for 07/21/2024. 3. He was instructed to make an appointment with Dr. Joe Trotter for the next 1 to 2 weeks. 4. [facility]. 5. A prescription for metoprolol 25 mg tablets was sent to the [facility] retail pharmacy. 6. He received information about the [facility] medical alert system from the pediatric social worker. Medications at Discharge Home Medications cholecalciferol (vitamin D3) 50 mcg (2,000 unit) tablet 4,000 unit PO DAILY Supplement 04/05/20 magnesium 250 mg tablet 1,000 mg PO DAILY supplement 05/25/24 mecobalamin (vitamin B12) 1,000 mcg chewable tablet 1,000 mcg PO DAILY Supplement 05/25/24 potassium 99 mg tablet 99 mg PO DAILY Supplement 05/25/24 apixaban 5 mg tablet (Eliquis) 5 mg PO BID Blood thinner #60 tabs 06/07/24 acetaminophen 500 mg tablet 500 mg PO Q6H PRN pain 06/16/24 metoprolol tartrate 25 mg tablet 12.5 mg (1/2 x 25 mg) PO BID #16 tabs 07/15/24 Hospital Course Operations - (C3-C5 cervical discectomy and fusion with plate instrumentation on 05/30/[address] Clementina Madrid.) Procedures None Summary of Care Provided Minutes Spent on Discharge: 35 Hospital Course: TUCKER BOWEN, is a 79-year-old M with a past medical history of nonobstructive coronary artery disease, hyperlipidemia, MGUS, GERD, chronic low back pain, remote tobacco dependence, paroxysmal atrial fibrillation, chronic anticoagulation (currently on Eliquis 5 mg twice daily) chronic renal failure stage II, hypertension and cervical myelopathy due to severe spinal stenosis at C3-C4 with myelomalacia. Underwent a C3-C5 cervical discectomy and fusion by Dr. Madrid on 05/30/2024. He was discharged home on 05/31/2024 with home health care. He presented to the emergency department at [facility] on 06/16/2024 complaining that he had been unable to ambulate over the preceding 4 days. He had chronic paresthesias in the bilateral upper extremities ( the pareswthesias and pain in the LUE had been present for 10 years) however, he thought that it was worse than it was prior to surgery. He admitted to falling at home and the weakness progressed after the fall. He experienced an exacerbation of the chronic pain in the low back after the fall. He had been doing well until the fall. He had significant atrophy of the muscles of the LE's at presentation to rehab and the weakness had obviously not been just recent. On physical exam in the emergency department he had weakness in both legs (L>R). Sphincter tone was normal. He denied urinary incontinence or retention. He was afebrile in the emergency department. CT of the brain showed chronic involutional changes with no acute intracranial findings. CT scan of the cervical spine showed degenerative and postoperative changes with foraminal narrowing. He was admitted to the hospitalist service and MRI of the brain, lumbar spine and thoracic spine was ordered. MRI of the brain showed no acute findings. A noncontrast MRI of the thoracic spine showed no acute disease. MRI of the lumbar spine without contrast showed new fluid signal and disc space narrowing/erosions of the L3-L4 level. MRIs of the thoracic and lumbar spine were repeated with contrast. MRI of the thoracic spine was normal with no evidence of bony metastasis that was suggested on the noncontrast MRI. MRI of the lumbar spine with contrast showed no abnormal enhancing lesions intradurally or extra Durally. There was mild contrast-enhancement of the vertebral marrow underneath the vertebral endplates at L3-L4 disc space level due to aseptic intervertebral osteochondritis. Consult was obtained with Dr. Madrid. A short course of steroids was recommended. The steroids helped and on 06/19/2024 he had 4+ strength in both lower extremities. While in the hospital he was seen by PT/OT and acute inpatient rehab was recommended at discharge. He was transferred to the acute inpatient rehab unit at [facility] on 06/23/2024 for 3 hours of therapy daily to restore function/independence at or near his level prior to his recent admission to the hospital. He is not on steroids at the time of transfer to rehab. At presentation to rehab he complained of radicular pain in the upper and the lower extremities. He additionally complained of insomnia, depression, constipation and abd pain. He was started on Trazodone for insomnia and sertraline 50 mg daily for depression. Low-dose gabapentin, 100 mg p.o. twice daily was added for complaint of radicular pain. Insomnia resolved and the pain in the extremities also improved. He had some persistent swelling in the left upper extremity and a venous ultrasound was obtained and revealed superficial vein thrombosis. Warm compresses were applied and he was encouraged to use his arm. He continued to c/o abd pain and constipation although he was having BM's. A rectal exam revealed a large amount of hard stool impacted in the rectum and manual disimpaction was performed. He was continued on MiraLAX and senna. Once again he was having regular BM's but, he kept asking for laxatives. He also kept asking for Lasix for the LE edema. His lungs were CTA and he was sitting in a straight back chair with his legs dependent. He had only mild edema and this was better with RASHEED hose. He was given Lasix which lead to IV volume depletion and orthostatic hypotension requiring IV NS. He was taking Amiodarone and Metoprolol 50 mg BID and he was bradycardic. The inability to increase the HR with changes in position exacerbated the orthostasis. He was taking 200 mg of Amiodarone daily at presentation to rehab but, he told me that at home he only took 100 mg. Amiodarone was held for a few days and then restarted at 100 mg daily. He continued to have bradycardia and orthostatic hypotension. It responded to fluids initially but then would drop again. He was still bradycardic. Metoprolol was decreased to 25 mg twice daily and then to 12.5 mg twice daily. On 12.5 mg twice daily of Lopressor and no amiodarone the heart rate is still ranging from 58-63 at the time of discharge. Orthostatic hypotension has resolved. He was in sinus rhythm every time I examined him while he was on rehab. He has a follow-up appointment scheduled with Gary Ash from the [facility] in August of this year. Tucker improved very slowly in rehab. Effort was less than expected on several days and he often cut therapy short due to fatigue or lightheadedness. He requested that Gabapentin, Trazodone and Zoloft be discontinued and this was done. His effort improved somewhat prior to discharge form rehab. He denies any pain at discharge from rehab. VS are stable with negative orthostatic vital signs. He was having regular BM's and sometimes refusing the stool softeners. I recommended he continue Miralax as an OP and told him this was an OTC medication. At the time of DC he was able to do 7 sit to stands in 30 seconds at contact-guard assist. He was able to ascend/descend two 6 inch steps with 2 handrails at contact-guard assist. He had ambulated up to 120 feet over various surfaces with a wheelchair follow at standby assist. He was able to transition from sitting to standing at standby assist, he was able to stand and pivot with a front wheel walker at standby assist and was able to get into and out of bed at standby assist. He was supervision/set up for eating and required only minimal assistance with grooming. He also needed minimal assistance with bathing and lower body dressing. He still required moderate assistance with upper body dressing. He was standby assist for toilet transfer but total assistance was needed for toileting. He is contact-guard assist for tub/shower transfer. He refused to consider SNF and he was discharged home on 07/17/24. He will get [facility] from [facility] for PT/OT/SN/GENERALIST/SW. He has a follow-up appointment with Dr. Clementina Madrid on 07/21/2024 at 10 AM. He will call Dr. Joe Trotter's office to schedule a follow-up appointment. He has a follow-up appointment with [facility] already scheduled for August. Physical Exam Const alert Constitutional Narrative: Sitting in the straight-backed chair at the bedside with his legs dependent. General Appearance: cooperative HEENT HEENT Narrative: Mucous membranes are dry. Eyes PERRL and EOMs intact bilaterally General Eye: normal appearance of both eyes Neck Neck Narrative: He is still at times wearing the Mystic collar because he says it helps with pain. Has not been taking any pain medication. Resp normal respiratory effort, normal air movement and clear to auscultation bilaterally Effort and Inspection: Negative for tachypneic Cardio regular rate, regular rhythm, no rub and no gallops Cardio Narrative: No ectopy. He has never been in atrial fibrillation at any time I examined him while on rehab. GI normal to inspection, nondistended, normoactive bowel sounds, non-tender and non-distended GI Narrative: Having regular bowel movements. Extremity Extremity Narrative: Continues to have some mild edema of the left upper extremity which improves when he elevates it. General Extremity: edema bilateral (Mild.) upper extremity Skin Rashes: no rashes Weight / BMI Weight Weight: 226 lb 10.163 oz Body Mass Index (BMI) 30.0 ABG / Lab / Microbiology Data 07/14/24 08:45 07/14/24 08:45 Microbiology: Microbiology 06/28/24 12:45 Urine Catheter - Catheter Urine Culture - Final Culture exhibits no growth. D/C Instructions Discharge Diet: No restrictions Weight Bearing Status: Full weight bearing Keep extremity elevated above heart level: Legs Call your doctor if you observe: Fever of 101 or Higher, Inability to urinate, Inability to have a bowel movement, Shortness of breath, Dizziness, Fainting spells, Chest pain, Increased palpitations (irregular heartbeat), Calf discomfort and Uncontrolled pain DC O2, CPAP, BIPAP Needs Home O2 Discharge instructions: No Pending Tests Upon Discharge: none Please Follow Up With: Joe Trotter DO When: within the next 7-10 days. You will also need to follow up with [facility] Meaningful Use Info Meaningful Use Meaningful Use Diagnoses (Choose all that apply): None applicable Ischemic Stroke Statin Dosing Therapy Reference: STATIN DOSE THERAPY REFERENCE: * Patients > 75 years receive moderate or high dose statin therapy. * Patients 75 years or YOUNGER should receive HIGH intensity statin dose unless contraindicated. You will be required to document reason for non-treatment if statin daily dose does not meet guidelines. HIGH DOSE STATIN THERAPY DAILY Atorvastatin > than or = to 40 mg Rosuvastatin > than or = to 20 mg Amlodipine + Atorvastatin > than or = to 2.5/40 mg Ezetimibe + Simvastatin 10/80 mg Simvastatin 80mg Discharge Plan Admission Admit Date/Time: 06/23/24 12:00 Primary Reason for Your Visit: Debility secondary to generalized weakness Attending Provider: Sonal Torres Primary Care Provider: Joe Trotter Instructions Additional Instructions / Restrictions: 1. You are off Amiodarone and the dose of the Metoprolol has been decreased from 50 mg twice a day to 12.5 mg twice a day. Your heart rate at rest has been ranging form 58-65 and it does increase into the 80's with exercise. You have not been in AFIB any time I have examined you while on rehab. If you go into AFIB the heart rate may get fast. If your heart rate is fast go to the ER. 2. You have been taking the stool softeners sometimes. If you have constipation at home you can start taking Miralax or Metamucil as needed. 3. I am giving you a prescription for Metoprolol tablets 25 mg. You will need to break them in half and take a half tablet twice a day. 4. If you have any questions after you leave rehab OR you find you need a prescription for something please do not hesitate to call me. OFFICE: [phone] CELL: [phone] NURSES STATION ON REHAB: [phone] Discharge Orders/Prescriptions Prescriptions: New metoprolol tartrate 25 mg Tablet 12.5 mg PO BID Qty: 16 0RF Rx Instructions: Take 1/2 tablet twice daily Continued cholecalciferol (vitamin D3) 50 mcg (2,000 unit) tablet 4,000 unit PO DAILY magnesium 250 mg tablet 1,000 mg PO DAILY mecobalamin (vitamin B12) 1,000 mcg tablet,chewable 1,000 mcg PO DAILY potassium 99 mg tablet 99 mg PO DAILY acetaminophen 500 mg Tablet 500 mg PO Q6H PRN (Reason: pain) Eliquis 5 mg tablet 5 mg PO BID Qty: 60 11RF Discontinued sennosides-docusate sodium [Stimulant Laxative Plus] 8.6-50 mg Tablet 2 tab PO BID metoprolol tartrate 50 mg tablet 50 mg PO BID Qty: 180 3RF amlodipine 10 mg tablet 10 mg PO DAILY Qty: 90 3RF amiodarone 200 mg tablet 200 mg PO QDAY Qty: 90 3RF Referrals / Follow Up: Jesús Madrid MD [Med Staff - Active Staff] - 07/21/24 10:00 am Joe Trotter DO [Primary Care Provider] - Disposition Disposition (needs filled in before D/C Order can be placed): Home Health Service Charges/Coding Visit Charges Inpatient E&M: 78413 Disch Hosp >30min
[2024-07-15 18:00] VITALS: BP 143/83; PULSE 67; RESP 16; TEMP 37; O2SAT 94
[2024-07-15 20:20] VITALS: PULSE 67; RESP 16; O2SAT 94
[2024-07-15 20:27] VITALS: BP 124/71; PULSE 63
[2024-07-16 06:00] VITALS: BP 127/71; PULSE 62; RESP 17; TEMP 36.4; O2SAT 96
[2024-07-16 10:59] VITALS: PULSE 77
[2024-07-16] MEDS: Metoprolol Tartrate 25 MG Tablet 12.5 MG PO ×2 (10:59→20:50)
[2024-07-16] MEDS: Cholecalciferol (VIT D3) 25 MCG TABLET (1,000 UNITS) 100 MCG PO (11:00)
[2024-07-16] MEDS: Magnesium Chloride 64 MG Delay Rel.Tablet 128 MG PO (11:00)
[2024-07-16] MEDS: APIXABAN 5 MG TABLET PO ×2 (11:01→20:51)
[2024-07-16] MEDS: Cyanocobalamin 500 MCG Tablet 1000 MCG PO (11:02)
[2024-07-16] MEDS: Senna/Docusate Sodium 1 Tablet 2 TABLET PO ×2 (11:03→20:49)
[2024-07-16] MEDS: Polyethylene Glycol 3350 17 GM PACKET PO (11:03)
[2024-07-16 17:35] VITALS: BP 143/93; PULSE 67; RESP 18; TEMP 36.4; O2SAT 93
[2024-07-16 19:44] VITALS: BP 131/71; PULSE 68; O2SAT 99
[2024-07-16 20:50] VITALS: PULSE 68
[2024-07-17] MEDS: Polyethylene Glycol 3350 17 GM PACKET PO (05:07)
[2024-07-17 05:18] VITALS: BP 152/78; PULSE 76; RESP 18; TEMP 36.6; O2SAT 95
[2024-07-17 08:43] VITALS: BP 116/82; PULSE 72
[2024-07-17] MEDS: Cholecalciferol (VIT D3) 25 MCG TABLET (1,000 UNITS) 100 MCG PO (08:44)
[2024-07-17] MEDS: Magnesium Chloride 64 MG Delay Rel.Tablet 128 MG PO (08:44)
[2024-07-17] MEDS: Cyanocobalamin 500 MCG Tablet 1000 MCG PO (08:44)
[2024-07-17] MEDS: APIXABAN 5 MG TABLET PO (08:44)
[2024-07-17 08:45] VITALS: PULSE 77
[2024-07-17] MEDS: Metoprolol Tartrate 25 MG Tablet 12.5 MG PO (08:45)
--- NOTE | 2024-07-17 11:00 | NURSING ---
Patient and daughter aware of dc instruct.
== END 2024-07-17 11:00 | disposition home health service (06) | DRG 560 ==
PROVIDERS: Admitting Provider Internal Medicine; PCP Family Medicine; Referring Provider Internal Medicine; Visit Provider Internal Medicine
DX: Z47.89 Encounter for other orthopedic aftercare (principal); G95.89 Other specified diseases of spinal cord; I82.612 Acute embolism and thrombosis of superficial veins of left upper extremity; G99.2 Myelopathy in diseases classified elsewhere; F32.9 Major depressive disorder, single episode, unspecified; D47.2 Monoclonal gammopathy; E78.00 Pure hypercholesterolemia, unspecified; K21.9 Gastro-esophageal reflux disease without esophagitis; I48.0 Paroxysmal atrial fibrillation; I12.9 Hypertensive chronic kidney disease with stage 1 through stage 4 chronic kidney disease, or unspecified chronic kidney disease; I77.89 Other specified disorders of arteries and arterioles; K56.41 Fecal impaction; K58.1 Irritable bowel syndrome with constipation; M48.061 Spinal stenosis, lumbar region without neurogenic claudication; I87.2 Venous insufficiency (chronic) (peripheral); I25.10 Atherosclerotic heart disease of native coronary artery without angina pectoris; N18.2 Chronic kidney disease, stage 2 (mild); M54.42 Lumbago with sciatica, left side; M54.41 Lumbago with sciatica, right side; I95.1 Orthostatic hypotension; M54.12 Radiculopathy, cervical region; M48.02 Spinal stenosis, cervical region; Z79.01 Long term (current) use of anticoagulants; Z87.891 Personal history of nicotine dependence; G89.29 Other chronic pain; G47.00 Insomnia, unspecified; Z98.1 Arthrodesis status; Z79.899 Other long term (current) drug therapy
CPT/HCPCS: 36415; 80048; 80053; 81001; 82533; 83735; 83930; 84100; 84300; 85025; 85027; 87086; 93971; 94668; 97110; 97112; 97116; 97162; 97166; 97530; 97535; 97803; A4216; J0834

== ENCOUNTER → 2024-10-19 | Outpatient (CLI) | payer MEDICARE, SELFPAY ==
--- NOTE | 2024-10-19 15:11 | NEURO ---
NCS and/or EMG Patient Report Ordering Doctor: Esperanza Morales DATE OF SERVICE: 10/19/24 Kalen presents for electrodiagnostic testing of the upper limbs. He reports neck pain. He had cervical spine surgery May 2024. Reports numbness and tingling in the first 3 digits of both hands. He has a history of bilateral carpal tunnel release in the left ulnar transposition. Electrodiagnostic findings: Right median motor nerve demonstrates prolonged latency with normal amplitude and reduced conduction velocity. Left median motor nerve demonstrates prolonged latency with normal amplitude and reduced conduction velocity. Normal right ulnar motor response. Left ulnar motor nerve demonstrates prolonged distal latency with diminished amplitude and reduced conduction velocity, though without significant drop in conduction across the elbow. Prolonged median sensory latency at the wrist bilaterally. Needle EMG testing was performed upper limbs. Decreased recruitment pattern noted bilaterally in the first dorsal interosseous. Electrodiagnostic impression: This is an abnormal study. 1. Electrodiagnostic findings suggestive of bilateral median mononeuropathy. This consistent with a moderate bilateral carpal tunnel syndrome. 2. Electrodiagnostic evidence suggestive of left-sided ulnar neuropathy. There is previous history of ulnar transposition and there is no evidence of decreased conduction across the elbow. 3. No electrodiagnostic evidence is noted for cervical radiculopathy. 4. Would consider correlation with lower extremity electrodiagnostic testing to evaluate for peripheral polyneuropathy. Multi Select Codes Neurology Neurology Interp Codes: 11476-11 Musc test done w/n test comp (interp) (2) and 33438-72 Nrv cndj test 9-10 studies (interp)
== END | disposition home or self-care (01) ==
LOC: PSN 13:24
PROVIDERS: PCP Family Medicine; Referring Provider Student in an Organized Health Care Education/Training Program; Visit Provider Student in an Organized Health Care Education/Training Program
DX: G56.03 Carpal tunnel syndrome, bilateral upper limbs (principal)
CPT/HCPCS: 95886; 95911

== ENCOUNTER → 2024-11-16 | Outpatient (CLI) | payer MEDICARE, SELFPAY ==
[2024-11-16 12:23] LABS: Absolute Lymphocyte Count 0.97 X10^3/uL (0.83-4.51); Basophil# 0.08 X10^3/uL; Eosinophil# 0.18 X10^3/uL; Eosinophils% 2.2 % (0-5); Hematocrit 40.9 % (40-54); Hemoglobin 13.1 g/dL (13.0-16.5); Lymphocyte # 0.97 X10^3/ul (0.83-4.51); Lymphocyte % 11.9 % (19-41); Mean Corpuscular Hgb 28.8 pg (27.0-32.0); Mean Corpuscular Volume 89.9 fL (80-94); Mean Platelet Vol. 12.4 fl (6.2-12.0); Monocyte# 0.84 X10^3/uL; Monocyte% 10.3 % (0-10); NRBC Flagged by Analyzer 0 % (0-5); Neutrophil # 6.03 X10^3/uL (2.7-7.7); Neutrophil % 74.1 % (47-70); Platelet Count 219 K/mm3 (150-450); RBC Distribution Width CV 15.3 % (11.6-14.6); RBC Distribution Width SD 50.3 fl (35.1-43.9); Red Blood Count 4.55 M/mm3 (4.6-6.2); White Blood Count 8.1 K/mm3 (4.4-11.0)
[2024-11-16 12:56] LABS: ALB/GLOB Ratio 1.3 RATIO (0.9-2.4); AST(SGOT) 15 U/L (<=37); Alanine Aminotransfer ALT/SGPT 7 U/L (<=46); Albumin, Serum 3.6 g/dL (3.4-4.8); Alkaline Phosphatase 97 U/L (40-129); Anion Gap 9 (5-15); BUN 16 mg/dL (4-19); BUN/Creat Ratio 19.4 RATIO (10-20); Calcium,Total 10.4 mg/dL (7.6-11.0); Carbon Dioxide 26.1 mmol/L (21.0-32.0); Chloride 106 mmol/L (98-108); Cholesterol 151 mg/dL (<=200); Creatinine, Serum 0.84 mg/dL (0.70-1.20); EST Glomerular Filtration Rate 89 (>60); Globulin 2.8 g/dL (2.2-4.2); Glucose 96 mg/dL (70-99); High Density Lipoprotein 51 mg/dL; Low Density Lipoprotein Calc. 91 mg/dL; Potassium 4.1 mmol/L (3.3-5.1); Protein, Total 6.5 g/dL (5.9-8.4); Sodium Level 140 mmol/L (133-145); Total Bilirubin 0.78 mg/dL (0.00-1.30); Triglycerides 45 mg/dL; Very Low Density Lipoprotein 9 mg/dL (5-40); cholesterol:hdl ratio screen 2.98
== END | disposition home or self-care (01) ==
LOC: MTLAB 09:40
PROVIDERS: PCP Family Medicine; Referring Provider Family Medicine; Visit Provider Family Medicine
DX: I10 Essential (primary) hypertension (principal); Z51.81 Encounter for therapeutic drug level monitoring
CPT/HCPCS: 36415; 80053; 80061; 85025

== ENCOUNTER 2024-12-27 14:00 | Outpatient (RCR) | payer MEDICARE, SELFPAY ==
--- NOTE | 2024-10-11 16:20 | HP.PTEVAL ---
Patient's Visit Information Visit Information Visit Information: TUCKER BOWEN is a 79 year old M referred to Physical Therapy by JACKELINE Mckinney with a diagnosis of ARTHRODESIS STATUS. Date of Evaluation: 10/11/24 Physical Therapist: Buzz Roberts PT, Cert MDT, OCS Visit Plan Frequency: 2x /Week Duration: 8WEEKS Plan: *s/p C3-5 anterior cervical discectomy fusion on 05/30/24* PT INTERVENTIONS BUE/LE STRENGTHENING ,POSTURAL EX'S ,BALANCE TRAINING ,FUNCTIONAL STRENGTHENING AND ACTIVITY MODIFICATION Subjective Subjective: This 79 y/o male presents to physical therapy with s/p cervicaL fusion.Patient underwent s/p C3-5 anterior cervical discectomy fusion on 05/30/24 at [facility] done by DR Madrid. Patient went to Rehab 4TH floor 1 month .Patient d/c to home with w/c and FWW . Patient was d/c to home on Aug 14 . Patient had had [facility] PT ~ 1 month. Patient recently seen JACKELINE Morales recommended PT and had x-rays looked good. Prior to surgery patient had MRI showed cervical stenosis .Initially after surgery patient went home and fell and return to hospital thus started Rehab due to weakness and pain. Patient had multiple imaging x-rays and MRI lumbar. Patient lives 1 story home raunch with 2 steps walk in shower with grab rail. Patient is able to bath and dress self . Patient sleeping good. Patient has paresthesia/tingling in hands. Patient denies KUMARI/dizziness /nausea. Due to recovering from cervical surgery weakness and gait . No prior PT or pain management . Patient condition affects QOL and function/mobility. Patient is driving. Patient goals get stronger. 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 Goal Time Frame: 6-8 Weeks Goal 3:: Patient to improve CTSIBE by 5-10 points to improve QOL and function. Goal Time Frame: 6-8 Weeks Goal 4:: Patient LFES score by 5-10 points to improve function and ADL'S Goal Time Frame: 6-8 Weeks Goal 5:: Patient to demonstrate 50% improvement with function and ADLS/gait Goal Time Frame: 6-8 Weeks Goal 6:: Patient to improve quality of gait with FWW to improve AD;S and community Goal Time Frame: 6-8 Weeks Rehabilitation Potential Physical Therapy Diagnosis: Patient underwent s/p underwent s/p C3-5 anterior cervical discectomy fusion on 05/30/24. Patient complexity issues with cervical fusion with MRI showed severe stenosis ,post surgery patient has weakness in extremities especially shoulders and hips ,decrease gait and balance thus benefit from skilled PT Rehabilitation Potential: Good Anticipated Interventions Patient/Client Instruction: Educate patient on: Condition and Plan of Care For the Purpose of:: To decrease pain, To increase ROM, To increase oxygenation perfusion, To improve ability to perform ADL's, To increase tolerance to activity/condition/position, To improve ability of physical actions for home/community/work/leisure, To improve gait and locomotor functions, To increase flexibility/ROM, To improve endurance, To improve balance, To assume or resume ADL's and To improve tolerance to ADL's Therapeutic Exercise to Include: Strength training, Endurance training, Balance training, Postural training, Flexibilty training, Gait and locomotor training and Active ROM Comment: BUE/LE QUADS/HAMS/HIP For the Purpose of:: To decrease pain, To increase ROM, To improve muscle performance and motor function, To improve ability to perform ADL's, To increase tolerance to activity/condition/position, To improve ability of physical actions for home/community/work/leisure, To improve gait and locomotor functions, To increase flexibility/ROM, To improve endurance, To improve balance, To assume or resume ADL's, To reduce risk of recurrence and To improve tolerance to ADL's Text: Thank you for the opportunity to evaluate your patient. For Medicare and Medicare HMO plans, please review the plan of care and approve it. It will need to be FAXED BACK to us at [phone] for Medicare purposes. For Medicare only, by signing this I certify the plan of care. Please let me know if there are questions or concerns regarding this plan of care. Physician Signature: Date:
--- NOTE | 2024-12-27 15:12 | HP.PTREVAL_ITS ---
Re-Evaluation Intro: JACKELINE Mckinney, It has been my pleasure to treat TUCKER BOWEN over the last 13 visits for ARTHRODESIS STATUS. Please see the progress note below for an update on the physical therapy plan of care! Subjective Subjective: Im overall better can walk with fww a 1/4 mile standing longer in kitchen to make food Patient would love to get on floor to play with dogs discussed with patient about maybe not realistic at this time Objective Objective/Function: *Patient to will benefit from skilled PT to improve gait and overall function goals continue appropriate and goals adjusted* POSTURE: mild forward posture ,head forward shoulders rounded GAIT: ambulates with fww slow fadumo forward trunk improved hip flexion NEURO: c/o parestehesia/tingling hands ,reflexes C5-6-7 1/3 ,L3-4,L4-5,L5-S1 1/3 PALAPTION: tender UT /levator AROM BUE: WFL except shoulder flexion 100 degrees due to weakness > pain right BUE MMT: ( peak force ) biceps 19.2, left 24.4 ,triceps 17.6 right .left 21. 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# ,right 50# Plan Plan Plan: *s/p C3-5 anterior cervical discectomy fusion on 05/30/24* PT INTERVENTIONS BUE/LE STRENGTHENING ,POSTURAL EX'S ,BALANCE TRAINING ,FUNCTIONAL STRENGTHENING AND ACTIVITY MODIFICATION Balance/Gait/Functional tests Balance/Special Test Scores CATSIB Score (Max score 120 seconds): 95 Lower Extremity Functional Score: 19 Goals Goals Goal 1:: Patient to be I with HEP for strengthening and balance Goal Time Frame: 6-8 Weeks Goal Progress: Progressing Goal 2:: Patient to improve strength quads/hams/hip and shoulders by 5-10 # peak force to improve gait.(new goal) Goal Time Frame: 6-8 Weeks Goal 3:: Patient to improve CTSIBE by 5-10 points to improve QOL and function.( new goal) Goal Time Frame: 6-8 Weeks Goal 4:: Patient LFES score by 5-10 points to improve function and ADL'S Goal Time Frame: 6-8 Weeks Goal Progress: Progressing Goal 5:: Patient to demonstrate 50% improvement with function and ADLS/gait Goal Time Frame: 6-8 Weeks Goal Progress: Progressing Goal 6:: Patient to improve quality of gait with FWW to improve ADLS and community Goal Time Frame: 6-8 Weeks Goal Progress: Progressing Anticipated Interventions Anticipated Interventions Patient/Client Instruction: Educate patient on: Condition and Plan of Care For the Purpose of:: To decrease pain, To increase ROM, To increase oxygenation perfusion, To improve ability to perform ADL's, To increase tolerance to activity/condition/position, To improve ability of physical actions for home/community/work/leisure, To improve gait and locomotor functions, To increase flexibility/ROM, To improve endurance, To improve balance, To assume or resume ADL's and To improve tolerance to ADL's Therapeutic Exercise to Include: Strength training, Endurance training, Balance training, Postural training, Flexibilty training, Gait and locomotor training and Active ROM Comment: BUE/LE QUADS/HAMS/HIP For the Purpose of:: To decrease pain, To increase ROM, To improve muscle performance and motor function, To improve ability to perform ADL's, To increase tolerance to activity/condition/position, To improve ability of physical actions for home/community/work/leisure, To improve gait and locomotor functions, To increase flexibility/ROM, To improve endurance, To improve balance, To assume or resume ADL's, To reduce risk of recurrence and To improve tolerance to ADL's Re-Evaluation Ending Re-evaluation ending: Please do not hesitate to contact me at [phone] by phone or if you have questions or concerns regarding this new plan of care! Sincerely, Buzz Roberts, PT, Cert MDT, OCS
--- NOTE | 2025-02-15 08:38 | HP.PTDCSUM ---
Discharge Summary D/C summary: It has been my pleasure to treat TUCKER BOWEN referred by JACKELINE Mckinney, with the diagnosis of ARTHRODESIS STATUS for a total of 13 visit(s). Discharge Date: Please see the following information for a summary of their discharge status. Subjective Subjective: Im overall better can walk with fww a 1/4 mile standing longer in kitchen to make food Patient would love to get on floor to play with dogs discussed with patient about maybe not realistic at this time Pain Bilateral Shoulder: Pain Intensity (Out of 10): 4 Bilateral Neck: Pain Intensity (Out of 10): 0 Bilateral Back: Pain Intensity (Out of 10): 4 Overall Improvement % Improvement: 40 Objective Objective/Function: *Patient to will benefit from skilled PT to improve gait and overall function goals continue appropriate and goals adjusted* POSTURE: mild forward posture ,head forward shoulders rounded GAIT: ambulates with fww slow fadumo forward trunk improved hip flexion NEURO: c/o parestehesia/tingling hands ,reflexes C5-6-7 1/ ,L3-4,L4-5,L5-S1 1/3 PALAPTION: tender UT /levator AROM BUE: WFL except shoulder flexion 100 degrees due to weakness > pain right BUE MMT: ( peak force ) biceps 19.2, left 24.4 ,triceps 17.6 right .left 21.7shoulders 0/5 CERVICAL ROM: flexion min loss ,extension mod/severe , .lateral flexion mod/lateral ,rotation mod loss BLE MMT: ( peak force) hip flexion right 20.2 ,22.9 ,quads right 34.7 ,left 38..8 ,hamstrings left 31..8 ,right 25.8 ,DF 4/5 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# ,right 50# Goals Goal 1:: Patient to be I with HEP for strengthening and balance Goal Progress: Progressing Goal 2:: Patient to improve strength quads/hams/hip and shoulders by 5-10 # peak force to improve gait.(new goal) Goal 3:: Patient to improve CTSIBE by 5-10 points to improve QOL and function.( new goal) Goal 4:: Patient LFES score by 5-10 points to improve function and ADL'S Goal Progress: Progressing Goal 5:: Patient to demonstrate 50% improvement with function and ADLS/gait Goal Progress: Progressing Goal 6:: Patient to improve quality of gait with FWW to improve ADLS and community Goal Progress: Progressing Plan Plan: *s/p C3-5 anterior cervical discectomy fusion on 05/30/24* PT INTERVENTIONS BUE/LE STRENGTHENING ,POSTURAL EX'S ,BALANCE TRAINING ,FUNCTIONAL STRENGTHENING AND ACTIVITY MODIFICATION D/C Information d/c sentence: If there are questions or concerns regarding this patient's physical therapy, please feel free to call me at [phone]. Thank you for the referral of this patient. Sincerely, Buzz Roberts, PT, Cert MDT, OCS Balance/Gait/Functional tests Balance/Special Test Scores CATSIB Score (Max score 120 seconds): 95 Lower Extremity Functional Score: 19 Improvement % Improvement: 40
== END 2024-12-27 19:00 | disposition home or self-care (01) ==
LOC: PT 14:00
PROVIDERS: PCP Family Medicine; Referring Provider Student in an Organized Health Care Education/Training Program; Visit Provider Student in an Organized Health Care Education/Training Program
DX: G56.03 Carpal tunnel syndrome, bilateral upper limbs (principal); Z98.1 Arthrodesis status
CPT/HCPCS: 97110; 97162; 97530

== ENCOUNTER → 2025-05-02 | Outpatient (CLI) | payer MEDICARE, SELFPAY ==
[2025-05-02 14:42] LABS: Hematocrit 43.5 % (40-54); Hemoglobin 14.1 g/dL (13.0-16.5); Immature Granulocytes Count 0.290 X10^3/uL (0.0-0.0); Mean Corp Hgb Conc 32.4 g/dL (32-36); Mean Corpuscular Volume 95.2 fL (80-94); Mean Platelet Vol. 12.7 fl (6.2-12.0); NRBC Flagged by Analyzer 0 % (0-5); Platelet Count 179 K/mm3 (150-450); RBC Distribution Width CV 14.3 % (11.6-14.6); RBC Distribution Width SD 49.9 fl (35.1-43.9); Red Blood Count 4.57 M/mm3 (4.6-6.2); White Blood Count 9.0 K/mm3 (4.4-11.0)
[2025-05-02 15:11] LABS: Anion Gap 9 (5-15); BUN 19 mg/dL (4-19); BUN/Creat Ratio 26.1 RATIO (10-20); Calcium,Total 10.1 mg/dL (7.6-11.0); Carbon Dioxide 24.8 mmol/L (21.0-32.0); Chloride 106 mmol/L (98-108); Glucose 89 mg/dL (70-99); Magnesium 2.1 mg/dL (1.5-2.2); Potassium 4.4 mmol/L (3.3-5.1); Pro- Brain NATRIURETIC PEPTIDE 1408 pg/mL (<=1800)
== END | disposition home or self-care (01) ==
LOC: LAB 14:04
PROVIDERS: PCP Family Medicine; Referring Provider Nurse Practitioner Gerontology; Visit Provider Nurse Practitioner Gerontology
DX: I48.91 Unspecified atrial fibrillation (principal); R06.02 Shortness of breath
CPT/HCPCS: 36415; 80048; 83735; 83880; 84443; 85025

== ENCOUNTER → 2025-06-02 | Outpatient (CLI) | payer MEDICARE, SELFPAY ==
--- NOTE | 2025-06-02 10:53 | ECHOCS_ITS ---
Reason For Study Reason For Study: ATRIAL FIBRILLATION Procedure This was a 2D Doppler, Color Flow transthoracic echocardiogram. The study was technically difficult. Contrast injection was performed. Exam performed in department. Left Ventricle Normal LV size. Mild concentric left ventricular hypertrophy. The left ventricular ejection fraction is 45 %. No regional wall motion abnormalities noted. Right Ventricle Normal RV size. Normal systolic function. Atria Normal left atrium. Normal right atrium. Mitral Valve Normal mitral valve. Tricuspid Valve Normal tricuspid valve. Mild (1+) tricuspid valve insufficiency. Aortic Valve Moderate focal aortic valve calcification. Peak aortic valve gradient 15 mmHg. Mean aortic valve gradient 9 mmHg. Mild aortic stenosis. Mild (1+) aortic valve insufficiency. Pulmonic Valve Normal pulmonic valve. Great Vessels Mildly dilated aortic root. The pulmonary artery is normal size. Inferior vena cava collapse with respiration. Pericardium/Pleural No pericardial effusion. Medication 22 gauge I.V. with prn adaptor inserted into right arm. Diluted definity 1.5ml given slow IV push to enhance endocardial definition. MMode/2D Measurements & Calculations LVIDd: 4.5 cm IVSd: 1.2 cm LVOT diam: 2.3 cm LVIDs: 3.5 cm LVPWd: 1.2 cm RVDd: 4.0 cm FS: 22.6 % LVOT area: 4.0 cm2 Ao root diam: 4.8 cm LAV(MOD-bp): 94.8 ml LVAd ap4: 35.0 cm2 LAV(MOD-bp) Indexed: 42.9 ml/m2 LVLd ap4: 8.6 cm LAV(MOD-sp2): 90.6 ml EDV(MOD-sp4): 114.5 ml LAV(MOD-sp4): 90.2 ml EDV(sp4-el): 120.7 ml LVAs ap4: 26.5 cm2 LVLs ap4: 8.3 cm ESV(MOD-sp4): 68.8 ml ESV(sp4-el): 71.2 ml EF(MOD-sp4): 39.9 % EF(sp4-el): 41.0 % LVAd ap2: 38.6 cm2 SV(MOD-sp4): 45.7 ml SV(MOD-sp2): 61.0 ml LVLd ap2: 9.3 cm SI(MOD-sp4): 20.7 ml/m2 SI(MOD-sp2): 27.6 ml/m2 EDV(MOD-sp2): 131.9 ml EDV(sp2-el): 136.5 ml LVAs ap2: 26.7 cm2 LVLs ap2: 8.4 cm ESV(MOD-sp2): 70.9 ml ESV(sp2-el): 71.8 ml EF(MOD-sp2): 46.3 % SV(sp4-el): 49.5 ml Ao sinus diam: 4.4 cm LA A4 area: 26.7 cm2 LA dimension(2D): 3.9 cm RA A4 area: 20.2 cm2 TAPSE: 1.8 cm Time Measurements MV dec time: 0.17 sec Doppler Measurements & Calculations MV E max yuki: 106.6 cm/sec Ao V2 max: 195.9 cm/sec LV V1 max: 88.3 cm/sec Ao max P.5 mmHg LV V1 max P.1 mmHg Ao V2 mean: 136.2 cm/sec LV V1 mean P.1 mmHg Ao mean P.5 mmHg LV V1 mean: 70.8 cm/sec Ao V2 VTI: 35.9 cm LV V1 VTI: 15.9 cm AV (velocity ratio): 0.44 DEENA(I,D): 1.8 cm2 DEENA(V,D): 1.8 cm2 SV(LVOT): 63.9 ml PA V2 max: 75.5 cm/sec TR max yuki: 223.8 cm/sec TR max P.0 mmHg ECHO/Echo Complete W/ Contrast Interpretation Summary Normal LV size. Mild concentric left ventricular hypertrophy. The left ventricular ejection fraction is 45 %. Moderate focal aortic valve calcification. Mean aortic valve gradient 9 mmHg. Mild aortic stenosis. Mildly dilated aortic root. Ordering Physician: Paola Leary Referring Physician: Joe Trotter Performed By: Ratna Acosta RDCS
== END | disposition home or self-care (01) ==
PROVIDERS: PCP Family Medicine; Referring Provider Nurse Practitioner Gerontology; Visit Provider Nurse Practitioner Gerontology
DX: R06.02 Shortness of breath (principal); I48.92 Unspecified atrial flutter
CPT/HCPCS: 93225; 93226; 93306; Q9957; A4216; C8929

== ENCOUNTER → 2025-06-13 | Outpatient (CLI) | payer MEDICARE, SELFPAY ==
--- NOTE | 2025-06-13 16:03 | RAD_ITS ---
PROCEDURE: CHEST PA AND LATERAL 06/13/2025 REASON FOR EXAM: CARDIOVERSION TECHNIQUE: Procedure Code: RADCXR Modality: DX Procedure: CHEST PA AND LATERAL COMPARISON: Chest x-ray dated 08/16/2020 FINDINGS: Hardware: Radiopaque hardware is projected over the lower cervical spine. It appears to be intact and in satisfactory position without evidence of fracture or loosening. Please note that the entire hardware is not included on the films. Heart: Heart size and configuration are within normal limits. Arteriosclerotic vascular disease of the aorta is noted. Pulmonary vasculature is unremarkable. Mediastinum: Mediastinum is unremarkable. Lungs: There appears to be mild atelectasis of the lung bases bilaterally. There are no pneumothoraces, pleural effusions, pneumonic infiltrates or consolidative processes. There is elevation of the left hemidiaphragm which is a stable finding. This may be due to phrenic nerve paralysis or eventration. There are loops of bowel under both hemidiaphragms. Bones: Bony demineralization of the thorax is noted. RAD/Chest PA and Lateral IMPRESSION: There appears to be mild atelectasis of the lung bases bilaterally. There is elevation of the left hemidiaphragm which is a stable finding. This m ay be due to phrenic nerve paralysis or eventration. There are loops of bowel under both hemidiaphragms. Reading Location: [id number]
[2025-06-13 17:05] LABS: Hematocrit 42.5 % (40-54); Hemoglobin 13.9 g/dL (13.0-16.5); Immature Granulocytes Count 0.290 X10^3/uL (0.0-0.0); Mean Corp Hgb Conc 32.7 g/dL (32-36); Mean Corpuscular Volume 95.9 fL (80-94); Mean Platelet Vol. 13.0 fl (6.2-12.0); NRBC Flagged by Analyzer 0 % (0-5); Platelet Count 168 K/mm3 (150-450); RBC Distribution Width CV 13.6 % (11.6-14.6); RBC Distribution Width SD 48.3 fl (35.1-43.9); Red Blood Count 4.43 M/mm3 (4.6-6.2); White Blood Count 8.8 K/mm3 (4.4-11.0)
[2025-06-13 17:34] LABS: Anion Gap 11 (5-15); BUN 15 mg/dL (4-19); BUN/Creat Ratio 19.1 RATIO (10-20); Calcium,Total 10.4 mg/dL (7.6-11.0); Carbon Dioxide 25.2 mmol/L (21.0-32.0); Chloride 105 mmol/L (98-108); Glucose 84 mg/dL (70-99); Potassium 4.5 mmol/L (3.3-5.1)
== END | disposition home or self-care (01) ==
LOC: RAD 15:55
PROVIDERS: PCP Family Medicine; Referring Provider Nurse Practitioner Gerontology; Visit Provider Nurse Practitioner Gerontology
DX: I48.0 Paroxysmal atrial fibrillation (principal)
CPT/HCPCS: 36415; 71046; 80048; 85025